=== PATIENT | female | born 1930 | race Caucasian/White ===

== ENCOUNTER 2019-07-21 13:56 | Inpatient (IN) | payer OTHER, BC ==
--- NOTE | 2019-07-21 15:04 | PDOC ---
Attending Attestation - Resident Resident Name: Pritesh Morleyelle - ED Attending Attestation I have performed the following: I have examined & evaluated the patient, The case was reviewed & discussed with the resident, I agree w/resident's findings & plan, Exceptions are as noted - HPI HPI: 07/21/19 15:57 88yo female with hx of afib on metoprolol and eliquis presents for eval of generalized weakness. Pt states she was on the toilet and was unable to get up off the toilet and get to her walker. Pt states she sat on the toilet for 4 hours before a neighbor came down and found her. Pt with bruising to posterior elbows b/l. Denies falls. Pt with bruising to buttock region- poss from sitting on the toilet. Pt denies f/c. Pt arrives in afib w rvr. Pt states she follows with Dr. Johanna roach but has not seen her in over 2 years. Pt denies n/v/d. C/o dysuria. Also c/o constipation. - Physicial Exam PE: 07/21/19 16:08 Gen: aaox3, pale, generally weak heart: +s1s2 irreg irreg lungs: coarse bs at the bases abd: soft, nt/nd +bs ext: ecchymosis to posterior elbows and buttock neuro: no focal findings, cn ii-xii grossly intact - Critical Care Time Total Critical Care Time: 35 Critical Care Statement: The care of this patient involved high complexity decision making to prevent further life threatening deterioration of the patient 's condition and/or to evaluate & treat vital organ system(s) failure or risk of failure. - Medical Decision Making 07/21/19 16:10 a/p: 88yo female with afib w rvr with generalized weakness and dysuria -unclear if she has fallen recently -will send labs, ua, ucx, blood cultures, tsh, rate control -will give lopressor iv -will discuss with cards -pt will need admission 07/21/19 16:10 HR 88 after lopressor case discussed with Dr. Herrera who is at the bedside 07/21/19 16:11 ua neg bnp 4000 07/21/19 16:47 trop neg 07/21/19 18:01 cxr clear other than cardiomegaly head ct neg abd - fecal impaction, will order enema 07/21/19 18:[address] Lindsey 07/21/19 18:34 resident discussed the case with Dr. Lindsey who accepts pt to service Heart Score/ECG Review - ECG Intrepretation Comment:: 07/21/19 16:11 afib at 109, nl axis, interventricular conduction delay, t wave inversions lateral leads, abnl ekg
[2019-07-21] MEDS ORDERED: METOPROLOL TARTRATE 5 MG/5 ML VIAL IVPUSH ONE (15:05)
--- NOTE | 2019-07-21 15:05 | PDOC ---
History of Present Illness - General Chief Complaint: Weakness Stated Complaint: Weakness Time Seen by Provider: 07/21/19 14:20 History Source: Patient, Friend - History of Present Illness Initial Comments: 07/21/19 15:07 88 yo F PMH of L Breast Ca, HTN, Afib ( on Eliquis) presents to the ED for weakness. Pt states she went to the bathroom this morning and was unable to get up from the toilet since her walker was too far away. Pt denies falling. Pt denies CP,headache, dizziness, n/v. pt states she has been constipated but did not want to take anything since she didnt want to worry about getting up to use the restroom. The pts neighbor was at bedside and stated that pt is acting unusual and unlike herself. pt also endorsed dysuria. denies fevers/chills. Past History - Past Medical History Allergies/Adverse Reactions: Allergies Allergy/AdvReac Type Severity Reaction Status Date / Time No Known Allergies Allergy Verified 07/21/19 14:31 Home Medications: Ambulatory Orders Apixaban [Eliquis] 2.5 mg PO BID 07/21/19 Diltiazem HCl [Diltiazem ER] 240 mg PO DAILY 07/21/19 Furosemide 40 mg PO DAILY 07/21/19 Metoprolol Succinate 25 mg PO DAILY 07/21/19 Pantoprazole Sodium 40 mg PO DAILY 07/21/19 Potassium Chloride 10 meq PO DAILY 07/21/19 Cancer: Yes (Left Breast) Cardiac Disorders: Yes (A-fib) COPD: No GI Disorders: Yes (GERD) HTN: Yes - Immunization History Immunization Up to Date: No - Psycho Social/Smoking Cessation Hx Smoking History: Never smoked Have you smoked in the past 12 months: No Information on smoking cessation initiated: No Hx Alcohol Use: No Drug/Substance Use Hx: No Review of Systems - Review of Systems Able to Perform ROS?: Yes Constitutional: Yes: Weakness. No: Chills, Fever HEENTM: No: Blurred Vision, Recent change in vision Respiratory: No: Shortness of Breath Cardiac (ROS): Yes: Irregular Heart Rate, Palpitations (pt states she thinks its anxiety ). No: Edema, Lightheadedness ABD/GI: Yes: Abdominal Distended, Constipated. No: Blood Streaked Bowels, Nausea, Vomiting, Tarry Stools : Yes: Dysuria, Urgency Neurological: Yes: Unsteady Gait. No: Headache Psychiatric: Yes: Anxiety *Physical Exam - Vital Signs Last Vital Signs Temp Pulse Resp BP Pulse Ox 97.8 F 123 H 18 138/68 99 07/21/19 14:24 07/21/19 14:24 07/21/19 14:24 07/21/19 14:24 07/21/19 14:24 - Physical Exam General Appearance: Yes: Appropriately Dressed. No: Apparent Distress HEENT: positive: EOMI, Normal Voice Neck: positive: Supple. negative: Decreased range of motion, Rigidity Respiratory/Chest: positive: Decreased Breath Sounds (at bases ), Crackles (R base ). negative: Respiratory Distress, Accessory Muscle Use Cardiovascular: positive: JVD, Tachycardia, Irregularly Irregular Gastrointestinal/Abdominal: positive: Normal Bowel Sounds, Soft, Distended ( midly distended ), Hepatomegaly. negative: Tender, Tenderness Rectal Exam: positive: other (much stool in vault, good sphincter tone, no external hemorrhoids visualized, no internal hemorrhoids felt, no active bleeding noted, no blood on tip of glove). negative: hemorrhoids Extremity: negative: Swelling Integumentary: positive: Erythema (buttox), Bruising (b/l elbows) Neurologic: positive: Alert, Confused, Disoriented (oriented to self ). negative: Facial Droop ED Treatment Course - LABORATORY CBC & Chemistry Diagram: 07/22/19 05:47 07/23/19 06:00 - RADIOLOGY Radiology Studies Ordered: Category Date Time Status CHEST X-RAY PORTABLE* [RAD] Stat Radiology 07/21/19 14:33 Ordered Medical Decision Making - Medical Decision Making 07/21/19 15:15 88 yo F presented to the ED with weakness and rapid Afib -r/o HF -Acute toxic metabolic encephalopathy -EKG-rapid Afib -CBC, CMP -cardiac profile, Mg, Phos, CXR -UA, UCx, BCx -CT head and Cspine- pt is altered and presents with multiple bruises -Abdomin XR- pt has large stool burden on rectal, mildly distended -TSH 07/21/19 15:19 07/21/19 18:06 -CT head: no acute intracranial pathology -Abdominal XR: -will order fleet enema 07/21/19 18:25 - elevated BNP -trop neg -CXR reviewed, awaiting final read -admit to tele Discharge - Discharge Information Problems reviewed: Yes Clinical Impression/Diagnosis: Atrial fibrillation Qualifiers: Atrial fibrillation type: unspecified Qualified Code(s): I48.91 - Unspecified atrial fibrillation - Admission Yes - Follow up/Referral - Patient Discharge Instructions - Post Discharge Activity
[2019-07-21] MEDS ORDERED: METOPROLOL TARTRATE 5 MG/5 ML VIAL ONE (15:45)
[2019-07-21 15:46] LABS: BASO % 0.2 % (0-2.0); EOS % 0.1 % (0-4.5); HEMOGLOBIN 13.4 GM/dL (10.7-15.3); LYMPH % 3.8 % (8-40); MCH 29.7 pg (25.7-33.7); MCHC 32.8 g/dl (32.0-36.0); MEAN CELL VOLUME 90.5 fl (80-96); MEAN PLT VOLUME 8.8 fl (7.5-11.1); MONO % 8.1 % (3.8-10.2); NEUT % 87.8 % (42.8-82.8); PLATELET COUNT 149 K/MM3 (134-434); RBC 4.53 M/mm3 (3.60-5.2); WHITE BLOOD COUNT 9.5 K/mm3 (4.0-10.0)
[2019-07-21 15:47] LABS: URINE APPEARANCE CLEAR; URINE BILIRUBIN NEGATIVE (NEGATIVE); URINE COLOR YELLOW; URINE GLUCOSE (UA) NEGATIVE (NEGATIVE); URINE KETONE NEGATIVE (NEGATIVE); URINE LEUK ESTERASE NEGATIVE (NEGATIVE); URINE NITRITE NEGATIVE (NEGATIVE); URINE PROTEIN NEGATIVE (NEGATIVE); URINE UROBILINOGEN 0.2 mg/dL (0.2-1.0)
[2019-07-21 15:54] LABS: N-TERMINAL BNP 4368.5 pg/ml (5-450)
[2019-07-21 15:56] LABS: INR 1.68 (0.83-1.09); PROTHROMBIN TIME (PATIENT) 19.9 SEC (9.7-13.0)
[2019-07-21 15:58] LABS: ACTIVATED PTT 32.4 SECONDS (25.2-36.5)
[2019-07-21 16:30] LABS: ALBUMIN 3.3 g/dl (3.4-5.0); ALK PHOS 66 U/L (45-117); ANION GAP 11 MMOL/L (8-16); BILIRUBIN,TOTAL 0.9 mg/dL (0.2-1); BLOOD UREA NITROGEN 17.9 mg/dL (7-18); CALCIUM 7.7 mg/dL (8.5-10.1); CHLORIDE 106 mmol/L (98-107); CO2 23 mmol/L (21-32); CREATININE 0.9 mg/dL (0.55-1.3); GLUCOSE,RANDOM 110 mg/dL (74-106); POTASSIUM 3.8 mmol/L (3.5-5.1); SGOT/AST 32 U/L (15-37); SGPT/ALT 22 U/L (13-61); SODIUM 140 mmol/L (136-145); TOT PROT 6.4 g/dl (6.4-8.2)
--- NOTE | 2019-07-21 16:38 | CON.CARD ---
Consult Consult Specialty:: Cardiology Referred by:: ER Reason for Consultation:: afib - History of Present Illness Chief Complaint: weakness History of Present Illness: 88F h/o L breast cancer, HTN, afib on eliquis p/w weakness. Went to the bathroom this morning, unable to get up from the toilet, walker was too far away. Her neighbor found her hours later and brought her to ER. No chest pain , palps, dizziness, dyspnea. Per patient's neighbor she is generally independent, cooks for herself and takes care of her home. Complains of abd pain, dysuria. Initially in ER she had afib with RVR. Sees Dr. Rivas at [facility] for cardio, PCP Dr. Severino. - Alcohol/Substance Use Hx Alcohol Use: No - Smoking History Smoking history: Never smoked Have you smoked in the past 12 months: No Home Medications - Allergies Allergies/Adverse Reactions: Allergies Allergy/AdvReac Type Severity Reaction Status Date / Time No Known Allergies Allergy Verified 07/21/19 14:31 - Home Medications Home Medications: Ambulatory Orders NK [No Known Home Medication] 06/18/16 Family Medical History Family History: Unremarkable Review of Systems - Review of Systems Constitutional: reports: Malaise Eyes: reports: No Symptoms HENT: reports: No Symptoms Neck: reports: No Symptoms Cardiovascular: reports: No Symptoms Respiratory: reports: No Symptoms Gastrointestinal: reports: No Symptoms Genitourinary: reports: No Symptoms Musculoskeletal: reports: No Symptoms Integumentary: reports: No Symptoms Neurological: reports: No Symptoms Endocrine: reports: No Symptoms Hematology/Lymphatic: reports: No Symptoms Psychiatric: reports: No Symptoms Vital Signs: Vital Signs Temperature 97.8 F 07/21/19 14:24 Pulse Rate 123 H 07/21/19 14:24 Respiratory Rate 18 07/21/19 14:24 Blood Pressure 123/61 07/21/19 15:57 O2 Sat by Pulse Oximetry (%) 99 07/21/19 14:24 Constitutional: Yes: No Distress, Calm Eyes: Yes: Conjunctiva Clear, EOM Intact HENT: Yes: Atraumatic, Normocephalic Neck: Yes: Supple, Trachea Midline Respiratory: Yes: Regular, CTA Bilaterally Gastrointestinal: Yes: Normal Bowel Sounds, Soft Cardiovascular: Yes: Tachycardia, Pulse Irregular PMI: Non-Displaced Murmur: Yes: Systolic Murmur, Grade 3 Extremities: No: Cold Edema: No Integumentary: No: Jaundice Neurological: Yes: Alert, Oriented Psychiatric: No: Agitated - Other Data Labs, Other Data: CBC, BMP 07/21/19 15:00 07/21/19 14:41 INR, PTT INR 1.68 (0.83-1.09) H 07/21/19 15:00 Troponin, BNP 07/21/19 14:41 Troponin I < 0.02 B-Natriuretic Peptide 4368.5 H Troponin, BNP 07/21/19 14:41 Troponin I < 0.02 B-Natriuretic Peptide 4368.5 H Assessment/Plan tele: afib rate 100s-110s Atrial fibrillation - cont eliquis - on metoprolol twice a day at home - not sure of dose, would confirm home meds - will start metoprolol succinate 25 mg BID here, uptitrate as tolerated - echo ordered - TSH wnl elevated BNP - per patient and neighbor no history of CHF - euvolemic on exam, however BNP elevated - on lasix at home - need to confirm dose, per patient's friend she has a history of edema which improved with lasix - echo pending as above HTN - has low BP here - hold home meds for now Weakness, dysuria, abd pain - workup per primary
[2019-07-21] MEDS: metoPROLOL SUCCINATE 25 MG TAB.SR.24H (FP) PO SCH (17:58)
[2019-07-21] MEDS ORDERED: SODIUM PHOSPHATE/NA BIPHOS 133 ML ENEMA PR ONE (18:01)
--- NOTE | 2019-07-21 18:55 | HP ---
Admitting History and Physical - Primary Care Physician PCP: Robert Lindsey - Admission Chief Complaint: Weakness History of Present Illness: Pt with known HTN, A fib (on AC) in her USOH, lives alone, using a walker for ambulation, couldn't get up of toilet for hours ( couldn't reach the walker) today until was found by her neighbour who brought her to ER. In ER it was noticed to by in A Fib with RVR, recieved IV Metoprolol with improvement in HR. History Source: Patient Limitations to Obtaining History: No Limitations - Past Medical History Cardiovascular: Yes: AFIB (on Eliquis), HTN Heme/Onc: Yes: Cancer (left breast) - Smoking History Smoking history: Never smoked Have you smoked in the past 12 months: No - Alcohol/Substance Use Hx Alcohol Use: No Home Medications - Allergies Allergies/Adverse Reactions: Allergies Allergy/AdvReac Type Severity Reaction Status Date / Time No Known Allergies Allergy Verified 07/21/19 14:31 - Home Medications Home Medications: Ambulatory Orders Apixaban [Eliquis] 2.5 mg PO BID 07/21/19 Diltiazem HCl [Diltiazem ER] 240 mg PO DAILY 07/21/19 Furosemide 40 mg PO DAILY 07/21/19 Metoprolol Succinate 25 mg PO DAILY 07/21/19 Pantoprazole Sodium 40 mg PO DAILY 07/21/19 Potassium Chloride 10 meq PO DAILY 07/21/19 Review of Systems - Review of Systems Constitutional: denies: Chills, Fever Eyes: reports: Double Vision. denies: Blurred Vision HENT: denies: Ear Discharge, Nasal Congestion, Throat Pain Neck: denies: Pain on Movement, Stiffness Cardiovascular: denies: Chest Pain, Edema Respiratory: denies: Cough, SOB Gastrointestinal: denies: Abdominal Pain, Nausea, Vomiting Genitourinary: denies: Burning, Frequency Musculoskeletal: denies: Back Pain, Joint Swelling Integumentary: denies: Bruising, Rash Neurological: denies: Change in LOC, Confusion, Numbness, Syncope Endocrine: denies: Excessive Sweating, Intolerance to Cold Hematology/Lymphatic: denies: Easily Bruised, Excessive Bleeding Psychiatric: denies: Anxiety, Depression Physical Examination Vital Signs: Vital Signs Temperature 97.8 F 07/21/19 14:24 Pulse Rate 99 H 07/21/19 17:57 Respiratory Rate 23 H 07/21/19 17:57 Blood Pressure 122/55 L 07/21/19 17:57 O2 Sat by Pulse Oximetry (%) 99 07/21/19 17:57 Constitutional: Yes: No Distress, Calm Eyes: Yes: Conjunctiva Clear, EOM Intact HENT: No: Epistaxis, Rhinnorhea Neck: Yes: Trachea Midline. No: Lymphadenopathy Cardiovascular: Yes: Pulse Irregular, S1, S2 Respiratory: Yes: Regular, CTA Bilaterally. No: Rales Gastrointestinal: Yes: Normal Bowel Sounds, Soft, Hepatomegaly. No: Splenomegaly, Tenderness ...Rectal Exam: Yes: Deferred Renal/: No: CVA Tenderness - Left, CVA Tenderness - Right Breast(s): Yes: Other (deferred) Musculoskeletal: No: Back Pain, Joint Swelling Extremities: No: Cool, Cyanosis Edema: No Integumentary: Yes: Bruising (large bruise of the left elbow) Neurological: Yes: Alert, Oriented, Other (motor and sensory examination is symmetric in UE/ LE/ face) Labs: CBC, BMP 07/21/19 15:00 07/21/19 14:41 Imaging - Results Chest X-ray: Report Reviewed X-ray: Report Reviewed Cat Scan: Report Reviewed Problem List - Problems (1) Atrial fibrillation with rapid ventricular response Code(s): I48.91 - UNSPECIFIED ATRIAL FIBRILLATION (2) Weakness Code(s): R53.1 - WEAKNESS (3) HTN (hypertension) Code(s): I10 - ESSENTIAL (PRIMARY) HYPERTENSION (4) Elevated brain natriuretic peptide (BNP) level Code(s): R79.89 - OTHER SPECIFIED ABNORMAL FINDINGS OF BLOOD CHEMISTRY Assessment/Plan Admit to Telemetry Cardio Consult Serial CE ECHO AM labs
[2019-07-22] MEDS: metoPROLOL SUCCINATE 25 MG TAB.SR.24H (FP) PO SCH ×3 (00:27→21:20)
[2019-07-22] MEDS: APIXABAN 2.5 MG TABLET PO SCH ×3 (00:27→21:20)
[2019-07-22 06:05] LABS: HEMATOCRIT 39.3 % (32.4-45.2); HEMOGLOBIN 13.3 GM/dL (10.7-15.3); MCH 30.4 pg (25.7-33.7); MCHC 33.9 g/dl (32.0-36.0); MEAN CELL VOLUME 89.7 fl (80-96); MEAN PLT VOLUME 8.3 fl (7.5-11.1); PLATELET COUNT 162 K/MM3 (134-434); RBC 4.38 M/mm3 (3.60-5.2); RDW 15.2 % (11.6-15.6); WHITE BLOOD COUNT 8.1 K/mm3 (4.0-10.0)
[2019-07-22 06:20] LABS: ALBUMIN 3.1 g/dl (3.4-5.0); BILIRUBIN,TOTAL 0.8 mg/dL (0.2-1); BLOOD UREA NITROGEN 19.3 mg/dL (7-18); CALCIUM 8.1 mg/dL (8.5-10.1); CREATININE 0.8 mg/dL (0.55-1.3); POTASSIUM 3.5 mmol/L (3.5-5.1)
--- NOTE | 2019-07-22 09:38 | CON.CARD ---
Consult Consult Specialty:: Cardiology Referred by:: Dr. Lindsey Reason for Consultation:: Atrial fibrillation - History of Present Illness Chief Complaint: Weakness History of Present Illness: 88F HTN/AF could not rise from the toilet due to weakness. No CP, SOB, Palps. Friend called EMS and brought to hospital. In ER, AF w/ mild RVR. Cardiac enzymes neg Seen and examined in Cardiology: denies CP. Denies SOB. Denies Palps. No focal neuro findings - History Source History Provided By: Patient, Medical Record - Past Medical History Cardio/Vascular: Yes: AFIB (on Eliquis), HTN Pulmonary: No: Asthma, Bronchitis, Cancer, COPD, O2 Dependent, Pneumonia, Previously Intubated, Pulmonary Embolus, Pulmonary Fibrosis, Sleep Apnea, Other Gastrointestinal: No: Ascites, Cancer, Constipation, Crohn's Disease, Diverticulitis, Diverticulosis, Esophageal Varices, Gastritis, GERD, GI Bleed, Hemorrhoids, Hiatal Hernia, Inflamatory Bowel Disease, Irritable Bowel Disease, Pancreatitis, Peptic Ulcer Disease, Ulcerative Colitis, Other Hepatobiliary: No: Cirrhosis, Cholelithiasis, Cholecystitis, Choledocholithiasis , Hepatitis A, Hepatitis B, Hepatitis C, Other Renal/: No: Renal Failure, Renal Inusuff, BPH, Cancer, Hematuria, Hemodialysis , Neurogenic Bladder, Renal Calculi, UTI, Other Reproductive: No: Ectopic , Endometriosis, Fibroids, PID, Polycystic Ovary Syndrome, Postmenopausal, Other Heme/Onc: No: Anemia, B12 Deficiency, Bleeding Disorder, Cancer, Current Chemotherapy, Current Radiation Therapy, Hemochromatosis, Hypercoaguable State, Myeloproliferative Synd, Sickle Cell Disease, Sickle Cell Trait, Thrombocytopenia, Other Infectious Disease: No: AIDS, C-Diff, Herpes Zoster, HIV, MRSA, STD's, Tuberculosis, VREF, Other Psych: No: Addictions, Anxiety, Bipolar, Depression, Panic, Psychosis, Schizophrenia, Other Musculoskeletal: No: Bursitis, Chronic low back pain, Hemiparesis, Hemiplegia, Osteoarthritis, Paraplegia, Other Rheumatology: No: Fibromyalgia, Gout, Lupus, Rheumatoid Arthritis, Sarcoidosis, Vasculitis, Other ENT: No: Allergic Rhinitis, Sinusitis, Other Endocrine: No: Island's Disease, [place]'s Disease, Diabetes Insipidus, Diabetes Mellitus, Hyperparathyroidism, Hyperthyroidism, Hypothyroidism, Osteopenia, SIADH, Other - Past Surgical History Past Surgical History: No: None, AAA Repair, AICD, Amputation, Appendectomy, Arthrosocopy, AV Fistula/Graft, Bariatric Surgery, Breast Biopsy, Bypass, CABG, Carotid Endarterectomy, Cataract Removal, Cholecystectomy, Colectomy, Colonoscopy, Colostomy, Craniotomy, , Cystectomy, Hernia Repair, Hysterectomy, Ileal Conduit, Ileosotomy, Joint Replacement, Kidney Transplant, Laminectomy, Liver Transplant, Mastectomy, Nephrectomy, Oopherectomy, Orchiectomy, Permanent Pacemaker, Prostatectomy, Splenectomy, Stent, Thoracotomy , TURP, Tonsillectomy, Tubal Ligation, Upper Endoscopy, Valve Replacement, Vasectomy, Vein Stripping/Ligation - Alcohol/Substance Use Hx Alcohol Use: No History of Substance Use: denies: None, Cocaine, Heroin, Marijuana, Prescription , Tranquilizers - Smoking History Smoking history: Never smoked Have you smoked in the past 12 months: No - Social History History of Recent Travel: No Home Medications - Allergies Allergies/Adverse Reactions: Allergies Allergy/AdvReac Type Severity Reaction Status Date / Time No Known Allergies Allergy Verified 07/21/19 14:31 - Home Medications Home Medications: Ambulatory Orders Apixaban [Eliquis] 2.5 mg PO BID 07/21/19 Diltiazem HCl [Diltiazem ER] 240 mg PO DAILY 07/21/19 Furosemide 40 mg PO DAILY 07/21/19 Metoprolol Succinate 25 mg PO DAILY 07/21/19 Pantoprazole Sodium 40 mg PO DAILY 07/21/19 Potassium Chloride 10 meq PO DAILY 07/21/19 Family Medical History Family History: Unremarkable (not pertinent to this presentation) Review of Systems Findings/Remarks: see HPI - Review of Systems Constitutional: reports: Weakness Eyes: denies: No Symptoms, Blind Spots, Blurred Vision, Double Vision, Eye Pain , Floaters, Photophobia, Recent Change in Vision, Other HENT: denies: No Symptoms, Difficult Swallowing, Ear Discharge, Ear Pain, Epistaxis, Gingival Bleeding, Hearing Loss, Mouth Swelling, Nasal Congestion, Ocular Prosthesis, Throat Pain, Toothache, Ringing in Ears, Other Neck: denies: No Symptoms, Decreased ROM, Lumps, Pain on Movement, Stiffness, Swollen Glands, Tenderness, Other Cardiovascular: denies: No Symptoms, Chest Pain, Edema, Palpitations, Shortness of Breath, Other Respiratory: denies: No Symptoms, Cough, Exercise Intolerance, Hemoptysis, Orthopnea, PND, Snoring, SOB, SOB on Exertion, Wheezing, Other Gastrointestinal: denies: No Symptoms, Abdominal Pain, Bloating, Constipation, Diarrhea, Dysphagia, Indigestion, Melena, Nausea, Rectal Bleeding, Vomiting, Vomiting Blood, Other Genitourinary: denies: No Symptoms, Burning, Discharge, Dysuria, Flank Pain, Frequency, Hematuria, Incontinence, Lesions, Menses, Pain, Testicular Mass, Testicular Pain, Testicular Swelling, Urgency, Vaginal Bleeding, Other Breasts: denies: No Symptoms Reported, See HPI, Breast Implants, Discharge from Nipple, Lumps, Pain, Skin Changes, Other Musculoskeletal: denies: No Symptoms, Back Pain, Crepitus, Decreased ROM, Extremity Pain, Joint Pain, Joint Swelling, Muscle Pain, Muscle Cramps, Muscle Weakness, Other Integumentary: denies: No Symptoms, Blister, Bruising, Change in Color, Eczema, Erythema, Incision, Lesions, Lump, Pallor, Pruritis, Rash, Wound, Other Neurological: denies: No Symptoms, Change in LOC, Change in Speech, Confusion, Dizziness, Headache, Incoordination, Numbness, Parasthesia, Pre-Existing Deficit , Seizure, Syncope, Tremors, Unsteady Gait, Weakness, Other Endocrine: denies: No Symptoms, Excessive Sweating, Flushing, Increased Hunger, Increased Thirst, Intolerance to Cold, Intolerance to Heat, Unexplained Weight Gain, Unexplained Weight Loss, Other Hematology/Lymphatic: denies: No Symptoms, Easily Bruised, Excessive Bleeding, Swollen Glands, Other Psychiatric: denies: No Symptoms, Altered Sleep Pattern, Anxiety, Depression, Hallucinations, Panic, Paranoia, Suicidal, Other - Risk Factors Known Risk Factors: Yes: Hypertension Vital Signs: Vital Signs Temperature 97.8 F 07/21/19 14:24 Pulse Rate 85 07/22/19 05:28 Respiratory Rate 23 H 07/22/19 05:28 Blood Pressure 118/64 07/22/19 05:28 O2 Sat by Pulse Oximetry (%) 96 07/22/19 05:28 Constitutional: Yes: No Distress, Calm Eyes: Yes: Conjunctiva Clear HENT: Yes: Atraumatic Respiratory: Yes: CTA Bilaterally Gastrointestinal: Yes: Soft (NT) Cardiovascular: Yes: Pulse Irregular Heart Sounds: Yes: S1, S2 Murmur: Yes: Systolic Murmur, Grade 2 (RSB c/w possible ) Edema: No Peripheral Pulses WNL: Yes Neurological: Yes: Alert, Oriented ...Motor Strength: WNL - Other Data Labs, Other Data: CBC, BMP 07/22/19 05:47 07/22/19 05:47 INR, PTT INR 1.68 (0.83-1.09) H 07/21/19 15:00 Troponin, BNP 07/21/19 07/22/19 14:41 05:00 Troponin I < 0.02 0.02 B-Natriuretic Peptide 4368.5 H Troponin, BNP 07/21/19 07/22/19 14:41 05:00 Troponin I < 0.02 0.02 B-Natriuretic Peptide 4368.5 H Microbiology 07/21/19 15:00 Urine - Urine Clean Catch Urine Culture - Final Normal Urogenital Vicki Laboratory Tests 07/21/19 07/22/19 07/22/19 14:41 05:00 05:47 WBC 8.1 Hgb 13.3 Plt Count 162 Sodium Potassium Creatinine Creatine Kinase 323 H 363 H Troponin I < 0.02 0.02 B-Natriuretic Peptide 4368.5 H 07/22/19 05:47 WBC Hgb Plt Count Sodium 142 Potassium 3.5 Creatinine 0.8 Creatine Kinase Troponin I B-Natriuretic Peptide AF 109bpm, IVCD, NSST changes Echo: Pending Imaging - Results X-ray: Image Reviewed Cat Scan: Report Reviewed EKG: Image Reviewed Assessment/Plan IMP: AF w/ RVR Murmur, r/o Generalized weakness- nonspecific Elevated BNP REC: 1. Tele 2. Echo to assess murmur, r/o 3. Cont Toprol and Eliquis adjusted for age, weight and renal fx 4. PO Lasix for now. Will follow Thank you.
--- NOTE | 2019-07-22 10:48 | ECHO ---
Name: JAZMIN GARCES Exam:Adult Echocardiogram Study Date: 07/22/2019 09:11 AM Age: 88 yrs Reason For Study: a fib Height: 58 in Weight: 86 lb BSA: 1.3 m2 MMode/2D Measurements & Calculations IVSd: 0.68 cm Ao root diam: 2.2 cm LVIDd: 4.4 cm LA dimension: 3.4 cm LVIDs: 3.1 cm LVPWd: 0.55 cm IVSs: 0.86 cm LVPWs: 0.82 cm EDV(Teich): 89.8 ml ESV(Teich): 37.1 ml LVOT diam: 2.0 cm Doppler Measurements & Calculations MV E max kishore: 95.8 cm/sec Ao V2 max: 206.7 cm/sec MV A max kishore: 28.6 cm/sec Ao max P.3 mmHg MV E/A: 3.3 Ao V2 mean: 137.1 cm/sec Ao mean P.3 mmHg Ao V2 VTI: 34.5 cm NAT(I,D): 1.8 cm2 AI P1/2t: 469.3 msec NAT(V,D): 2.0 cm2 AI max kishore: 364.0 cm/sec LV V1 max P.8 mmHg AI max P.2 mmHg LV V1 mean P.1 mmHg AI dec slope: 227.2 cm/sec2 LV V1 max: 130.5 cm/sec LV V1 mean: 78.7 cm/sec LV V1 VTI: 19.5 cm MR max kishore: 494.8 cm/sec SV(LVOT): 61.3 ml MR max P.0 mmHg TR max kishore: 249.3 cm/sec Med Peak E' Kishore: 3.5 cm/sec TR max P.9 mmHg Med E/e': 27.3 Lat Peak E' Kishore: 9.8 cm/sec Lat E/e': 9.8 Left Ventricle Left ventricular systolic function is normal. Ejection Fraction = 55-60%. Right Ventricle The right ventricle is normal in size and function. Atria The left atrium is severely dilated. The right atrium is borderline dilated. Mitral Valve Prolapse of the posterior mitral leaflet(s). The mitral regurgitant jet is eccentrically directed. At least moderate mitral regurgitation, the severity of which may be underestimated due to the eccentric natur e of the MR jet. Tricuspid Valve The tricuspid valve is normal in structure and function. There is moderate tricuspid regurgitation. R ight ventricular systolic pressure is elevated at 30-40mmHg. Aortic Valve Mild valvular aortic stenosis. Mild aortic regurgitation. Pulmonic Valve The pulmonic valve is not well seen, but is grossly normal. There is no pulmonic valvular stenosis. Great Vessels The aortic root is normal size. Pericardium/Pleura There is no pericardial effusion. Interpretation Summary Left ventricular systolic function is normal. Ejection Fraction = 55-60%. The right ventricle is normal in size and function. The left atrium is severely dilated. Prolapse of the posterior mitral leaflet(s). The mitral regurgitant jet is eccentrically directed. At least moderate mitral regurgitation, the severity of which may be underestimated due to the eccent claudine nature of the MR jet. There is moderate tricuspid regurgitation. Right ventricular systolic pressure is elevated at 30-40mmHg. Mild valvular aortic stenosis. Mild aortic regurgitation. There is no pericardial effusion. MD Panda *Jon 07/22/2019 10:48 AM
[2019-07-22] MEDS: PANTOPRAZOLE 40 MG TABLET (FP) PO SCH (11:06)
[2019-07-22] MEDS: POTASSIUM CHLORIDE TABS 10 MEQ TABLET.ER (FP) PO SCH (11:06)
[2019-07-22] MEDS: FUROSEMIDE 40 MG TABLET (FP) PO SCH (11:06)
--- NOTE | 2019-07-22 14:02 | EKG ---
Test Reason : Blood Pressure : / mmHG Vent. Rate : 109 BPM Atrial Rate : 093 BPM P-R Int : 000 ms QRS Dur : 126 ms QT Int : 374 ms P-R-T Axes : 000 019 187 degrees QTc Int : 503 ms ATRIAL FIBRILLATION WITH RAPID VENTRICULAR RESPONSE LEFT BUNDLE BRANCH BLOCK NONSPECIFIC T WAVE ABNORMALITY ABNORMAL ECG NO PREVIOUS ECGS AVAILABLE Confirmed by AGUSTIN CARDOZO MD ([id number]) on 07/22/2019 2:02:42 PM Referred By: Confirmed By:AGUSTIN CARDOZO MD
[2019-07-22] MEDS: ACETAMINOPHEN 325 MG TABLET (FP) PO PRN (18:10)
--- NOTE | 2019-07-22 19:32 | PN ---
Progress Note, Physician History of Present Illness: Pt w/o SOB, CP, palpitations, dizziness, abd pain. Pt w/o hip or leg pain - Current Medication List Current Medications: Active Medications Acetaminophen (Tylenol -) 650 mg PO Q6H PRN PRN Reason: PAIN 2-5 Last Admin: 07/22/19 18:10 Dose: 650 mg Apixaban (Eliquis -) 2.5 mg PO BID [facility] Last Admin: 07/22/19 11:06 Dose: 2.5 mg Furosemide (Lasix -) 40 mg PO DAILY [facility] Last Admin: 07/22/19 11:06 Dose: 40 mg Influenza Virus Vaccine Quadrival (Flulaval Quad [id number]) 60 mcg IM .ONCE ONE Stop: 07/23/19 10:01 Metoprolol Succinate (Toprol Xl -) 25 mg PO BID [facility] Last Admin: 07/22/19 11:06 Dose: 25 mg Metoprolol Tartrate (Lopressor Injection -) 5 mg IVPUSH Q4H PRN PRN Reason: TACHYCARDIA Pantoprazole Sodium (Protonix -) 40 mg PO DAILY [facility] Last Admin: 07/22/19 11:06 Dose: 40 mg Potassium Chloride (K-Dur -) 10 meq PO DAILY [facility] Last Admin: 07/22/19 11:06 Dose: 10 meq - Objective Vital Signs: Vital Signs Temperature 98 F 07/22/19 18:11 Pulse Rate 104 H 07/22/19 18:11 Respiratory Rate 20 07/22/19 18:11 Blood Pressure 120/65 07/22/19 18:11 O2 Sat by Pulse Oximetry (%) 95 07/22/19 18:22 Constitutional: Yes: No Distress, Calm Cardiovascular: Yes: Regular Rate and Rhythm, Murmur, S1, S2 Respiratory: Yes: Regular, CTA Bilaterally. No: Rales Gastrointestinal: Yes: Normal Bowel Sounds, Soft. No: Tenderness Edema: No Neurological: Yes: Alert, Oriented Labs: CBC, BMP 07/22/19 05:47 07/22/19 05:47 INR, PTT INR 1.68 (0.83-1.09) H 07/21/19 15:00 Problem List - Problems (1) Atrial fibrillation with rapid ventricular response Code(s): I48.91 - UNSPECIFIED ATRIAL FIBRILLATION (2) Weakness Code(s): R53.1 - WEAKNESS (3) HTN (hypertension) Code(s): I10 - ESSENTIAL (PRIMARY) HYPERTENSION (4) Elevated brain natriuretic peptide (BNP) level Code(s): R79.89 - OTHER SPECIFIED ABNORMAL FINDINGS OF BLOOD CHEMISTRY (5) Hypoalbuminemia Code(s): E88.09 - [facility] DISORDERS OF PLASMA-PROTEIN METABOLISM, NEC (6) Mitral regurgitation Assessment/Plan: moderate Code(s): I34.0 - NONRHEUMATIC MITRAL (VALVE) INSUFFICIENCY (7) Tricuspid regurgitation Assessment/Plan: moderate Code(s): I07.1 - RHEUMATIC TRICUSPID INSUFFICIENCY (8) Aortic regurgitation Assessment/Plan: mild Code(s): I35.1 - NONRHEUMATIC AORTIC (VALVE) INSUFFICIENCY (9) Aortic stenosis Assessment/Plan: mild Code(s): I35.0 - NONRHEUMATIC AORTIC (VALVE) STENOSIS Assessment/Plan Admitted to Telemetry Cardio Consult is appreciated Serial CE are negative ECHO c/w normal LVF, MR, MT, AR, AM labs
[2019-07-23] MEDS: METOPROLOL TARTRATE 5 MG/5 ML VIAL IVPUSH PRN (05:24)
[2019-07-23 07:55] LABS: BLOOD UREA NITROGEN 29.1 mg/dL (7-18); CALCIUM 8.9 mg/dL (8.5-10.1); CREATININE 0.8 mg/dL (0.55-1.3); POTASSIUM 3.3 mmol/L (3.5-5.1)
[2019-07-23] MEDS: APIXABAN 2.5 MG TABLET PO SCH ×2 (09:09→21:11)
[2019-07-23] MEDS: metoPROLOL SUCCINATE 25 MG TAB.SR.24H (FP) PO SCH ×2 (09:09→21:12)
[2019-07-23] MEDS: FUROSEMIDE 40 MG TABLET (FP) PO SCH (09:09)
[2019-07-23] MEDS: ACETAMINOPHEN 325 MG TABLET (FP) PO PRN ×3 (09:09→21:12)
[2019-07-23] MEDS: POTASSIUM CHLORIDE TABS 10 MEQ TABLET.ER (FP) PO SCH (09:09)
[2019-07-23] MEDS: PANTOPRAZOLE 40 MG TABLET (FP) PO SCH (09:09)
[2019-07-23] MEDS ORDERED: FLU VACCINE QUAD 60 MCG/0.5 ML (MDV 19-20) IM ONE (10:00)
--- NOTE | 2019-07-23 10:54 | PN ---
Progress Note (short form) - Note Progress Note: s: no cp sob palps dizzy Active Medications Generic Name Dose Route Start Last Admin Trade Name Freq PRN Reason Stop Dose Admin Acetaminophen 650 mg 07/22/19 17:52 07/23/19 09:09 Tylenol - PO 650 mg Q6H PRN Administration PAIN 2-5 Apixaban 2.5 mg 07/21/19 22:45 07/23/19 09:09 Eliquis - PO 2.5 mg BID [facility] Administration Furosemide 40 mg 07/22/19 10:00 07/23/19 09:09 Lasix - PO 40 mg DAILY [facility] Administration Metoprolol Succinate 25 mg 07/21/19 16:37 07/23/19 09:09 Toprol Xl - PO 25 mg BID [facility] Administration Metoprolol Tartrate 5 mg 07/21/19 16:38 07/23/19 05:24 Lopressor Injection - IVPUSH 5 mg Q4H PRN Administration TACHYCARDIA Pantoprazole Sodium 40 mg 07/22/19 10:00 07/23/19 09:09 Protonix - PO 40 mg DAILY [facility] Administration Potassium Chloride 10 meq 07/22/19 10:00 07/23/19 09:09 K-Dur - PO 10 meq DAILY [facility] Administration Vital Signs Period Temp Pulse Resp BP Sys/Sheldon Pulse Ox Last 24 Hr 97.4 F-98.0 F 94-134 17-20 109-135/61-85 93-95 Constitutional: Yes: No Distress, Calm Eyes: Yes: Conjunctiva Clear Respiratory: Yes: CTA Bilaterally Gastrointestinal: Yes: Soft (NT) Cardiovascular: Yes: Pulse Irregular Heart Sounds: Yes: S1, S2 Murmur: Yes: Systolic Murmur, Grade 2 (RSB c/w possible ) Edema: No Peripheral Pulses WNL: Yes Neurological: Yes: Alert, Oriented no jaundice diaphoresis CBC, BMP 07/22/19 05:47 07/23/19 06:00 tele: afib, rvr at times Imaging - Results X-ray: Image Reviewed Cat Scan: Report Reviewed EKG: Image Reviewed Assessment/Plan IMP: AF w/ RVR Murmur, r/o Generalized weakness- nonspecific Elevated BNP REC: 1. Still with rvr at times, will increase toprol. cont tele. 2. Echo here with nl ventricular fcn, no severe valve dz. 3. Cont Eliquis adjusted for age, weight and renal fx 4. PO Lasix for now.
--- NOTE | 2019-07-23 11:58 | PN ---
Progress Note, Physician Chief Complaint: in bed awake alert NAD no new c/o, very weak generally said she can't get OOB nonfocal; occasional OA DJD Pains back, legs on tylenol prn - Current Medication List Current Medications: Active Medications Acetaminophen (Tylenol -) 650 mg PO Q6H PRN PRN Reason: PAIN 2-5 Last Admin: 07/23/19 09:09 Dose: 650 mg Apixaban (Eliquis -) 2.5 mg PO BID [facility] Last Admin: 07/23/19 09:09 Dose: 2.5 mg Furosemide (Lasix -) 40 mg PO DAILY [facility] Last Admin: 07/23/19 09:09 Dose: 40 mg Metoprolol Succinate (Toprol Xl -) 50 mg PO BID [facility] Metoprolol Tartrate (Lopressor Injection -) 5 mg IVPUSH Q4H PRN PRN Reason: TACHYCARDIA Last Admin: 07/23/19 05:24 Dose: 5 mg Pantoprazole Sodium (Protonix -) 40 mg PO DAILY [facility] Last Admin: 07/23/19 09:09 Dose: 40 mg Potassium Chloride (K-Dur -) 10 meq PO DAILY [facility] Last Admin: 07/23/19 09:09 Dose: 10 meq - Objective Vital Signs: Vital Signs Temperature 97.7 F 07/23/19 09:00 Pulse Rate 94 H 07/23/19 09:00 Respiratory Rate 19 07/23/19 09:00 Blood Pressure 135/64 07/23/19 09:00 O2 Sat by Pulse Oximetry (%) 95 07/23/19 09:00 Constitutional: Yes: No Distress, Calm Eyes: Yes: Conjunctiva Clear HENT: Yes: Atraumatic Neck: Yes: Supple Cardiovascular: No: Regular Rate and Rhythm Respiratory: Yes: Diminished Gastrointestinal: Yes: Soft. No: Tenderness Genitourinary: No: Hematuria Musculoskeletal: Yes: Joint Stiffness (OA DJD legs). No: Joint Swelling Extremities: No: Calf Tenderness, Cold, Cool, Cyanosis, Deformity Edema: No Integumentary: No: Rash, Venous Stasis Changes Neurological: Yes: Alert ...Motor Strength: WNL Psychiatric: Yes: Alert. No: Agitated, Suicidal Ideation Labs: CBC, BMP 07/22/19 05:47 07/23/19 06:00 INR, PTT INR 1.68 (0.83-1.09) H 07/21/19 15:00 - ....Imaging Other: Report Reviewed Assessment/Plan 88 yo F PMH of L Breast Ca, HTN, Afib ( on Eliquis) admitted vis ED for weakness and confusion, unable to walk; lives alone CT and xrays and consults noted PT and CM eval will need SNF tachycardia, AFib: cardiology f/u tylenol prn OA DJD f/u labs and cultures r/o UTI falls decubs DVT aspiration pfx d/w pt and staff
[2019-07-23] MEDS ORDERED: PT OWN MED DRAWER 7, Y5N ONE (16:33)
[2019-07-24] MEDS: ACETAMINOPHEN 325 MG TABLET (FP) PO PRN ×3 (02:59→17:33)
--- NOTE | 2019-07-24 09:01 | PN ---
Progress Note, Physician Chief Complaint: anxious, c/o pain in her knees and hips especially R hipno fractures per Xrays will ask ortho input; increase pain meds tachycardic; no CP SOB - Current Medication List Current Medications: Active Medications Acetaminophen (Tylenol -) 650 mg PO Q6H PRN PRN Reason: PAIN 2-5 Last Admin: 07/24/19 02:59 Dose: 650 mg Apixaban (Eliquis -) 2.5 mg PO BID [facility] Last Admin: 07/23/19 21:11 Dose: 2.5 mg Furosemide (Lasix -) 40 mg PO DAILY [facility] Last Admin: 07/23/19 09:09 Dose: 40 mg Metoprolol Succinate (Toprol Xl -) 50 mg PO BID [facility] Last Admin: 07/23/19 21:12 Dose: 50 mg Metoprolol Tartrate (Lopressor Injection -) 5 mg IVPUSH Q4H PRN PRN Reason: TACHYCARDIA Last Admin: 07/23/19 05:24 Dose: 5 mg Pantoprazole Sodium (Protonix -) 40 mg PO DAILY [facility] Last Admin: 07/23/19 09:09 Dose: 40 mg Potassium Chloride (K-Dur -) 20 meq PO DAILY [facility] - Objective Vital Signs: Vital Signs Temperature 97.9 F 07/24/19 02:00 Pulse Rate 122 H 07/24/19 02:00 Respiratory Rate 19 07/24/19 02:00 Blood Pressure 135/57 L 07/24/19 02:00 O2 Sat by Pulse Oximetry (%) 95 07/23/19 21:00 Constitutional: Yes: Anxious Eyes: Yes: Conjunctiva Clear HENT: Yes: Atraumatic Neck: Yes: Supple Cardiovascular: No: Regular Rate and Rhythm Respiratory: Yes: Diminished Gastrointestinal: Yes: Soft. No: Tenderness Genitourinary: No: Hematuria Musculoskeletal: Yes: Joint Stiffness. No: Joint Swelling Extremities: No: Cold, Cool Edema: No Integumentary: No: Rash, Venous Stasis Changes Neurological: Yes: Alert ...Motor Strength: WNL Psychiatric: Yes: Alert. No: Agitated, Suicidal Ideation Labs: CBC, BMP 07/22/19 05:47 07/23/19 06:00 INR, PTT INR 1.68 (0.83-1.09) H 07/21/19 15:00 - ....Imaging Other: Report Reviewed Assessment/Plan 88 yo F PMH of L Breast Ca, HTN, Afib ( on Eliquis) admitted vis ED for weakness and confusion, unable to walk; lives alone CT and xrays and consults noted PT and CM eval will need SNF tachycardia, AFib: cardiology f/u; add cardizem CD 120 mg/d for tachycardia (pt was on it at home) tylenol prn OA DJD, percocet x1 ; ortho eval for hip pain f/u labs noted; cultures negative falls decubs DVT aspiration pfx d/w pt and staff
[2019-07-24] MEDS: METOPROLOL TARTRATE 5 MG/5 ML VIAL IVPUSH PRN (09:08)
[2019-07-24] MEDS: APIXABAN 2.5 MG TABLET PO SCH ×2 (09:38→21:28)
[2019-07-24] MEDS: LIDOCAINE 5% TOPICAL PATCH TP SCH (09:39)
[2019-07-24] MEDS: metoPROLOL SUCCINATE 25 MG TAB.SR.24H (FP) PO SCH ×2 (09:39→21:28)
[2019-07-24] MEDS: FUROSEMIDE 40 MG TABLET (FP) PO SCH (09:39)
[2019-07-24] MEDS: POTASSIUM CHLORIDE TABS 10 MEQ TABLET.ER (FP) PO SCH (09:39)
[2019-07-24] MEDS: PANTOPRAZOLE 40 MG TABLET (FP) PO SCH (09:39)
[2019-07-24] MEDS ORDERED: oxyCODONE HCL 5 MG TABLET PO ONE (09:45)
--- NOTE | 2019-07-24 10:31 | PN ---
Progress Note (short form) - Note Progress Note: s: no cp sob palps dizzy Current Medications Generic Name Dose Route Start Last Admin Trade Name Freq PRN Reason Stop Dose Admin Acetaminophen 650 mg 07/22/19 17:52 07/24/19 02:59 Tylenol - PO 650 mg Q6H PRN Administration PAIN 2-5 Apixaban 2.5 mg 07/21/19 22:45 07/24/19 09:38 Eliquis - PO 2.5 mg BID [facility] Administration Diltiazem HCl 120 mg 07/24/19 10:00 07/24/19 09:39 Cardizem Cd - PO 120 mg DAILY [facility] Administration Furosemide 40 mg 07/22/19 10:00 07/24/19 09:39 Lasix - PO 40 mg DAILY [facility] Administration Lidocaine 1 patch 07/24/19 10:00 07/24/19 09:39 Lidoderm Patch - TP 1 patch DAILY [facility] Administration Metoprolol Succinate 50 mg 07/23/19 10:55 07/24/19 09:39 Toprol Xl - PO 50 mg BID [facility] Administration Metoprolol Tartrate 5 mg 07/21/19 16:38 07/24/19 09:08 Lopressor Injection - IVPUSH 5 mg Q4H PRN Administration TACHYCARDIA Miscellaneous 1 each 07/24/19 22:00 Lidoderm Patch Removal [facility] DAILY@2200 [facility] Pantoprazole Sodium 40 mg 07/22/19 10:00 07/24/19 09:39 Protonix - PO 40 mg DAILY [facility] Administration Potassium Chloride 20 meq 07/24/19 08:59 07/24/19 09:39 K-Dur - PO 20 meq DAILY [facility] Administration Vital Signs Period Temp Pulse Resp BP Sys/Sheldon Pulse Ox Last 24 Hr 97.2 F-98.2 F 119-152 16-20 101-135/55-72 95 Constitutional: Yes: No Distress, Calm Eyes: Yes: Conjunctiva Clear Respiratory: Yes: CTA Bilaterally Gastrointestinal: Yes: Soft (NT) Cardiovascular: Yes: Pulse Irregular Heart Sounds: Yes: S1, S2 Murmur: Yes: Systolic Murmur, Grade 2 (RSB c/w possible ) Edema: No Peripheral Pulses WNL: Yes Neurological: Yes: Alert, Oriented no jaundice diaphoresis CBC, BMP 07/22/19 05:47 07/23/19 06:00 tele: afib, rvr at times Imaging - Results X-ray: Image Reviewed Cat Scan: Report Reviewed EKG: Image Reviewed Assessment/Plan IMP: AF w/ RVR Murmur, r/o Generalized weakness- nonspecific Elevated BNP REC: 1. Still with rvr at times, continue toprol, home dilt added as well. cont tele. pain control. 2. Echo here with nl ventricular fcn, no severe valve dz. 3. Cont Eliquis adjusted for age, weight and renal fx 4. CXR clear. PO Lasix for now.
[2019-07-24 10:38] LABS: BASO % 0.5 % (0-2.0); EOS % 0.6 % (0-4.5); HEMATOCRIT 42.8 % (32.4-45.2); HEMOGLOBIN 14.2 GM/dL (10.7-15.3); LYMPH % 11.4 % (8-40); MCH 29.9 pg (25.7-33.7); MCHC 33.1 g/dl (32.0-36.0); MEAN CELL VOLUME 90.3 fl (80-96); NEUT % 83.5 % (42.8-82.8); PLATELET COUNT 183 K/MM3 (134-434); RBC 4.73 M/mm3 (3.60-5.2); RDW 15.2 % (11.6-15.6); WHITE BLOOD COUNT 8.8 K/mm3 (4.0-10.0)
--- NOTE | 2019-07-24 10:51 | EKG ---
Test Reason : Blood Pressure : / mmHG Vent. Rate : 125 BPM Atrial Rate : 125 BPM P-R Int : 000 ms QRS Dur : 120 ms QT Int : 298 ms P-R-T Axes : 000 029 154 degrees QTc Int : 430 ms ATRIAL FIBRILLATION WITH RAPID VENTRICULAR RESPONSE LEFT VENTRICULAR HYPERTROPHY WITH QRS WIDENING ABNORMAL ECG WHEN COMPARED WITH ECG OF 21-JUL-2019 22:17, LEFT BUNDLE BRANCH BLOCK IS NO LONGER PRESENT Confirmed by JEFFERY ORTEGA, RACHANA ([id number]) on 07/24/2019 10:51:37 AM Referred By: Abad RUANO Confirmed By:RACHANA GIL MD
[2019-07-24 10:59] LABS: ALBUMIN 3.1 g/dl (3.4-5.0); BILIRUBIN,TOTAL 0.7 mg/dL (0.2-1); CALCIUM 8.9 mg/dL (8.5-10.1); CREATININE 1.2 mg/dL (0.55-1.3); POTASSIUM 3.3 mmol/L (3.5-5.1); TOT PROT 6.1 g/dl (6.4-8.2)
--- NOTE | 2019-07-24 17:52 | CON.ORTH ---
Consult Consult Specialty:: Orthopedics Reason for Consultation:: Right hip pain - History of Present Illness History of Present Illness: This is an 88 yo F with PMHx of HTN, Afib (on Eliquis) and breast cancer who was brought to the ED after being found on her toilet at home unable to stand up due to weakness. Patient states her walker was too far away and was unable to lift herself up for 4 hours. She is accompanied by her neighbors who are at bedside. She states she has had right hip pain for about 1-2 weeks which was made worse by the prolonged sitting on the toilet. She denies any recent falls or injuries to this hip. Notes her pain is only with position changes, has no pain while lying in bed. Denies any numbness, tingling to toes, radiating pain, previous injuries or surgeries to this hip. - History Source History Provided By: Patient Limitations to Obtaining History: No Limitations - Past Medical History Cardio/Vascular: Yes: AFIB (on Eliquis), HTN Pulmonary: No: Asthma, Bronchitis, Cancer, COPD, O2 Dependent, Pneumonia, Previously Intubated, Pulmonary Embolus, Pulmonary Fibrosis, Sleep Apnea, Other Gastrointestinal: No: Ascites, Cancer, Constipation, Crohn's Disease, Diverticulitis, Diverticulosis, Esophageal Varices, Gastritis, GERD, GI Bleed, Hemorrhoids, Hiatal Hernia, Inflamatory Bowel Disease, Irritable Bowel Disease, Pancreatitis, Peptic Ulcer Disease, Ulcerative Colitis, Other Hepatobiliary: No: Cirrhosis, Cholelithiasis, Cholecystitis, Choledocholithiasis , Hepatitis A, Hepatitis B, Hepatitis C, Other Renal/: No: Renal Failure, Renal Inusuff, BPH, Cancer, Hematuria, Hemodialysis , Neurogenic Bladder, Renal Calculi, UTI, Other ...: No Infectious Disease: No: AIDS, C-Diff, Herpes Zoster, HIV, MRSA, STD's, Tuberculosis, VREF, Other Psych: No: Addictions, Anxiety, Bipolar, Depression, Panic, Psychosis, Schizophrenia, Other Musculoskeletal: No: Bursitis, Chronic low back pain, Hemiparesis, Hemiplegia, Osteoarthritis, Paraplegia, Other Rheumatology: No: Fibromyalgia, Gout, Lupus, Rheumatoid Arthritis, Sarcoidosis, Vasculitis, Other ENT: No: Allergic Rhinitis, Sinusitis, Other Endocrine: No: Xavier's Disease, [place]'s Disease, Diabetes Insipidus, Diabetes Mellitus, Hyperparathyroidism, Hyperthyroidism, Hypothyroidism, Osteopenia, SIADH, Other - Past Surgical History Past Surgical History: No: None, AAA Repair, AICD, Amputation, Appendectomy, Arthrosocopy, AV Fistula/Graft, Bariatric Surgery, Breast Biopsy, Bypass, CABG, Carotid Endarterectomy, Cataract Removal, Cholecystectomy, Colectomy, Colonoscopy, Colostomy, Craniotomy, , Cystectomy, Hernia Repair, Hysterectomy, Ileal Conduit, Ileosotomy, Joint Replacement, Kidney Transplant, Laminectomy, Liver Transplant, Mastectomy, Nephrectomy, Oopherectomy, Orchiectomy, Permanent Pacemaker, Prostatectomy, Splenectomy, Stent, Thoracotomy , TURP, Tonsillectomy, Tubal Ligation, Upper Endoscopy, Valve Replacement, Vasectomy, Vein Stripping/Ligation - Alcohol/Substance Use Hx Alcohol Use: No History of Substance Use: denies: None, Cocaine, Heroin, Marijuana, Prescription , Tranquilizers - Smoking History Smoking history: Never smoked Have you smoked in the past 12 months: No - Social History History of Recent Travel: No Home Medications - Allergies Allergies/Adverse Reactions: Allergies Allergy/AdvReac Type Severity Reaction Status Date / Time No Known Allergies Allergy Verified 07/21/19 14:31 - Home Medications Home Medications: Ambulatory Orders Apixaban [Eliquis] 2.5 mg PO BID 07/21/19 Diltiazem HCl [Diltiazem ER] 240 mg PO DAILY 07/21/19 Furosemide 40 mg PO DAILY 07/21/19 Metoprolol Succinate 25 mg PO DAILY 07/21/19 Pantoprazole Sodium 40 mg PO DAILY 07/21/19 Potassium Chloride 10 meq PO DAILY 07/21/19 Review of Systems - Review of Systems Musculoskeletal: reports: Other (right hip pain) Physical Exam for Ortho Vital Signs: Vital Signs Temperature 97.9 F 07/24/19 17:32 Pulse Rate 103 H 07/24/19 17:32 Respiratory Rate 18 07/24/19 17:32 Blood Pressure 109/53 L 07/24/19 17:32 O2 Sat by Pulse Oximetry (%) 97 07/24/19 09:00 Labs: CBC, BMP 07/24/19 10:20 07/24/19 10:20 INR, PTT INR 1.68 (0.83-1.09) H 07/21/19 15:00 - Lower Extremity Hip: Yes: Right (No skin lesions, no swelling, full painless ROM, nontender to palpation throughout LE, calves soft and nontender, NVID) Imaging - Results X-ray: Image Reviewed (Right hip, femur and tib/fib imaging reviewed which shows mild to moderate degenerative changes. No evidence of acute pathology.) Problem List - Problems (1) Osteoarthritis of right hip Code(s): M16.11 - UNILATERAL PRIMARY OSTEOARTHRITIS, RIGHT HIP Assessment/Plan This is an 88 yo F with PMHx of HTN, Afib (on Eliquis) and breast cancer who was admitted for weakness, complaining of atraumatic right hip pain x 1-2 weeks. Patient lying comfortably in bed. Notes pain feels better after given NSAID. Had some pain with position changes. -PE shows full painless ROM, nontender throughout. -XR of right hip, femur and tib/fib show degenerative changes without evidence of acute pathology -Patient's symptoms are most consistent with DJD -F/u as outpatient
[2019-07-24] MEDS ORDERED: PT OWN MED DRAWER 7, Y5N ONE (19:29)
[2019-07-24] MEDS: LIDOCAINE PATCH REMOVAL MC SCH (21:28)
[2019-07-25] MEDS: ACETAMINOPHEN 325 MG TABLET (FP) PO PRN ×2 (08:41→21:52)
--- NOTE | 2019-07-25 09:13 | PN ---
Progress Note, Physician Chief Complaint: awake alert confused had some visual hallucinations earlier head CT Negative at admission, UCx negative - Current Medication List Current Medications: Active Medications Acetaminophen (Tylenol -) 650 mg PO Q6H PRN PRN Reason: PAIN 2-5 Last Admin: 07/25/19 08:41 Dose: 650 mg Apixaban (Eliquis -) 2.5 mg PO BID [facility] Last Admin: 07/24/19 21:28 Dose: 2.5 mg Diltiazem HCl (Cardizem Cd -) 120 mg PO DAILY [facility] Last Admin: 07/24/19 09:39 Dose: 120 mg Furosemide (Lasix -) 40 mg PO DAILY [facility] Last Admin: 07/24/19 09:39 Dose: 40 mg Sodium Chloride (Normal Saline -) 1,000 mls @ 50 mls/hr IV ASDIR [facility] Stop: 07/26/19 09:05 Lidocaine (Lidoderm Patch -) 1 patch TP DAILY [facility] Last Admin: 07/24/19 09:39 Dose: 1 patch Metoprolol Succinate (Toprol Xl -) 50 mg PO BID [facility] Last Admin: 07/24/19 21:28 Dose: 50 mg Metoprolol Tartrate (Lopressor Injection -) 5 mg IVPUSH Q4H PRN PRN Reason: TACHYCARDIA Last Admin: 07/24/19 09:08 Dose: 5 mg Miscellaneous (Lidoderm Patch Removal) 1 each [facility] DAILY@2200 [facility] Last Admin: 07/24/19 21:28 Dose: Not Given Pantoprazole Sodium (Protonix -) 40 mg PO DAILY [facility] Last Admin: 07/24/19 09:39 Dose: 40 mg Potassium Chloride (K-Dur -) 20 meq PO DAILY [facility] Last Admin: 07/24/19 09:39 Dose: 20 meq - Objective Vital Signs: Vital Signs Temperature 98.0 F 07/25/19 08:30 Pulse Rate 111 H 07/25/19 08:30 Respiratory Rate 18 07/25/19 08:30 Blood Pressure 113/76 07/25/19 08:30 O2 Sat by Pulse Oximetry (%) 94 L 07/24/19 21:00 Constitutional: Yes: No Distress Eyes: Yes: Conjunctiva Clear HENT: Yes: Atraumatic Neck: Yes: Supple Cardiovascular: No: Regular Rate and Rhythm Respiratory: Yes: Diminished Gastrointestinal: Yes: Soft. No: Tenderness Genitourinary: No: Hematuria Musculoskeletal: Yes: Joint Stiffness (legs). No: Joint Swelling Extremities: No: Cold, Cool, Cyanosis Edema: No Integumentary: No: Rash, Venous Stasis Changes Neurological: Yes: Alert. No: Oriented ...Motor Strength: WNL Psychiatric: Yes: Alert, Agitated (sometimes). No: Oriented Labs: CBC, BMP 07/24/19 10:20 07/24/19 10:20 INR, PTT INR 1.68 (0.83-1.09) H 07/21/19 15:00 - ....Imaging Other: Report Reviewed Assessment/Plan 88 yo F PMH of L Breast Ca, HTN, Afib ( on Eliquis) admitted vis ED for weakness and confusion, unable to walk; lives alone CT and xrays and consults noted PT and CM eval will need SNF tachycardia, AFib: cardiology f/u; added cardizem CD 120 mg/d for tachycardia ( pt was on it at home) tylenol prn OA DJD, percocet x1 ; ortho eval for hip pain neurology eval for confusion f/u labs noted; cultures negative falls decubs DVT aspiration pfx d/w pt and staff
[2019-07-25] MEDS ORDERED: SODIUM CHLORIDE 1,000 ML IV SCH (09:15)
--- NOTE | 2019-07-25 09:50 | PN ---
Progress Note, Physician History of Present Illness: denies sob, orthopnea (lying flat). denies cp, palpit, leg swelling - Current Medication List Current Medications: Active Medications Acetaminophen (Tylenol -) 650 mg PO Q6H PRN PRN Reason: PAIN 2-5 Last Admin: 07/25/19 08:41 Dose: 650 mg Apixaban (Eliquis -) 2.5 mg PO BID [facility] Last Admin: 07/24/19 21:28 Dose: 2.5 mg Diltiazem HCl (Cardizem Cd -) 120 mg PO DAILY [facility] Last Admin: 07/24/19 09:39 Dose: 120 mg Furosemide (Lasix -) 40 mg PO DAILY [facility] Last Admin: 07/24/19 09:39 Dose: 40 mg Sodium Chloride (Normal Saline -) 1,000 mls @ 50 mls/hr IV ASDIR [facility] Stop: 07/26/19 09:05 Lidocaine (Lidoderm Patch -) 1 patch TP DAILY [facility] Last Admin: 07/24/19 09:39 Dose: 1 patch Metoprolol Succinate (Toprol Xl -) 50 mg PO BID [facility] Last Admin: 07/24/19 21:28 Dose: 50 mg Metoprolol Tartrate (Lopressor Injection -) 5 mg IVPUSH Q4H PRN PRN Reason: TACHYCARDIA Last Admin: 07/24/19 09:08 Dose: 5 mg Miscellaneous (Lidoderm Patch Removal) 1 each MC DAILY@2200 [facility] Last Admin: 07/24/19 21:28 Dose: Not Given Pantoprazole Sodium (Protonix -) 40 mg PO DAILY [facility] Last Admin: 07/24/19 09:39 Dose: 40 mg Potassium Chloride (K-Dur -) 20 meq PO DAILY [facility] Last Admin: 07/24/19 09:39 Dose: 20 meq - Objective Vital Signs: Vital Signs Temperature 98.0 F 07/25/19 08:30 Pulse Rate 111 H 07/25/19 08:30 Respiratory Rate 18 07/25/19 08:30 Blood Pressure 113/76 07/25/19 08:30 O2 Sat by Pulse Oximetry (%) 94 L 07/24/19 21:00 Constitutional: Yes: Well Nourished, No Distress, Calm Cardiovascular: Yes: Pulse Irregular, Murmur (loud MR murmur apex), S1, S2. No : JVD, Gallop Respiratory: Yes: Regular, CTA Bilaterally. No: Accessory Muscle Use, Rales Extremities: No: Cold Edema: No Neurological: Yes: Alert. No: Seizure Psychiatric: No: Agitated Labs: CBC, BMP 07/24/19 10:20 07/24/19 10:20 INR, PTT INR 1.68 (0.83-1.09) H 07/21/19 15:00 Assessment/Plan Echo 08/02: nl LV/RV. severe LAE. 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 mod TR. RVSP 30-40. mild /AI. tele: AF 90s-120s (briefly 140s) IMP: AF w/ RVR MVP with eccentric MR, at least moderate Generalized weakness- nonspecific Elevated BNP--sec to MR/TR vs afib vs multifactorial REC: -HR not controlled. incr toprol to 75 bid. cont dilt 120 qd--consider increase to bid next. cont tele. -Cont Eliquis adjusted for age, weight and renal fx (2.5 bid dose) -CXR clear, appears euvolemic without respiratory sx's--cont PO Lasix 40 qd -outpt echo assessment of MR severity recommended, to rule out hemodynamically signif severe MR driving AFib/tachy (if she would be a candidate for sabine- clip....? baseline cognitive status)
[2019-07-25] MEDS: POTASSIUM CHLORIDE TABS 10 MEQ TABLET.ER (FP) PO SCH (10:10)
[2019-07-25] MEDS: APIXABAN 2.5 MG TABLET PO SCH ×2 (10:10→21:52)
[2019-07-25] MEDS: PANTOPRAZOLE 40 MG TABLET (FP) PO SCH (10:11)
[2019-07-25] MEDS: metoPROLOL SUCCINATE 25 MG TAB.SR.24H (FP) PO SCH ×2 (10:11→21:51)
[2019-07-25] MEDS: FUROSEMIDE 40 MG TABLET (FP) PO SCH (10:11)
[2019-07-25] MEDS: LIDOCAINE 5% TOPICAL PATCH TP SCH (10:12)
[2019-07-25 10:59] LABS: BASO % 0.6 % (0-2.0); EOS % 0.5 % (0-4.5); HEMATOCRIT 43.9 % (32.4-45.2); HEMOGLOBIN 14.3 GM/dL (10.7-15.3); MCH 29.8 pg (25.7-33.7); MCHC 32.5 g/dl (32.0-36.0); MEAN CELL VOLUME 91.7 fl (80-96); MEAN PLT VOLUME 9.3 fl (7.5-11.1); MONO % 6.5 % (3.8-10.2); NEUT % 82.4 % (42.8-82.8); PLATELET COUNT 230 K/MM3 (134-434); RBC 4.79 M/mm3 (3.60-5.2); RDW 15.6 % (11.6-15.6); WHITE BLOOD COUNT 9.2 K/mm3 (4.0-10.0)
[2019-07-25 11:23] LABS: BLOOD UREA NITROGEN 48.5 mg/dL (7-18); CALCIUM 9.2 mg/dL (8.5-10.1); CREATININE 1.1 mg/dL (0.55-1.3)
[2019-07-25] MEDS: LIDOCAINE PATCH REMOVAL MC SCH (22:00)
--- NOTE | 2019-07-26 06:23 | PN ---
Progress Note, Physician Chief Complaint: more calm but still confused; pain in hips knees back when moving, seen by ortho no fractures received some IVF for increased BUN/creat; lasix cut down neuro consult appreciated; - Current Medication List Current Medications: Active Medications Acetaminophen (Tylenol -) 650 mg PO Q6H PRN PRN Reason: PAIN 2-5 Last Admin: 07/25/19 21:52 Dose: 650 mg Apixaban (Eliquis -) 2.5 mg PO BID [facility] Last Admin: 07/25/19 21:52 Dose: 2.5 mg Diltiazem HCl (Cardizem Cd -) 120 mg PO DAILY [facility] Last Admin: 07/25/19 10:10 Dose: 120 mg Furosemide (Lasix -) 20 mg PO DAILY [facility] Sodium Chloride (Normal Saline -) 1,000 mls @ 50 mls/hr IV ASDIR [facility] Stop: 07/26/19 09:05 Last Admin: 07/25/19 10:21 Dose: 50 mls/hr Insulin Aspart (Novolog Vial) 0 units SQ ACHS [facility]; Protocol Lidocaine (Lidoderm Patch -) 1 patch TP DAILY [facility] Last Admin: 07/25/19 10:12 Dose: 1 patch Metoprolol Succinate (Toprol Xl -) 75 mg PO BID [facility] Last Admin: 07/25/19 21:51 Dose: 75 mg Metoprolol Tartrate (Lopressor Injection -) 5 mg IVPUSH Q4H PRN PRN Reason: TACHYCARDIA Last Admin: 07/24/19 09:08 Dose: 5 mg Miscellaneous (Lidoderm Patch Removal) 1 each [facility] DAILY@2200 [facility] Last Admin: 07/25/19 22:00 Dose: Not Given Pantoprazole Sodium (Protonix -) 40 mg PO DAILY [facility] Last Admin: 07/25/19 10:11 Dose: 40 mg Potassium Chloride (K-Dur -) 20 meq PO DAILY [facility] Last Admin: 07/25/19 10:10 Dose: 20 meq - Objective Vital Signs: Vital Signs Temperature 97.7 F 07/26/19 01:35 Pulse Rate 137 H 07/26/19 01:35 Respiratory Rate 16 07/26/19 01:35 Blood Pressure 134/61 07/26/19 01:35 O2 Sat by Pulse Oximetry (%) 97 07/25/19 21:00 Constitutional: Yes: Calm Eyes: Yes: Conjunctiva Clear HENT: Yes: Atraumatic Neck: Yes: Supple Cardiovascular: No: Regular Rate and Rhythm Respiratory: Yes: Diminished Gastrointestinal: Yes: Soft. No: Tenderness Genitourinary: No: Hematuria Musculoskeletal: No: Joint Swelling Extremities: No: Cold, Cool Edema: No Integumentary: Yes: Bruising (arms). No: Rash, Venous Stasis Changes Neurological: Yes: Alert ...Motor Strength: WNL Psychiatric: Yes: Alert. No: Oriented, Agitated, Suicidal Ideation Labs: CBC, BMP 07/25/19 10:30 07/25/19 10:30 INR, PTT INR 1.68 (0.83-1.09) H 07/21/19 15:00 - ....Imaging Other: Report Reviewed Assessment/Plan 88 yo F PMH of L Breast Ca, HTN, Afib ( on Eliquis) admitted vis ED for weakness and confusion, unable to walk; lives alone CT and xrays and consults noted PT and CM eval will need SNF tachycardia, AFib: cardiology f/u; added cardizem CD 120 mg/d for tachycardia prerenal azotemia: s/p IVF; decreased lasix dose; f/u labs; abNL tfts: prominent thyroid on exam: check neck CT r/o thryoid mass ortho f/u for hip pain neurology eval noted; brain MRI ordered miralax prn (no BM in few days per staff) f/u labs noted; cultures negative falls decubs DVT aspiration pfx d/w pt and staff also called pt's PCP & [facility] messages awaiting call back
[2019-07-26] MEDS: INSULIN SLIDING SCALE (NOVOLOG) 1 VIAL SQ SCH ×4 (06:47→22:25)
--- NOTE | 2019-07-26 09:06 | CONSULT ---
Consult - text type - Consultation Consultation Note: Neurology - Admission Chief Complaint: Weakness History of Present Illness: 88 year old female with HTN, A fib (on AC) in her USOH, lives alone, using a walker for ambulation, couldn't get up of toilet for hours ( couldn't reach the walker) on day of admission until was found by her neighbour who brought her to ER. In ER it was noticed to by in A Fib with RVR, recieved IV Metoprolol with improvement in HR. Cardiology has been following patient and monitoring cardiac status. I was consulted due to altered mental status and confusion. This morning, patient in bed but unaware of her environment and does remain confused. Noncontrast head CT was completed and without acute changes. We'll order MRI of the brain to further evaluate. Urinalysis was negative, remains afebrile and with normal white count. Unclear if patient confused secondary to unfamiliar environment and being in the hospital. - Past Medical History Cardiovascular: Yes: AFIB (on Eliquis), HTN Heme/Onc: Yes: Cancer (left breast) - Smoking History Smoking history: Never smoked Have you smoked in the past 12 months: No - Alcohol/Substance Use Hx Alcohol Use: No Home Medications - Allergies Allergies/Adverse Reactions: Allergies Allergy/AdvReac Type Severity Reaction Status Date / Time No Known Allergies Allergy Verified 07/21/19 14:31 - Home Medications Home Medications: Ambulatory Orders Apixaban [Eliquis] 2.5 mg PO BID 07/21/19 Diltiazem HCl [Diltiazem ER] 240 mg PO DAILY 07/21/19 Furosemide 40 mg PO DAILY 07/21/19 Metoprolol Succinate 25 mg PO DAILY 07/21/19 Pantoprazole Sodium 40 mg PO DAILY 07/21/19 Potassium Chloride 10 meq PO DAILY 07/21/19 Review of Systems - Review of Systems Constitutional: denies: Chills, Fever Eyes: reports: Double Vision. denies: Blurred Vision HENT: denies: Ear Discharge, Nasal Congestion, Throat Pain Neck: denies: Pain on Movement, Stiffness Cardiovascular: denies: Chest Pain, Edema Respiratory: denies: Cough, SOB Gastrointestinal: denies: Abdominal Pain, Nausea, Vomiting Genitourinary: denies: Burning, Frequency Musculoskeletal: denies: Back Pain, Joint Swelling Integumentary: denies: Bruising, Rash Neurological: denies: Change in LOC, Confusion, Numbness, Syncope Endocrine: denies: Excessive Sweating, Intolerance to Cold Hematology/Lymphatic: denies: Easily Bruised, Excessive Bleeding Psychiatric: denies: Anxiety, Depression Physical Examination Vital Signs: Vital Signs Period Temp Pulse Resp BP Sys/Sheldon Pulse Ox Last 24 Hr 97.1 F-98.0 F 124-139 16-18 106-155/46-83 97 Constitutional: Yes: No Distress, Calm Eyes: Yes: Conjunctiva Clear, EOM Intact HENT: No: Epistaxis, Rhinnorhea Neck: Yes: Trachea Midline. No: Lymphadenopathy Cardiovascular: Yes: Pulse Irregular, S1, S2 Respiratory: Yes: Regular, CTA Bilaterally. No: Rales Gastrointestinal: Yes: Normal Bowel Sounds, Soft, Hepatomegaly. No: Splenomegaly, Tenderness ...Rectal Exam: Yes: Deferred Renal/: No: CVA Tenderness - Left, CVA Tenderness - Right Breast(s): Yes: Other (deferred) Musculoskeletal: No: Back Pain, Joint Swelling Extremities: No: Cool, Cyanosis Edema: No Integumentary: Yes: Bruising (large bruise of the left elbow) Neurological: awake and alert but not oriented, moves extremities grossly, sensory intact, not following commands to confrontation testing CBCD WBC 9.2 K/mm3 (4.0-10.0) 07/25/19 10:30 RBC 4.79 M/mm3 (3.60-5.2) 07/25/19 10:30 Hgb 14.3 GM/dL (10.7-15.3) 07/25/19 10:30 Hct 43.9 % (32.4-45.2) 07/25/19 10:30 MCV 91.7 fl (80-96) 07/25/19 10:30 MCHC 32.5 g/dl (32.0-36.0) 07/25/19 10:30 RDW 15.6 % (11.6-15.6) 07/25/19 10:30 Plt Count 230 K/MM3 (134-434) D 07/25/19 10:30 MPV 9.3 fl (7.5-11.1) 07/25/19 10:30 CMP Sodium 141 mmol/L (136-145) 07/25/19 10:30 Potassium 4.0 mmol/L (3.5-5.1) 07/25/19 10:30 Chloride 108 mmol/L (98-107) H 07/25/19 10:30 Carbon Dioxide 24 mmol/L (21-32) 07/25/19 10:30 Anion Gap 10 MMOL/L (8-16) 07/25/19 10:30 BUN 48.5 mg/dL (7-18) H 07/25/19 10:30 Creatinine 1.1 mg/dL (0.55-1.3) 07/25/19 10:30 Random Glucose 216 mg/dL (74-106) H 07/25/19 10:30 Calcium 9.2 mg/dL (8.5-10.1) 07/25/19 10:30 Total Bilirubin 0.7 mg/dL (0.2-1) 07/24/19 10:20 AST 36 U/L (15-37) 07/24/19 10:20 ALT 34 U/L (13-61) 07/24/19 10:20 Alkaline Phosphatase 66 U/L (45-117) 07/24/19 10:20 Total Protein 6.1 g/dl (6.4-8.2) L 07/24/19 10:20 Albumin 3.1 g/dl (3.4-5.0) L 07/24/19 10:20 CARDIAC ENZYMES Creatine Kinase 196 U/L (26-192) H 07/24/19 09:15 Troponin I 0.02 ng/ml (0.00-0.05) 07/24/19 09:15 Plan: 88 year old female with HTN, A fib (on AC) in her USSC, lives alone, using a walker for ambulation, couldn't get up of toilet for hours ( couldn't reach the walker) on day of admission until was found by her neighbour who brought her to ER. In ER it was noticed to by in A Fib with RVR, recieved IV Metoprolol with improvement in HR. Cardiology has been following patient and monitoring cardiac status. I was consulted due to altered mental status and confusion. This morning, patient in bed but unaware of her environment and does remain confused. Noncontrast head CT was completed and without acute changes. We'll order MRI of the brain to further evaluate. Urinalysis was negative, remains afebrile and with normal white count this infectious etiology seems less likely. Unclear if patient confused secondary to unfamiliar environment and being in the hospital. Frequent reorientation recommended. Continue optimization of cardiac factors including atrial fibrillation. Maintain adequate hydration, monitor blood pressure, maintain normotensive range. Physical therapy as tolerated, fall precautions. Consider psych evaluation as well for medications that may help with patient's hallucinations.
[2019-07-26] MEDS: POTASSIUM CHLORIDE TABS 10 MEQ TABLET.ER (FP) PO SCH (09:22)
[2019-07-26] MEDS: PANTOPRAZOLE 40 MG TABLET (FP) PO SCH (09:23)
[2019-07-26] MEDS: LIDOCAINE 5% TOPICAL PATCH TP SCH (09:23)
[2019-07-26] MEDS: FUROSEMIDE 20 MG TABLET (FP) PO SCH (09:23)
[2019-07-26] MEDS: APIXABAN 2.5 MG TABLET PO SCH ×2 (09:23→22:18)
[2019-07-26] MEDS: metoPROLOL SUCCINATE 25 MG TAB.SR.24H (FP) PO SCH (09:23)
[2019-07-26] MEDS: POLYETHYLENE GLYCOL 3350 119 GM BTL PO SCH (10:10)
[2019-07-26] MEDS ORDERED: metoPROLOL SUCCINATE 25 MG TAB.SR.24H (FP) PO ONE (11:03)
--- NOTE | 2019-07-26 11:06 | PN ---
Progress Note (short form) - Note Progress Note: s: lethargic, not answering questions. appears comfortable. Current Medications Acetaminophen (Tylenol -) 650 mg PO Q6H PRN PRN Reason: PAIN 2-5 Last Admin: 07/25/19 21:52 Dose: 650 mg Apixaban (Eliquis -) 2.5 mg PO BID [facility] Last Admin: 07/26/19 09:23 Dose: 2.5 mg Diltiazem HCl (Cardizem Cd -) 120 mg PO DAILY [facility] Last Admin: 07/26/19 09:23 Dose: 120 mg Furosemide (Lasix -) 20 mg PO DAILY [facility] Last Admin: 07/26/19 09:23 Dose: 20 mg Sodium Chloride (Normal Saline -) 1,000 mls @ 42 mls/hr IV ASDIR [facility] Insulin Aspart (Novolog Vial Sliding Scale -) 1 vial SQ ACHS [facility]; Protocol Last Admin: 07/26/19 06:47 Dose: Not Given Lidocaine (Lidoderm Patch -) 1 patch TP DAILY [facility] Last Admin: 07/26/19 09:23 Dose: 1 patch Metoprolol Succinate (Toprol Xl -) 25 mg PO ONCE ONE Stop: 07/26/19 11:04 Metoprolol Succinate (Toprol Xl -) 100 mg PO BID [facility] Metoprolol Tartrate (Lopressor Injection -) 5 mg IVPUSH Q4H PRN PRN Reason: TACHYCARDIA Last Admin: 07/24/19 09:08 Dose: 5 mg Miscellaneous (Lidoderm Patch Removal) 1 each [facility] DAILY@2200 [facility] Last Admin: 07/25/19 22:00 Dose: Not Given Pantoprazole Sodium (Protonix -) 40 mg PO DAILY [facility] Last Admin: 07/26/19 09:23 Dose: 40 mg Polyethylene Glycol (Miralax (For Daily Use) -) 17 gm PO DAILY [facility] Potassium Chloride (K-Dur -) 20 meq PO DAILY [facility] Last Admin: 07/26/19 09:22 Dose: 20 meq Vital Signs Period Temp Pulse Resp BP Sys/Sheldon Pulse Ox Last 24 Hr 97.1 F-98.0 F 117-139 16-18 122-155/61-83 97 Constitutional: Yes: Well Nourished, No Distress, Calm Cardiovascular: Yes: Pulse Irregular, Murmur (loud MR murmur apex), S1, S2. No : JVD, Gallop Respiratory: Yes: Regular, CTA Bilaterally. No: Accessory Muscle Use, Rales Extremities: No: Cold Edema: No Neurological: Yes: Alert. No: Seizure Psychiatric: No: Agitated no jaundice, diaphoresis Assessment/Plan Echo 08/02: nl LV/RV. severe LAE. 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 mod TR. RVSP 30-40. mild /AI. 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 if continues to have high rates will inc cardizem as well -Cont Eliquis adjusted for age, weight and renal fx (2.5 bid dose) -CXR clear, appears euvolemic without respiratory sx's--cont PO Lasix 40 qd -outpt echo assessment of MR severity recommended, to rule out hemodynamically signif severe MR driving AFib/tachy (if she would be a candidate for sabine- clip....? baseline cognitive status)
[2019-07-26] MEDS: SODIUM CHLORIDE 1,000 ML IV SCH (11:23)
--- NOTE | 2019-07-26 11:23 | EKG ---
Test Reason : Blood Pressure : / mmHG Vent. Rate : 107 BPM Atrial Rate : 102 BPM P-R Int : 000 ms QRS Dur : 128 ms QT Int : 396 ms P-R-T Axes : 000 025 207 degrees QTc Int : 528 ms ATRIAL FIBRILLATION WITH RAPID VENTRICULAR RESPONSE LEFT BUNDLE BRANCH BLOCK ABNORMAL ECG WHEN COMPARED WITH ECG OF 21-JUL-2019 14:17, NO SIGNIFICANT CHANGE WAS FOUND Confirmed by MD Hema, Carlos ([id number]) on 07/26/2019 11:23:11 AM Referred By: Confirmed By:Carlos Garrido MD
[2019-07-26] MEDS: ACETAMINOPHEN 325 MG TABLET (FP) PO PRN ×2 (12:45→17:45)
[2019-07-26] MEDS: METOPROLOL TARTRATE 5 MG/5 ML VIAL IVPUSH PRN (12:59)
--- NOTE | 2019-07-26 18:04 | CON.PSY ---
Psychiatry Consult Chief Complaint: 88 Year old female with history of ? Dementia or acutye PMS seen for Psych eval for confusion and visual hallucinations. Patient was fouind wanderimng around, she lices by herself... Neuro consult acknowl;stephanie. Symptoms: reports: Memory Impairment, Hallucinations - Previous Psychiatric Treatment Outpatient: None Inpatient: 2 or more prior admissions - Previous Substance Abuse Treatment Outpatient: None Inpatient: None - Current Medications Current Medications: Active Medications Acetaminophen (Tylenol -) 650 mg PO Q6H PRN PRN Reason: PAIN 2-5 Last Admin: 07/26/19 17:45 Dose: 650 mg Apixaban (Eliquis -) 2.5 mg PO BID [facility] Last Admin: 07/26/19 09:23 Dose: 2.5 mg Diltiazem HCl (Cardizem Cd -) 120 mg PO DAILY [facility] Last Admin: 07/26/19 09:23 Dose: 120 mg Furosemide (Lasix -) 20 mg PO DAILY [facility] Last Admin: 07/26/19 09:23 Dose: 20 mg Sodium Chloride (Normal Saline -) 1,000 mls @ 42 mls/hr IV ASDIR [facility] Last Admin: 07/26/19 11:23 Dose: 42 mls/hr Insulin Aspart (Novolog Vial Sliding Scale -) 1 vial SQ ACHS [facility]; Protocol Last Admin: 07/26/19 17:54 Dose: Not Given Lidocaine (Lidoderm Patch -) 1 patch TP DAILY [facility] Last Admin: 07/26/19 09:23 Dose: 1 patch Metoprolol Succinate (Toprol Xl -) 100 mg PO BID [facility] Metoprolol Tartrate (Lopressor Injection -) 5 mg IVPUSH Q4H PRN PRN Reason: TACHYCARDIA Last Admin: 07/26/19 12:59 Dose: 5 mg Miscellaneous (Lidoderm Patch Removal) 1 each MC DAILY@2200 [facility] Last Admin: 07/25/19 22:00 Dose: Not Given Pantoprazole Sodium (Protonix -) 40 mg PO DAILY [facility] Last Admin: 07/26/19 09:23 Dose: 40 mg Polyethylene Glycol (Miralax (For Daily Use) -) 17 gm PO DAILY [facility] Potassium Chloride (K-Dur -) 20 meq PO DAILY [facility] Last Admin: 07/26/19 09:22 Dose: 20 meq - Allergies Allergies: Allergies Allergy/AdvReac Type Severity Reaction Status Date / Time No Known Allergies Allergy Verified 07/21/19 14:31 - Current Living Status Usual Living Arrangement: Alone - Current Mental Status Evaluation Appearance: Disheveled Attitude: Guarded - Affect Affect: Constrictive Appropriateness: Not Appropriate - Mood Mood: Euthymic - Speech/Language Expressive: Delayed - Psychomotor Activity Psychomotor Activity: Slowed - Thought Process Thought Process: Circumstantial - Thought Content Hallucinations: Present Type: Visual Delusions: Absent - Self Perception Self Perception: No Impairment - Cognition Attention: Diminished Memory, Short Term: 1/3 Memory, Remote with Promptin/3 - Concentration Serial Sevens Intact: No Simple Calculations Intact: No - Abstraction Proverb Interpretation: Impaired Judgement: Minimally Impaired - Insight Insight: Impaired - Impulse Control Impulse Control: Minimally Impaired - Suicidal Ideation Suicidal Ideation: No - Homicidal Ideation Homicidal Ideation: No Assessment/Plan 1) Zyprexa 2.5mg po hs for Hallucinations
[2019-07-26] MEDS: LIDOCAINE PATCH REMOVAL MC SCH (22:18)
[2019-07-26] MEDS: OLANZapine 2.5 MG TABLET PO SCH (22:18)
[2019-07-27] MEDS: INSULIN SLIDING SCALE (NOVOLOG) 1 VIAL SQ SCH ×3 (06:10→17:55)
[2019-07-27 07:33] LABS: BLOOD UREA NITROGEN 44.6 mg/dL (7-18); CALCIUM 9.2 mg/dL (8.5-10.1); CREATININE 0.9 mg/dL (0.55-1.3); POTASSIUM 4.1 mmol/L (3.5-5.1)
--- NOTE | 2019-07-27 08:34 | PN ---
Progress Note (short form) - Note Progress Note: Neurology - Admission Chief Complaint: Weakness History of Present Illness: 88 year old female with HTN, A fib (on AC) in her USOH, lives alone, using a walker for ambulation, couldn't get up of toilet for hours ( couldn't reach the walker) on day of admission until was found by her neighbour who brought her to ER. In ER it was noticed to by in A Fib with RVR, recieved IV Metoprolol with improvement in HR. Cardiology has been following patient and monitoring cardiac status. I was consulted due to altered mental status and confusion. This morning, patient in bed but unaware of her environment and does remain confused, not oriented. Noncontrast head CT was completed and without acute changes. Ordered MRI of the brain to further evaluate, awaiting completion. Urinalysis was negative, remains afebrile and with normal white count. Labs noted for hypernatremia this AM with sodium of 151. Active Medications Acetaminophen (Tylenol -) 650 mg PO Q6H PRN PRN Reason: PAIN 2-5 Last Admin: 07/26/19 17:45 Dose: 650 mg Apixaban (Eliquis -) 2.5 mg PO BID [facility] Last Admin: 07/26/19 22:18 Dose: 2.5 mg Diltiazem HCl (Cardizem Cd -) 120 mg PO DAILY [facility] Last Admin: 07/26/19 09:23 Dose: 120 mg Furosemide (Lasix -) 20 mg PO DAILY [facility] Last Admin: 07/26/19 09:23 Dose: 20 mg Sodium Chloride (Normal Saline -) 1,000 mls @ 42 mls/hr IV ASDIR [facility] Last Admin: 07/26/19 11:23 Dose: 42 mls/hr Insulin Aspart (Novolog Vial Sliding Scale -) 1 vial SQ ACHS [facility]; Protocol Last Admin: 07/27/19 06:10 Dose: Not Given Lidocaine (Lidoderm Patch -) 1 patch TP DAILY [facility] Last Admin: 07/26/19 09:23 Dose: 1 patch Metoprolol Succinate (Toprol Xl -) 100 mg PO BID [facility] Last Admin: 07/26/19 22:18 Dose: 100 mg Metoprolol Tartrate (Lopressor Injection -) 5 mg IVPUSH Q4H PRN PRN Reason: TACHYCARDIA Last Admin: 07/26/19 12:59 Dose: 5 mg Miscellaneous (Lidoderm Patch Removal) 1 each MC DAILY@2200 [facility] Last Admin: 07/26/19 22:18 Dose: Not Given Olanzapine (Zyprexa -) 2.5 mg PO HS [facility] Last Admin: 07/26/19 22:18 Dose: 2.5 mg Pantoprazole Sodium (Protonix -) 40 mg PO DAILY [facility] Last Admin: 07/26/19 09:23 Dose: 40 mg Polyethylene Glycol (Miralax (For Daily Use) -) 17 gm PO DAILY [facility] Last Admin: 07/26/19 10:10 Dose: Not Given Potassium Chloride (K-Dur -) 20 meq PO DAILY [facility] Last Admin: 07/26/19 09:22 Dose: 20 meq Physical Examination Vital Signs: Vital Signs Period Temp Pulse Resp BP Sys/Sheldon Pulse Ox Last 24 Hr 97.5 F-98.7 F 102-133 16-19 101-147/55-84 96-96 Constitutional: Yes: No Distress, Calm Eyes: Yes: Conjunctiva Clear, EOM Intact HENT: No: Epistaxis, Rhinnorhea Neck: Yes: Trachea Midline. No: Lymphadenopathy Cardiovascular: Yes: Pulse Irregular, S1, S2 Respiratory: Yes: Regular, CTA Bilaterally. No: Rales Gastrointestinal: Yes: Normal Bowel Sounds, Soft, Hepatomegaly. No: Splenomegaly, Tenderness ...Rectal Exam: Yes: Deferred Renal/: No: CVA Tenderness - Left, CVA Tenderness - Right Breast(s): Yes: Other (deferred) Musculoskeletal: No: Back Pain, Joint Swelling Extremities: No: Cool, Cyanosis Edema: No Integumentary: Yes: Bruising (large bruise of the left elbow) Neurological: awake and alert but not oriented, moves extremities grossly, sensory intact, not following commands to confrontation testing CBCD WBC 9.2 K/mm3 (4.0-10.0) 07/25/19 10:30 RBC 4.79 M/mm3 (3.60-5.2) 07/25/19 10:30 Hgb 14.3 GM/dL (10.7-15.3) 07/25/19 10:30 Hct 43.9 % (32.4-45.2) 07/25/19 10:30 MCV 91.7 fl (80-96) 07/25/19 10:30 MCHC 32.5 g/dl (32.0-36.0) 07/25/19 10:30 RDW 15.6 % (11.6-15.6) 07/25/19 10:30 Plt Count 230 K/MM3 (134-434) D 07/25/19 10:30 MPV 9.3 fl (7.5-11.1) 07/25/19 10:30 CMP Sodium 151 mmol/L (136-145) H 07/27/19 06:34 Potassium 4.1 mmol/L (3.5-5.1) 07/27/19 06:34 Chloride 120 mmol/L (98-107) H 07/27/19 06:34 Carbon Dioxide 25 mmol/L (21-32) 07/27/19 06:34 Anion Gap 6 MMOL/L (8-16) L 07/27/19 06:34 BUN 44.6 mg/dL (7-18) H 07/27/19 06:34 Creatinine 0.9 mg/dL (0.55-1.3) 07/27/19 06:34 Random Glucose 111 mg/dL (74-106) H 07/27/19 06:34 Calcium 9.2 mg/dL (8.5-10.1) 07/27/19 06:34 Total Bilirubin 0.7 mg/dL (0.2-1) 07/24/19 10:20 AST 36 U/L (15-37) 07/24/19 10:20 ALT 34 U/L (13-61) 07/24/19 10:20 Alkaline Phosphatase 66 U/L (45-117) 07/24/19 10:20 Total Protein 6.1 g/dl (6.4-8.2) L 07/24/19 10:20 Albumin 3.1 g/dl (3.4-5.0) L 07/24/19 10:20 CARDIAC ENZYMES Creatine Kinase 196 U/L (26-192) H 07/24/19 09:15 Troponin I 0.02 ng/ml (0.00-0.05) 07/24/19 09:15 Plan: 88 year old female with HTN, A fib (on AC) in her USOH, lives alone, using a walker for ambulation, couldn't get up of toilet for hours ( couldn't reach the walker) on day of admission until was found by her neighbour who brought her to ER. In ER it was noticed to by in A Fib with RVR, recieved IV Metoprolol with improvement in HR. Cardiology has been following patient and monitoring cardiac status. I was consulted due to altered mental status and confusion. This morning, patient in bed but unaware of her environment and does remain confusednot oriented. Noncontrast head CT was completed and without acute changes. Ordered MRI of the brain to further evaluate, awaiting completion. Urinalysis was negative, remains afebrile and with normal white count. Labs noted for hypernatremia this AM with sodium of 151. Unclear if this male to be contributing the patient's mental status. Continue optimization of cardiac factors including atrial fibrillation. Maintain adequate hydration, monitor blood pressure, maintain normotensive range. Physical therapy as tolerated, fall precautions. Consider psych evaluation as well for medications that may help with patient's hallucinations.
[2019-07-27] MEDS ORDERED: PT OWN MED DRAWER 7, Y5N ONE (09:08)
[2019-07-27] MEDS: ACETAMINOPHEN 325 MG TABLET (FP) PO PRN (09:11)
[2019-07-27] MEDS: PANTOPRAZOLE 40 MG TABLET (FP) PO SCH (09:13)
[2019-07-27] MEDS: POTASSIUM CHLORIDE TABS 10 MEQ TABLET.ER (FP) PO SCH (09:13)
[2019-07-27] MEDS: APIXABAN 2.5 MG TABLET PO SCH ×2 (09:14→23:05)
[2019-07-27] MEDS: FUROSEMIDE 20 MG TABLET (FP) PO SCH (09:14)
[2019-07-27] MEDS: LIDOCAINE 5% TOPICAL PATCH TP SCH (09:16)
[2019-07-27] MEDS: POLYETHYLENE GLYCOL 3350 119 GM BTL PO SCH (09:17)
[2019-07-27] MEDS: SODIUM CHLORIDE 1,000 ML IV SCH (09:30)
--- NOTE | 2019-07-27 09:32 | PN ---
Progress Note, Physician Chief Complaint: tachycardia and borderline low BP this am awake alert NAD occasional joints aches - Current Medication List Current Medications: Active Medications Acetaminophen (Tylenol -) 650 mg PO Q6H PRN PRN Reason: PAIN 2-5 Last Admin: 07/27/19 09:11 Dose: 650 mg Apixaban (Eliquis -) 2.5 mg PO BID [facility] Last Admin: 07/27/19 09:14 Dose: 2.5 mg Diltiazem HCl (Cardizem Cd -) 120 mg PO DAILY [facility] Last Admin: 07/27/19 09:13 Dose: 120 mg Sodium Chloride (1/2 Normal Saline) 1,000 mls @ 75 mls/hr IV ASDIR [facility] Insulin Aspart (Novolog Vial Sliding Scale -) 1 vial SQ ACHS [facility]; Protocol Last Admin: 07/27/19 06:10 Dose: Not Given Lidocaine (Lidoderm Patch -) 1 patch TP DAILY [facility] Last Admin: 07/27/19 09:16 Dose: 1 patch Metoprolol Succinate (Toprol Xl -) 100 mg PO BID [facility] Last Admin: 07/27/19 09:14 Dose: 100 mg Metoprolol Tartrate (Lopressor Injection -) 5 mg IVPUSH Q4H PRN PRN Reason: TACHYCARDIA Last Admin: 07/26/19 12:59 Dose: 5 mg Miscellaneous (Lidoderm Patch Removal) 1 each MC DAILY@2200 [facility] Last Admin: 07/26/19 22:18 Dose: Not Given Olanzapine (Zyprexa -) 2.5 mg PO HS [facility] Last Admin: 07/26/19 22:18 Dose: 2.5 mg Pantoprazole Sodium (Protonix -) 40 mg PO DAILY [facility] Last Admin: 07/27/19 09:13 Dose: 40 mg Polyethylene Glycol (Miralax (For Daily Use) -) 17 gm PO DAILY [facility] Last Admin: 07/27/19 09:17 Dose: Not Given Potassium Chloride (K-Dur -) 20 meq PO DAILY [facility] Last Admin: 07/27/19 09:13 Dose: 20 meq - Objective Vital Signs: Vital Signs Temperature 98.7 F 07/27/19 06:26 Pulse Rate 118 H 07/27/19 06:26 Respiratory Rate 18 07/27/19 06:26 Blood Pressure 147/76 07/27/19 06:26 O2 Sat by Pulse Oximetry (%) 96 07/26/19 21:00 Constitutional: Yes: No Distress, Calm Eyes: Yes: Conjunctiva Clear HENT: Yes: Atraumatic Neck: Yes: Supple Cardiovascular: Yes: Tachycardia. No: Regular Rate and Rhythm Respiratory: Yes: Diminished Genitourinary: No: Hematuria Musculoskeletal: No: Joint Stiffness, Joint Swelling Extremities: No: Cold, Cool, Cyanosis Edema: No Integumentary: No: Rash, Venous Stasis Changes Neurological: Yes: Alert ...Motor Strength: WNL Psychiatric: Yes: Alert. No: Agitated Labs: CBC, BMP 07/25/19 10:30 07/27/19 06:34 INR, PTT INR 1.68 (0.83-1.09) H 07/21/19 15:00 - ....Imaging Other: Report Reviewed Assessment/Plan 88 yo F PMH of L Breast Ca, HTN, Afib ( on Eliquis) admitted vis ED for weakness and confusion, unable to walk; lives alone CT and xrays and consults noted tachycardia, AFib: cardiology f/u; BBlocker and cardizem CD 120 mg/d for tachycardia but watch for low BP prerenal azotemia, hyperNa : s/p IVF; stop lasix; f/u labs; abNL tfts: prominent thyroid on exam: check neck CT r/o thryoid mass ortho f/u for hip pain neurology eval noted; brain MRI ordered miralax prn (no BM in few days per staff) f/u labs noted; cultures negative falls decubs DVT aspiration pfx d/w pt and staff d/w pt's HCP and POA
[2019-07-27] MEDS ORDERED: SODIUM CHLORIDE 0.45% 1,000 ML IV SCH (09:45)
--- NOTE | 2019-07-27 09:52 | CONSULT ---
Admitting History and Physical - Primary Care Physician PCP: Cass Lindsey S - Admission History of Present Illness: 88 year old female with PMH of HTN, A fib (on AC) resides alone, uses walker for ambulation, couldn't get up of toilet for hours, now with altered mental status and confusion. Per EMR-Patient's neighbor said she is generally independent, cooks for herself and takes care of her home. She was not acting like herself. AF, low BP. Noncontrast head CT (-) MRI of the brain Urinalysis (-) afebrile normal white count poor appetite Selected Entries 07/25/19 07/25/19 07/25/19 09:15 13:15 18:00 Breakfast 25% Lunch 0 Supper 0 Temperature 07/26/19 07/26/19 07/26/19 01:35 06:00 08:54 Breakfast Lunch Supper Temperature 97.7 F 98.0 F 97.7 F 07/26/19 07/26/19 07/26/19 11:02 14:16 18:00 Breakfast 25% Lunch 25% Supper Temperature 97.5 F L 97.6 F 07/26/19 07/26/19 07/27/19 22:13 22:25 02:00 Breakfast Lunch Supper 25% Temperature 97.9 F 98.0 F 07/27/19 06:26 Breakfast Lunch Supper Temperature 98.7 F History Source: Medical Record Limitations to Obtaining History: Clinical Condition - Past Medical History Cardiovascular: Yes: AFIB (on Eliquis), HTN Pulmonary: No: Asthma, Bronchitis, Cancer, COPD, O2 Dependent, Pneumonia, Previously Intubated, Pulmonary Embolus, Pulmonary Fibrosis, Sleep Apnea, Other Gastrointestinal: No: Ascites, Cancer, Constipation, Crohn's Disease, Diverticulitis, Diverticulosis, Esophageal Varices, Gastritis, GERD, GI Bleed, Hemorrhoids, Hiatal Hernia, Inflamatory Bowel Disease, Irritable Bowel Disease, Pancreatitis, Peptic Ulcer Disease, Ulcerative Colitis, Other Hepatobiliary: No: Cirrhosis, Cholelithiasis, Cholecystitis, Choledocholithiasis , Hepatitis A, Hepatitis B, Hepatitis C, Other Renal/: No: Renal Failure, Renal Inusuff, BPH, Cancer, Hematuria, Hemodialysis , Neurogenic Bladder, Renal Calculi, UTI, Other ...: No Heme/Onc: No: Anemia, B12 Deficiency, Bleeding Disorder, Cancer, Current Chemotherapy, Current Radiation Therapy, Hemochromatosis, Hypercoaguable State, Myeloproliferative Synd, Sickle Cell Disease, Sickle Cell Trait, Thrombocytopenia, Other Infectious Disease: No: AIDS, C-Diff, Herpes Zoster, HIV, MRSA, STD's, Tuberculosis, VREF, Other Psych: No: Addictions, Anxiety, Bipolar, Depression, Panic, Psychosis, Schizophrenia, Other Musculoskeletal: No: Bursitis, Chronic low back pain, Hemiparesis, Hemiplegia, Osteoarthritis, Paraplegia, Other Rheumatology: No: Fibromyalgia, Gout, Lupus, Rheumatoid Arthritis, Sarcoidosis, Vasculitis, Other ENT: No: Allergic Rhinitis, Sinusitis, Other Endocrine: No: Ritchie's Disease, Chichester's Disease, Diabetes Insipidus, Diabetes Mellitus, Hyperparathyroidism, Hyperthyroidism, Hypothyroidism, Osteopenia, SIADH, Other - Past Surgical History Past Surgical History: No: None, AAA Repair, AICD, Amputation, Appendectomy, Arthrosocopy, AV Fistula/Graft, Bariatric Surgery, Breast Biopsy, Bypass, CABG, Carotid Endarterectomy, Cataract Removal, Cholecystectomy, Colectomy, Colonoscopy, Colostomy, Craniotomy, , Cystectomy, Hernia Repair, Hysterectomy, Ileal Conduit, Ileosotomy, Joint Replacement, Kidney Transplant, Laminectomy, Liver Transplant, Mastectomy, Nephrectomy, Oopherectomy, Orchiectomy, Permanent Pacemaker, Prostatectomy, Splenectomy, Stent, Thoracotomy , TURP, Tonsillectomy, Tubal Ligation, Upper Endoscopy, Valve Replacement, Vasectomy, Vein Stripping/Ligation - Smoking History Smoking history: Never smoked Have you smoked in the past 12 months: No - Alcohol/Substance Use Hx Alcohol Use: No History of Substance Use: denies: None, Cocaine, Heroin, Marijuana, Prescription , Tranquilizers - Social History Usual Living Arrangement: Yes: Alone Occupation: "insurance" History of Recent Travel: No History - Admission Reason For Visit: RAPID AFIB - Diagnostics X-ray: Report Reviewed CT Scan: Report Reviewed MRI: Pending - General Mental Status: Awake and Alert, Able to Follow Commands, Confused Attention: Mild Impairment Ability to Follow Directions: Fair Head/Neck Control: Fair - Hearing Hearing: Functional Hearing: Normal Hearing Aide: No With Patient: No Speech Evaluation - Communication Primary Language: PUERTO R[place] Communication: Yes: Simple Responses Oral Expression Ability: Yes: Mild Impairment, Moderate Impairment - Speech Production Able to Make Needs Known: Yes: Mildly Impaired, Moderately Impaired Intelligibility: Yes: Mildly Impaired - Speech Characteristics Voice Loudness: Mildly Soft/Quiet Voice Pitch: Yes: Normal Voice Phonatory-based Quality: Yes: Normal Speech Clarity: < 75% Nasal Resonance: Normal Articulation: Yes: Precise (slightly imprecise- Mouth symmetric but very dry.) - Language/Auditory Comprehension Follows: Yes: 1 Stage Simple Commands Observation: Able to respond to yes/no queries: Yes, Yes/No Confusion: No, Comprehends Conversational Speech: Yes, Benefits from Slow Speech: Yes, Benefits from Repetiton: Yes, Benefits from Increased Volume of Speech: Yes - Language/Verbal Expression Aphasia: Yes: Anomia, Paraphrasic Errors, Neologisms Able to Respond to Simple Queries: Yes: Mildly Impaired, Moderately Impaired Able to Communicate Wants and Needs: Yes: Mildly Impaired, Moderately Impaired - Swallow Evaluation/Bedside Assessment Current Nutritional Intake: Thin Liquids, Other (chopped. Ensure.) Oral Secretions: Yes: Dryness Dentition: Yes: Adequate Facial Symmetry at Rest: Symmetrical Facial Symmetry on Retraction: Symmetrical Facial Movement: Controlled Against Resistance Opening: Normal Against Resistance Closing: Normal Pucker Lips: Normal Smile: Normal Lingual Movement: Normal, Symmetric Lingual Speed of Movement: Normal Lingual Movement Strgth Against Opposition: Normal Lingual Movement Characteristics: Normal Velopharyngeal Movement: Normal Laryngeal Elevation: WFL Laryngeal Movement: Able to Palpate, Labored,delay initiation (Self generates several swallows per tsp- stasis?) Rate of Intake: WFL Bolus Size: Small Labial Seal: WFL Chewing: WFL (able to chew mandarin orange well but with several swallows generated to clear. Stasis?) A-P Transit: WFL Pocketing: None Timing of Swallow: Delayed Coughing/Throat Clear: Yes (coughed with [employer] ANALYST today, after having puree followed by thin liquids) Change in Voice: No Recommendations - Speech Evaluation, Impression/Plan Impression: 88 yo with reported recent onset of altered behavior. w/u in progress. MRI pending. Pt confused, repeatedly saying "I need help", not oriented. Language errors, neologisms, paraphasic errors in propositional speech and confrontation naming task. Able to repeat. Follows simple commands, y /n accurate. Can engage pt and have a conversation, which improves with time. She worked in "[employer]" field, lived in "[facility]", "[facility]", now in "[place]". "Upstairs friend helped" her when she was on the toilet. Healed bruise noted on left side of forehead- fall? HI? Self generates several swallows per tsp -stasis?intermittent aspiration? Recommended Therapies: Voice - Disposition Discharge to: [facility], To be Determined - Dysphagia Impressions/Plan Swallowing Skills: Impaired Dysphagia Impressions: Mild Impairment, Moderate Impairment *Silent aspiration: cannot be R/O at bedside Dysphagia Treatment Plan: Small Bites, Chin Tuck/Down, Clear Pocket Food, Safe Rate, 1/2 tsp. at a time, Elevate HOB during feed, Other (give pt time top swallow several times to clear pharynx, alternate with sips of liquid) Recommendations: Modified Barium Swallow (r/o aspiration/stasis) - Recommendations Diet Consistency: Dysphagia Pureed Medication Administration: Crushed with applesauce Liquids: Thin Liquids Supplement: Ensure, Ensure Pudding
--- NOTE | 2019-07-27 10:42 | PN ---
Progress Note (short form) - Note Progress Note: s: no chest pain, palps, dizziness, dyspnea. knows she is in a hospital, doesn' t know which one Current Medications Acetaminophen (Tylenol -) 650 mg PO Q6H PRN PRN Reason: PAIN 2-5 Last Admin: 07/27/19 09:11 Dose: 650 mg Apixaban (Eliquis -) 2.5 mg PO BID [facility] Last Admin: 07/27/19 09:14 Dose: 2.5 mg Diltiazem HCl (Cardizem Cd -) 120 mg PO DAILY [facility] Last Admin: 07/27/19 09:13 Dose: 120 mg Sodium Chloride (1/2 Normal Saline) 1,000 mls @ 75 mls/hr IV ASDIR [facility] Last Admin: 07/27/19 10:19 Dose: 75 mls/hr Insulin Aspart (Novolog Vial Sliding Scale -) 1 vial SQ ACHS [facility]; Protocol Last Admin: 07/27/19 06:10 Dose: Not Given Lidocaine (Lidoderm Patch -) 1 patch TP DAILY [facility] Last Admin: 07/27/19 09:16 Dose: 1 patch Metoprolol Succinate (Toprol Xl -) 100 mg PO BID [facility] Last Admin: 07/27/19 09:14 Dose: 100 mg Metoprolol Tartrate (Lopressor Injection -) 5 mg IVPUSH Q4H PRN PRN Reason: TACHYCARDIA Last Admin: 07/26/19 12:59 Dose: 5 mg Miscellaneous (Lidoderm Patch Removal) 1 each MC DAILY@2200 [facility] Last Admin: 07/26/19 22:18 Dose: Not Given Olanzapine (Zyprexa -) 2.5 mg PO HS [facility] Last Admin: 07/26/19 22:18 Dose: 2.5 mg Pantoprazole Sodium (Protonix -) 40 mg PO DAILY [facility] Last Admin: 07/27/19 09:13 Dose: 40 mg Polyethylene Glycol (Miralax (For Daily Use) -) 17 gm PO DAILY [facility] Last Admin: 07/27/19 09:17 Dose: Not Given Potassium Chloride (K-Dur -) 20 meq PO DAILY [facility] Last Admin: 07/27/19 09:13 Dose: 20 meq Vital Signs Period Temp Pulse Resp BP Sys/Sheldon Pulse Ox Last 24 Hr 97.5 F-98.7 F 102-133 16-19 101-147/55-84 96 Constitutional: Yes: Well Nourished, No Distress, Calm Cardiovascular: Yes: Pulse Irregular, Murmur (loud MR murmur apex), S1, S2. No : JVD, Gallop Respiratory: Yes: Regular, CTA Bilaterally. No: Accessory Muscle Use, Rales Extremities: No: Cold Edema: No Neurological: Yes: Alert. No: Seizure Psychiatric: No: Agitated no jaundice, diaphoresis Assessment/Plan Echo 08/02: nl LV/RV. severe LAE. 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 mod TR. RVSP 30-40. mild /AI. 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 baseline cognitive status)
[2019-07-27] MEDS ORDERED: ACETAMINOPHEN 325 MG TABLET (FP) PO ONE (12:30)
[2019-07-27] MEDS ORDERED: oxyCODONE HCL 5 MG TABLET PO ONE (12:30)
[2019-07-27] MEDS ORDERED: SODIUM CHLORIDE 0.45% 250 ML IVPB ONE (12:45)
[2019-07-27 15:19] LABS: EPI CELLS 0.4 /HPF (0-5/HPF); HYALINE CASTS 1 /lpf (0-8); PH,URINE 5.5 (5.0-8.0); URINE APPEARANCE CLEAR; URINE BILIRUBIN NEGATIVE (NEGATIVE); URINE COLOR YELLOW; URINE GLUCOSE (UA) NEGATIVE (NEGATIVE); URINE KETONE NEGATIVE (NEGATIVE); URINE LEUK ESTERASE NEGATIVE (NEGATIVE); URINE NITRITE NEGATIVE (NEGATIVE); URINE PROTEIN 1+ (NEGATIVE); URINE RBC 2 /hpf (0-4); URINE WBC 0 /hpf (0-5)
--- NOTE | 2019-07-27 16:09 | CON.PULM ---
Consult Consult Specialty:: PULMONARY Referred by:: Dr Herrera Reason for Consultation:: ICU evaluation - History of Present Illness Chief Complaint: altered mental status History of Present Illness: 88yo female with h/o HTN, atrial fibrillation, independent in ADLs who was admitted after being found by her neighbor. Noted to be in rapid atrial fibrillation. Mental status has been altered since admission. CT head without changes, MRI brain pending. No obvious infectious causes. No fevers this admission. Noted to be hypernatremic to 151. Neurology consulted. - History Source History Provided By: Medical Record, Transfer Record Limitations to Obtaining History: Clinical Condition - Past Medical History Cardio/Vascular: Yes: AFIB (on Eliquis), HTN ...: No - Alcohol/Substance Use Hx Alcohol Use: No - Smoking History Smoking history: Never smoked Have you smoked in the past 12 months: No - Social History Usual Living Arrangement: Alone Occupation: "insurance" History of Recent Travel: No Home Medications - Allergies Allergies/Adverse Reactions: Allergies Allergy/AdvReac Type Severity Reaction Status Date / Time No Known Allergies Allergy Verified 07/21/19 14:31 - Home Medications Home Medications: Ambulatory Orders Apixaban [Eliquis] 2.5 mg PO BID 07/21/19 Diltiazem HCl [Diltiazem ER] 240 mg PO DAILY 07/21/19 Furosemide 40 mg PO DAILY 07/21/19 Metoprolol Succinate 25 mg PO DAILY 07/21/19 Pantoprazole Sodium 40 mg PO DAILY 07/21/19 Potassium Chloride 10 meq PO DAILY 07/21/19 Review of Systems Unable to obtain ROS, reason: pt unable to answer Physical Exam Vital Sings: Vital Signs Temperature 97.9 F 07/27/19 14:00 Pulse Rate 123 H 07/27/19 14:06 Respiratory Rate 20 07/27/19 14:06 Blood Pressure 123/46 L 07/27/19 14:06 O2 Sat by Pulse Oximetry (%) 95 07/27/19 11:00 Constitutional: Yes: Other (confused) Eyes: Yes: Conjunctiva Clear, EOM Intact HENT: Yes: Other (dry mucous membranes) Neck: Yes: Supple, Trachea Midline Cardiovascular: Yes: Regular Rate and Rhythm Respiratory: Yes: Diminished (decreased breath sounds at the bases) ...Clubbing: No Gastrointestinal: Yes: Normal Bowel Sounds, Soft. No: Tenderness Edema: No Neurological: Yes: Confusion Labs: CBC, BMP 07/25/19 10:30 07/27/19 06:34 Imaging - Results Chest X-ray: Report Reviewed, Image Reviewed (no infiltrates) Problem List - Problems (1) Altered mental status Code(s): R41.82 - ALTERED MENTAL STATUS, UNSPECIFIED Assessment/Plan Altered Mental Status Atrial Fibrillation Mitral Regurgitation HTN Hypernatremia - f/u MRI brain - neuro on board - free water replacement, correct electrolyte abnormalities - can check ammonia level although no obvious liver impairment - avoid overmedication - pt currently hemodynamically stable, no apparent distress, can continue work up on floor - please call back if any changes in clinical status Thank you for this consult Nile No MD
[2019-07-27] MEDS: METOPROLOL TARTRATE 5 MG/5 ML VIAL IVPUSH PRN (16:43)
--- NOTE | 2019-07-27 20:26 | RAPID ---
Physical Examination Vital Signs: Vital Signs Temperature 97.9 F 07/27/19 18:00 Pulse Rate 125 H 07/27/19 18:00 Respiratory Rate 17 07/27/19 18:00 Blood Pressure 133/50 L 07/27/19 18:00 O2 Sat by Pulse Oximetry (%) 95 07/27/19 11:00 Labs: CBC, BMP 07/25/19 10:30 07/27/19 06:34 Rapid Response - Rapid Response Assessment: A rapid response was called at 7:47pm for Ms. Desir because she was found do be lethargic, not arousable, with irregular shallow breathing. The rapid response team responded immediately. Prior to arrival of the rapid response team vitals were obtained (87/52, 123 AF, RR10) however they were unable to get pulse ox reading. The pts respirations became agonal with periods of apnea and a code 99 was called (see code sheet). On arrival of the rapid response team the pt was found to be lethargic in bed, she was opening her eyes and swatting away the non-rebreather mask with her hands but she was not responding verbally or following any commands. Her vitals were repeated and were 102/63, 128 AF, RR10, SPO2 100% on non-rebreather mask, 100.7F rectally. Per the nurse the pt was not at her baseline mental status and her respirations were observed to be shallow with periods of apnea. PCP was made aware of pt's current condition. Physical Exam: General: pt in bed, lethargic, opening eyes to name and attempting to pull off facemask however otherwise unresponsive to verbal questioning and not following commands. HEENT: PERRL bilaterally, dry mucous membranes Lungs: clear to auscultation bilaterally in all lung sood, poor respiratory effort with shallow rapid breaths followed by periods of apnea, no accessory muscle use, no crackles or wheezes. Heart: irregularly irregular rhythm, tachycardic, no murmur appreciated Abd: normal BS, pt not flinching or responding adversely to abdominal palpation Ext: no peripheral edema in the LE, extremly dry skin noted with poor skin turgor A+P Pt with known HTN, A fib (on AC) admitted for episode of A Fib with RVR after being found by a neighbor after she was unable to get up from the toilette. Rapid response/ code 99 called to evalutate pt for lethargy and agonal breathing with periods of apnea. Per nurse, pt also had a period of hypoxia earlier in the day where she de-saturated to the 80s however this was not documented. Unclear why pt is having episodes of apnea. Given pt's lethargy there is some concern for her ability to protect her airway. Although she is currently saturating well on the non-rebreather mask, we will transfer the pt to the ICU for closer monitoring. 1. Lethargy with apnea/ hypoxia, possibly 2/2 aspiration?- Pt currently on non- rebreather mask, saturating well - CBC - CMP - Lactic Acid - Troponin - CXR - ABG - EKG - Transfer to ICU
[2019-07-27 20:31] LABS: ARTERIAL BLOOD GAS BASE EXCESS -0.1 meq/l (-2-2); ARTERIAL BLOOD GAS PO2 144 mmHg (80-100); ARTERIAL BLOOD GAS pH 7.57 (7.35-7.45)
[2019-07-27 20:32] LABS: ALLENS TEST POSITIVE
[2019-07-27] MEDS ORDERED: MIDAZOLAM HCL 2 MG/2 ML SINGLE DOSE VIAL ONE (20:42)
--- NOTE | 2019-07-27 20:57 | PN ---
Progress Note (short form) - Note Progress Note: I was called by floor nurse during the day, pt had a lot of pain not better with tylenol and lidoderm, percocet 2.5 mg po x 1 ordered in am; also since noon pt had low BP and RAFib Na 151 I d/w cardio dr Herrera - kehinde stopped, pt received IVF; BP better, but no urine output; Jacques placed - large residual; by 4 pm she was doing better less pain, BP better and pt more comfortable; around 8pm pt became lethargic low BP again and again with RAFib; d/w nurse: rapid response called, pt placed on 100% NRB, became more awake and was not intubated but kept on 100% NRB and transferred to ICU; no advanced directives in chart; I called pt's POA and HCP and Ms Gilliam who said they do not have any signed DNR from pt but pt might have advanced directives DNR DNI with PCP dr Severino; I placed a call to dr Severino; I d.w them if she becomes unstable over night she will be resuscitated / intubated as needed and will f/u in am with Palliative care. Mr and Ms Gilliam agreed with the above plan. Per them pt has no other family or proxy.
--- NOTE | 2019-07-27 20:58 | PN ---
Progress Note (short form) - Note Progress Note: Anesthesia Digital Photographic Printer called to intubate pt with respiratory insufficiency DL x 1 with Mac 3 after 2mf iv midazolam DVC #& ETT [passed +ETCO2 +BS =BL Tube taped at 20cm at the lip Arash Esquivel MD
[2019-07-27] MEDS ORDERED: SODIUM CHLORIDE 500 ML IV STA (21:00)
[2019-07-27 21:59] LABS: BASO % 0.3 % (0-2.0); HEMATOCRIT 38.9 % (32.4-45.2); HEMOGLOBIN 12.4 GM/dL (10.7-15.3); LYMPH % 8.3 % (8-40); MCH 29.4 pg (25.7-33.7); MCHC 31.8 g/dl (32.0-36.0); MEAN CELL VOLUME 92.5 fl (80-96); MEAN PLT VOLUME 9.7 fl (7.5-11.1); MONO % 6.1 % (3.8-10.2); NEUT % 85.3 % (42.8-82.8); PLATELET COUNT 174 K/MM3 (134-434); RBC 4.21 M/mm3 (3.60-5.2); RDW 16.1 % (11.6-15.6); WHITE BLOOD COUNT 12.1 K/mm3 (4.0-10.0)
[2019-07-27] MEDS: DEXMEDETOMIDINE HCL 200 MCG in SODIUM CHLORIDE 48 ML IVPB SCH (22:00)
[2019-07-27 22:27] LABS: ALBUMIN 2.8 g/dl (3.4-5.0); BLOOD UREA NITROGEN 49.4 mg/dL (7-18); CALCIUM 8.6 mg/dL (8.5-10.1); POTASSIUM 4.5 mmol/L (3.5-5.1); TOT PROT 5.5 g/dl (6.4-8.2)
[2019-07-27] MEDS: OLANZapine 2.5 MG TABLET PO SCH (23:05)
[2019-07-27] MEDS: LIDOCAINE PATCH REMOVAL MC SCH (23:06)
[2019-07-27] MEDS ORDERED: DIGOXIN 0.5 MG/2 ML AMPUL IVPUSH ONE (23:10)
[2019-07-27] MEDS ORDERED: SODIUM CHLORIDE 0.45% 500 ML IV SCH (23:15)
[2019-07-27] MEDS ORDERED: DIGOXIN 0.5 MG/2 ML AMPUL ONE (23:21)
--- NOTE | 2019-07-27 23:21 | PN ---
Progress Note (short form) - Note Progress Note: Toya Desir is a 88yF w PMHx HTN, a fib on AC admitted for generalized weakness. Rapid response was called this evening for increasing lethargy and irregular shallow breathing necessitating transfer to ICU for close monitoring. She was subsequently intubated in the ICU for AMS not protecting airway and apneic breathing, sedated with precedex and versed - 21:15 Nimesh Gilliam power of ip attorney was contacted over phone, confirmed that pt is DNR (no chest compressions). Consents to pt being intubated on ventilator , central line/pressors if needed. - given digoxin, 0.5L NS for tachycardia and hypotension
[2019-07-27] MEDS ORDERED: MIDAZOLAM IN 0.9 % SOD.CHLORID 1 MG/1 ML PLAST..BAG ONE (23:50)
[2019-07-28] MEDS: MIDAZOLAM IN 0.9 % SOD.CHLORID 100 MG/100 ML PLAST..BAG IVPB SCH (00:13)
[2019-07-28] MEDS: INSULIN SLIDING SCALE (NOVOLOG) 1 VIAL SQ SCH ×5 (00:39→23:20)
[2019-07-28 00:42] LABS: ARTERIAL BLD GAS O2 SATURATION 98.4 % (95-98); ARTERIAL BLOOD GAS BASE EXCESS -2.4 meq/l (-2-2); ARTERIAL BLOOD GAS PCO2 32.9 mmHg (35-45); ARTERIAL BLOOD GAS pH 7.42 (7.35-7.45)
[2019-07-28 00:46] LABS: ARTERIAL BLOOD GAS PO2 138 mmHg (80-100)
[2019-07-28 00:47] LABS: ALLENS TEST POSITIVE
[2019-07-28 06:51] LABS: ARTERIAL BLD GAS O2 SATURATION 95.8 % (95-98); ARTERIAL BLOOD GAS BASE EXCESS -2.8 meq/l (-2-2); ARTERIAL BLOOD GAS PCO2 31.6 mmHg (35-45); ARTERIAL BLOOD GAS PO2 81.8 mmHg (80-100); ARTERIAL BLOOD GAS pH 7.42 (7.35-7.45)
[2019-07-28 06:59] LABS: ALLENS TEST POSITIVE
[2019-07-28 07:21] LABS: BASO % 0.3 % (0-2.0); EOS % 0.1 % (0-4.5); HEMATOCRIT 40.2 % (32.4-45.2); LYMPH % 13.3 % (8-40); MCH 30.1 pg (25.7-33.7); MCHC 32.3 g/dl (32.0-36.0); MEAN CELL VOLUME 93.4 fl (80-96); MEAN PLT VOLUME 10.3 fl (7.5-11.1); MONO % 6.9 % (3.8-10.2); NEUT % 79.4 % (42.8-82.8); PLATELET COUNT 144 K/MM3 (134-434); WHITE BLOOD COUNT 10.2 K/mm3 (4.0-10.0)
--- NOTE | 2019-07-28 07:24 | PN ---
Progress Note, Physician Chief Complaint: events noted pt in respiratory distress trasnferred to ICU and intubated; on vent; now opens eyes but sedated now VSS but had low grade fever; tachycardia borderline low BP earlier - Current Medication List Current Medications: Active Medications Acetaminophen (Tylenol -) 650 mg PO Q6H PRN PRN Reason: PAIN 2-5 Last Admin: 07/27/19 09:11 Dose: 650 mg Apixaban (Eliquis -) 2.5 mg PO BID [facility] Last Admin: 07/27/19 23:05 Dose: Not Given Diltiazem HCl (Cardizem Cd -) 120 mg PO BID [facility] Last Admin: 07/27/19 23:05 Dose: Not Given Dexmedetomidine HCl 200 mcg/ (Sodium Chloride) 50 mls @ 1.95 mls/hr IVPB TITR [facility] Last Infusion: 07/28/19 04:00 Dose: 0.3 mcg/kg/hr, 2.92 mls/hr Midazolam HCl (Midazolam 100mg/100ml-0.9%Nacl) 100 mg in 100 mls @ 1 mls/hr IVPB TITR [facility]; Protocol Last Titration: 07/28/19 04:05 Dose: 0 mg/hr, 0 mls/hr Dextrose/Sodium Chloride (D5-1/4ns -) 1,000 mls @ 75 mls/hr IV ASDIR EDILSON Insulin Aspart (Novolog Vial Sliding Scale -) 1 vial SQ ACHS [facility]; Protocol Last Admin: 07/28/19 00:39 Dose: Not Given Lidocaine (Lidoderm Patch -) 1 patch TP DAILY [facility] Last Admin: 07/27/19 09:16 Dose: 1 patch Metoprolol Succinate (Toprol Xl -) 100 mg PO BID [facility] Last Admin: 07/27/19 23:05 Dose: Not Given Metoprolol Tartrate (Lopressor Injection -) 5 mg IVPUSH Q4H PRN PRN Reason: TACHYCARDIA Last Admin: 07/27/19 16:43 Dose: 5 mg Miscellaneous (Lidoderm Patch Removal) 1 each MC DAILY@2200 [facility] Last Admin: 07/27/19 23:06 Dose: Not Given Olanzapine (Zyprexa -) 2.5 mg PO HS [facility] Last Admin: 07/27/19 23:05 Dose: Not Given Pantoprazole Sodium (Protonix -) 40 mg PO DAILY [facility] Last Admin: 07/27/19 09:13 Dose: 40 mg Polyethylene Glycol (Miralax (For Daily Use) -) 17 gm PO DAILY EDILSON Last Admin: 07/27/19 09:17 Dose: Not Given Potassium Chloride (K-Dur -) 20 meq PO DAILY EDILSON Last Admin: 07/27/19 09:13 Dose: 20 meq - Objective Vital Signs: Vital Signs Temperature 97.2 F L 07/28/19 02:00 Pulse Rate 86 07/28/19 04:00 Respiratory Rate 17 07/28/19 04:46 Blood Pressure 115/47 L 07/28/19 04:00 O2 Sat by Pulse Oximetry (%) 99 07/27/19 21:12 Constitutional: Yes: No Distress Eyes: Yes: Conjunctiva Clear HENT: Yes: Atraumatic Neck: Yes: Supple Cardiovascular: Yes: Regular Rate and Rhythm Respiratory: Yes: Diminished Gastrointestinal: Yes: Soft. No: Tenderness Genitourinary: No: Hematuria Musculoskeletal: No: Joint Stiffness, Joint Swelling Extremities: No: Cold, Cool, Cyanosis Edema: No Integumentary: No: Rash, Venous Stasis Changes Neurological: No: Alert ...Motor Strength: WNL (WD U/LE bilat.) Psychiatric: No: Alert, Agitated Labs: INR, PTT INR 1.68 (0.83-1.09) H 07/21/19 15:00 - ....Imaging Chest X-ray: Report Reviewed Other: Report Reviewed Assessment/Plan 88 yo F PMH of L Breast Ca, HTN, Afib ( on Eliquis) admitted vis ED for weakness and confusion, became hypotensive, hyperNA, IVF given, then in respiratory distress intubated; CXR no CHF; no legs edema; had low grade fever last night; in ICU on vent - pulm ICU f/u tachycardia, AFib: cardiology f/u; BBlocker and cardizem CD 120 mg/d for tachycardia but watch for low BP prerenal azotemia, hyperNa : s/p IVF; renbal eval; f/u labs; neurology eval noted; brain MRI and neck CT ordered but pt unstable now; will hold off ID eval r/o sepsis; f/u labs noted; cultures negative so far; decubs DVT aspiration pfx prognosis guarded; palliative care consult t time 35 min d.w staff will call HCP
[2019-07-28] MEDS ORDERED: DEXTROSE 5%-0.2% SALINE - 1,000 ML IV SCH (07:30)
--- NOTE | 2019-07-28 07:31 | PN ---
Physical Exam: SUBJECTIVE: Patient seen and examined by the bedside. Sedated, intubated, and unresponsive. OBJECTIVE: Vital Signs Period Temp Pulse Resp BP Sys/Sheldon Pulse Ox Last 24 Hr 97 F-100.7 F 85-147 10-36 84-133/43-94 95-100 GENERAL: Sedated and intubated, unresponsive HEAD: Normal with no signs of trauma. EYES: LUIS, unable to assess EOM LUNGS: Clear breath sounds B/L no wheezes, and no crackles. No accessory muscle use HEART: Irregular rate, 2/6 systolic murmur on RSB ABDOMEN: Soft, nontender, not distended, normoactive bowel sounds, no guarding, no rebound, no masses. No hepatomegaly or splenomegaly. EXTREMITIES: warm, well-perfused. No cyanosis. Cap refill <2 seconds. No peripheral edema. NEUROLOGICAL: Sedated. Laboratory Results - last 24 hr 07/27/19 07/27/19 07/27/19 06:34 11:13 14:35 WBC RBC Hgb Hct MCV MCH MCHC RDW Plt Count MPV Absolute Neuts (auto) Neutrophils % Lymphocytes % Monocytes % Eosinophils % Basophils % Nucleated RBC % Anticoagulation Therapy Puncture Site ABG pH ABG pCO2 at Pt Temp ABG pO2 at Pt Temp ABG HCO3 ABG O2 Sat (Measured) ABG O2 Content ABG Base Excess Fady Test O2 Delivery Device Oxygen Flow Rate Vent Mode Vent Rate Mechanical Rate PEEP Pressure Support Vent Sodium 151 H Potassium 4.1 Chloride 120 H Carbon Dioxide 25 Anion Gap 6 L BUN 44.6 H Creatinine 0.9 Est GFR (CKD-EPI)AfAm 66.16 Est GFR (CKD-EPI)NonAf 57.09 POC Glucometer 229 Random Glucose 111 H Lactic Acid Calcium 9.2 Total Bilirubin AST ALT Alkaline Phosphatase Ammonia Total Protein Albumin Urine Color Yellow Urine Appearance Clear Urine pH 5.5 D Ur Specific Dunlow 1.021 Urine Protein 1+ H Urine Glucose (UA) Negative Urine Ketones Negative Urine Blood Negative Urine Nitrite Negative Urine Bilirubin Negative Urine Urobilinogen 1.0 Ur Leukocyte Esterase Negative Urine WBC (Auto) 0 Urine RBC (Auto) 2 Urine Casts (Auto) 1 U Epithel Cells (Auto) 0.4 Urine Bacteria (Auto) 1.0 07/27/19 07/27/19 07/27/19 16:50 19:05 20:00 WBC RBC Hgb Hct MCV MCH MCHC RDW Plt Count MPV Absolute Neuts (auto) Neutrophils % Lymphocytes % Monocytes % Eosinophils % Basophils % Nucleated RBC % Anticoagulation Therapy Puncture Site ABG pH ABG pCO2 at Pt Temp ABG pO2 at Pt Temp ABG HCO3 ABG O2 Sat (Measured) ABG O2 Content ABG Base Excess Fady Test O2 Delivery Device Oxygen Flow Rate Vent Mode Vent Rate Mechanical Rate PEEP Pressure Support Vent Sodium Potassium Chloride Carbon Dioxide Anion Gap BUN Creatinine Est GFR (CKD-EPI)AfAm Est GFR (CKD-EPI)NonAf POC Glucometer 86 123 Random Glucose Lactic Acid Calcium Total Bilirubin AST ALT Alkaline Phosphatase Ammonia 41.80 H Total Protein Albumin Urine Color Urine Appearance Urine pH Ur Specific Dunlow Urine Protein Urine Glucose (UA) Urine Ketones Urine Blood Urine Nitrite Urine Bilirubin Urine Urobilinogen Ur Leukocyte Esterase Urine WBC (Auto) Urine RBC (Auto) Urine Casts (Auto) U Epithel Cells (Auto) Urine Bacteria (Auto) 07/27/19 07/27/19 07/27/19 20:20 21:30 21:30 WBC 12.1 H RBC 4.21 Hgb 12.4 Hct 38.9 MCV 92.5 MCH 29.4 MCHC 31.8 L RDW 16.1 H Plt Count 174 D MPV 9.7 Absolute Neuts (auto) 10.3 H Neutrophils % 85.3 H Lymphocytes % 8.3 Monocytes % 6.1 Eosinophils % 0.0 D Basophils % 0.3 Nucleated RBC % 1 H Anticoagulation Therapy No Result Required. Puncture Site Right radial ABG pH 7.57 H ABG pCO2 at Pt Temp 22.0 L ABG pO2 at Pt Temp 144 H ABG HCO3 20.2 L ABG O2 Sat (Measured) 99.0 H ABG O2 Content 17.5 ABG Base Excess -0.1 Fady Test Positive O2 Delivery Device No Result Required. Oxygen Flow Rate Nrm 100% Vent Mode No Result Required. Vent Rate No Result Required. Mechanical Rate No Result Required. PEEP Pressure Support Vent No Result Required. Sodium 158 H Potassium 4.5 Chloride 127 H Carbon Dioxide 22 Anion Gap 9 BUN 49.4 H Creatinine 1.0 Est GFR (CKD-EPI)AfAm 58.25 Est GFR (CKD-EPI)NonAf 50.26 POC Glucometer Random Glucose 129 H Lactic Acid Calcium 8.6 Total Bilirubin 1.0 AST 76 H ALT 63 H Alkaline Phosphatase 100 Ammonia Total Protein 5.5 L Albumin 2.8 L Urine Color Urine Appearance Urine pH Ur Specific Dun[place] Urine Protein Urine Glucose (UA) Urine Ketones Urine Blood Urine Nitrite Urine Bilirubin Urine Urobilinogen Ur Leukocyte Esterase Urine WBC (Auto) Urine RBC (Auto) Urine Casts (Auto) U Epithel Cells (Auto) Urine Bacteria (Auto) 07/27/19 07/28/19 07/28/19 21:30 00:25 00:34 WBC RBC Hgb Hct MCV MCH MCHC RDW Plt Count MPV Absolute Neuts (auto) Neutrophils % Lymphocytes % Monocytes % Eosinophils % Basophils % Nucleated RBC % Anticoagulation Therapy No Result Required. Puncture Site Right brachial ABG pH 7.42 ABG pCO2 at Pt Temp 32.9 L ABG pO2 at Pt Temp 138 H ABG HCO3 20.9 L ABG O2 Sat (Measured) 98.4 H ABG O2 Content No Result Required. ABG Base Excess -2.4 L Fady Test Positive O2 Delivery Device Vent Oxygen Flow Rate 50% Vent Mode No Result Required. Vent Rate 14 Mechanical Rate No Result Required. PEEP 5.0 Pressure Support Vent 400 Sodium Potassium Chloride Carbon Dioxide Anion Gap BUN Creatinine Est GFR (CKD-EPI)AfAm Est GFR (CKD-EPI)NonAf POC Glucometer 111 Random Glucose Lactic Acid 2.1 H Calcium Total Bilirubin AST ALT Alkaline Phosphatase Ammonia Total Protein Albumin Urine Color Urine Appearance Urine pH Ur Specific Dun[place] Urine Protein Urine Glucose (UA) Urine Ketones Urine Blood Urine Nitrite Urine Bilirubin Urine Urobilinogen Ur Leukocyte Esterase Urine WBC (Auto) Urine RBC (Auto) Urine Casts (Auto) U Epithel Cells (Auto) Urine Bacteria (Auto) 07/28/19 07/28/19 06:00 06:40 WBC RBC Hgb Hct MCV MCH MCHC RDW Plt Count MPV Absolute Neuts (auto) Neutrophils % Lymphocytes % Monocytes % Eosinophils % Basophils % Nucleated RBC % Anticoagulation Therapy No Result Required. Puncture Site Right radial ABG pH 7.42 ABG pCO2 at Pt Temp 31.6 L ABG pO2 at Pt Temp 81.8 ABG HCO3 20.3 L ABG O2 Sat (Measured) 95.8 ABG O2 Content 16.1 ABG Base Excess -2.8 L Fady Test Positive O2 Delivery Device Vent Oxygen Flow Rate 50% Vent Mode No Result Required. Vent Rate 14 Mechanical Rate No Result Required. PEEP 5.0 Pressure Support Vent 400 Sodium Potassium Chloride Carbon Dioxide Anion Gap BUN Creatinine Est GFR (CKD-EPI)AfAm Est GFR (CKD-EPI)NonAf POC Glucometer 76 Random Glucose Lactic Acid Calcium Total Bilirubin AST ALT Alkaline Phosphatase Ammonia Total Protein Albumin Urine Color Urine Appearance Urine pH Ur Specific Dun[place] Urine Protein Urine Glucose (UA) Urine Ketones Urine Blood Urine Nitrite Urine Bilirubin Urine Urobilinogen Ur Leukocyte Esterase Urine WBC (Auto) Urine RBC (Auto) Urine Casts (Auto) U Epithel Cells (Auto) Urine Bacteria (Auto) Active Medications Generic Name Dose Route Start Last Admin Trade Name Freq PRN Reason Stop Dose Admin Acetaminophen 650 mg 07/22/19 17:52 07/27/19 09:11 Tylenol - PO 650 mg Q6H PRN Administration PAIN 2-5 Apixaban 2.5 mg 07/21/19 22:45 07/27/19 23:05 Eliquis - PO Not Given BID EDILSON Diltiazem HCl 120 mg 07/27/19 22:00 07/27/19 23:05 Cardizem Cd - PO Not Given BID EDILSON Sodium Chloride 1,000 mls @ 75 mls/hr 07/27/19 09:45 07/27/19 10:19 1/2 Normal Saline IV 75 mls/hr ASDIR EDILSON Administration Dexmedetomidine HCl 200 mcg/ 50 mls @ 1.95 mls/hr 07/27/19 21:00 07/28/19 04: 00 Sodium Chloride IVPB 0.3 mcg/kg/hr TITR EDILSON 2.92 mls/hr Infusion 0.2 MCG/KG/HR Midazolam HCl 100 mg in 100 mls @ 1 mls/hr 07/27/19 23:45 07/28/19 04:05 Midazolam 100mg/100ml-0.9%Nacl IVPB 0 mg/hr TITR EDILSON 0 mls/hr Titration Protocol 1 MG/HR Insulin Aspart 1 vial 07/26/19 07:00 07/28/19 00:39 Novolog Vial Sliding Scale - SQ Not Given ACHS EDILSON Protocol Lidocaine 1 patch 07/24/19 10:00 07/27/19 09:16 Lidoderm Patch - TP 1 patch DAILY EDILSON Administration Metoprolol Succinate 100 mg 07/26/19 22:00 07/27/19 23:05 Toprol Xl - PO Not Given BID EDILSON Metoprolol Tartrate 5 mg 07/26/19 12:39 07/27/19 16:43 Lopressor Injection - IVPUSH 5 mg Q4H PRN Administration TACHYCARDIA Miscellaneous 1 each 07/24/19 22:00 07/27/19 23:06 Lidoderm Patch Removal MC Not Given DAILY@2200 EDILSON Olanzapine 2.5 mg 07/26/19 22:00 07/27/19 23:05 Zyprexa - PO Not Given HS EDILSON Pantoprazole Sodium 40 mg 07/22/19 10:00 07/27/19 09:13 Protonix - PO 40 mg DAILY EDILSON Administration Polyethylene Glycol 17 gm 07/26/19 10:00 07/27/19 09:17 Miralax (For Daily Use) - PO Not Given DAILY EDILSON Potassium Chloride 20 meq 07/24/19 08:59 07/27/19 09:13 K-Dur - PO 20 meq DAILY EDILSON Administration ASSESSMENT/PLAN: 88 YO F with PMH of HTN, A fib (on Eliquis 2.5mg BD), DM, and Breast CA. She presented to the ER on 07/21 after she was unable to get up of from her toilet for 4 hours and was found by her neighbor, who called EMS. She was found to have A Fib with RVR and was subsequently admitted . On 07/27 she was found to be lethargic, not arousable, with irregular shallow breathing. A rapid response was called, she was intubated, and was admitted to the ICU. 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, mod TR , RVSP 30-40, mild AR - EKG 07/24: Afib RVR, LVH with QRS widening, LBBB no longer present - Continue Eliquis 2.5mg BID for AC #Ortho - Rt hip atraumatic pain for 2 weeks, assessed by Ortho - XR of right hip, femur and tib/fib show degenerative changes without evidence of acute pathology - Consistent with DJD, F/U outpatient #Renal - BUN/Cr 45.0/0.9 - Will continue to monitor #ID - Urine, Blood cx, currently no growth #Endo - Novolog SS ACHS #GI - Miralax 17gm PO - Protonix 40mg IV #FEN - D5 + 0.45 N/S @100 - Continue home KCl 20mEQ PO #Code status - DNR as per power of tax associate attorney, flavia, although there is no written evidence. Will attempt to confirm. #Dispo - Monitor in ICU, will attempt to wean off sedation to assess mental status tomorrow Visit type - Emergency Visit Emergency Visit: No - New Patient This patient is new to me today: Yes Date on this admission: 07/29/19 - Critical Care Critical Care patient: Yes Total Critical Care Time (in minutes): 38 Critical Care Statement: The care of this patient involved high complexity decision making to prevent further life threatening deterioration of the patient 's condition and/or to evaluate & treat vital organ system(s) failure or risk of failure. ATTENDING PHYSICIAN STATEMENT I saw and evaluated the patient. I reviewed the resident's note and discussed the case with the resident. I agree with the resident's findings and plan as documented. SUBJECTIVE: OBJECTIVE: ASSESSMENT AND PLAN:
[2019-07-28 07:47] LABS: ALBUMIN 2.6 g/dl (3.4-5.0); BILIRUBIN,TOTAL 0.9 mg/dL (0.2-1); CREATININE 0.9 mg/dL (0.55-1.3); POTASSIUM 4.7 mmol/L (3.5-5.1); TOT PROT 5.4 g/dl (6.4-8.2)
[2019-07-28 07:48] LABS: MAGNESIUM 2.5 mg/dL (1.8-2.4); N-TERMINAL BNP 12138.4 pg/ml (5-450); PHOSPHOROUS 3.2 mg/dL (2.5-4.9)
[2019-07-28] MEDS ORDERED: DEXTROSE 5%-0.45% SALINE 1,000 ML IV SCH (08:15)
[2019-07-28] MEDS ORDERED: SODIUM CHLORIDE 0.45% 250 ML IV SCH (09:15)
--- NOTE | 2019-07-28 09:18 | PN ---
Progress Note (short form) - Note Progress Note: Neurology - Admission Chief Complaint: Weakness History of Present Illness: 88 year old female with HTN, A fib (on AC) in her USOH, lives alone, using a walker for ambulation, couldn't get up of toilet for hours ( couldn't reach the walker) on day of admission until was found by her neighbour who brought her to ER. In ER it was noticed to by in A Fib with RVR, recieved IV Metoprolol with improvement in HR. Cardiology has been following patient and monitoring cardiac status. I was consulted due to altered mental status and confusion. Urinalysis was negative, remains afebrile and with normal white count. Labs noted for hypernatremia with sodium of 151, improving. MRI brain previously ordered, not yet completed. Overnight, patient developed lethargy and transferred to ICU, required intubation and currently on mechanical ventilation. Discussed with ICU nurse at bedside and currently also on sedation but being weaned. We'll order noncontrast head CT to reevaluate for any structural abnormalities. Active Medications Acetaminophen (Tylenol -) 650 mg PO Q6H PRN PRN Reason: PAIN 2-5 Last Admin: 07/27/19 09:11 Dose: 650 mg Apixaban (Eliquis -) 2.5 mg PO BID [facility] Last Admin: 07/27/19 23:05 Dose: Not Given Diltiazem HCl (Cardizem Cd -) 120 mg PO BID [facility] Last Admin: 07/27/19 23:05 Dose: Not Given Dexmedetomidine HCl 200 mcg/ (Sodium Chloride) 50 mls @ 1.95 mls/hr IVPB TITR [facility] Last Infusion: 07/28/19 08:03 Dose: 0.3 mcg/kg/hr, 2.92 mls/hr Midazolam HCl (Midazolam 100mg/100ml-0.9%Nacl) 100 mg in 100 mls @ 1 mls/hr IVPB TITR [facility]; Protocol Last Titration: 07/28/19 08:56 Dose: 1 mg/hr, 1 mls/hr Dextrose/Sodium Chloride (D5-1/2ns -) 1,000 mls @ 42 mls/hr IV ASDIR [facility] Last Admin: 07/28/19 08:16 Dose: 42 mls/hr Sodium Chloride (1/2 Normal Saline) 250 mls @ 0 mls/hr IV ASDIR [facility] Insulin Aspart (Novolog Vial Sliding Scale -) 1 vial SQ ACHS [facility]; Protocol Last Admin: 07/28/19 08:02 Dose: Not Given Lidocaine (Lidoderm Patch -) 1 patch TP DAILY [facility] Last Admin: 07/27/19 09:16 Dose: 1 patch Metoprolol Succinate (Toprol Xl -) 100 mg PO BID [facility] Last Admin: 07/27/19 23:05 Dose: Not Given Metoprolol Tartrate (Lopressor Injection -) 5 mg IVPUSH Q4H PRN PRN Reason: TACHYCARDIA Last Admin: 07/27/19 16:43 Dose: 5 mg Miscellaneous (Lidoderm Patch Removal) 1 each MC DAILY@2200 [facility] Last Admin: 07/27/19 23:06 Dose: Not Given Olanzapine (Zyprexa -) 2.5 mg PO HS [facility] Last Admin: 07/27/19 23:05 Dose: Not Given Pantoprazole Sodium (Protonix -) 40 mg PO DAILY [facility] Last Admin: 07/27/19 09:13 Dose: 40 mg Polyethylene Glycol (Miralax (For Daily Use) -) 17 gm PO DAILY [facility] Last Admin: 07/27/19 09:17 Dose: Not Given Potassium Chloride (K-Dur -) 20 meq PO DAILY [facility] Last Admin: 07/27/19 09:13 Dose: 20 meq Physical Examination Vital Signs: Vital Signs Period Temp Pulse Resp BP Sys/Sheldon Pulse Ox Last 24 Hr 97 F-100.7 F 85-147 10-36 84-133/43-94 95-100 Constitutional: Yes: No Distress, Calm Eyes: Yes: Conjunctiva Clear, EOM Intact HENT: No: Epistaxis, Rhinnorhea Neck: Yes: Trachea Midline. No: Lymphadenopathy Cardiovascular: Yes: Pulse Irregular, S1, S2 Respiratory: Yes: Regular, CTA Bilaterally. No: Rales Gastrointestinal: Yes: Normal Bowel Sounds, Soft, Hepatomegaly. No: Splenomegaly, Tenderness ...Rectal Exam: Yes: Deferred Renal/: No: CVA Tenderness - Left, CVA Tenderness - Right Breast(s): Yes: Other (deferred) Musculoskeletal: No: Back Pain, Joint Swelling Extremities: No: Cool, Cyanosis Edema: No Integumentary: Yes: Bruising (large bruise of the left elbow) Neurological: awake and alert but not oriented, moves extremities grossly, sensory intact, not following commands to confrontation testing CBCD WBC 10.2 K/mm3 (4.0-10.0) H 07/28/19 06:30 RBC 4.30 M/mm3 (3.60-5.2) 07/28/19 06:30 Hgb 13.0 GM/dL (10.7-15.3) 07/28/19 06:30 Hct 40.2 % (32.4-45.2) 07/28/19 06:30 MCV 93.4 fl (80-96) 07/28/19 06:30 MCHC 32.3 g/dl (32.0-36.0) 07/28/19 06:30 RDW 16.0 % (11.6-15.6) H 07/28/19 06:30 Plt Count 144 K/MM3 (134-434) 07/28/19 06:30 MPV 10.3 fl (7.5-11.1) 07/28/19 06:30 CMP Sodium 149 mmol/L (136-145) H 07/28/19 06:30 Potassium 4.7 mmol/L (3.5-5.1) 07/28/19 06:30 Chloride 117 mmol/L (98-107) H 07/28/19 06:30 Carbon Dioxide 24 mmol/L (21-32) 07/28/19 06:30 Anion Gap 8 MMOL/L (8-16) 07/28/19 06:30 BUN 45.0 mg/dL (7-18) H 07/28/19 06:30 Creatinine 0.9 mg/dL (0.55-1.3) 07/28/19 06:30 Random Glucose 83 mg/dL (74-106) 07/28/19 06:30 Calcium 8.0 mg/dL (8.5-10.1) L 07/28/19 06:30 Total Bilirubin 0.9 mg/dL (0.2-1) 07/28/19 06:30 AST 62 U/L (15-37) H 07/28/19 06:30 ALT 59 U/L (13-61) 07/28/19 06:30 Alkaline Phosphatase 99 U/L (45-117) 07/28/19 06:30 Total Protein 5.4 g/dl (6.4-8.2) L 07/28/19 06:30 Albumin 2.6 g/dl (3.4-5.0) L 07/28/19 06:30 CARDIAC ENZYMES Creatine Kinase 127 U/L (26-192) 07/28/19 06:30 Troponin I < 0.02 ng/ml (0.00-0.05) 07/28/19 06:30 Plan: 88 year old female with HTN, A fib (on AC) in her USOH, lives alone, using a walker for ambulation, couldn't get up of toilet for hours ( couldn't reach the walker) on day of admission until was found by her neighbour who brought her to ER. In ER it was noticed to by in A Fib with RVR, recieved IV Metoprolol with improvement in HR. Cardiology has been following patient and monitoring cardiac status. I was consulted due to altered mental status and confusion. Urinalysis was negative, remains afebrile and with normal white count. Labs noted for hypernatremia with sodium of 151, improving. MRI brain previously ordered, not yet completed. Overnight, patient developed lethargy and transferred to ICU, required intubation and currently on mechanical ventilation. Discussed with ICU nurse at bedside and currently also on sedation but being weaned. We'll order noncontrast head CT to reevaluate for any structural abnormalities. Continue optimization of cardiac factors including atrial fibrillation. Maintain adequate hydration, monitor blood pressure, maintain normotensive range. Continue ICU care and management. Monitor Sodium, correct and optimize as best able. Extubation when able as per ICU. Nurse in the process of trying to wean sedation, will continue to monitor mental status closely. Critical care time 35 mins.
[2019-07-28 10:37] LABS: PLATELET ESTIMATE DECREASED
--- NOTE | 2019-07-28 11:33 | PN ---
Teaching Attending Note Name of Resident: Tay Hines ATTENDING PHYSICIAN STATEMENT I saw and evaluated the patient. I reviewed the resident's note and discussed the case with the resident. I agree with the resident's findings and plan as documented. SUBJECTIVE: Pt seen and examined in the ICU. Events overnight noted. Pt now intubated, sedated. CXR now showing RLL infiltrate. Febrile to 100.7, hypotensive overnight , responding to IVF boluses. OBJECTIVE: Vital Signs Period Temp Pulse Resp BP Sys/Sheldon Pulse Ox Last 24 Hr 97.2 F-100.7 F 85-147 10-36 84-133/43-94 98-100 Intake & Output 07/25/19 07/26/19 07/27/19 07/28/19 23:59 23:59 23:59 23:59 Intake Total 1040 1739 843 6316 Output Total 800 300 Balance 1040 1380 -130 1770 Weight 45.949 kg 46.13 kg Gen: intubated, sedated Heart: tachycardic, irregular Lung: decreased breath sounds at the bases Abd: soft, nontender Ext: no edema CBC, BMP 07/28/19 06:30 07/28/19 06:30 Active Medications Acetaminophen (Tylenol -) 650 mg PO Q6H PRN PRN Reason: PAIN 2-5 Last Admin: 07/27/19 09:11 Dose: 650 mg Apixaban (Eliquis -) 2.5 mg PO BID [facility] Last Admin: 07/27/19 23:05 Dose: Not Given Diltiazem HCl (Cardizem Cd -) 120 mg PO BID [facility] Last Admin: 07/27/19 23:05 Dose: Not Given Dexmedetomidine HCl 200 mcg/ (Sodium Chloride) 50 mls @ 1.95 mls/hr IVPB TITR [facility] Last Infusion: 07/28/19 08:03 Dose: 0.3 mcg/kg/hr, 2.92 mls/hr Midazolam HCl (Midazolam 100mg/100ml-0.9%Nacl) 100 mg in 100 mls @ 1 mls/hr IVPB TITR [facility]; Protocol Last Titration: 07/28/19 08:56 Dose: 1 mg/hr, 1 mls/hr Dextrose/Sodium Chloride (D5-1/2ns -) 1,000 mls @ 42 mls/hr IV ASDIR [facility] Last Admin: 07/28/19 08:16 Dose: 42 mls/hr Sodium Chloride (1/2 Normal Saline) 250 mls @ 0 mls/hr IV [facility] Last Admin: 07/28/19 09:15 Dose: 250 mls/hr Insulin Aspart (Novolog Vial Sliding Scale -) 1 vial SQ ACHS [facility]; Protocol Last Admin: 07/28/19 08:02 Dose: Not Given Lidocaine (Lidoderm Patch -) 1 patch TP DAILY [facility] Last Admin: 07/27/19 09:16 Dose: 1 patch Metoprolol Succinate (Toprol Xl -) 100 mg PO BID [facility] Last Admin: 07/27/19 23:05 Dose: Not Given Metoprolol Tartrate (Lopressor Injection -) 5 mg IVPUSH Q4H PRN PRN Reason: TACHYCARDIA Last Admin: 07/27/19 16:43 Dose: 5 mg Miscellaneous (Lidoderm Patch Removal) 1 each MC DAILY@2200 [facility] Last Admin: 07/27/19 23:06 Dose: Not Given Olanzapine (Zyprexa -) 2.5 mg PO HS [facility] Last Admin: 07/27/19 23:05 Dose: Not Given Pantoprazole Sodium (Protonix -) 40 mg PO DAILY [facility] Last Admin: 07/27/19 09:13 Dose: 40 mg Polyethylene Glycol (Miralax (For Daily Use) -) 17 gm PO DAILY [facility] Last Admin: 07/27/19 09:17 Dose: Not Given Potassium Chloride (K-Dur -) 20 meq PO DAILY [facility] Last Admin: 07/27/19 09:13 Dose: 20 meq ASSESSMENT AND PLAN: Acute Hypoxic Respiratory Failure Pneumonia Sepsis Lactic Acidosis Altered Mental Status Atrial Fibrillation Mitral Regurgitation HTN Hypernatremia - antibiotics to cover aspiration - f/u cultures, send sputum - IVF boluses - if remains hypotensive despite fluid resuscitation, place central line and start levophed - for repeat CT head - MRI brain when extubated - neuro on board - free water replacement, correct electrolyte abnormalities - minimize sedation to assess mental status - spontaneous breathing trials as tolerated when mental status improved - enteral feeds if unable to extubate - DVT/GI prophylaxis - continue ICU monitoring critical care time spent in reviewing chart, evaluating patient and formulating plan 35 min Problem List - Problems (1) Altered mental status Code(s): R41.82 - ALTERED MENTAL STATUS, UNSPECIFIED
[2019-07-28] MEDS: APIXABAN 2.5 MG TABLET PO SCH ×2 (11:43→23:43)
[2019-07-28] MEDS: PANTOPRAZOLE 40 MG TABLET (FP) PO SCH (11:45)
[2019-07-28] MEDS: POLYETHYLENE GLYCOL 3350 119 GM BTL PO SCH (11:45)
[2019-07-28] MEDS: POTASSIUM CHLORIDE TABS 10 MEQ TABLET.ER (FP) PO SCH (11:45)
[2019-07-28] MEDS: LIDOCAINE 5% TOPICAL PATCH TP SCH (12:04)
[2019-07-28] MEDS ORDERED: SODIUM CHLORIDE 1,000 ML IV STA (12:10)
--- NOTE | 2019-07-28 12:18 | PN ---
Progress Note (short form) - Note Progress Note: s: intubated, sedated, febrile overnight Current Medications Generic Name Dose Route Start Last Admin Trade Name Freq PRN Reason Stop Dose Admin Acetaminophen 650 mg 07/22/19 17:52 07/27/19 09:11 Tylenol - PO 650 mg Q6H PRN Administration PAIN 2-5 Apixaban 2.5 mg 07/21/19 22:45 07/28/19 11:43 Eliquis - PO Not Given BID [facility] Diltiazem HCl 120 mg 07/27/19 22:00 07/28/19 11:43 Cardizem Cd - PO Not Given BID [facility] Dexmedetomidine HCl 200 mcg/ 50 mls @ 1.95 mls/hr 07/27/19 21:00 07/28/19 08: 03 Sodium Chloride IVPB 0.3 mcg/kg/hr TITR [facility] 2.92 mls/hr Infusion 0.2 MCG/KG/HR Midazolam HCl 100 mg in 100 mls @ 1 mls/hr 07/27/19 23:45 07/28/19 08:56 Midazolam 100mg/100ml-0.9%Nacl IVPB 1 mg/hr TITR [facility] 1 mls/hr Titration Protocol 1 MG/HR Dextrose/Sodium Chloride 1,000 mls @ 42 mls/hr 07/28/19 08:15 07/28/19 08:16 D5-1/2ns - IV 42 mls/hr ASDIR [facility] Administration Sodium Chloride 250 mls @ 0 mls/hr 07/28/19 09:15 07/28/19 09:15 1/2 Normal Saline IV 250 mls/hr ASDIR [facility] Administration Wide Open Sodium Chloride 1,000 mls @ 1,000 mls/hr 07/28/19 12:10 Normal Saline - IV 07/28/19 13:09 ASDIR STA Insulin Aspart 1 vial 07/26/19 07:00 07/28/19 12:11 Novolog Vial Sliding Scale - SQ Not Given ACHS [facility] Protocol Lidocaine 1 patch 07/24/19 10:00 07/28/19 12:04 Lidoderm Patch - TP 1 patch DAILY [facility] Administration Metoprolol Succinate 100 mg 07/26/19 22:00 07/28/19 11:45 Toprol Xl - PO Not Given BID [facility] Metoprolol Tartrate 5 mg 07/26/19 12:39 07/27/19 16:43 Lopressor Injection - IVPUSH 5 mg Q4H PRN Administration TACHYCARDIA Miscellaneous 1 each 07/24/19 22:00 07/27/19 23:06 Lidoderm Patch Removal MC Not Given DAILY@2200 [facility] Olanzapine 2.5 mg 07/26/19 22:00 07/27/19 23:05 Zyprexa - PO Not Given HS [facility] Pantoprazole Sodium 40 mg 07/22/19 10:00 07/28/19 11:45 Protonix - PO Not Given DAILY [facility] Polyethylene Glycol 17 gm 07/26/19 10:00 07/28/19 11:45 Miralax (For Daily Use) - PO Not Given DAILY [facility] Potassium Chloride 20 meq 07/24/19 08:59 07/28/19 11:45 K-Dur - PO Not Given DAILY [facility] Vital Signs Temp 97.4 F L 07/28/19 10:00 Pulse 91 H 07/28/19 12:00 Resp 23 H 07/28/19 12:11 BP 98/51 L 07/28/19 12:00 Pulse Ox 100 07/28/19 09:00 Intake & Output 07/27/19 07/28/19 07/28/19 23:59 11:59 23:59 Intake Total 2069 Output Total 800 300 Balance -800 1770 Weight 101 lb 4.8 oz 101 lb 11.2 oz Intake: IV 2069 09/2 Normal Saline 1,000 1000 ml @ 75 mls/hr IV ASDIR [facility] Rx#:[id number] 1/2 Normal Saline 500 ml 500 @ 500 mls/hr IV ASDIR [facility] Rx#:[id number] MIDAZOLAM 100MG/100ML-0.9 30 %NACL 100 mg In 100 ml @ 1 MG/HR 1 mls/hr IVPB TITR [facility] Rx#:[id number] Normal Saline - 500 ml @ 500 500 mls/hr IV ASDIR [facility] Rx#:[id number] Precedex - 200 Mcg In 40 Normal Saline - 48 ml @ 0 .2 MCG/KG/HR 1.95 mls/hr IVPB TITR [facility] Rx#: [id number] Output: Urine 800 300 Jacques 800 300 Other: Voiding Method Indwelling Catheter Indwelling Catheter Bowel Movement Yes # Bowel Movements 1 Weight Measurement Method Built in [facility] intubated, sedated Respiratory: Yes: b/l rhonchi, vented Gastrointestinal: Yes: Soft, +bs Cardiovascular: Yes: Pulse Irregular Heart Sounds: Yes: S1, S2 Murmur: Yes: Systolic Murmur, Grade 2 (RSB c/w possible ) Edema: No Peripheral Pulses WNL: Yes Neurological: sedated no jaundice diaphoresis Laboratory Last Values WBC 10.2 K/mm3 (4.0-10.0) H 07/28/19 06:30 RBC 4.30 M/mm3 (3.60-5.2) 07/28/19 06:30 Hgb 13.0 GM/dL (10.7-15.3) 07/28/19 06:30 Hct 40.2 % (32.4-45.2) 07/28/19 06:30 MCV 93.4 fl (80-96) 07/28/19 06:30 MCH 30.1 pg (25.7-33.7) 07/28/19 06:30 MCHC 32.3 g/dl (32.0-36.0) 07/28/19 06:30 RDW 16.0 % (11.6-15.6) H 07/28/19 06:30 Plt Count 144 K/MM3 (134-434) 07/28/19 06:30 MPV 10.3 fl (7.5-11.1) 07/28/19 06:30 Absolute Neuts (auto) 8.1 K/mm3 (1.5-8.0) H 07/28/19 06:30 Neutrophils % 79.4 % (42.8-82.8) 07/28/19 06:30 Lymphocytes % 13.3 % (8-40) D 07/28/19 06:30 Monocytes % 6.9 % (3.8-10.2) 07/28/19 06:30 Eosinophils % 0.1 % (0-4.5) D 07/28/19 06:30 Basophils % 0.3 % (0-2.0) 07/28/19 06:30 Nucleated RBC % 0 % (0-0) 07/28/19 06:30 Platelet Estimate Decreased 07/28/19 06:30 PT with INR 19.90 SEC (9.7-13.0) H 07/21/19 15:00 INR 1.68 (0.83-1.09) H 07/21/19 15:00 PTT (Actin FS) 32.4 SECONDS (25.2-36.5) 07/21/19 15:00 Anticoagulation Therapy No Result Required. 07/28/19 06:00 Puncture Site Right radial 07/28/19 06:00 ABG pH 7.42 (7.35-7.45) 07/28/19 06:00 ABG pCO2 at Pt Temp 31.6 mmHg (35-45) L 07/28/19 06:00 ABG pO2 at Pt Temp 81.8 mmHg (80-100) 07/28/19 06:00 ABG HCO3 20.3 mmol/L (22-27) L 07/28/19 06:00 ABG O2 Sat (Measured) 95.8 % (95-98) 07/28/19 06:00 ABG O2 Content 16.1 % vol 07/28/19 06:00 ABG Base Excess -2.8 meq/l (-2-2) L 07/28/19 06:00 Fady Test Positive 07/28/19 06:00 O2 Delivery Device Vent 07/28/19 06:00 Oxygen Flow Rate 50% 07/28/19 06:00 Vent Mode No Result Required. 07/28/19 06:00 Vent Rate 14 07/28/19 06:00 Mechanical Rate No Result Required. 07/28/19 06:00 PEEP 5.0 cmH2O 07/28/19 06:00 Pressure Support Vent 400 07/28/19 06:00 Sodium 149 mmol/L (136-145) H 07/28/19 06:30 Potassium 4.7 mmol/L (3.5-5.1) 07/28/19 06:30 Chloride 117 mmol/L (98-107) H 07/28/19 06:30 Carbon Dioxide 24 mmol/L (21-32) 07/28/19 06:30 Anion Gap 8 MMOL/L (8-16) 07/28/19 06:30 BUN 45.0 mg/dL (7-18) H 07/28/19 06:30 Creatinine 0.9 mg/dL (0.55-1.3) 07/28/19 06:30 Est GFR (CKD-EPI)AfAm 66.16 07/28/19 06:30 Est GFR (CKD-EPI)NonAf 57.09 07/28/19 06:30 POC Glucometer 83 UNITS (80-120) 07/28/19 11:47 Random Glucose 83 mg/dL (74-106) 07/28/19 06:30 Lactic Acid 2.9 mmol/L (0.4-2.0) H* 07/28/19 06:30 Calcium 8.0 mg/dL (8.5-10.1) L 07/28/19 06:30 Phosphorus 3.2 mg/dL (2.5-4.9) 07/28/19 06:30 Magnesium 2.5 mg/dL (1.8-2.4) H 07/28/19 06:30 Total Bilirubin 0.9 mg/dL (0.2-1) 07/28/19 06:30 AST 62 U/L (15-37) H 07/28/19 06:30 ALT 59 U/L (13-61) 07/28/19 06:30 Alkaline Phosphatase 99 U/L (45-117) 07/28/19 06:30 Ammonia 41.80 umol/L (11-32) H 07/27/19 19:05 Creatine Kinase 127 U/L (26-192) 07/28/19 06:30 Creatine Kinase Index 1.4 % (0.0-5.0) 07/24/19 09:15 CK-MB (CK-2) 2.8 ng/mL (0.5-3.6) 07/24/19 09:15 Troponin I < 0.02 ng/ml (0.00-0.05) 07/28/19 06:30 B-Natriuretic Peptide 03621.4 pg/ml (5-450) H 07/28/19 06:30 Total Protein 5.4 g/dl (6.4-8.2) L 07/28/19 06:30 Albumin 2.6 g/dl (3.4-5.0) L 07/28/19 06:30 TSH 4.75 uIU/ml (0.358-3.74) H 07/24/19 10:20 Free T4 1.54 ng/dl (0.76-1.46) H 07/24/19 10:20 Free T3 1.8 pg/ml (2.0-4.4) L 07/24/19 09:15 Urine Color Yellow 07/27/19 14:35 Urine Appearance Clear 07/27/19 14:35 Urine pH 5.5 (5.0-8.0) D 07/27/19 14:35 Ur Specific Pickrell 1.021 (1.010-1.035) 07/27/19 14:35 Urine Protein 1+ (NEGATIVE) H 07/27/19 14:35 Urine Glucose (UA) Negative (NEGATIVE) 07/27/19 14:35 Urine Ketones Negative (NEGATIVE) 07/27/19 14:35 Urine Blood Negative (NEGATIVE) 07/27/19 14:35 Urine Nitrite Negative (NEGATIVE) 07/27/19 14:35 Urine Bilirubin Negative (NEGATIVE) 07/27/19 14:35 Urine Urobilinogen 1.0 mg/dL (0.2-1.0) 07/27/19 14:35 Ur Leukocyte Esterase Negative (NEGATIVE) 07/27/19 14:35 Urine WBC (Auto) 0 /hpf (0-5) 07/27/19 14:35 Urine RBC (Auto) 2 /hpf (0-4) 07/27/19 14:35 Urine Casts (Auto) 1 /lpf (0-8) 07/27/19 14:35 U Epithel Cells (Auto) 0.4 /HPF (0-5/HPF) 07/27/19 14:35 Urine Bacteria (Auto) 1.0 /hpf (NEGATIVE) 07/27/19 14:35 Stool Occult Blood Negative (NEGATIVE) 07/21/19 15:00 Echo 08/02: nl LV/RV. severe LAE. 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 mod TR. RVSP 30-40. mild /AI. 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 baseline cognitive status)
[2019-07-28] MEDS ORDERED: SODIUM CHLORIDE 0.45% 500 ML IV SCH (13:15)
--- NOTE | 2019-07-28 13:31 | PN ---
Progress Note (short form) - Note Progress Note: ID CONSULT DICTATED S/P RAPID RESPONSE/ RESP FAILURE R/O ASPIRATION PNEUMONIA/ SEPSIS LEUKOCYTOSIS LACTIC ACIDOSIS AWAIT C/S EMPIRIC ZOSYN + STAT DOSE VANCOMYCIN critical care time 35min
[2019-07-28] MEDS ORDERED: VANCOMYCIN 1,000 MG in DEXTROSE 5%-WATER - 250 ML IVPB ONE (13:45)
[2019-07-28] MEDS ORDERED: VANCOMYCIN 1 GRAM (PRE-DOCKED) 1,000 MG/250 ML BAG IVPB SCH (13:45)
--- NOTE | 2019-07-28 13:54 | CONSULT ---
Consult - text type - Consultation Consultation Note: Renal consult for hypernatremia This is a 88 year old woman with history of atrial fibrillation and hypertension who presented with rapid atrial fibrillation with pneumonia and hypernatremia. Seen and examined in the ICU. On the vent via ET tube, FiO2 is 40 %. Sedated on versed. BP is marginal. s/p [employer] for respiratory distress that resulted in her intubation. Was noted to have urinary retention and leslie inserted with intial 200cc output. Pt requiring IVF bolous for hypotension. Pt not able to provide history. PMHx: as above Allergies: NKDA Family Hx: unknown Social Hx: unknown ROS: unable to obtain due to clinical status Home Medications Medication Instructions Recorded Apixaban [Eliquis] 2.5 mg PO BID 07/21/19 Diltiazem HCl [Diltiazem ER] 240 mg PO DAILY 07/21/19 Furosemide 40 mg PO DAILY 07/21/19 Metoprolol Succinate 25 mg PO DAILY 07/21/19 Pantoprazole Sodium 40 mg PO DAILY 07/21/19 Potassium Chloride 10 meq PO DAILY 07/21/19 Vital Signs Temperature 97.4 F L 07/28/19 10:00 Pulse Rate 91 H 07/28/19 12:00 Respiratory Rate 23 H 07/28/19 12:11 Blood Pressure 98/51 L 07/28/19 12:00 O2 Sat by Pulse Oximetry (%) 100 07/28/19 09:00 intubated and sedated ET Tube in place neck supple, no JVD irregular, no M/R Dec BS, no rales soft NT/ND no LE edema, clubbing or cyanosis CBC, BMP 07/28/19 06:30 07/28/19 06:30 Laboratory Tests 07/27/19 07/27/19 07/28/19 06:34 21:30 06:30 Sodium 151 H 158 H 149 H Laboratory Tests 07/27/19 07/28/19 21:30 06:30 Lactic Acid 2.1 H 2.9 H* Laboratory Tests 07/27/19 14:35 Urine Protein 1+ H Urine Blood Negative Current Medications Acetaminophen (Tylenol -) 650 mg PO Q6H PRN PRN Reason: PAIN 2-5 Last Admin: 07/27/19 09:11 Dose: 650 mg Apixaban (Eliquis -) 2.5 mg PO BID [facility] Last Admin: 07/28/19 11:43 Dose: Not Given Diltiazem HCl (Cardizem Cd -) 120 mg PO BID [facility] Last Admin: 07/28/19 11:43 Dose: Not Given Dexmedetomidine HCl 200 mcg/ (Sodium Chloride) 50 mls @ 1.95 mls/hr IVPB TITR [facility] Last Infusion: 07/28/19 08:03 Dose: 0.3 mcg/kg/hr, 2.92 mls/hr Midazolam HCl (Midazolam 100mg/100ml-0.9%Nacl) 100 mg in 100 mls @ 1 mls/hr IVPB TITR [facility]; Protocol Last Titration: 07/28/19 08:56 Dose: 1 mg/hr, 1 mls/hr Dextrose/Sodium Chloride (D5-1/2ns -) 1,000 mls @ 42 mls/hr IV ASDIR [facility] Last Admin: 07/28/19 08:16 Dose: 42 mls/hr Sodium Chloride (1/2 Normal Saline) 250 mls @ 0 mls/hr IV ASDIR [facility] Last Admin: 07/28/19 09:15 Dose: 250 mls/hr Sodium Chloride (1/2 Normal Saline) 500 mls @ 0 mls/hr IV ASDIR [facility] Piperacillin Sod/Tazobactam (Sod 3.375 gm/ Dextrose) 50 mls @ 100 mls/hr IVPB Q8H-IV [facility]; Protocol Vancomycin HCl (Vancomycin (Pre-Docked)) 1,000 mg in 250 mls @ 166.667 mls/hr IVPB ONCE [facility]; Protocol Stop: 07/29/19 13:44 Insulin Aspart (Novolog Vial Sliding Scale -) 1 vial SQ ACHS [facility]; Protocol Last Admin: 07/28/19 12:11 Dose: Not Given Lidocaine (Lidoderm Patch -) 1 patch TP DAILY [facility] Last Admin: 07/28/19 12:04 Dose: 1 patch Metoprolol Succinate (Toprol Xl -) 100 mg PO BID [facility] Last Admin: 07/28/19 11:45 Dose: Not Given Metoprolol Tartrate (Lopressor Injection -) 5 mg IVPUSH Q4H PRN PRN Reason: TACHYCARDIA Last Admin: 07/27/19 16:43 Dose: 5 mg Miscellaneous (Lidoderm Patch Removal) 1 each MC DAILY@2200 [facility] Last Admin: 07/27/19 23:06 Dose: Not Given Olanzapine (Zyprexa -) 2.5 mg PO HS [facility] Last Admin: 07/27/19 23:05 Dose: Not Given Pantoprazole Sodium (Protonix -) 40 mg PO DAILY [facility] Last Admin: 07/28/19 11:45 Dose: Not Given Polyethylene Glycol (Miralax (For Daily Use) -) 17 gm PO DAILY [facility] Last Admin: 07/28/19 11:45 Dose: Not Given Potassium Chloride (K-Dur -) 20 meq PO DAILY [facility] Last Admin: 07/28/19 11:45 Dose: Not Given 88 year old woman with history of atrial fibrillation and hypertension who presented with rapid atrial fibrillation with pneumonia and hypernatremia. 1. Hypernatreima (water deficit is 1.3L) 2. Azotemia 3. Pneumonia 4. Rapid Atrial fibrillation 5. Lactic acidosis 6. Leukocytosis Water deficit is 1.3L + with ongoing fluid losses (intubation, sepsis) Increase D5 1/2 NS at 100cc per hour if MAP is below 65 would bolous with normal saline or LR goal MAP > 65, CVP goal 10-12 continue vent support continue empiric antibiotics per primary team HR control with BB Trend lactic acid levels to resolution Trend electrolytes Q12h Thank you Tolu Akers DO
[2019-07-28] MEDS ORDERED: PIPERACILLIN/TAZOBACTAM 3.375 GM VIAL IVPB ONE ×2 (14:06→18:22)
[2019-07-28] MEDS ORDERED: DEXTROSE 5%-WATER - 50 ML IVPB ONE ×2 (14:07→18:23)
[2019-07-28] MEDS ORDERED: SODIUM CHLORIDE 500 ML IV STA (14:11)
[2019-07-28] MEDS: PIPERACILLIN/TAZOB 3.375 GM 3.375 GM in DEXTROSE 5%-WATER - 50 ML IVPB SCH ×2 (14:27→23:06)
[2019-07-28] MEDS: DEXTROSE 5%-0.45% SALINE 1,000 ML IV SCH (14:27)
--- NOTE | 2019-07-28 15:16 | CONS ---
INFECTIOUS DISEASE CONSULTATION DATE OF CONSULTATION: DATE OF DICTATION: 07/28/2019 HISTORY: The patient is an 88-year-old female who is evaluated for sepsis. History is obtained from the chart as she cannot give a history secondary to her current condition. The patient was admitted to the hospital on July 21, 2019, after worsening generalized weakness and confusion. At home she was unable to get off the toilet and ambulate. She was brought to the hospital where she was noted to be in atrial fibrillation with a rapid ventricular response. Her hospital course was complicated by episode of agonal breathing. A rapid response was called. She required intubation and transfer to the intensive care unit. Her course is further complicated by hypoxemia. She was treated for possible aspiration. At the present time, she is intubated in the intensive care unit, sedated on a ventilator. Chest x-ray shows a right lower lobe infiltrate. PAST MEDICAL HISTORY: Positive for atrial fibrillation, hypertension. ALLERGIES: No known allergies. MEDICATIONS: Include Tylenol, Eliquis, digoxin, Cardizem, metoprolol, oxycodone. SOCIAL HISTORY: She resides in the community. She is a nonsmoker, nondrinker. No recent hospitalizations at [facility]. SYSTEMS REVIEW: Neurologic: No loss of consciousness, seizure activity, focal weakness. Cardiac: Negative chest pain or palpitations. Respiratory: As per HPI. Gastrointestinal: Negative vomiting or diarrhea. Genitourinary: Negative for urinary tract infection. LABORATORY DATA: White count on admission 12.1, presently 10.2, hematocrit 40.2, platelets 144, creatinine 0.9, lactic acid 2.9. Urinalysis negative. Chest x-ray shows increased markings at the right base. PHYSICAL EXAMINATION: General: She is an elderly female supine in bed. Vital Signs: Temperature 97.4, maximum temperature 100.7, blood pressure 98/51, pulse 91 regular, respirations 22 per minute. HEENT: Sclerae anicteric. Heart: Sounds S1, S2. Lungs: Air entry bilaterally. Abdomen: Soft, nontender. Extremities: Negative for edema. IMPRESSION: 1. Status post rapid response, respiratory failure. 2. Rule out aspiration pneumonia. 3. Possible sepsis secondary to aspiration. 4. Leukocytosis. 5. Lactic acidosis. PLAN: Await sepsis workup. Empiric antibiotic coverage with Zosyn plus STAT dose vancomycin. Ventilatory support. Prognosis is guarded. Critical care time spent 35 minutes. Thank you for the kind referral. AGUSTIN GRACE M.D. [id number]
[2019-07-28] MEDS ORDERED: SODIUM CHLORIDE 0.9% 1000 ML INFUS.BAG IV ONE (17:05)
--- NOTE | 2019-07-28 21:32 | PROC ---
Procedure Note Procedure: TLC placed in L IJ in sterile fashion using ultrasound guidance. Pending CXR to confirm placement. Line placed emergently without consent obtained from healthcare proxy as pt became acutely hypotensive. Central Line Insertion Indication: CVP Monitoring, Poor Venous Access, Vasopressor Risks and Benefits Explained: No (Emergent/intubated) Consent on Chart: No (Emergent) Central Line: Triple Lumen Catheter Anesthesia: 1% Lidocaine Sterile Technique: Yes Ultrasound Guided Assistance: Yes Position: Left Internal Jugular Post Insertion: Yes: Bilateral Breath Sounds, Chest X-Ray Ordered Sterile Dressing Applied: Yes
[2019-07-28] MEDS ORDERED: NOREPINEPHRINE BITARTRATE 4 MG/4 ML ML IV ONE (21:47)
[2019-07-28] MEDS: NOREPINEPHRINE BITARTRATE 8,000 MCG in DEXTROSE 5%-WATER - 492 ML IV SCH (23:07)
[2019-07-28] MEDS: DEXMEDETOMIDINE HCL 200 MCG in SODIUM CHLORIDE 48 ML IVPB SCH (23:07)
[2019-07-28] MEDS: dilTIAZem HCL 60 MG TABLET (FP) NGT SCH (23:08)
[2019-07-28] MEDS: LIDOCAINE PATCH REMOVAL MC SCH (23:08)
[2019-07-28] MEDS: OLANZapine 2.5 MG TABLET PO SCH (23:40)
[2019-07-29 00:18] LABS: CALCIUM 7.2 mg/dL (8.5-10.1); CREATININE 0.7 mg/dL (0.55-1.3); POTASSIUM 4.1 mmol/L (3.5-5.1)
[2019-07-29] MEDS ORDERED: DEXTROSE 5%-WATER - 50 ML IVPB ONE ×3 (03:18→17:53)
[2019-07-29] MEDS ORDERED: PIPERACILLIN/TAZOBACTAM 3.375 GM VIAL IVPB ONE ×3 (03:18→17:52)
[2019-07-29] MEDS: PIPERACILLIN/TAZOB 3.375 GM 3.375 GM in DEXTROSE 5%-WATER - 50 ML IVPB SCH ×3 (04:07→18:28)
[2019-07-29 06:31] LABS: BASO % 0.1 % (0-2.0); EOS % 0.9 % (0-4.5); HEMATOCRIT 36.2 % (32.4-45.2); HEMOGLOBIN 11.9 GM/dL (10.7-15.3); LYMPH % 8.1 % (8-40); MCH 29.9 pg (25.7-33.7); MCHC 32.8 g/dl (32.0-36.0); MEAN CELL VOLUME 91.3 fl (80-96); MEAN PLT VOLUME 10.2 fl (7.5-11.1); MONO % 6.8 % (3.8-10.2); NEUT % 84.1 % (42.8-82.8); PLATELET COUNT 203 K/MM3 (134-434); RBC 3.97 M/mm3 (3.60-5.2); RDW 15.5 % (11.6-15.6); WHITE BLOOD COUNT 10.9 K/mm3 (4.0-10.0)
[2019-07-29 06:49] LABS: BILIRUBIN,TOTAL 0.8 mg/dL (0.2-1); BLOOD UREA NITROGEN 26.7 mg/dL (7-18); CALCIUM 7.3 mg/dL (8.5-10.1); CREATININE 0.8 mg/dL (0.55-1.3); POTASSIUM 3.7 mmol/L (3.5-5.1); TOT PROT 4.7 g/dl (6.4-8.2)
--- NOTE | 2019-07-29 07:00 | PN ---
Progress Note, Physician Chief Complaint: intubated, in ICU; was hypoTA Over night and had TLC by ICU team and started on pressors off sedation, does not open eyes; - Current Medication List Current Medications: Active Medications Acetaminophen (Tylenol -) 650 mg PO Q6H PRN PRN Reason: PAIN 2-5 Last Admin: 07/27/19 09:11 Dose: 650 mg Apixaban (Eliquis -) 2.5 mg PO BID [facility] Last Admin: 07/28/19 23:43 Dose: 2.5 mg Diltiazem HCl (Cardizem -) 60 mg NGT QID [facility] Last Admin: 07/28/19 23:08 Dose: Not Given Dexmedetomidine HCl 200 mcg/ (Sodium Chloride) 50 mls @ 1.95 mls/hr IVPB TITR [facility] Last Admin: 07/28/19 23:07 Dose: 0.3 mcg/kg/hr, 2.92 mls/hr Midazolam HCl (Midazolam 100mg/100ml-0.9%Nacl) 100 mg in 100 mls @ 1 mls/hr IVPB TITR [facility]; Protocol Last Titration: 07/28/19 08:56 Dose: 1 mg/hr, 1 mls/hr Piperacillin Sod/Tazobactam (Sod 3.375 gm/ Dextrose) 50 mls @ 100 mls/hr IVPB Q8H-IV [facility]; Protocol Last Admin: 07/29/19 04:07 Dose: 100 mls/hr Vancomycin HCl (Vancomycin (Pre-Docked)) 1,000 mg in 250 mls @ 166.667 mls/hr IVPB ONCE [facility]; Protocol Stop: 07/29/19 13:44 Last Admin: 07/28/19 15:47 Dose: 166.667 mls/hr Dextrose/Sodium Chloride (D5-1/2ns -) 1,000 mls @ 100 mls/hr IV ASDIR [facility] Last Admin: 07/28/19 14:27 Dose: 100 mls/hr Norepinephrine Bitartrate 8, (000 mcg/ Dextrose) 500 mls @ 18.75 mls/hr IV TITR [facility]; Protocol Last Admin: 07/28/19 23:07 Dose: 5 mcg/min, 18.75 mls/hr Insulin Aspart (Novolog Vial Sliding Scale -) 1 vial SQ ACHS [facility]; Protocol Last Admin: 07/28/19 23:20 Dose: Not Given Lidocaine (Lidoderm Patch -) 1 patch TP DAILY [facility] Last Admin: 07/28/19 12:04 Dose: 1 patch Metoprolol Succinate (Toprol Xl -) 100 mg PO BID [facility] Last Admin: 07/28/19 22:05 Dose: Not Given Metoprolol Tartrate (Lopressor Injection -) 5 mg IVPUSH Q4H PRN PRN Reason: TACHYCARDIA Last Admin: 07/27/19 16:43 Dose: 5 mg Miscellaneous (Lidoderm Patch Removal) 1 each MC DAILY@2200 [facility] Last Admin: 07/28/19 23:08 Dose: 1 each Olanzapine (Zyprexa -) 2.5 mg PO HS [facility] Last Admin: 07/28/19 23:40 Dose: Not Given Pantoprazole Sodium (Protonix -) 40 mg PO DAILY [facility] Last Admin: 07/28/19 11:45 Dose: Not Given Polyethylene Glycol (Miralax (For Daily Use) -) 17 gm PO DAILY [facility] Last Admin: 07/28/19 11:45 Dose: Not Given Potassium Chloride (K-Dur -) 20 meq PO DAILY [facility] Last Admin: 07/28/19 11:45 Dose: Not Given - Objective Vital Signs: Vital Signs Temperature 98.5 F 07/29/19 06:00 Pulse Rate 75 07/29/19 06:00 Respiratory Rate 20 07/29/19 06:00 Blood Pressure 142/52 L 07/29/19 06:00 O2 Sat by Pulse Oximetry (%) 100 07/28/19 22:00 Constitutional: Yes: No Distress Eyes: Yes: Conjunctiva Clear HENT: Yes: Atraumatic Neck: Yes: Supple Cardiovascular: No: Regular Rate and Rhythm Respiratory: Yes: Diminished Gastrointestinal: Yes: Soft. No: Tenderness Genitourinary: No: Hematuria Musculoskeletal: No: Joint Stiffness, Joint Swelling Extremities: No: Cold, Cool, Cyanosis Edema: No Integumentary: No: Rash, Venous Stasis Changes Neurological: No: Alert Psychiatric: No: Alert, Agitated Labs: CBC, BMP 07/29/19 05:25 07/29/19 06:00 INR, PTT INR 1.68 (0.83-1.09) H 07/21/19 15:00 - ....Imaging Other: Report Reviewed Assessment/Plan 88 yo F PMH of L Breast Ca, HTN, Afib ( on Eliquis) admitted vis ED for weakness and confusion, became hypotensive, hyperNA, IVF given, then in respiratory distress intubated; CXR no CHF; no legs edema; had low grade fever last night; in ICU on vent - pulm ICU f/u tachycardia, AFib: cardiology f/u; BBlocker and cardizem CD 120 mg/d for tachycardia but watch for low BP prerenal azotemia, hyperNa : s/p IVF; renal eval; f/u labs; neurology eval noted; brain MRI and neck CT ordered but pt unstable now; will hold off metabolic encephalopathy and severe protein malnutrition ID eval r/o sepsis; f/u labs noted; cultures negative so far; decubs DVT aspiration pfx prognosis guarded; palliative care consult t time 35 min d.w staff will call HCP
[2019-07-29 07:15] LABS: INR 1.61 (0.83-1.09); PROTHROMBIN TIME (PATIENT) 19.1 SEC (9.7-13.0)
[2019-07-29 07:17] LABS: ACTIVATED PTT 31.2 SECONDS (25.2-36.5)
[2019-07-29] MEDS: INSULIN SLIDING SCALE (NOVOLOG) 1 VIAL SQ SCH ×4 (07:51→21:40)
[2019-07-29] MEDS ORDERED: PT OWN MED DRAWER 7, Y5N ONE (08:57)
--- NOTE | 2019-07-29 08:59 | PN ---
Progress Note, Physician Chief Complaint: intubated On pressors TELE: AF, rate controlled, self limited NSVT History of Present Illness: Has OGT - Current Medication List Current Medications: Active Medications Acetaminophen (Tylenol -) 650 mg PO Q6H PRN PRN Reason: PAIN 2-5 Last Admin: 07/27/19 09:11 Dose: 650 mg Apixaban (Eliquis -) 2.5 mg PO BID [facility] Last Admin: 07/28/19 23:43 Dose: 2.5 mg Diltiazem HCl (Cardizem -) 60 mg NGT QID [facility] Last Admin: 07/28/19 23:08 Dose: Not Given Dexmedetomidine HCl 200 mcg/ (Sodium Chloride) 50 mls @ 1.95 mls/hr IVPB TITR [facility] Last Admin: 07/28/19 23:07 Dose: 0.3 mcg/kg/hr, 2.92 mls/hr Midazolam HCl (Midazolam 100mg/100ml-0.9%Nacl) 100 mg in 100 mls @ 1 mls/hr IVPB TITR [facility]; Protocol Last Titration: 07/28/19 08:56 Dose: 1 mg/hr, 1 mls/hr Piperacillin Sod/Tazobactam (Sod 3.375 gm/ Dextrose) 50 mls @ 100 mls/hr IVPB Q8H-IV [facility]; Protocol Last Admin: 07/29/19 04:07 Dose: 100 mls/hr Vancomycin HCl (Vancomycin (Pre-Docked)) 1,000 mg in 250 mls @ 166.667 mls/hr IVPB ONCE [facility]; Protocol Stop: 07/29/19 13:44 Last Admin: 07/28/19 15:47 Dose: 166.667 mls/hr Dextrose/Sodium Chloride (D5-1/2ns -) 1,000 mls @ 100 mls/hr IV ASDIR [facility] Last Admin: 07/28/19 14:27 Dose: 100 mls/hr Norepinephrine Bitartrate 8, (000 mcg/ Dextrose) 500 mls @ 18.75 mls/hr IV TITR [facility]; Protocol Last Admin: 07/28/19 23:07 Dose: 5 mcg/min, 18.75 mls/hr Insulin Aspart (Novolog Vial Sliding Scale -) 1 vial SQ ACHS [facility]; Protocol Last Admin: 07/29/19 07:51 Dose: 2 units Lidocaine (Lidoderm Patch -) 1 patch TP DAILY [facility] Last Admin: 07/28/19 12:04 Dose: 1 patch Metoprolol Tartrate (Lopressor Injection -) 5 mg IVPUSH Q4H PRN PRN Reason: TACHYCARDIA Last Admin: 07/27/19 16:43 Dose: 5 mg Miscellaneous (Lidoderm Patch Removal) 1 each MC DAILY@2200 [facility] Last Admin: 07/28/19 23:08 Dose: 1 each Olanzapine (Zyprexa -) 2.5 mg PO HS [facility] Last Admin: 07/28/19 23:40 Dose: Not Given Pantoprazole Sodium (Protonix -) 40 mg PO DAILY [facility] Last Admin: 07/28/19 11:45 Dose: Not Given Polyethylene Glycol (Miralax (For Daily Use) -) 17 gm PO DAILY [facility] Last Admin: 07/28/19 11:45 Dose: Not Given Potassium Chloride (K-Dur -) 20 meq PO DAILY [facility] Last Admin: 07/28/19 11:45 Dose: Not Given - Objective Vital Signs: Vital Signs Temperature 98.5 F 07/29/19 06:00 Pulse Rate 75 07/29/19 06:00 Respiratory Rate 20 07/29/19 06:00 Blood Pressure 142/52 L 07/29/19 06:00 O2 Sat by Pulse Oximetry (%) 100 07/28/19 22:00 HENT: Yes: Other (+ ETT) Cardiovascular: Yes: Pulse Irregular Respiratory: Yes: Other (= breath sounds b/l) Gastrointestinal: Yes: Soft Edema: No Neurological: Yes: Other (sedated on vent) Labs: CBC, BMP 07/29/19 05:25 07/29/19 06:00 INR, PTT INR 1.61 (0.83-1.09) H 07/29/19 06:15 Microbiology 07/27/19 21:45 Blood - Peripheral Venous Blood Culture - Preliminary NO GROWTH OBTAINED AFTER 24 HOURS, INCUBATION TO CONTINUE FOR 4 DAYS. 07/27/19 21:30 Blood - Peripheral Venous Blood Culture - Preliminary NO GROWTH OBTAINED AFTER 24 HOURS, INCUBATION TO CONTINUE FOR 4 DAYS. - ....Imaging EKG: Image Reviewed Assessment/Plan IMP: AF w/ RVR MVP with eccentric MR, at least moderate Generalized weakness- nonspecific Elevated BNP--sec to MR/TR vs afib vs multifactorial PNA, sepsis REC: 1. Vent support as per Critical Care 2. Abx as per Critical Care 3. Now has OG tube- cont Eliquis, Cardizem. Rates adequately controlled. 4. Wean pressors as tolerated 5. Advanced directives noted.
--- NOTE | 2019-07-29 09:13 | PN ---
Progress Note (short form) - Note Progress Note: Neurology - Admission Chief Complaint: Weakness History of Present Illness: 88 year old female with HTN, A fib (on AC) in her USOH, lives alone, using a walker for ambulation, couldn't get up of toilet for hours ( couldn't reach the walker) on day of admission until was found by her neighbour who brought her to ER. In ER it was noticed to by in A Fib with RVR, recieved IV Metoprolol with improvement in HR. Cardiology has been following patient and monitoring cardiac status. I was consulted due to altered mental status and confusion. Urinalysis was negative, remains afebrile and with normal white count. Labs noted for hypernatremia with sodium of 151, improving. MRI brain previously ordered, not yet completed. Overnight 07/27, patient developed lethargy and transferred to ICU, required intubation and currently on mechanical ventilation. Head ct ordered in interim to reevaluate for any structural abnormalities, not yet completed. Patient without significant improvement overnight and remains under critical care monitoring. Of note, found to have infiltrates on x-ray indicating possible source for her altered mental status and possible underlying pneumonia, is on antibiotics including vancomycin and Zosyn.. Active Medications Acetaminophen (Tylenol -) 650 mg PO Q6H PRN PRN Reason: PAIN 2-5 Last Admin: 07/27/19 09:11 Dose: 650 mg Apixaban (Eliquis -) 2.5 mg PO BID [facility] Last Admin: 07/28/19 23:43 Dose: 2.5 mg Diltiazem HCl (Cardizem -) 60 mg NGT QID [facility] Last Admin: 07/28/19 23:08 Dose: Not Given Dexmedetomidine HCl 200 mcg/ (Sodium Chloride) 50 mls @ 1.95 mls/hr IVPB TITR [facility] Last Admin: 07/28/19 23:07 Dose: 0.3 mcg/kg/hr, 2.92 mls/hr Midazolam HCl (Midazolam 100mg/100ml-0.9%Nacl) 100 mg in 100 mls @ 1 mls/hr IVPB TITR [facility]; Protocol Last Titration: 07/28/19 08:56 Dose: 1 mg/hr, 1 mls/hr Piperacillin Sod/Tazobactam (Sod 3.375 gm/ Dextrose) 50 mls @ 100 mls/hr IVPB Q8H-IV [facility]; Protocol Last Admin: 07/29/19 04:07 Dose: 100 mls/hr Vancomycin HCl (Vancomycin (Pre-Docked)) 1,000 mg in 250 mls @ 166.667 mls/hr IVPB ONCE [facility]; Protocol Stop: 07/29/19 13:44 Last Admin: 07/28/19 15:47 Dose: 166.667 mls/hr Dextrose/Sodium Chloride (D5-1/2ns -) 1,000 mls @ 100 mls/hr IV ASDIR [facility] Last Admin: 07/28/19 14:27 Dose: 100 mls/hr Norepinephrine Bitartrate 8, (000 mcg/ Dextrose) 500 mls @ 18.75 mls/hr IV TITR [facility]; Protocol Last Admin: 07/28/19 23:07 Dose: 5 mcg/min, 18.75 mls/hr Insulin Aspart (Novolog Vial Sliding Scale -) 1 vial SQ ACHS [facility]; Protocol Last Admin: 07/29/19 07:51 Dose: 2 units Lidocaine (Lidoderm Patch -) 1 patch TP DAILY [facility] Last Admin: 07/28/19 12:04 Dose: 1 patch Metoprolol Tartrate (Lopressor Injection -) 5 mg IVPUSH Q4H PRN PRN Reason: TACHYCARDIA Last Admin: 07/27/19 16:43 Dose: 5 mg Miscellaneous (Lidoderm Patch Removal) 1 each MC DAILY@2200 [facility] Last Admin: 07/28/19 23:08 Dose: 1 each Olanzapine (Zyprexa -) 2.5 mg PO HS [facility] Last Admin: 07/28/19 23:40 Dose: Not Given Pantoprazole Sodium (Protonix -) 40 mg PO DAILY [facility] Last Admin: 07/28/19 11:45 Dose: Not Given Polyethylene Glycol (Miralax (For Daily Use) -) 17 gm PO DAILY [facility] Last Admin: 07/28/19 11:45 Dose: Not Given Potassium Chloride (K-Dur -) 20 meq PO DAILY [facility] Last Admin: 07/28/19 11:45 Dose: Not Given Physical Examination Vital Signs: Vital Signs Period Temp Pulse Resp BP Sys/Sheldon Pulse Ox Last 24 Hr 97.4 F-98.5 F 75-100 16-24 88-142/41-56 100-100 Constitutional: Yes: No Distress, Calm Eyes: Yes: Conjunctiva Clear, EOM Intact HENT: No: Epistaxis, Rhinnorhea Neck: Yes: Trachea Midline. No: Lymphadenopathy Cardiovascular: Yes: Pulse Irregular, S1, S2 Respiratory: Yes: Regular, CTA Bilaterally. No: Rales Gastrointestinal: Yes: Normal Bowel Sounds, Soft, Hepatomegaly. No: Splenomegaly, Tenderness ...Rectal Exam: Yes: Deferred Renal/: No: CVA Tenderness - Left, CVA Tenderness - Right Breast(s): Yes: Other (deferred) Musculoskeletal: No: Back Pain, Joint Swelling Extremities: No: Cool, Cyanosis Edema: No Integumentary: Yes: Bruising (large bruise of the left elbow) Neurological: awake and alert but not oriented, moves extremities grossly, sensory intact, not following commands to confrontation testing CBCD WBC 10.9 K/mm3 (4.0-10.0) H 07/29/19 05:25 RBC 3.97 M/mm3 (3.60-5.2) 07/29/19 05:25 Hgb 11.9 GM/dL (10.7-15.3) 07/29/19 05:25 Hct 36.2 % (32.4-45.2) 07/29/19 05:25 MCV 91.3 fl (80-96) 07/29/19 05:25 MCHC 32.8 g/dl (32.0-36.0) 07/29/19 05:25 RDW 15.5 % (11.6-15.6) 07/29/19 05:25 Plt Count 203 K/MM3 (134-434) D 07/29/19 05:25 MPV 10.2 fl (7.5-11.1) 07/29/19 05:25 CMP Sodium 145 mmol/L (136-145) 07/29/19 06:00 Potassium 3.7 mmol/L (3.5-5.1) 07/29/19 06:00 Chloride 114 mmol/L (98-107) H 07/29/19 06:00 Carbon Dioxide 23 mmol/L (21-32) 07/29/19 06:00 Anion Gap 8 MMOL/L (8-16) 07/29/19 06:00 BUN 26.7 mg/dL (7-18) H 07/29/19 06:00 Creatinine 0.8 mg/dL (0.55-1.3) 07/29/19 06:00 Random Glucose 176 mg/dL (74-106) H 07/29/19 06:00 Calcium 7.3 mg/dL (8.5-10.1) L 07/29/19 06:00 Total Bilirubin 0.8 mg/dL (0.2-1) 07/29/19 06:00 AST 24 U/L (15-37) 07/29/19 06:00 ALT 38 U/L (13-61) 07/29/19 06:00 Alkaline Phosphatase 95 U/L (45-117) 07/29/19 06:00 Total Protein 4.7 g/dl (6.4-8.2) L 07/29/19 06:00 Albumin 2.0 g/dl (3.4-5.0) L 07/29/19 06:00 CARDIAC ENZYMES Creatine Kinase 127 U/L (26-192) 07/28/19 06:30 Troponin I < 0.02 ng/ml (0.00-0.05) 07/28/19 06:30 Plan: 88 year old female with HTN, A fib (on AC) in her USOH, lives alone, using a walker for ambulation, couldn't get up of toilet for hours ( couldn't reach the walker) on day of admission until was found by her neighbour who brought her to ER. In ER it was noticed to by in A Fib with RVR, recieved IV Metoprolol with improvement in HR. Cardiology has been following patient and monitoring cardiac status. I was consulted due to altered mental status and confusion. Urinalysis was negative, remains afebrile and with normal white count. Labs noted for hypernatremia with sodium of 151, improving. MRI brain previously ordered, not yet completed. Overnight 07/27, patient developed lethargy and transferred to ICU, required intubation and currently on mechanical ventilation. Head ct ordered in interim to reevaluate for any structural abnormalities, not yet completed. Patient without significant improvement overnight and remains under critical care monitoring. Of note, found to have infiltrates on x-ray indicating possible source for her altered mental status and possible underlying pneumonia, is on antibiotics including vancomycin and Zosyn. Continue optimization of cardiac factors including atrial fibrillation. Maintain adequate hydration, monitor blood pressure, maintain normotensive range. Will continue to monitor mental status closely. Optimization of possible underlying pneumonia recommended, may have been etiology to her reduced mental status. IV antibiotics as per primary, ICU. Critical care time 35 mins.
[2019-07-29] MEDS: PANTOPRAZOLE 40 MG TABLET (FP) PO SCH (10:18)
[2019-07-29] MEDS: POTASSIUM CHLORIDE TABS 10 MEQ TABLET.ER (FP) PO SCH (10:19)
[2019-07-29] MEDS: APIXABAN 2.5 MG TABLET PO SCH ×2 (10:19→21:19)
[2019-07-29] MEDS: LIDOCAINE 5% TOPICAL PATCH TP SCH (10:19)
[2019-07-29] MEDS: dilTIAZem HCL 60 MG TABLET (FP) NGT SCH ×4 (10:20→21:19)
[2019-07-29] MEDS: POLYETHYLENE GLYCOL 3350 119 GM BTL PO SCH (10:20)
--- NOTE | 2019-07-29 10:29 | PN ---
Teaching Attending Note Name of Resident: Jaguar Marc ATTENDING PHYSICIAN STATEMENT I saw and evaluated the patient. I reviewed the resident's note and discussed the case with the resident. I agree with the resident's findings and plan as documented. SUBJECTIVE: Patient seen and examined in the ICU. Intubated and poorly responsive ( sedation was just discontinued). NE @ 5 mcq for hemodynamic support. Intake & Output 07/26/19 07/27/19 07/28/19 07/29/19 23:59 23:59 23:59 23:59 Intake Total 8868 387 7017 2302 Output Total 800 500 Balance 1380 -130 3762 2302 Weight 101 lb 4.8 oz 101 lb 11.2 oz Last Vital Signs Temp Pulse Resp BP Pulse Ox 98.5 F 75 20 142/52 L 100 07/29/19 06:00 07/29/19 06:00 07/29/19 06:00 07/29/19 06:00 07/28/19 22:00 Active Medications Acetaminophen (Tylenol -) 650 mg PO Q6H PRN PRN Reason: PAIN 2-5 Last Admin: 07/27/19 09:11 Dose: 650 mg Apixaban (Eliquis -) 2.5 mg PO BID [facility] Last Admin: 07/29/19 10:19 Dose: 2.5 mg Diltiazem HCl (Cardizem -) 60 mg NGT QID [facility] Last Admin: 07/29/19 10:20 Dose: Not Given Piperacillin Sod/Tazobactam (Sod 3.375 gm/ Dextrose) 50 mls @ 100 mls/hr IVPB Q8H-IV [facility]; Protocol Last Admin: 07/29/19 10:18 Dose: 100 mls/hr Vancomycin HCl (Vancomycin (Pre-Docked)) 1,000 mg in 250 mls @ 166.667 mls/hr IVPB ONCE [facility]; Protocol Stop: 07/29/19 13:44 Last Admin: 07/28/19 15:47 Dose: 166.667 mls/hr Dextrose/Sodium Chloride (D5-1/2ns -) 1,000 mls @ 100 mls/hr IV ASDIR [facility] Last Admin: 07/28/19 14:27 Dose: 100 mls/hr Norepinephrine Bitartrate 8, (000 mcg/ Dextrose) 500 mls @ 18.75 mls/hr IV TITR [facility]; Protocol Last Admin: 07/28/19 23:07 Dose: 5 mcg/min, 18.75 mls/hr Insulin Aspart (Novolog Vial Sliding Scale -) 1 vial SQ ACHS [facility]; Protocol Last Admin: 07/29/19 07:51 Dose: 2 units Lidocaine (Lidoderm Patch -) 1 patch TP DAILY [facility] Last Admin: 07/29/19 10:19 Dose: 1 patch Metoprolol Tartrate (Lopressor Injection -) 5 mg IVPUSH Q4H PRN PRN Reason: TACHYCARDIA Last Admin: 07/27/19 16:43 Dose: 5 mg Miscellaneous (Lidoderm Patch Removal) 1 each MC DAILY@2200 [facility] Last Admin: 07/28/19 23:08 Dose: 1 each Olanzapine (Zyprexa -) 2.5 mg PO HS [facility] Last Admin: 07/28/19 23:40 Dose: Not Given Pantoprazole Sodium (Protonix -) 40 mg PO DAILY [facility] Last Admin: 07/29/19 10:18 Dose: Not Given Polyethylene Glycol (Miralax (For Daily Use) -) 17 gm PO DAILY [facility] Last Admin: 07/29/19 10:20 Dose: 17 gm Potassium Chloride (K-Dur -) 20 meq PO DAILY [facility] Last Admin: 07/29/19 10:19 Dose: Not Given Gen: intubated, poorly responsive Heart: tachycardic, irregular Lung: decreased breath sounds at the bases Abd: soft, nontender Ext: no edema Laboratory Results - last 24 hr 07/28/19 07/28/19 07/28/19 06:30 11:47 17:14 WBC RBC Hgb Hct MCV MCH MCHC RDW Plt Count MPV Absolute Neuts (auto) Neutrophils % Lymphocytes % Monocytes % Eosinophils % Basophils % Nucleated RBC % Platelet Estimate Decreased PT with INR INR PTT (Actin FS) Sodium Potassium Chloride Carbon Dioxide Anion Gap BUN Creatinine Est GFR (CKD-EPI)AfAm Est GFR (CKD-EPI)NonAf POC Glucometer 83 121 Random Glucose Lactic Acid Calcium Total Bilirubin AST ALT Alkaline Phosphatase Total Protein Albumin 07/28/19 07/28/19 07/28/19 23:15 23:15 23:19 WBC RBC Hgb Hct MCV MCH MCHC RDW Plt Count MPV Absolute Neuts (auto) Neutrophils % Lymphocytes % Monocytes % Eosinophils % Basophils % Nucleated RBC % Platelet Estimate PT with INR INR PTT (Actin FS) Sodium 146 H Potassium 4.1 Chloride 116 H Carbon Dioxide 23 Anion Gap 7 L BUN 31.0 H Creatinine 0.7 Est GFR (CKD-EPI)AfAm 89.66 Est GFR (CKD-EPI)NonAf 77.36 POC Glucometer 113 Random Glucose 124 H Lactic Acid 1.5 Calcium 7.2 L Total Bilirubin AST ALT Alkaline Phosphatase Total Protein Albumin 07/29/19 07/29/19 07/29/19 05:25 05:37 06:00 WBC 10.9 H RBC 3.97 Hgb 11.9 Hct 36.2 MCV 91.3 MCH 29.9 MCHC 32.8 RDW 15.5 Plt Count 203 D MPV 10.2 Absolute Neuts (auto) 9.2 H Neutrophils % 84.1 H Lymphocytes % 8.1 D Monocytes % 6.8 Eosinophils % 0.9 D Basophils % 0.1 Nucleated RBC % 1 H Platelet Estimate PT with INR INR PTT (Actin FS) Sodium 145 Potassium 3.7 Chloride 114 H Carbon Dioxide 23 Anion Gap 8 BUN 26.7 H Creatinine 0.8 Est GFR (CKD-EPI)AfAm 76.29 Est GFR (CKD-EPI)NonAf 65.82 POC Glucometer 168 Random Glucose 176 H Lactic Acid Calcium 7.3 L Total Bilirubin 0.8 AST 24 ALT 38 Alkaline Phosphatase 95 Total Protein 4.7 L Albumin 2.0 L 07/29/19 06:15 WBC RBC Hgb Hct MCV MCH MCHC RDW Plt Count MPV Absolute Neuts (auto) Neutrophils % Lymphocytes % Monocytes % Eosinophils % Basophils % Nucleated RBC % Platelet Estimate PT with INR 19.10 H INR 1.61 H PTT (Actin FS) 31.2 Sodium Potassium Chloride Carbon Dioxide Anion Gap BUN Creatinine Est GFR (CKD-EPI)AfAm Est GFR (CKD-EPI)NonAf POC Glucometer Random Glucose Lactic Acid Calcium Total Bilirubin AST ALT Alkaline Phosphatase Total Protein Albumin ASSESSMENT AND PLAN: Acute Hypoxic Respiratory Failure Pneumonia Sepsis Lactic Acidosis Altered Mental Status Atrial Fibrillation Mitral Regurgitation HTN Hypernatremia - ABX per ID - f/u final cultures - IVF boluses - Pressors to maintain MAP > 65 - For repeat CT head - MRI brain when extubated - Neuro following - DC sedation to assess mental status - Spontaneous breathing trials as tolerated when mental status improved - DVT/GI prophylaxis - Requires continued ICU monitoring Dr Drummond Critical care time spent in reviewing chart, evaluating patient and formulating plan 35 min
[2019-07-29] MEDS: MIDAZOLAM IN 0.9 % SOD.CHLORID 100 MG/100 ML PLAST..BAG IVPB SCH ×2 (10:37→16:00)
--- NOTE | 2019-07-29 12:12 | PN ---
Physical Exam: SUBJECTIVE: Patient seen and examined. No acute events overnight. Still sedated. No gross bleeding noted OBJECTIVE: Vital Signs Period Temp Pulse Resp BP Sys/Sheldon Pulse Ox Last 24 Hr 96.8 F-98.5 F 67-100 16-24 88-150/41-58 100-100 GENERAL: The patient is sedated, in no acute distress. LUNGS: Breath sounds equal, clear to auscultation bilaterally, no wheezes, no crackles, no accessory muscle use. Intubated on vent HEART: Regular rate, irregular rhythm, S1, S2 without murmur, rub or gallop. ABDOMEN: Soft, nontender, nondistended, normoactive bowel sounds, no guarding, no rebound, no hepatosplenomegaly, no masses. EXTREMITIES: warm, +1 edema hands, no edema BLE. Ecchymosis R hand NEUROLOGICAL: Sedated. Laboratory Results - last 24 hr 07/28/19 07/28/19 07/28/19 17:14 23:15 23:15 WBC RBC Hgb Hct MCV MCH MCHC RDW Plt Count MPV Absolute Neuts (auto) Neutrophils % Lymphocytes % Monocytes % Eosinophils % Basophils % Nucleated RBC % PT with INR INR PTT (Actin FS) Sodium 146 H Potassium 4.1 Chloride 116 H Carbon Dioxide 23 Anion Gap 7 L BUN 31.0 H Creatinine 0.7 Est GFR (CKD-EPI)AfAm 89.66 Est GFR (CKD-EPI)NonAf 77.36 POC Glucometer 121 Random Glucose 124 H Lactic Acid 1.5 Calcium 7.2 L Total Bilirubin AST ALT Alkaline Phosphatase Total Protein Albumin 07/28/19 07/29/19 07/29/19 23:19 05:25 05:37 WBC 10.9 H RBC 3.97 Hgb 11.9 Hct 36.2 MCV 91.3 MCH 29.9 MCHC 32.8 RDW 15.5 Plt Count 203 D MPV 10.2 Absolute Neuts (auto) 9.2 H Neutrophils % 84.1 H Lymphocytes % 8.1 D Monocytes % 6.8 Eosinophils % 0.9 D Basophils % 0.1 Nucleated RBC % 1 H PT with INR INR PTT (Actin FS) Sodium Potassium Chloride Carbon Dioxide Anion Gap BUN Creatinine Est GFR (CKD-EPI)AfAm Est GFR (CKD-EPI)NonAf POC Glucometer 113 168 Random Glucose Lactic Acid Calcium Total Bilirubin AST ALT Alkaline Phosphatase Total Protein Albumin 07/29/19 07/29/19 07/29/19 06:00 06:15 11:44 WBC RBC Hgb Hct MCV MCH MCHC RDW Plt Count MPV Absolute Neuts (auto) Neutrophils % Lymphocytes % Monocytes % Eosinophils % Basophils % Nucleated RBC % PT with INR 19.10 H INR 1.61 H PTT (Actin FS) 31.2 Sodium 145 Potassium 3.7 Chloride 114 H Carbon Dioxide 23 Anion Gap 8 BUN 26.7 H Creatinine 0.8 Est GFR (CKD-EPI)AfAm 76.29 Est GFR (CKD-EPI)NonAf 65.82 POC Glucometer 144 Random Glucose 176 H Lactic Acid Calcium 7.3 L Total Bilirubin 0.8 AST 24 ALT 38 Alkaline Phosphatase 95 Total Protein 4.7 L Albumin 2.0 L Active Medications Generic Name Dose Route Start Last Admin Trade Name Freq PRN Reason Stop Dose Admin Acetaminophen 650 mg 07/22/19 17:52 07/27/19 09:11 Tylenol - PO 650 mg Q6H PRN Administration PAIN 2-5 Apixaban 2.5 mg 07/21/19 22:45 07/29/19 10:19 Eliquis - PO 2.5 mg BID EDILSON Administration Diltiazem HCl 60 mg 07/28/19 22:00 07/29/19 10:20 Cardizem - NGT Not Given QID EDILSON Piperacillin Sod/Tazobactam 50 mls @ 100 mls/hr 07/28/19 13:45 07/29/19 10:18 Sod 3.375 gm/ Dextrose IVPB 100 mls/hr Q8H-IV EDILSON Administration Protocol Vancomycin HCl 1,000 mg in 250 mls @ 166.667 mls/hr 07/28/19 13:45 07/28/19 15:47 Vancomycin (Pre-Docked) IVPB 07/29/19 13:44 166.667 mls/hr ONCE EDILSON Administration Protocol Dextrose/Sodium Chloride 1,000 mls @ 100 mls/hr 07/28/19 14:04 07/28/19 14:27 D5-1/2ns - IV 100 mls/hr ASDIR EDILSON Administration Norepinephrine Bitartrate 8, 500 mls @ 18.75 mls/hr 07/28/19 21:45 07/28/19 23:07 000 mcg/ Dextrose IV 5 mcg/min TITR EDILSON 18.75 mls/hr Administration Protocol 5 MCG/MIN Insulin Aspart 1 vial 07/26/19 07:00 07/29/19 11:46 Novolog Vial Sliding Scale - SQ Not Given ACHS EDILSON Protocol Lidocaine 1 patch 07/24/19 10:00 07/29/19 10:19 Lidoderm Patch - TP 1 patch DAILY EDILSON Administration Metoprolol Tartrate 5 mg 07/26/19 12:39 07/27/19 16:43 Lopressor Injection - IVPUSH 5 mg Q4H PRN Administration TACHYCARDIA Miscellaneous 1 each 07/24/19 22:00 07/28/19 23:08 Lidoderm Patch Removal MC 1 each DAILY@2200 EDILSON Administration Olanzapine 2.5 mg 07/26/19 22:00 07/28/19 23:40 Zyprexa - PO Not Given HS EDILSON Pantoprazole Sodium 40 mg 07/22/19 10:00 07/29/19 10:18 Protonix - PO Not Given DAILY EDILSON Polyethylene Glycol 17 gm 07/26/19 10:00 07/29/19 10:20 Miralax (For Daily Use) - PO 17 gm DAILY EDILSON Administration Potassium Chloride 20 meq 07/24/19 08:59 07/29/19 10:19 K-Dur - PO Not Given DAILY EDILSON ASSESSMENT/PLAN: 88 YO F with PMH of HTN, A fib (on Eliquis 2.5mg BD), DM, and Breast CA. She presented to the ER on 07/21 after she was unable to get up of from her toilet for 4 hours and was found by her neighbor, who called EMS. She was found to have A Fib with RVR and was subsequently admitted . On 07/27 she was found to be lethargic, not arousable, with irregular shallow breathing. A rapid response was called, she was intubated, and was admitted to the ICU. #Neuro - Stop sedation Precedex, Midazolam for extubation - pending CT head, soft tissue neck, MRI brain - CT Head (07/21): No acute pathology - continue olanzapine - appreciate neuro recs #Cardio - L IJ CVC placed 07/29 for hypotension requiring pressors - continue levophed, wean as tolerated - keep MAP > 65 - Continue Cardizem, lopressor PRN for rate control - Holding home metoprolol d/t hypotension - Echo 07/22 showed EF 55-60, LA sev dilation, MR with prolapse of post mitral leaflet, mod TR, RVSP 30-40, mild AR - outpatient echo f/u - EKG 07/24: Afib RVR, LVH with QRS widening, LBBB no longer present - DVT ppx - appreciate cards recs #Pulm - CXR 07/29 showed atelectasis, reduced infiltrate/effusion R lung base - intubated on ventilator, plan to extubate after SBT #Ortho - Rt hip atraumatic pain for 2 weeks - XR of right hip, femur and tib/fib show degenerative changes without evidence of acute pathology, consistent with DJD, F/U outpatient - appreciate ortho recs #Renal - BUN/Cr wnl - IV fluids - leslie - I/O #ID - leukocytosis - WBC 10.2 to 10.9 - continue vanc, zosyn for aspiration PNA concern - Urine, Blood cx no growth #Endo - hx DM - ISS #GI - continue Miralax - NG tube in place - NPO - GI ppx #FEN - D5 + 0.45 N/S @100mL/hr + KCL - hyperCl - NPO PPX - eliquis - protonix #Dispo - ICU - DNR as per power of upfitter, flavia, although there is no written evidence. Will attempt to confirm. Visit type - Emergency Visit Emergency Visit: Yes ED Registration Date: 07/21/19 Care time: The patient presented to the Emergency Department on the above date and was hospitalized for further evaluation of their emergent condition. - New Patient This patient is new to me today: Yes Date on this admission: 07/29/19 - Critical Care Critical Care patient: Yes Total Critical Care Time (in minutes): 40 Critical Care Statement: The care of this patient involved high complexity decision making to prevent further life threatening deterioration of the patient 's condition and/or to evaluate & treat vital organ system(s) failure or risk of failure. ATTENDING PHYSICIAN STATEMENT I saw and evaluated the patient. I reviewed the resident's note and discussed the case with the resident. I agree with the resident's findings and plan as documented. SUBJECTIVE: OBJECTIVE: ASSESSMENT AND PLAN:
[2019-07-29] MEDS: METOPROLOL TARTRATE 5 MG/5 ML VIAL IVPUSH PRN (13:08)
[2019-07-29] MEDS ORDERED: METOPROLOL TARTRATE 5 MG/5 ML VIAL IVPUSH ONE ×2 (14:18→15:30)
[2019-07-29] MEDS: DEXTROSE 5%-0.45% SALINE 1,000 ML IV SCH (14:59)
[2019-07-29] MEDS: DEXMEDETOMIDINE HCL 200 MCG in SODIUM CHLORIDE 48 ML IVPB SCH (15:15)
[2019-07-29] MEDS: PANTOPRAZOLE SODIUM 40 MG VIAL IVPUSH SCH (15:53)
--- NOTE | 2019-07-29 15:59 | PN ---
Progress Note (short form) - Note Progress Note: Renal follow up electrolyte imbalance Seen and examined in the ICU intubated and sedated FiO is 40% making urine via leslie Vital Signs Temperature 97.1 F L 07/29/19 14:00 Pulse Rate 135 H 07/29/19 15:53 Respiratory Rate 22 H 07/29/19 14:00 Blood Pressure 127/70 07/29/19 15:53 O2 Sat by Pulse Oximetry (%) 97 07/29/19 11:20 Intake & Output 07/26/19 07/27/19 07/28/19 07/29/19 23:59 23:59 23:59 23:59 Intake Total 2047 360 8992 2302 Output Total 800 500 200 Balance 1380 -130 3762 2102 Weight 45.949 kg 46.13 kg intubated and sedated ET Tube in place neck supple, no JVD irregular, no M/R Dec BS, no rales soft NT/ND no LE edema, clubbing or cyanosis CBC, BMP 07/29/19 05:25 07/29/19 06:00 Current Medications Acetaminophen (Tylenol -) 650 mg PO Q6H PRN PRN Reason: PAIN 2-5 Last Admin: 07/27/19 09:11 Dose: 650 mg Apixaban (Eliquis -) 2.5 mg PO BID EDILSON Last Admin: 07/29/19 10:19 Dose: 2.5 mg Diltiazem HCl (Cardizem -) 60 mg NGT QID EDILSON Last Admin: 07/29/19 15:31 Dose: 60 mg Piperacillin Sod/Tazobactam (Sod 3.375 gm/ Dextrose) 50 mls @ 100 mls/hr IVPB Q8H-IV EDILSON; Protocol Last Admin: 07/29/19 10:18 Dose: 100 mls/hr Dextrose/Sodium Chloride (D5-1/2ns -) 1,000 mls @ 100 mls/hr IV ASDIR EDILSON Last Admin: 07/29/19 14:59 Dose: 100 mls/hr Norepinephrine Bitartrate 8, (000 mcg/ Dextrose) 500 mls @ 18.75 mls/hr IV TITR EDILSON; Protocol Last Admin: 07/28/19 23:07 Dose: 5 mcg/min, 18.75 mls/hr Dexmedetomidine HCl 200 mcg/ (Sodium Chloride) 50 mls @ 2.3 mls/hr IVPB TITR EDILSON Midazolam HCl (Midazolam 100mg/100ml-0.9%Nacl) 100 mg in 100 mls @ 1 mls/hr IVPB TITR EDILSON; Protocol Insulin Aspart (Novolog Vial Sliding Scale -) 1 vial SQ ACHS EDILSON; Protocol Last Admin: 07/29/19 11:46 Dose: Not Given Lidocaine (Lidoderm Patch -) 1 patch TP DAILY EDILSON Last Admin: 07/29/19 10:19 Dose: 1 patch Metoprolol Tartrate (Lopressor Injection -) 5 mg IVPUSH Q4H PRN PRN Reason: TACHYCARDIA Last Admin: 07/29/19 13:08 Dose: 5 mg Miscellaneous (Lidoderm Patch Removal) 1 each MC DAILY@2200 EDILSON Last Admin: 07/28/19 23:08 Dose: 1 each Olanzapine (Zyprexa -) 2.5 mg PO HS EDILSON Last Admin: 07/28/19 23:40 Dose: Not Given Pantoprazole Sodium (Protonix Iv) 40 mg IVPUSH DAILY EDILSON Last Admin: 07/29/19 15:53 Dose: 40 mg Polyethylene Glycol (Miralax (For Daily Use) -) 17 gm PO DAILY EDILSON Last Admin: 07/29/19 10:20 Dose: 17 gm 88 year old woman with history of atrial fibrillation and hypertension who presented with rapid atrial fibrillation with pneumonia and hypernatremia. 1. Hypernatreima (water deficit is 1.3L) 2. Azotemia 3. Pneumonia 4. Rapid Atrial fibrillation 5. Lactic acidosis 6. Leukocytosis Serum Na is improved, Lactic acid improved on D5 1/2 NS continue vaospressers for BP support goal MAP > 65, CVP goal 10-12 continue vent support continue empiric antibiotics per primary team HR control with BB Trend electrolytes including Phos and Mg daily Will follow up as needed Thank you Tolu Akers DO
[2019-07-29 16:56] LABS: BLOOD UREA NITROGEN 22.3 mg/dL (7-18); CALCIUM 7.5 mg/dL (8.5-10.1); CREATININE 0.7 mg/dL (0.55-1.3); POTASSIUM 3.5 mmol/L (3.5-5.1)
[2019-07-29] MEDS ORDERED: NOREPINEPHRINE BITARTRATE 4 MG/4 ML ML IV ONE (19:40)
[2019-07-29] MEDS: NOREPINEPHRINE BITARTRATE 8,000 MCG in DEXTROSE 5%-WATER - 492 ML IV SCH (21:16)
[2019-07-29] MEDS: LIDOCAINE PATCH REMOVAL MC SCH (21:17)
[2019-07-29] MEDS: OLANZapine 2.5 MG TABLET PO SCH (21:20)
--- NOTE | 2019-07-29 21:34 | PN ---
Progress Note, Physician Chief Complaint: INTUBATED POORLY RESPONSIVE ON VENTILATOR HYPOTENSIVE ON PRESSORS - Current Medication List Current Medications: Active Medications Acetaminophen (Tylenol -) 650 mg PO Q6H PRN PRN Reason: PAIN 2-5 Last Admin: 07/27/19 09:11 Dose: 650 mg Apixaban (Eliquis -) 2.5 mg PO BID EDILSON Last Admin: 07/29/19 21:19 Dose: 2.5 mg Diltiazem HCl (Cardizem -) 60 mg NGT QID EDILSON Last Admin: 07/29/19 21:19 Dose: 60 mg Piperacillin Sod/Tazobactam (Sod 3.375 gm/ Dextrose) 50 mls @ 100 mls/hr IVPB Q8H-IV EDILSON; Protocol Last Admin: 07/29/19 18:28 Dose: 100 mls/hr Dextrose/Sodium Chloride (D5-1/2ns -) 1,000 mls @ 100 mls/hr IV ASDIR EDILSON Last Admin: 07/29/19 14:59 Dose: 100 mls/hr Norepinephrine Bitartrate 8, (000 mcg/ Dextrose) 500 mls @ 18.75 mls/hr IV TITR EDILSON; Protocol Last Admin: 07/29/19 21:16 Dose: 6 mcg/min, 22.5 mls/hr Dexmedetomidine HCl 200 mcg/ (Sodium Chloride) 50 mls @ 2.3 mls/hr IVPB TITR EDILSON Last Admin: 07/29/19 15:15 Dose: 0.3 mcg/kg/hr, 3.45 mls/hr Midazolam HCl (Midazolam 100mg/100ml-0.9%Nacl) 100 mg in 100 mls @ 1 mls/hr IVPB TITR EDILSON; Protocol Last Admin: 07/29/19 16:00 Dose: 1 mg/hr, 1 mls/hr Insulin Aspart (Novolog Vial Sliding Scale -) 1 vial SQ ACHS EDILSON; Protocol Last Admin: 07/29/19 17:48 Dose: Not Given Lidocaine (Lidoderm Patch -) 1 patch TP DAILY EDILSON Last Admin: 07/29/19 10:19 Dose: 1 patch Metoprolol Tartrate (Lopressor Injection -) 5 mg IVPUSH Q4H PRN PRN Reason: TACHYCARDIA Last Admin: 07/29/19 13:08 Dose: 5 mg Miscellaneous (Lidoderm Patch Removal) 1 each MC DAILY@2200 [facility] Last Admin: 07/29/19 21:17 Dose: 1 each Olanzapine (Zyprexa -) 2.5 mg PO HS [facility] Last Admin: 07/29/19 21:20 Dose: 2.5 mg Pantoprazole Sodium (Protonix Iv) 40 mg IVPUSH DAILY [facility] Last Admin: 07/29/19 15:53 Dose: 40 mg Polyethylene Glycol (Miralax (For Daily Use) -) 17 gm PO DAILY [facility] Last Admin: 07/29/19 10:20 Dose: 17 gm - Objective Vital Signs: Vital Signs Temperature 98.6 F 07/29/19 18:00 Pulse Rate 69 07/29/19 21:16 Respiratory Rate 31 H 07/29/19 18:00 Blood Pressure 137/57 L 07/29/19 21:16 O2 Sat by Pulse Oximetry (%) 97 07/29/19 11:20 Constitutional: Yes: No Distress Cardiovascular: Yes: Regular Rate and Rhythm, S1, S2 Respiratory: Yes: Mechanically Ventilated Gastrointestinal: Yes: Normal Bowel Sounds, Soft Labs: CBC, BMP 07/29/19 05:25 07/29/19 16:08 INR, PTT INR 1.61 (0.83-1.09) H 07/29/19 06:15 Assessment/Plan RESPIRATORY FAILURE PROBABLE ASPIRATION RLL PNEUMONIA R/O SEPTIC SHOCK CONTINUE ZOSYN HEMODYNAMIC/ VENTILATORY SUPPORT
[2019-07-30] MEDS ORDERED: PIPERACILLIN/TAZOBACTAM 3.375 GM VIAL IVPB ONE ×3 (01:26→17:06)
[2019-07-30] MEDS ORDERED: DEXTROSE 5%-WATER - 50 ML IVPB ONE ×3 (01:26→17:06)
[2019-07-30] MEDS: PIPERACILLIN/TAZOB 3.375 GM 3.375 GM in DEXTROSE 5%-WATER - 50 ML IVPB SCH ×3 (01:27→17:12)
[2019-07-30 06:09] LABS: ARTERIAL BLD GAS O2 SATURATION 99.4 % (95-98); ARTERIAL BLOOD GAS BASE EXCESS -3.1 meq/l (-2-2); ARTERIAL BLOOD GAS PCO2 28.9 mmHg (35-45); ARTERIAL BLOOD GAS PO2 175 mmHg (80-100); ARTERIAL BLOOD GAS pH 7.44 (7.35-7.45)
[2019-07-30 06:10] LABS: ALLENS TEST POSITIVE
[2019-07-30] MEDS: INSULIN SLIDING SCALE (NOVOLOG) 1 VIAL SQ SCH ×4 (06:37→21:49)
[2019-07-30 06:51] LABS: BASO % 0.1 % (0-2.0); EOS % 0.5 % (0-4.5); HEMOGLOBIN 11.3 GM/dL (10.7-15.3); LYMPH % 8.2 % (8-40); MCHC 33.1 g/dl (32.0-36.0); MEAN CELL VOLUME 90.5 fl (80-96); MEAN PLT VOLUME 9.5 fl (7.5-11.1); MONO % 8.9 % (3.8-10.2); NEUT % 82.3 % (42.8-82.8); PLATELET COUNT 175 K/MM3 (134-434); RBC 3.76 M/mm3 (3.60-5.2); RDW 15.1 % (11.6-15.6); WHITE BLOOD COUNT 9.9 K/mm3 (4.0-10.0)
[2019-07-30 07:15] LABS: ALBUMIN 1.9 g/dl (3.4-5.0); BILIRUBIN,TOTAL 0.7 mg/dL (0.2-1); BLOOD UREA NITROGEN 14.8 mg/dL (7-18); CALCIUM 7.4 mg/dL (8.5-10.1); CREATININE 0.7 mg/dL (0.55-1.3); MAGNESIUM 2.2 mg/dL (1.8-2.4); PHOSPHOROUS 1.8 mg/dL (2.5-4.9); POTASSIUM 3.1 mmol/L (3.5-5.1); TOT PROT 4.7 g/dl (6.4-8.2)
[2019-07-30] MEDS: DEXTROSE 5%-0.45% SALINE 1,000 ML IV SCH ×3 (09:13→19:28)
[2019-07-30] MEDS: MIDAZOLAM IN 0.9 % SOD.CHLORID 100 MG/100 ML PLAST..BAG IVPB SCH ×2 (09:20→19:29)
--- NOTE | 2019-07-30 09:27 | PN ---
Progress Note, Physician Chief Complaint: No CV events overnight Remains on Levophed and holding Cardizem in this setting Tele with AFib in 70s - Current Medication List Current Medications: Active Medications Acetaminophen (Tylenol -) 650 mg PO Q6H PRN PRN Reason: PAIN 2-5 Last Admin: 07/27/19 09:11 Dose: 650 mg Apixaban (Eliquis -) 2.5 mg PO BID EDILSON Last Admin: 07/29/19 21:19 Dose: 2.5 mg Diltiazem HCl (Cardizem -) 60 mg NGT QID EDILSON Last Admin: 07/29/19 21:19 Dose: 60 mg Piperacillin Sod/Tazobactam (Sod 3.375 gm/ Dextrose) 50 mls @ 100 mls/hr IVPB Q8H-IV EDILSON; Protocol Last Admin: 07/30/19 01:27 Dose: 100 mls/hr Dextrose/Sodium Chloride (D5-1/2ns -) 1,000 mls @ 100 mls/hr IV ASDIR EDILSON Last Admin: 07/30/19 09:13 Dose: 100 mls/hr Norepinephrine Bitartrate 8, (000 mcg/ Dextrose) 500 mls @ 18.75 mls/hr IV TITR EDILSON; Protocol Last Titration: 07/30/19 06:38 Dose: 6 mcg/min, 22.5 mls/hr Dexmedetomidine HCl 200 mcg/ (Sodium Chloride) 50 mls @ 2.3 mls/hr IVPB TITR EDILSON Last Infusion: 07/30/19 06:38 Dose: 0.5 mcg/kg/hr, 5.76 mls/hr Midazolam HCl (Midazolam 100mg/100ml-0.9%Nacl) 100 mg in 100 mls @ 1 mls/hr IVPB TITR EDILSON; Protocol Last Admin: 07/30/19 09:20 Dose: 5 mg/hr, 5 mls/hr Insulin Aspart (Novolog Vial Sliding Scale -) 1 vial SQ ACHS EDILSON; Protocol Last Admin: 07/30/19 06:37 Dose: 2 units Lidocaine (Lidoderm Patch -) 1 patch TP DAILY EDILSON Last Admin: 07/29/19 10:19 Dose: 1 patch Metoprolol Tartrate (Lopressor Injection -) 5 mg IVPUSH Q4H PRN PRN Reason: TACHYCARDIA Last Admin: 11/15/19 13:08 Dose: 5 mg Miscellaneous (Lidoderm Patch Removal) 1 each MC DAILY@2200 [facility] Last Admin: 07/29/19 21:17 Dose: 1 each Olanzapine (Zyprexa -) 2.5 mg PO HS [facility] Last Admin: 07/29/19 21:20 Dose: 2.5 mg Pantoprazole Sodium (Protonix Iv) 40 mg IVPUSH DAILY [facility] Last Admin: 07/29/19 15:53 Dose: 40 mg Polyethylene Glycol (Miralax (For Daily Use) -) 17 gm PO DAILY [facility] Last Admin: 07/29/19 10:20 Dose: 17 gm - Objective Vital Signs: Vital Signs Temperature 99.8 F H 07/30/19 06:43 Pulse Rate 71 07/30/19 08:00 Respiratory Rate 20 07/30/19 08:00 Blood Pressure 140/40 L 07/30/19 08:00 O2 Sat by Pulse Oximetry (%) 100 07/30/19 08:00 Constitutional: Yes: Other (Intubated) Neck: Yes: WNL Cardiovascular: Yes: Murmur Respiratory: Yes: CTA Bilaterally Edema: No Labs: CBC, BMP 07/30/19 06:00 07/30/19 06:00 INR, PTT INR 1.61 (0.83-1.09) H 07/29/19 06:15 Assessment/Plan IMP: AF w/ RVR MVP with eccentric MR, at least moderate Elevated BNP--sec to MR/TR vs afib vs multifactorial PNA, sepsis with ongoing supportive care REC: 1. Vent support as per Critical Care 2. Abx as per Critical Care 3. Now has OG tube- cont Eliquis, Cardizem as needed. Rates adequately controlled. 4. Continue to wean pressors as tolerated 5. Advanced directives noted.
[2019-07-30] MEDS: dilTIAZem HCL 60 MG TABLET (FP) NGT SCH ×2 (09:55→15:49)
[2019-07-30] MEDS: APIXABAN 2.5 MG TABLET PO SCH ×2 (09:55→21:49)
[2019-07-30] MEDS: PANTOPRAZOLE SODIUM 40 MG VIAL IVPUSH SCH (09:55)
[2019-07-30] MEDS: POLYETHYLENE GLYCOL 3350 119 GM BTL PO SCH (09:56)
[2019-07-30] MEDS: LIDOCAINE 5% TOPICAL PATCH TP SCH (09:56)
--- NOTE | 2019-07-30 10:10 | PN ---
Progress Note (short form) - Note Progress Note: remains intubated and sedated episode of afib with RVR yesterday Vital Signs Period Temp Pulse Resp BP Sys/Sheldon Pulse Ox Last 24 Hr 97.1 F-99.9 F 68-135 19-31 83-160/38-76 97-100 cor-rrr lungs decreased bs at bases abd soft,nt ext no edema CBC, BMP 07/30/19 06:00 07/30/19 06:00 Microbiology 07/27/19 21:45 Blood - Peripheral Venous Blood Culture - Preliminary NO GROWTH OBTAINED AFTER 48 HOURS, INCUBATION TO CONTINUE FOR 3 DAYS. 07/27/19 21:30 Blood - Peripheral Venous Blood Culture - Preliminary NO GROWTH OBTAINED AFTER 48 HOURS, INCUBATION TO CONTINUE FOR 3 DAYS. 07/27/19 14:35 Urine - Urine Jacques Urine Culture - Final NO GROWTH OBTAINED 07/21/19 15:00 Blood - Peripheral Venous Blood Culture - Final NO GROWTH AFTER 5 DAYS INCUBATION 07/21/19 15:10 Blood - Peripheral Venous Blood Culture - Final NO GROWTH AFTER 5 DAYS INCUBATION 07/21/19 15:00 Urine - Urine Clean Catch Urine Culture - Final Normal Urogenital Vicki Active Medications Acetaminophen (Tylenol -) 650 mg PO Q6H PRN PRN Reason: PAIN 2-5 Last Admin: 07/27/19 09:11 Dose: 650 mg Apixaban (Eliquis -) 2.5 mg PO BID EDILSON Last Admin: 07/30/19 09:55 Dose: 2.5 mg Diltiazem HCl (Cardizem -) 60 mg NGT QID EDILSON Last Admin: 07/30/19 09:55 Dose: Not Given Piperacillin Sod/Tazobactam (Sod 3.375 gm/ Dextrose) 50 mls @ 100 mls/hr IVPB Q8H-IV EDILSON; Protocol Last Admin: 07/30/19 01:27 Dose: 100 mls/hr Dextrose/Sodium Chloride (D5-1/2ns -) 1,000 mls @ 100 mls/hr IV ASDIR EDILSON Last Admin: 07/30/19 09:13 Dose: 100 mls/hr Norepinephrine Bitartrate 8, (000 mcg/ Dextrose) 500 mls @ 18.75 mls/hr IV TITR EDILSON; Protocol Last Titration: 07/30/19 06:38 Dose: 6 mcg/min, 22.5 mls/hr Dexmedetomidine HCl 200 mcg/ (Sodium Chloride) 50 mls @ 2.3 mls/hr IVPB TITR EDILSON Last Infusion: 07/30/19 06:38 Dose: 0.5 mcg/kg/hr, 5.76 mls/hr Midazolam HCl (Midazolam 100mg/100ml-0.9%Nacl) 100 mg in 100 mls @ 1 mls/hr IVPB TITR EDILSON; Protocol Last Admin: 07/30/19 09:20 Dose: 5 mg/hr, 5 mls/hr Insulin Aspart (Novolog Vial Sliding Scale -) 1 vial SQ ACHS EDILSON; Protocol Last Admin: 07/30/19 06:37 Dose: 2 units Lidocaine (Lidoderm Patch -) 1 patch TP DAILY [facility] Last Admin: 07/30/19 09:56 Dose: 1 patch Metoprolol Tartrate (Lopressor Injection -) 5 mg IVPUSH Q4H PRN PRN Reason: TACHYCARDIA Last Admin: 07/29/19 13:08 Dose: 5 mg Miscellaneous (Lidoderm Patch Removal) 1 each MC DAILY@2200 [facility] Last Admin: 07/29/19 21:17 Dose: 1 each Olanzapine (Zyprexa -) 2.5 mg PO HS [facility] Last Admin: 07/29/19 21:20 Dose: 2.5 mg Pantoprazole Sodium (Protonix Iv) 40 mg IVPUSH DAILY [facility] Last Admin: 07/30/19 09:55 Dose: 40 mg Polyethylene Glycol (Miralax (For Daily Use) -) 17 gm PO DAILY [facility] Last Admin: 07/30/19 09:56 Dose: 17 gm a/p respiratory failure with hypotension pneumonia- ?aspiration afib with RVR continue zosyn f/u cultures
--- NOTE | 2019-07-30 10:38 | PN ---
Progress Note (short form) - Note Progress Note: Patient seen and examined in the ICU Remains intubated, failed SBT toiday: RR 40's, Tv 200's Remains on NE drip 6mcg/min low grade fever (99.9) Current Medications Acetaminophen (Tylenol -) 650 mg PO Q6H PRN PRN Reason: PAIN 2-5 Last Admin: 07/27/19 09:11 Dose: 650 mg Apixaban (Eliquis -) 2.5 mg PO BID EDILSON Last Admin: 07/30/19 09:55 Dose: 2.5 mg Diltiazem HCl (Cardizem -) 60 mg NGT QID EDILSON Last Admin: 07/30/19 09:55 Dose: Not Given Piperacillin Sod/Tazobactam (Sod 3.375 gm/ Dextrose) 50 mls @ 100 mls/hr IVPB Q8H-IV EDILSON; Protocol Last Admin: 07/30/19 10:26 Dose: 100 mls/hr Dextrose/Sodium Chloride (D5-1/2ns -) 1,000 mls @ 100 mls/hr IV ASDIR EDILSON Last Admin: 07/30/19 09:13 Dose: 100 mls/hr Norepinephrine Bitartrate 8, (000 mcg/ Dextrose) 500 mls @ 18.75 mls/hr IV TITR EDILSON; Protocol Last Titration: 07/30/19 06:38 Dose: 6 mcg/min, 22.5 mls/hr Dexmedetomidine HCl 200 mcg/ (Sodium Chloride) 50 mls @ 2.3 mls/hr IVPB TITR EDILSON Last Infusion: 07/30/19 06:38 Dose: 0.5 mcg/kg/hr, 5.76 mls/hr Midazolam HCl (Midazolam 100mg/100ml-0.9%Nacl) 100 mg in 100 mls @ 1 mls/hr IVPB TITR EIDLSON; Protocol Last Infusion: 07/30/19 10:28 Dose: 0 mg/hr, 0 mls/hr Insulin Aspart (Novolog Vial Sliding Scale -) 1 vial SQ ACHS EDILSON; Protocol Last Admin: 07/30/19 06:37 Dose: 2 units Lidocaine (Lidoderm Patch -) 1 patch TP DAILY [facility] Last Admin: 07/30/19 09:56 Dose: 1 patch Metoprolol Tartrate (Lopressor Injection -) 5 mg IVPUSH Q4H PRN PRN Reason: TACHYCARDIA Last Admin: 07/29/19 13:08 Dose: 5 mg Miscellaneous (Lidoderm Patch Removal) 1 each MC DAILY@2200 [facility] Last Admin: 07/29/19 21:17 Dose: 1 each Olanzapine (Zyprexa -) 2.5 mg PO HS [facility] Last Admin: 07/29/19 21:20 Dose: 2.5 mg Pantoprazole Sodium (Protonix Iv) 40 mg IVPUSH DAILY [facility] Last Admin: 07/30/19 09:55 Dose: 40 mg Polyethylene Glycol (Miralax (For Daily Use) -) 17 gm PO DAILY [facility] Last Admin: 07/30/19 09:56 Dose: 17 gm Vital Signs Period Temp Pulse Resp BP Sys/Sheldon Pulse Ox Last 24 Hr 97.1 F- 68-135 19-31 83-160/38-76 97-100 Intake & Output 07/27/19 07/28/19 07/29/19 07/30/19 23:59 23:59 23:59 23:59 Intake Total 670 4262 2302 2140 Output Total 800 507 406 1402 Balance -130 3762 1902 940 Weight 45.949 kg 46.13 kg 48.761 kg EXAM: general: intubated and sedatred w/o distress HEENT: PERRL, no JVD, TLC /d/i Pulm: diminished RLL, coarse LLL ABD: SNTND. BS + Ext: WWP, trace edema Neuro: RASS -3/4 ABG Results ABG pH 7.44 (7.35-7.45) 07/30/19 05:50 ABG pCO2 at Pt Temp 28.9 mmHg (35-45) L 07/30/19 05:50 ABG pO2 at Pt Temp 175 mmHg (80-100) H 07/30/19 05:50 ABG HCO3 19.5 mmol/L (22-27) L 07/30/19 05:50 ABG O2 Sat (Measured) 99.4 % (95-98) H 07/30/19 05:50 ABG O2 Content 16.5 % vol 07/30/19 05:50 ABG Base Excess -3.1 meq/l (-2-2) L 07/30/19 05:50 CBC, BMP 07/30/19 06:00 07/30/19 06:00 Microbiology 07/27/19 21:45 Blood - Peripheral Venous Blood Culture - Preliminary NO GROWTH OBTAINED AFTER 48 HOURS, INCUBATION TO CONTINUE FOR 3 DAYS. 07/27/19 21:30 Blood - Peripheral Venous Blood Culture - Preliminary NO GROWTH OBTAINED AFTER 48 HOURS, INCUBATION TO CONTINUE FOR 3 DAYS. 07/27/19 14:35 Urine - Urine Jacques Urine Culture - Final NO GROWTH OBTAINED 07/21/19 15:00 Blood - Peripheral Venous Blood Culture - Final NO GROWTH AFTER 5 DAYS INCUBATION 07/21/19 15:10 Blood - Peripheral Venous Blood Culture - Final NO GROWTH AFTER 5 DAYS INCUBATION 07/21/19 15:00 Urine - Urine Clean Catch Urine Culture - Final Normal Urogenital Vicki No CXR this AM ASSESSMENT AND PLAN: Acute Hypoxic Respiratory Failure Pneumonia Sepsis Lactic Acidosis Altered Mental Status Atrial Fibrillation Mitral Regurgitation HTN Hypernatremia - ABX per ID: phyllis - cont IVF fluids - Pressors to maintain MAP > 65 (currently NE 6mcg) - MRI brain when extubated - Neuro following - Daily interruption of sedation, will hold versed and cont precedex for agitation - Spontaneous breathing trials daily: PSV 15 will decrease once - Wean Fio2 for sat >90 (will decresaed 50->40% today) - DVT/GI prophylaxis - Cont continued ICU monitoring Boerem ACNP Pulm/CCM CCT: 35m
[2019-07-30] MEDS ORDERED: POTASSIUM CHLORIDE ORAL LIQUID 20 MEQ/15 ML PO ONE (10:41)
[2019-07-30] MEDS: POTASSIUM CHLORIDE 20 MEQ PREMIX IVPB 100 ML IVPB SCH ×2 (11:46→13:01)
--- NOTE | 2019-07-30 11:59 | PN ---
Progress Note (short form) - Note Progress Note: Neurology - Admission Chief Complaint: Weakness History of Present Illness: 88 year old female with HTN, A fib (on AC) in her USOH, lives alone, using a walker for ambulation, couldn't get up of toilet for hours ( couldn't reach the walker) on day of admission until was found by her neighbour who brought her to ER. In ER it was noticed to by in A Fib with RVR, recieved IV Metoprolol with improvement in HR. Cardiology has been following patient and monitoring cardiac status. I was consulted due to altered mental status and confusion. Urinalysis was negative, remains afebrile and with normal white count. Labs noted for hypernatremia with sodium of 151, improving. MRI brain previously ordered, not yet completed. Overnight 07/27, patient developed lethargy and transferred to ICU, required intubation and currently on mechanical ventilation. Head ct ordered in interim to reevaluate for any structural abnormalities, not yet completed. Patient without significant improvement overnight and remains under critical care monitoring. Of note, found to have infiltrates on x-ray indicating possible source for her altered mental status and possible underlying pneumonia, is on antibiotics including vancomycin and Zosyn. Discussed with ICU nurse this AM and attempted sedation vacation not tolerated, patient became further hypotensive and was unarousable. Is on pressors for blood pressure support. Active Medications Acetaminophen (Tylenol -) 650 mg PO Q6H PRN PRN Reason: PAIN 2-5 Last Admin: 07/27/19 09:11 Dose: 650 mg Apixaban (Eliquis -) 2.5 mg PO BID [facility] Last Admin: 07/30/19 09:55 Dose: 2.5 mg Diltiazem HCl (Cardizem -) 60 mg NGT QID [facility] Last Admin: 07/30/19 09:55 Dose: Not Given Piperacillin Sod/Tazobactam (Sod 3.375 gm/ Dextrose) 50 mls @ 100 mls/hr IVPB Q8H-IV [facility]; Protocol Last Admin: 07/30/19 10:26 Dose: 100 mls/hr Dextrose/Sodium Chloride (D5-1/2ns -) 1,000 mls @ 100 mls/hr IV ASDIR [facility] Last Admin: 07/30/19 09:13 Dose: 100 mls/hr Norepinephrine Bitartrate 8, (000 mcg/ Dextrose) 500 mls @ 18.75 mls/hr IV TITR [facility]; Protocol Last Titration: 07/30/19 11:46 Dose: 10 mcg/min, 37.5 mls/hr Dexmedetomidine HCl 200 mcg/ (Sodium Chloride) 50 mls @ 2.3 mls/hr IVPB TITR [facility] Last Infusion: 07/30/19 06:38 Dose: 0.5 mcg/kg/hr, 5.76 mls/hr Midazolam HCl (Midazolam 100mg/100ml-0.9%Nacl) 100 mg in 100 mls @ 1 mls/hr IVPB TITR [facility]; Protocol Last Infusion: 07/30/19 11:20 Dose: 5 mg/hr, 5 mls/hr Insulin Aspart (Novolog Vial Sliding Scale -) 1 vial SQ ACHS [facility]; Protocol Last Admin: 07/30/19 11:10 Dose: 4 units Lidocaine (Lidoderm Patch -) 1 patch TP DAILY [facility] Last Admin: 07/30/19 09:56 Dose: 1 patch Metoprolol Tartrate (Lopressor Injection -) 5 mg IVPUSH Q4H PRN PRN Reason: TACHYCARDIA Last Admin: 07/29/19 13:08 Dose: 5 mg Miscellaneous (Lidoderm Patch Removal) 1 each MC DAILY@2200 [facility] Last Admin: 07/29/19 21:17 Dose: 1 each Olanzapine (Zyprexa -) 2.5 mg PO HS [facility] Last Admin: 07/29/19 21:20 Dose: 2.5 mg Pantoprazole Sodium (Protonix Iv) 40 mg IVPUSH DAILY [facility] Last Admin: 07/30/19 09:55 Dose: 40 mg Polyethylene Glycol (Miralax (For Daily Use) -) 17 gm PO DAILY [facility] Last Admin: 07/30/19 09:56 Dose: 17 gm Physical Examination Vital Signs: Vital Signs Period Temp Pulse Resp BP Sys/Sheldon Pulse Ox Last 24 Hr 97.1 F-99.9 F 68-135 19-31 81-160/34-76 100-100 Eyes: Yes: Conjunctiva Clear, EOM Intact HENT: No: Epistaxis, Rhinnorhea Neck: Yes: Trachea Midline. No: Lymphadenopathy Cardiovascular: Yes: Pulse Irregular, S1, S2 Respiratory: Yes: Regular, CTA Bilaterally. No: Rales Gastrointestinal: Yes: Normal Bowel Sounds, Soft, Hepatomegaly. No: Splenomegaly, Tenderness ...Rectal Exam: Yes: Deferred Renal/: No: CVA Tenderness - Left, CVA Tenderness - Right Breast(s): Yes: Other (deferred) Musculoskeletal: No: Back Pain, Joint Swelling Extremities: No: Cool, Cyanosis Edema: No Integumentary: Yes: Bruising (large bruise of the left elbow) Neurological: Sedated, not following commands, pupils reponsive to light, moves to painful stim, no abnormal movements CBCD WBC 9.9 K/mm3 (4.0-10.0) 07/30/19 06:00 RBC 3.76 M/mm3 (3.60-5.2) 07/30/19 06:00 Hgb 11.3 GM/dL (10.7-15.3) 07/30/19 06:00 Hct 34.0 % (32.4-45.2) 07/30/19 06:00 MCV 90.5 fl (80-96) 07/30/19 06:00 MCHC 33.1 g/dl (32.0-36.0) 07/30/19 06:00 RDW 15.1 % (11.6-15.6) 07/30/19 06:00 Plt Count 175 K/MM3 (134-434) 07/30/19 06:00 MPV 9.5 fl (7.5-11.1) 07/30/19 06:00 CMP Sodium 143 mmol/L (136-145) 07/30/19 06:00 Potassium 3.1 mmol/L (3.5-5.1) L 07/30/19 06:00 Chloride 114 mmol/L (98-107) H 07/30/19 06:00 Carbon Dioxide 25 mmol/L (21-32) 07/30/19 06:00 Anion Gap 4 MMOL/L (8-16) L 07/30/19 06:00 BUN 14.8 mg/dL (7-18) 07/30/19 06:00 Creatinine 0.7 mg/dL (0.55-1.3) 07/30/19 06:00 Random Glucose 192 mg/dL (74-106) H 07/30/19 06:00 Calcium 7.4 mg/dL (8.5-10.1) L 07/30/19 06:00 Total Bilirubin 0.7 mg/dL (0.2-1) 07/30/19 06:00 AST 43 U/L (15-37) H 07/30/19 06:00 ALT 61 U/L (13-61) 07/30/19 06:00 Alkaline Phosphatase 190 U/L (45-117) H 07/30/19 06:00 Total Protein 4.7 g/dl (6.4-8.2) L 07/30/19 06:00 Albumin 1.9 g/dl (3.4-5.0) L 07/30/19 06:00 CARDIAC ENZYMES Creatine Kinase 127 U/L (26-192) 07/28/19 06:30 Troponin I < 0.02 ng/ml (0.00-0.05) 07/28/19 06:30 Plan: 88 year old female with HTN, A fib (on AC) in her USOH, lives alone, using a walker for ambulation, couldn't get up of toilet for hours ( couldn't reach the walker) on day of admission until was found by her neighbour who brought her to ER. In ER it was noticed to by in A Fib with RVR, recieved IV Metoprolol with improvement in HR. Cardiology has been following patient and monitoring cardiac status. I was consulted due to altered mental status and confusion. Urinalysis was negative, remains afebrile and with normal white count. Labs noted for hypernatremia with sodium of 151, improving. MRI brain previously ordered, not yet completed. Overnight 07/27, patient developed lethargy and transferred to ICU, required intubation and currently on mechanical ventilation. Head ct ordered in interim to reevaluate for any structural abnormalities, not yet completed. Patient without significant improvement overnight and remains under critical care monitoring. Of note, found to have infiltrates on x-ray indicating possible source for her altered mental status and possible underlying pneumonia, is on antibiotics including vancomycin and Zosyn. Discussed with ICU nurse this AM and attempted sedation vacation not tolerated, patient became further hypotensive and was unarousable. Is on pressors for blood pressure support. Continue optimization of cardiac factors including atrial fibrillation, hypotension. Maintain adequate hydration, monitor blood pressure, wean pressors as best able. Optimization of possible underlying pneumonia recommended, may have been etiology to her reduced mental status. IV antibiotics as per primary, ICU. Will continue to monitor mental status closely. Sedation reduction as best able. Critical care time 35 mins.
--- NOTE | 2019-07-30 13:52 | PN ---
Progress Note, Physician History of Present Illness: Pt is in ICU, intubated, sedated, on pressor - Current Medication List Current Medications: Active Medications Acetaminophen (Tylenol -) 650 mg PO Q6H PRN PRN Reason: PAIN 2-5 Last Admin: 07/27/19 09:11 Dose: 650 mg Apixaban (Eliquis -) 2.5 mg PO BID [facility] Last Admin: 07/30/19 09:55 Dose: 2.5 mg Diltiazem HCl (Cardizem -) 60 mg NGT QID [facility] Last Admin: 07/30/19 09:55 Dose: Not Given Piperacillin Sod/Tazobactam (Sod 3.375 gm/ Dextrose) 50 mls @ 100 mls/hr IVPB Q8H-IV [facility]; Protocol Last Admin: 07/30/19 10:26 Dose: 100 mls/hr Dextrose/Sodium Chloride (D5-1/2ns -) 1,000 mls @ 100 mls/hr IV ASDIR [facility] Last Admin: 07/30/19 09:13 Dose: 100 mls/hr Norepinephrine Bitartrate 8, (000 mcg/ Dextrose) 500 mls @ 18.75 mls/hr IV TITR [facility]; Protocol Last Titration: 07/30/19 13:03 Dose: 6 mcg/min, 22.5 mls/hr Dexmedetomidine HCl 200 mcg/ (Sodium Chloride) 50 mls @ 2.3 mls/hr IVPB TITR [facility] Last Infusion: 07/30/19 06:38 Dose: 0.5 mcg/kg/hr, 5.76 mls/hr Midazolam HCl (Midazolam 100mg/100ml-0.9%Nacl) 100 mg in 100 mls @ 1 mls/hr IVPB TITR [facility]; Protocol Last Infusion: 07/30/19 11:20 Dose: 5 mg/hr, 5 mls/hr Insulin Aspart (Novolog Vial Sliding Scale -) 1 vial SQ ACHS [facility]; Protocol Last Admin: 07/30/19 11:10 Dose: 4 units Lidocaine (Lidoderm Patch -) 1 patch TP DAILY [facility] Last Admin: 07/30/19 09:56 Dose: 1 patch Metoprolol Tartrate (Lopressor Injection -) 5 mg IVPUSH Q4H PRN PRN Reason: TACHYCARDIA Last Admin: 07/29/19 13:08 Dose: 5 mg Miscellaneous (Lidoderm Patch Removal) 1 each MC DAILY@2200 [facility] Last Admin: 07/29/19 21:17 Dose: 1 each Olanzapine (Zyprexa -) 2.5 mg PO HS [facility] Last Admin: 07/29/19 21:20 Dose: 2.5 mg Pantoprazole Sodium (Protonix Iv) 40 mg IVPUSH DAILY [facility] Last Admin: 07/30/19 09:55 Dose: 40 mg Polyethylene Glycol (Miralax (For Daily Use) -) 17 gm PO DAILY [facility] Last Admin: 07/30/19 09:56 Dose: 17 gm - Objective Vital Signs: Vital Signs Temperature 97.5 F L 07/30/19 10:00 Pulse Rate 74 07/30/19 13:03 Respiratory Rate 27 H 07/30/19 12:25 Blood Pressure 128/44 L 07/30/19 13:03 O2 Sat by Pulse Oximetry (%) 100 07/30/19 08:00 Constitutional: Yes: No Distress, Calm (sedated) Eyes: Yes: Conjunctiva Clear Cardiovascular: Yes: Pulse Irregular, Murmur, S1, S2 Respiratory: Yes: Regular, Rhonchi Gastrointestinal: Yes: Normal Bowel Sounds, Soft. No: Hepatomegaly, Palpable Mass Extremities: No: Cold, Cool, Cyanosis Edema: No Labs: CBC, BMP 07/30/19 06:00 07/30/19 06:00 INR, PTT INR 1.61 (0.83-1.09) H 07/29/19 06:15 Problem List - Problems (1) Atrial fibrillation with rapid ventricular response Code(s): I48.91 - UNSPECIFIED ATRIAL FIBRILLATION (2) Weakness Code(s): R53.1 - WEAKNESS (3) HTN (hypertension) Code(s): I10 - ESSENTIAL (PRIMARY) HYPERTENSION (4) Elevated brain natriuretic peptide (BNP) level Code(s): R79.89 - OTHER SPECIFIED ABNORMAL FINDINGS OF BLOOD CHEMISTRY (5) Hypoalbuminemia Code(s): E88.09 - OTH DISORDERS OF PLASMA-PROTEIN METABOLISM, NEC (6) Mitral regurgitation Code(s): I34.0 - NONRHEUMATIC MITRAL (VALVE) INSUFFICIENCY (7) Tricuspid regurgitation Code(s): I07.1 - RHEUMATIC TRICUSPID INSUFFICIENCY (8) Aortic regurgitation Code(s): I35.1 - NONRHEUMATIC AORTIC (VALVE) INSUFFICIENCY (9) Aortic stenosis Code(s): I35.0 - NONRHEUMATIC AORTIC (VALVE) STENOSIS (10) Septic shock Code(s): A41.9 - SEPSIS, UNSPECIFIED ORGANISM; R65.21 - SEVERE SEPSIS WITH SEPTIC SHOCK (11) Pneumonia Code(s): J18.9 - PNEUMONIA, UNSPECIFIED ORGANISM (12) Hypokalemia Code(s): E87.6 - HYPOKALEMIA (13) Hypophosphatemia Code(s): E83.39 - OTHER DISORDERS OF PHOSPHORUS METABOLISM (14) Acute hypoxemic respiratory failure Code(s): J96.01 - ACUTE RESPIRATORY FAILURE WITH HYPOXIA Assessment/Plan Pt in ICU, intubated, sedated , on IVF, IV sedation, IV abtx (Vanco, Zosyn) Replete K, Ph Cardizem to be changed to PRN, per Cardio. Abtx per ID Pending Head CT scan (d/w pt's nurses). To divya pressor as tolerated Cardio, CCM, ID, Neurology consults are appreciated Pt came to with ER for weakness found to be in A FIb with RVR, originally admitted to Telemetry, serial CE are negative, ECHO c/w normal LVF, MR, MT, AR, ; pt was noticed to have AMS, hypernatremia; she developed acute respiratory failure on 09/26/2018 and was transferred to ICU. Pt's condition was reviewed with her nurse. AM labs Time spent for managing pt's care: over 40 minutes.
[2019-07-30] MEDS ORDERED: dilTIAZem HCL 30 MG TABLET (FP) NR PRN (14:14)
[2019-07-30] MEDS ORDERED: PT OWN MED DRAWER 7, Y5N ONE ×2 (15:36→21:45)
[2019-07-30] MEDS: DEXMEDETOMIDINE HCL 200 MCG in SODIUM CHLORIDE 48 ML IVPB SCH (15:44)
[2019-07-30] MEDS: NOREPINEPHRINE BITARTRATE 8,000 MCG in DEXTROSE 5%-WATER - 492 ML IV SCH ×2 (16:10→21:49)
--- NOTE | 2019-07-30 18:24 | PN ---
Progress Note, Physician History of Present Illness: Pt seen and examined at bedside. Sh remains in the ICU. Pt is intubated. - Current Medication List Current Medications: Active Medications Acetaminophen (Tylenol -) 650 mg PO Q6H PRN PRN Reason: PAIN 2-5 Last Admin: 07/27/19 09:11 Dose: 650 mg Apixaban (Eliquis -) 2.5 mg PO BID [facility] Last Admin: 07/30/19 09:55 Dose: 2.5 mg Diltiazem HCl (Cardizem -) 30 mg NR QID PRN PRN Reason: TACHYCARDIA Piperacillin Sod/Tazobactam (Sod 3.375 gm/ Dextrose) 50 mls @ 100 mls/hr IVPB Q8H-IV [facility]; Protocol Last Admin: 07/30/19 17:12 Dose: 100 mls/hr Dextrose/Sodium Chloride (D5-1/2ns -) 1,000 mls @ 100 mls/hr IV ASDIR [facility] Last Admin: 07/30/19 09:13 Dose: 100 mls/hr Norepinephrine Bitartrate 8, (000 mcg/ Dextrose) 500 mls @ 18.75 mls/hr IV TITR [facility]; Protocol Last Titration: 07/30/19 18:01 Dose: 6 mcg/min, 22.5 mls/hr Dexmedetomidine HCl 200 mcg/ (Sodium Chloride) 50 mls @ 2.3 mls/hr IVPB TITR [facility] Last Admin: 07/30/19 15:44 Dose: 0.5 mcg/kg/hr, 5.76 mls/hr Midazolam HCl (Midazolam 100mg/100ml-0.9%Nacl) 100 mg in 100 mls @ 1 mls/hr IVPB TITR [facility]; Protocol Last Infusion: 07/30/19 11:20 Dose: 5 mg/hr, 5 mls/hr Insulin Aspart (Novolog Vial Sliding Scale -) 1 vial SQ ACHS [facility]; Protocol Last Admin: 07/30/19 17:09 Dose: 2 units Lidocaine (Lidoderm Patch -) 1 patch TP DAILY [facility] Last Admin: 07/30/19 09:56 Dose: 1 patch Metoprolol Tartrate (Lopressor Injection -) 5 mg IVPUSH Q4H PRN PRN Reason: TACHYCARDIA Last Admin: 07/29/19 13:08 Dose: 5 mg Miscellaneous (Lidoderm Patch Removal) 1 each MC DAILY@2200 [facility] Last Admin: 07/29/19 21:17 Dose: 1 each Olanzapine (Zyprexa -) 2.5 mg PO HS [facility] Last Admin: 07/29/19 21:20 Dose: 2.5 mg Pantoprazole Sodium (Protonix Iv) 40 mg IVPUSH DAILY [facility] Last Admin: 07/30/19 09:55 Dose: 40 mg Polyethylene Glycol (Miralax (For Daily Use) -) 17 gm PO DAILY [facility] Last Admin: 07/30/19 09:56 Dose: 17 gm - Objective Vital Signs: Vital Signs Temperature 97.8 F 07/30/19 18:00 Pulse Rate 74 07/30/19 18:01 Respiratory Rate 20 07/30/19 18:00 Blood Pressure 124/42 L 07/30/19 18:01 O2 Sat by Pulse Oximetry (%) 100 07/30/19 12:00 Constitutional: Yes: Calm Cardiovascular: Yes: S1, S2 Respiratory: Yes: Mechanically Ventilated Gastrointestinal: Yes: Soft Genitourinary: Yes: Jacques Present Musculoskeletal: Yes: Muscle Weakness Edema: No Neurological: Yes: Lethargy Labs: CBC, BMP 07/30/19 06:00 07/30/19 06:00 INR, PTT INR 1.61 (0.83-1.09) H 07/29/19 06:15 Assessment/Plan Current Medications Generic Name Dose Route Start Last Admin Trade Name Freq PRN Reason Stop Dose Admin Acetaminophen 650 mg 07/22/19 17:52 07/27/19 09:11 Tylenol - PO 650 mg Q6H PRN Administration PAIN 2-5 Apixaban 2.5 mg 07/21/19 22:45 07/30/19 09:55 Eliquis - PO 2.5 mg BID [facility] Administration Diltiazem HCl 30 mg 07/30/19 14:14 Cardizem - NR QID PRN TACHYCARDIA Piperacillin Sod/Tazobactam 50 mls @ 100 mls/hr 07/28/19 13:45 07/30/19 17:12 Sod 3.375 gm/ Dextrose IVPB 100 mls/hr Q8H-IV [facility] Administration Protocol Dextrose/Sodium Chloride 1,000 mls @ 100 mls/hr 07/28/19 14:04 07/30/19 09:13 D5-1/2ns - IV 100 mls/hr ASDIR [facility] Administration Norepinephrine Bitartrate 8, 500 mls @ 18.75 mls/hr 07/28/19 21:45 07/30/19 18:01 000 mcg/ Dextrose IV 6 mcg/min TITR [facility] 22.5 mls/hr Titration Protocol 5 MCG/MIN Dexmedetomidine HCl 200 mcg/ 50 mls @ 2.3 mls/hr 07/29/19 15:15 07/30/19 15: 44 Sodium Chloride IVPB 0.5 mcg/kg/hr TITR [facility] 5.76 mls/hr Administration 0.2 MCG/KG/HR Midazolam HCl 100 mg in 100 mls @ 1 mls/hr 07/29/19 16:00 07/30/19 11:20 Midazolam 100mg/100ml-0.9%Nacl IVPB 5 mg/hr TITR [facility] 5 mls/hr Infusion Protocol 1 MG/HR Insulin Aspart 1 vial 07/26/19 07:00 07/30/19 17:09 Novolog Vial Sliding Scale - SQ 2 units ACHS [facility] Administration Protocol Lidocaine 1 patch 07/24/19 10:00 07/30/19 09:56 Lidoderm Patch - TP 1 patch DAILY [facility] Administration Metoprolol Tartrate 5 mg 07/26/19 12:39 07/29/19 13:08 Lopressor Injection - IVPUSH 5 mg Q4H PRN Administration TACHYCARDIA Miscellaneous 1 each 07/24/19 22:00 07/29/19 21:17 Lidoderm Patch Removal MC 1 each DAILY@2200 [facility] Administration Olanzapine 2.5 mg 07/26/19 22:00 07/29/19 21:20 Zyprexa - PO 2.5 mg HS [facility] Administration Pantoprazole Sodium 40 mg 07/29/19 14:45 07/30/19 09:55 Protonix Iv IVPUSH 40 mg DAILY [facility] Administration Polyethylene Glycol 17 gm 07/26/19 10:00 07/30/19 09:56 Miralax (For Daily Use) - PO 17 gm DAILY [facility] Administration 1. Hypernatreima 2. Azotemia 3. Pneumonia 4. Rapid Atrial fibrillation 5. Lactic acidosis 6. Leukocytosis 7. hypokalemia Plan - replace potassium - replace phos - sodium is stable - vent support - cont feeds
[2019-07-30] MEDS: LIDOCAINE PATCH REMOVAL MC SCH (21:49)
[2019-07-30] MEDS: OLANZapine 2.5 MG TABLET PO SCH (21:51)
[2019-07-31] MEDS: PIPERACILLIN/TAZOB 3.375 GM 3.375 GM in DEXTROSE 5%-WATER - 50 ML IVPB SCH ×3 (01:42→17:05)
[2019-07-31 06:33] LABS: ARTERIAL BLD GAS O2 SATURATION 98.1 % (95-98); ARTERIAL BLOOD GAS PCO2 31.6 mmHg (35-45); ARTERIAL BLOOD GAS PO2 109 mmHg (80-100); ARTERIAL BLOOD GAS pH 7.42 (7.35-7.45)
[2019-07-31 06:41] LABS: HEMATOCRIT 34.5 % (32.4-45.2); HEMOGLOBIN 11.3 GM/dL (10.7-15.3); MCH 29.9 pg (25.7-33.7); MCHC 32.9 g/dl (32.0-36.0); MEAN CELL VOLUME 90.9 fl (80-96); PLATELET COUNT 182 K/MM3 (134-434); RDW 15.7 % (11.6-15.6); WHITE BLOOD COUNT 9.3 K/mm3 (4.0-10.0)
[2019-07-31 06:57] LABS: BLOOD UREA NITROGEN 9.5 mg/dL (7-18); CALCIUM 7.5 mg/dL (8.5-10.1); CREATININE 0.6 mg/dL (0.55-1.3); MAGNESIUM 2.1 mg/dL (1.8-2.4); PHOSPHOROUS 1.5 mg/dL (2.5-4.9); POTASSIUM 3.8 mmol/L (3.5-5.1)
[2019-07-31] MEDS: MIDAZOLAM IN 0.9 % SOD.CHLORID 100 MG/100 ML PLAST..BAG IVPB SCH ×2 (07:16→19:16)
[2019-07-31] MEDS: INSULIN SLIDING SCALE (NOVOLOG) 1 VIAL SQ SCH ×5 (07:18→22:26)
[2019-07-31] MEDS ORDERED: DEXTROSE 5%-WATER - 50 ML IVPB ONE ×2 (08:55→17:04)
[2019-07-31] MEDS ORDERED: PIPERACILLIN/TAZOBACTAM 3.375 GM VIAL IVPB ONE ×2 (08:55→17:03)
[2019-07-31] MEDS: DEXTROSE 5%-0.45% SALINE 1,000 ML IV SCH ×3 (08:59→22:27)
[2019-07-31] MEDS: PANTOPRAZOLE SODIUM 40 MG VIAL IVPUSH SCH (09:05)
[2019-07-31] MEDS: LIDOCAINE 5% TOPICAL PATCH TP SCH (09:06)
[2019-07-31] MEDS: APIXABAN 2.5 MG TABLET PO SCH ×2 (09:46→22:25)
--- NOTE | 2019-07-31 09:51 | PN ---
Progress Note, Physician History of Present Illness: No CV events overnight Weaning levophed TEle AFib 70s - Current Medication List Current Medications: Active Medications Acetaminophen (Tylenol -) 650 mg PO Q6H PRN PRN Reason: PAIN 2-5 Last Admin: 07/27/19 09:11 Dose: 650 mg Apixaban (Eliquis -) 2.5 mg PO BID [facility] Last Admin: 07/31/19 09:46 Dose: 2.5 mg Diltiazem HCl (Cardizem -) 30 mg NR QID PRN PRN Reason: TACHYCARDIA Piperacillin Sod/Tazobactam (Sod 3.375 gm/ Dextrose) 50 mls @ 100 mls/hr IVPB Q8H-IV [facility]; Protocol Last Admin: 07/31/19 09:01 Dose: 100 mls/hr Dextrose/Sodium Chloride (D5-1/2ns -) 1,000 mls @ 100 mls/hr IV ASDIR [facility] Last Admin: 07/31/19 08:59 Dose: 100 mls/hr Norepinephrine Bitartrate 8, (000 mcg/ Dextrose) 500 mls @ 18.75 mls/hr IV TITR [facility]; Protocol Last Titration: 07/31/19 07:00 Dose: 8 mcg/min, 30 mls/hr Dexmedetomidine HCl 200 mcg/ (Sodium Chloride) 50 mls @ 2.3 mls/hr IVPB TITR [facility] Last Admin: 07/30/19 15:44 Dose: 0.5 mcg/kg/hr, 5.76 mls/hr Midazolam HCl (Midazolam 100mg/100ml-0.9%Nacl) 100 mg in 100 mls @ 1 mls/hr IVPB TITR [facility]; Protocol Last Admin: 07/31/19 07:16 Dose: 3 mg/hr, 3 mls/hr Insulin Aspart (Novolog Vial Sliding Scale -) 1 vial SQ ACHS [facility]; Protocol Last Admin: 07/31/19 07:19 Dose: 2 units Lidocaine (Lidoderm Patch -) 1 patch TP DAILY [facility] Last Admin: 07/31/19 09:06 Dose: 1 patch Metoprolol Tartrate (Lopressor Injection -) 5 mg IVPUSH Q4H PRN PRN Reason: TACHYCARDIA Last Admin: 07/29/19 13:08 Dose: 5 mg Miscellaneous (Lidoderm Patch Removal) 1 each MC DAILY@2200 [facility] Last Admin: 07/30/19 21:49 Dose: 1 each Olanzapine (Zyprexa -) 2.5 mg PO HS [facility] Last Admin: 07/30/19 21:51 Dose: 2.5 mg Pantoprazole Sodium (Protonix Iv) 40 mg IVPUSH DAILY [facility] Last Admin: 07/31/19 09:05 Dose: 40 mg Polyethylene Glycol (Miralax (For Daily Use) -) 17 gm PO DAILY [facility] Last Admin: 07/30/19 09:56 Dose: 17 gm - Objective Vital Signs: Vital Signs Temperature 98 F 07/31/19 06:00 Pulse Rate 79 07/31/19 07:00 Respiratory Rate 22 H 07/31/19 09:00 Blood Pressure 153/69 07/31/19 07:00 O2 Sat by Pulse Oximetry (%) 100 07/31/19 09:00 Constitutional: Yes: Other (Intubated/sedated) Cardiovascular: Yes: Pulse Irregular Respiratory: Yes: CTA Bilaterally Edema: No Labs: CBC, BMP 07/31/19 06:00 07/31/19 06:00 INR, PTT INR 1.61 (0.83-1.09) H 07/29/19 06:15 Assessment/Plan IMP: AF w/ RVR MVP with eccentric MR, at least moderate Elevated BNP--sec to MR/TR vs afib vs multifactorial PNA, sepsis with ongoing supportive care REC: 1. Vent support as per Critical Care 2. Abx as per Critical Care 3. Now has OG tube- cont Eliquis, Cardizem as needed. Rates adequately controlled. 4. Continue to wean pressors as tolerated 5. Advanced directives noted.
--- NOTE | 2019-07-31 12:06 | PN ---
Progress Note (short form) - Note Progress Note: Neurology - Admission Chief Complaint: Weakness History of Present Illness: 88 year old female with HTN, A fib (on AC) in her USOH, lives alone, using a walker for ambulation, couldn't get up of toilet for hours ( couldn't reach the walker) on day of admission until was found by her neighbour who brought her to ER. In ER it was noticed to by in A Fib with RVR, recieved IV Metoprolol with improvement in HR. Cardiology has been following patient and monitoring cardiac status. I was consulted due to altered mental status and confusion. Urinalysis was negative, remains afebrile and with normal white count. Labs noted for hypernatremia with sodium of 151, improving. MRI brain previously ordered, not yet completed. Overnight 07/27, patient developed lethargy and transferred to ICU, required intubation and currently on mechanical ventilation. Head ct ordered in interim to reevaluate for any structural abnormalities, not yet completed. Patient without significant improvement overnight and remains under critical care monitoring. Repeat Chest xray reviewed and with infiltrate vs atelechtasis. Possible source for her altered mental status and possible underlying pneumonia, is on antibiotics, Zosyn. Discussed with ICU nurse this AM remains on pressors, not able to tolerated reduced sedation. Neurologically without improvement and remains on vent and intubated. Active Medications Acetaminophen (Tylenol -) 650 mg PO Q6H PRN PRN Reason: PAIN 2-5 Last Admin: 07/27/19 09:11 Dose: 650 mg Apixaban (Eliquis -) 2.5 mg PO BID [facility] Last Admin: 07/31/19 09:46 Dose: 2.5 mg Diltiazem HCl (Cardizem -) 30 mg NR QID PRN PRN Reason: TACHYCARDIA Piperacillin Sod/Tazobactam (Sod 3.375 gm/ Dextrose) 50 mls @ 100 mls/hr IVPB Q8H-IV [facility]; Protocol Last Admin: 07/31/19 09:01 Dose: 100 mls/hr Dextrose/Sodium Chloride (D5-1/2ns -) 1,000 mls @ 100 mls/hr IV ASDIR [facility] Last Admin: 07/31/19 08:59 Dose: 100 mls/hr Norepinephrine Bitartrate 8, (000 mcg/ Dextrose) 500 mls @ 18.75 mls/hr IV TITR [facility]; Protocol Last Titration: 07/31/19 12:04 Dose: 8 mcg/min, 30 mls/hr Dexmedetomidine HCl 200 mcg/ (Sodium Chloride) 50 mls @ 2.3 mls/hr IVPB TITR [facility] Last Admin: 07/30/19 15:44 Dose: 0.5 mcg/kg/hr, 5.76 mls/hr Midazolam HCl (Midazolam 100mg/100ml-0.9%Nacl) 100 mg in 100 mls @ 1 mls/hr IVPB TITR [facility]; Protocol Last Infusion: 07/31/19 12:04 Dose: 2 mg/hr, 2 mls/hr Insulin Aspart (Novolog Vial Sliding Scale -) 1 vial SQ ACHS [facility]; Protocol Last Admin: 07/31/19 11:06 Dose: Not Given Lidocaine (Lidoderm Patch -) 1 patch TP DAILY [facility] Last Admin: 07/31/19 09:06 Dose: 1 patch Metoprolol Tartrate (Lopressor Injection -) 5 mg IVPUSH Q4H PRN PRN Reason: TACHYCARDIA Last Admin: 07/29/19 13:08 Dose: 5 mg Miscellaneous (Lidoderm Patch Removal) 1 each MC DAILY@2200 [facility] Last Admin: 07/30/19 21:49 Dose: 1 each Olanzapine (Zyprexa -) 2.5 mg PO HS [facility] Last Admin: 07/30/19 21:51 Dose: 2.5 mg Pantoprazole Sodium (Protonix Iv) 40 mg IVPUSH DAILY [facility] Last Admin: 07/31/19 09:05 Dose: 40 mg Polyethylene Glycol (Miralax (For Daily Use) -) 17 gm PO DAILY [facility] Last Admin: 07/30/19 09:56 Dose: 17 gm Potassium Phos/Sodium Phos (Phos-Nak Packet -) 1 packet NGT TID [facility] Stop: 08/01/19 14:01 Physical Examination Vital Signs: Vital Signs Period Temp Pulse Resp BP Sys/Sheldon Pulse Ox Last 24 Hr 97.8 F-99.5 F 71-88 12-27 64-166/23-69 98-100 Eyes: Yes: Conjunctiva Clear, EOM Intact HENT: No: Epistaxis, Rhinnorhea Neck: Yes: Trachea Midline. No: Lymphadenopathy Cardiovascular: Yes: Pulse Irregular, S1, S2 Respiratory: Yes: Regular, CTA Bilaterally. No: Rales Gastrointestinal: Yes: Normal Bowel Sounds, Soft, Hepatomegaly. No: Splenomegaly, Tenderness ...Rectal Exam: Yes: Deferred Renal/: No: CVA Tenderness - Left, CVA Tenderness - Right Breast(s): Yes: Other (deferred) Musculoskeletal: No: Back Pain, Joint Swelling Extremities: No: Cool, Cyanosis Edema: No Integumentary: Yes: Bruising (large bruise of the left elbow) Neurological: Sedated, not following commands, pupils reponsive to light, moves to painful stim, no abnormal movements CBCD WBC 9.3 K/mm3 (4.0-10.0) 07/31/19 06:00 RBC 3.80 M/mm3 (3.60-5.2) 07/31/19 06:00 Hgb 11.3 GM/dL (10.7-15.3) 07/31/19 06:00 Hct 34.5 % (32.4-45.2) 07/31/19 06:00 MCV 90.9 fl (80-96) 07/31/19 06:00 MCHC 32.9 g/dl (32.0-36.0) 07/31/19 06:00 RDW 15.7 % (11.6-15.6) H 07/31/19 06:00 Plt Count 182 K/MM3 (134-434) 07/31/19 06:00 MPV 10.0 fl (7.5-11.1) 07/31/19 06:00 CMP Sodium 142 mmol/L (136-145) 07/31/19 06:00 Potassium 3.8 mmol/L (3.5-5.1) 07/31/19 06:00 Chloride 117 mmol/L (98-107) H 07/31/19 06:00 Carbon Dioxide 23 mmol/L (21-32) 07/31/19 06:00 Anion Gap 2 MMOL/L (8-16) L 07/31/19 06:00 BUN 9.5 mg/dL (7-18) 07/31/19 06:00 Creatinine 0.6 mg/dL (0.55-1.3) 07/31/19 06:00 Random Glucose 179 mg/dL (74-106) H 07/31/19 06:00 Calcium 7.5 mg/dL (8.5-10.1) L 07/31/19 06:00 Total Bilirubin 0.7 mg/dL (0.2-1) 07/30/19 06:00 AST 43 U/L (15-37) H 07/30/19 06:00 ALT 61 U/L (13-61) 07/30/19 06:00 Alkaline Phosphatase 190 U/L (45-117) H 07/30/19 06:00 Total Protein 4.7 g/dl (6.4-8.2) L 07/30/19 06:00 Albumin 1.9 g/dl (3.4-5.0) L 07/30/19 06:00 CARDIAC ENZYMES Creatine Kinase 127 U/L (26-192) 07/28/19 06:30 Troponin I < 0.02 ng/ml (0.00-0.05) 07/28/19 06:30 Plan: 88 year old female with HTN, A fib (on AC) in her USOH, lives alone, using a walker for ambulation, couldn't get up of toilet for hours ( couldn't reach the walker) on day of admission until was found by her neighbour who brought her to ER. In ER it was noticed to by in A Fib with RVR, recieved IV Metoprolol with improvement in HR. Cardiology has been following patient and monitoring cardiac status. I was consulted due to altered mental status and confusion. Urinalysis was negative, remains afebrile and with normal white count. Labs noted for hypernatremia with sodium of 151, improving. MRI brain previously ordered, not yet completed. Overnight 07/27, patient developed lethargy and transferred to ICU, required intubation and currently on mechanical ventilation. Head ct ordered in interim to reevaluate for any structural abnormalities, not yet completed. Patient without significant improvement overnight and remains under critical care monitoring. Of note, found to have infiltrates on x-ray indicating possible source for her altered mental status and possible underlying pneumonia, is on antibiotics including Zosyn. Discussed with ICU nurse this AM remains on pressors, not able to tolerated reduced sedation. Neurologically without improvement and remains on vent and intubated. Continue optimization of cardiac factors including atrial fibrillation, hypotension. Maintain adequate hydration, monitor blood pressure, wean pressors as best able. Optimization of possible underlying pneumonia recommended, may have been etiology to her reduced mental status. IV antibiotics as per primary, ICU. Will continue to monitor mental status closely. Sedation reduction as best able. Critical care time 35 mins.
--- NOTE | 2019-07-31 12:06 | PN ---
Progress Note (short form) - Note Progress Note: Progress Note Pulm/CCM I have seen and examined pt in the ICU. Remains intubated and sedated. Remains on Norepi @8mcg/min. RASS -4 on Versed and Precedex drips. Feeds held for large NGT residual. Current Medications Acetaminophen (Tylenol -) 650 mg PO Q6H PRN PRN Reason: PAIN 2-5 Last Admin: 07/27/19 09:11 Dose: 650 mg Apixaban (Eliquis -) 2.5 mg PO BID [facility] Last Admin: 07/31/19 09:46 Dose: 2.5 mg Diltiazem HCl (Cardizem -) 30 mg NR QID PRN PRN Reason: TACHYCARDIA Piperacillin Sod/Tazobactam (Sod 3.375 gm/ Dextrose) 50 mls @ 100 mls/hr IVPB Q8H-IV [facility]; Protocol Last Admin: 07/31/19 09:01 Dose: 100 mls/hr Dextrose/Sodium Chloride (D5-1/2ns -) 1,000 mls @ 100 mls/hr IV ASDIR [facility] Last Admin: 07/31/19 08:59 Dose: 100 mls/hr Norepinephrine Bitartrate 8, (000 mcg/ Dextrose) 500 mls @ 18.75 mls/hr IV TITR [facility]; Protocol Last Titration: 07/31/19 12:04 Dose: 8 mcg/min, 30 mls/hr Dexmedetomidine HCl 200 mcg/ (Sodium Chloride) 50 mls @ 2.3 mls/hr IVPB TITR [facility] Last Admin: 07/30/19 15:44 Dose: 0.5 mcg/kg/hr, 5.76 mls/hr Midazolam HCl (Midazolam 100mg/100ml-0.9%Nacl) 100 mg in 100 mls @ 1 mls/hr IVPB TITR [facility]; Protocol Last Infusion: 07/31/19 12:04 Dose: 2 mg/hr, 2 mls/hr Insulin Aspart (Novolog Vial Sliding Scale -) 1 vial SQ ACHS [facility]; Protocol Last Admin: 07/31/19 11:06 Dose: Not Given Lidocaine (Lidoderm Patch -) 1 patch TP DAILY [facility] Last Admin: 07/31/19 09:06 Dose: 1 patch Metoprolol Tartrate (Lopressor Injection -) 5 mg IVPUSH Q4H PRN PRN Reason: TACHYCARDIA Last Admin: 07/29/19 13:08 Dose: 5 mg Miscellaneous (Lidoderm Patch Removal) 1 each MC DAILY@2200 [facility] Last Admin: 07/30/19 21:49 Dose: 1 each Olanzapine (Zyprexa -) 2.5 mg PO HS [facility] Last Admin: 07/30/19 21:51 Dose: 2.5 mg Pantoprazole Sodium (Protonix Iv) 40 mg IVPUSH DAILY [facility] Last Admin: 07/31/19 09:05 Dose: 40 mg Polyethylene Glycol (Miralax (For Daily Use) -) 17 gm PO DAILY [facility] Last Admin: 07/30/19 09:56 Dose: 17 gm Potassium Phos/Sodium Phos (Phos-Nak Packet -) 1 packet NGT TID [facility] Stop: 08/01/19 14:01 Vital Signs Period Temp Pulse Resp BP Sys/Sheldon Pulse Ox Last 24 Hr 97.8 F-99.5 F 71-88 12-27 64-166/23-69 98-100 Intake & Output 07/28/19 07/29/19 07/30/19 07/31/19 23:59 23:59 23:59 23:59 Intake Total 4262 2302 5712 1376.5 Output Total 133 139 9455 800 Balance 3762 1902 3612 576.5 Weight 46.13 kg 48.761 kg 52.787 kg EXAM: general: intubated and sedated w/o distress, RASS -4 HEENT: PERRL, no JVD, TLC /d/i Pulm: diminished RLL, coarse LLL ABD: SNTND. BS + Ext: WWP, trace edema Neuro: RASS -3/4 ABG Results ABG pH 7.42 (7.35-7.45) 07/31/19 05:55 ABG pCO2 at Pt Temp 31.6 mmHg (35-45) L 07/31/19 05:55 ABG pO2 at Pt Temp 109 mmHg (80-100) H 07/31/19 05:55 ABG HCO3 20.2 mmol/L (22-27) L 07/31/19 05:55 ABG O2 Sat (Measured) 98.1 % (95-98) H 07/31/19 05:55 ABG O2 Content 14.8 % vol 07/31/19 05:55 ABG Base Excess -3.0 meq/l (-2-2) L 07/31/19 05:55 CBC, BMP 07/31/19 06:00 07/31/19 06:00 Microbiology 07/30/19 03:50 Sputum - Endotrachea Suction/Ventilator Gram Stain - Final 07/30/19 03:50 Sputum - Endotrachea Suction/Ventilator Sputum Culture - Preliminary Presumptive Mssa (Pbp2a Neg) 07/27/19 21:45 Blood - Peripheral Venous Blood Culture - Preliminary NO GROWTH OBTAINED AFTER 72 HOURS, INCUBATION TO CONTINUE FOR 2 DAYS. 07/27/19 21:30 Blood - Peripheral Venous Blood Culture - Preliminary NO GROWTH OBTAINED AFTER 72 HOURS, INCUBATION TO CONTINUE FOR 2 DAYS. 07/27/19 14:35 Urine - Urine Jacques Urine Culture - Final NO GROWTH OBTAINED 07/21/19 15:00 Blood - Peripheral Venous Blood Culture - Final NO GROWTH AFTER 5 DAYS INCUBATION 07/21/19 15:10 Blood - Peripheral Venous Blood Culture - Final NO GROWTH AFTER 5 DAYS INCUBATION 07/21/19 15:00 Urine - Urine Clean Catch Urine Culture - Final Normal Urogenital Vicki No CXR this AM ASSESSMENT AND PLAN: Acute Hypoxic Respiratory Failure Pneumonia Sepsis Lactic Acidosis Altered Mental Status Atrial Fibrillation Mitral Regurgitation HTN Hypernatremia - ABX per ID: [email or web address] - cont IVF fluids - Pressors to maintain MAP > 65 (currently NE 6mcg) - MRI brain when extubated - Neuro following - Daily interruption of sedation, will hold versed and cont precedex for agitation - Spontaneous breathing trials daily: PSV 15 will decrease once - Wean Fio2 for sat >90 (will decresaed 50->40% today) - Hold tube feeds for high residual - Consider reglan - DVT/GI prophylaxis - Cont continued ICU monitoring Liset Mcneil, JANETP Pulm/CCM CCT: 35m
[2019-07-31] MEDS: NOREPINEPHRINE BITARTRATE 8,000 MCG in DEXTROSE 5%-WATER - 492 ML IV SCH ×2 (13:21→22:49)
[2019-07-31] MEDS: NAPH,MB-DB/K PH,MBDB POWDER PACKET NGT SCH ×3 (13:32→22:26)
[2019-07-31] MEDS: POLYETHYLENE GLYCOL 3350 119 GM BTL PO SCH (13:33)
[2019-07-31] MEDS: DEXMEDETOMIDINE HCL 200 MCG in SODIUM CHLORIDE 48 ML IVPB SCH ×2 (15:32→23:00)
--- NOTE | 2019-07-31 15:51 | PN ---
Progress Note, Physician History of Present Illness: Pt seen and examined. She remains in the ICU. Her pressor requirements have improved. She is tolerating tube feeds. - Current Medication List Current Medications: Active Medications Acetaminophen (Tylenol -) 650 mg PO Q6H PRN PRN Reason: PAIN 2-5 Last Admin: 07/27/19 09:11 Dose: 650 mg Apixaban (Eliquis -) 2.5 mg PO BID [facility] Last Admin: 07/31/19 09:46 Dose: 2.5 mg Diltiazem HCl (Cardizem -) 30 mg NR QID PRN PRN Reason: TACHYCARDIA Piperacillin Sod/Tazobactam (Sod 3.375 gm/ Dextrose) 50 mls @ 100 mls/hr IVPB Q8H-IV [facility]; Protocol Last Admin: 07/31/19 09:01 Dose: 100 mls/hr Dextrose/Sodium Chloride (D5-1/2ns -) 1,000 mls @ 100 mls/hr IV ASDIR [facility] Last Admin: 07/31/19 08:59 Dose: 100 mls/hr Norepinephrine Bitartrate 8, (000 mcg/ Dextrose) 500 mls @ 18.75 mls/hr IV TITR [facility]; Protocol Last Admin: 07/31/19 13:21 Dose: 8 mcg/min, 30 mls/hr Dexmedetomidine HCl 200 mcg/ (Sodium Chloride) 50 mls @ 2.3 mls/hr IVPB TITR [facility] Last Admin: 07/31/19 15:32 Dose: 0.5 mcg/kg/hr, 5.76 mls/hr Midazolam HCl (Midazolam 100mg/100ml-0.9%Nacl) 100 mg in 100 mls @ 1 mls/hr IVPB TITR [facility]; Protocol Last Infusion: 07/31/19 12:17 Dose: 0 mg/hr, 0 mls/hr Insulin Aspart (Novolog Vial Sliding Scale -) 1 vial SQ ACHS [facility]; Protocol Last Admin: 07/31/19 11:06 Dose: Not Given Lidocaine (Lidoderm Patch -) 1 patch TP DAILY [facility] Last Admin: 07/31/19 09:06 Dose: 1 patch Metoprolol Tartrate (Lopressor Injection -) 5 mg IVPUSH Q4H PRN PRN Reason: TACHYCARDIA Last Admin: 07/29/19 13:08 Dose: 5 mg Miscellaneous (Lidoderm Patch Removal) 1 each MC DAILY@2200 [facility] Last Admin: 07/30/19 21:49 Dose: 1 each Olanzapine (Zyprexa -) 2.5 mg PO HS [facility] Last Admin: 07/30/19 21:51 Dose: 2.5 mg Pantoprazole Sodium (Protonix Iv) 40 mg IVPUSH DAILY [facility] Last Admin: 07/31/19 09:05 Dose: 40 mg Polyethylene Glycol (Miralax (For Daily Use) -) 17 gm PO DAILY [facility] Last Admin: 07/31/19 13:33 Dose: 17 gm Potassium Phos/Sodium Phos (Phos-Nak Packet -) 1 packet NGT TID [facility] Stop: 08/01/19 14:01 Last Admin: 07/31/19 13:32 Dose: 1 packet - Objective Vital Signs: Vital Signs Temperature 98 F 07/31/19 10:00 Pulse Rate 88 07/31/19 13:21 Respiratory Rate 21 H 07/31/19 13:02 Blood Pressure 145/49 L 07/31/19 13:21 O2 Sat by Pulse Oximetry (%) 100 07/31/19 13:02 Constitutional: Yes: Calm Eyes: Yes: Conjunctiva Clear HENT: Yes: Atraumatic Neck: Yes: Supple Cardiovascular: Yes: S1, S2 Respiratory: Yes: Mechanically Ventilated Gastrointestinal: Yes: Soft Genitourinary: Yes: Jacques Present Musculoskeletal: Yes: Muscle Weakness Edema: No Neurological: Yes: Lethargy Labs: CBC, BMP 07/31/19 06:00 07/31/19 06:00 INR, PTT INR 1.61 (0.83-1.09) H 07/29/19 06:15 - ....Imaging Chest X-ray: Report Reviewed Assessment/Plan Current Medications Generic Name Dose Route Start Last Admin Trade Name Freq PRN Reason Stop Dose Admin Acetaminophen 650 mg 07/22/19 17:52 07/27/19 09:11 Tylenol - PO 650 mg Q6H PRN Administration PAIN 2-5 Apixaban 2.5 mg 07/21/19 22:45 07/31/19 09:46 Eliquis - PO 2.5 mg BID [facility] Administration Diltiazem HCl 30 mg 07/30/19 14:14 Cardizem - NR QID PRN TACHYCARDIA Piperacillin Sod/Tazobactam 50 mls @ 100 mls/hr 07/28/19 13:45 07/31/19 09:01 Sod 3.375 gm/ Dextrose IVPB 100 mls/hr Q8H-IV [facility] Administration Protocol Dextrose/Sodium Chloride 1,000 mls @ 100 mls/hr 07/28/19 14:04 07/31/19 08:59 D5-1/2ns - IV 100 mls/hr ASDIR [facility] Administration Norepinephrine Bitartrate 8, 500 mls @ 18.75 mls/hr 07/28/19 21:45 07/31/19 13:21 000 mcg/ Dextrose IV 8 mcg/min TITR [facility] 30 mls/hr Administration Protocol 5 MCG/MIN Dexmedetomidine HCl 200 mcg/ 50 mls @ 2.3 mls/hr 07/29/19 15:15 07/31/19 15: 32 Sodium Chloride IVPB 0.5 mcg/kg/hr TITR [facility] 5.76 mls/hr Administration 0.2 MCG/KG/HR Midazolam HCl 100 mg in 100 mls @ 1 mls/hr 07/29/19 16:00 07/31/19 12:17 Midazolam 100mg/100ml-0.9%Nacl IVPB 0 mg/hr TITR [facility] 0 mls/hr Infusion Protocol 1 MG/HR Insulin Aspart 1 vial 07/26/19 07:00 07/31/19 11:06 Novolog Vial Sliding Scale - SQ Not Given ACHS [facility] Protocol Lidocaine 1 patch 07/24/19 10:00 07/31/19 09:06 Lidoderm Patch - TP 1 patch DAILY [facility] Administration Metoprolol Tartrate 5 mg 07/26/19 12:39 07/29/19 13:08 Lopressor Injection - IVPUSH 5 mg Q4H PRN Administration TACHYCARDIA Miscellaneous 1 each 07/24/19 22:00 07/30/19 21:49 Lidoderm Patch Removal MC 1 each DAILY@2200 [facility] Administration Olanzapine 2.5 mg 07/26/19 22:00 07/30/19 21:51 Zyprexa - PO 2.5 mg HS [facility] Administration Pantoprazole Sodium 40 mg 07/29/19 14:45 07/31/19 09:05 Protonix Iv IVPUSH 40 mg DAILY [facility] Administration Polyethylene Glycol 17 gm 07/26/19 10:00 07/31/19 13:33 Miralax (For Daily Use) - PO 17 gm DAILY [facility] Administration Potassium Phos/Sodium Phos 1 packet 07/31/19 10:18 07/31/19 13:32 Phos-Nak Packet - NGT 08/01/19 14:01 1 packet TID [facility] Administration 1. Hypernatreima 2. Azotemia 3. Pneumonia 4. Rapid Atrial fibrillation 5. Lactic acidosis 6. Leukocytosis 7. hypokalemia Plan - replace phos - can decrease rate of fluids - pt tolerating feeds - bp is improving - vent support
--- NOTE | 2019-07-31 15:53 | PN ---
Progress Note, Physician History of Present Illness: Pt is in ICU, intubated, sedated, on pressor Per pt's nurse no BM for 4-5 days; pt on Miralax for 2 days.. Large gastric residual today ( over 800 cc) in AM - Current Medication List Current Medications: Active Medications Acetaminophen (Tylenol -) 650 mg PO Q6H PRN PRN Reason: PAIN 2-5 Last Admin: 07/27/19 09:11 Dose: 650 mg Apixaban (Eliquis -) 2.5 mg PO BID [facility] Last Admin: 07/31/19 09:46 Dose: 2.5 mg Diltiazem HCl (Cardizem -) 30 mg NR QID PRN PRN Reason: TACHYCARDIA Piperacillin Sod/Tazobactam (Sod 3.375 gm/ Dextrose) 50 mls @ 100 mls/hr IVPB Q8H-IV [facility]; Protocol Last Admin: 07/31/19 09:01 Dose: 100 mls/hr Dextrose/Sodium Chloride (D5-1/2ns -) 1,000 mls @ 100 mls/hr IV ASDIR [facility] Last Admin: 07/31/19 08:59 Dose: 100 mls/hr Norepinephrine Bitartrate 8, (000 mcg/ Dextrose) 500 mls @ 18.75 mls/hr IV TITR [facility]; Protocol Last Admin: 07/31/19 13:21 Dose: 8 mcg/min, 30 mls/hr Dexmedetomidine HCl 200 mcg/ (Sodium Chloride) 50 mls @ 2.3 mls/hr IVPB TITR [facility] Last Admin: 07/31/19 15:32 Dose: 0.5 mcg/kg/hr, 5.76 mls/hr Midazolam HCl (Midazolam 100mg/100ml-0.9%Nacl) 100 mg in 100 mls @ 1 mls/hr IVPB TITR [facility]; Protocol Last Infusion: 07/31/19 12:17 Dose: 0 mg/hr, 0 mls/hr Insulin Aspart (Novolog Vial Sliding Scale -) 1 vial SQ ACHS [facility]; Protocol Last Admin: 07/31/19 11:06 Dose: Not Given Lidocaine (Lidoderm Patch -) 1 patch TP DAILY [facility] Last Admin: 07/31/19 09:06 Dose: 1 patch Metoprolol Tartrate (Lopressor Injection -) 5 mg IVPUSH Q4H PRN PRN Reason: TACHYCARDIA Last Admin: 07/29/19 13:08 Dose: 5 mg Miscellaneous (Lidoderm Patch Removal) 1 each MC DAILY@2200 [facility] Last Admin: 07/30/19 21:49 Dose: 1 each Olanzapine (Zyprexa -) 2.5 mg PO HS [facility] Last Admin: 07/30/19 21:51 Dose: 2.5 mg Pantoprazole Sodium (Protonix Iv) 40 mg IVPUSH DAILY [facility] Last Admin: 07/31/19 09:05 Dose: 40 mg Polyethylene Glycol (Miralax (For Daily Use) -) 17 gm PO DAILY [facility] Last Admin: 07/31/19 13:33 Dose: 17 gm Potassium Phos/Sodium Phos (Phos-Nak Packet -) 1 packet NGT TID [facility] Stop: 08/01/19 14:01 Last Admin: 07/31/19 13:32 Dose: 1 packet - Objective Vital Signs: Vital Signs Temperature 98 F 07/31/19 10:00 Pulse Rate 88 07/31/19 13:21 Respiratory Rate 21 H 07/31/19 13:02 Blood Pressure 145/49 L 07/31/19 13:21 O2 Sat by Pulse Oximetry (%) 100 07/31/19 13:02 Constitutional: Yes: No Distress, Calm Cardiovascular: Yes: Regular Rate and Rhythm, S1, S2 Respiratory: Yes: Regular, Rhonchi (scattered , minimal), Other (coarse BS bilat ,) Gastrointestinal: Yes: Normal Bowel Sounds, Soft. No: Palpable Mass, Tenderness Edema: No Neurological: Yes: Other (sedated) Labs: CBC, BMP 07/31/19 06:00 07/31/19 06:00 INR, PTT INR 1.61 (0.83-1.09) H 07/29/19 06:15 Problem List - Problems (1) Atrial fibrillation with rapid ventricular response Code(s): I48.91 - UNSPECIFIED ATRIAL FIBRILLATION (2) Weakness Code(s): R53.1 - WEAKNESS (3) HTN (hypertension) Code(s): I10 - ESSENTIAL (PRIMARY) HYPERTENSION (4) Elevated brain natriuretic peptide (BNP) level Code(s): R79.89 - OTHER SPECIFIED ABNORMAL FINDINGS OF BLOOD CHEMISTRY (5) Hypoalbuminemia Code(s): E88.09 - OTH DISORDERS OF PLASMA-PROTEIN METABOLISM, NEC (6) Mitral regurgitation Code(s): I34.0 - NONRHEUMATIC MITRAL (VALVE) INSUFFICIENCY (7) Tricuspid regurgitation Code(s): I07.1 - RHEUMATIC TRICUSPID INSUFFICIENCY (8) Aortic regurgitation Code(s): I35.1 - NONRHEUMATIC AORTIC (VALVE) INSUFFICIENCY (9) Aortic stenosis Code(s): I35.0 - NONRHEUMATIC AORTIC (VALVE) STENOSIS (10) Septic shock Code(s): A41.9 - SEPSIS, UNSPECIFIED ORGANISM; R65.21 - SEVERE SEPSIS WITH SEPTIC SHOCK (11) Pneumonia Code(s): J18.9 - PNEUMONIA, UNSPECIFIED ORGANISM (12) Hypokalemia Code(s): E87.6 - HYPOKALEMIA (13) Hypophosphatemia Code(s): E83.39 - OTHER DISORDERS OF PHOSPHORUS METABOLISM (14) Acute hypoxemic respiratory failure Code(s): J96.01 - ACUTE RESPIRATORY FAILURE WITH HYPOXIA Assessment/Plan Pt in ICU, intubated, sedated , on IVF, IV sedation, IV abtx (Vanco, Zosyn). Constipation; to order abd XR, to R/O fecal retention Replete Ph; K is w/i NL today Cardizem was changed to PRN Abtx per ID Pending Head CT scan (d/w pt's nurses). To divya pressor as tolerated To monitor gastric residual volume later; rate might need to be decreased if still high. Cardio, CCM, ID, Neurology consults are appreciated Pt came to with ER for weakness found to be in A FIb with RVR, originally admitted to Telemetry, serial CE are negative, ECHO c/w normal LVF, MR, MT, AR, ; pt was noticed to have AMS, hypernatremia; she developed acute respiratory failure on 09/26/2018 and was transferred to ICU. Pt's condition was reviewed with her nurse. AM labs Time spent for managing pt's care: over 40 minutes.
[2019-07-31] MEDS ORDERED: GLYCERIN 1 RECTAL SUPPOSITORY, ADULT RC ONE (21:29)
[2019-07-31] MEDS ORDERED: MINERAL OIL ENEMA 133 ML ENEMA PR ONE (21:30)
[2019-07-31] MEDS ORDERED: PT OWN MED DRAWER 7, Y5N ONE (22:17)
[2019-07-31] MEDS ORDERED: SODIUM PHOSPHATE/NA BIPHOS 133 ML ENEMA PR ONE (22:24)
[2019-07-31] MEDS: OLANZapine 2.5 MG TABLET PO SCH (22:25)
[2019-07-31] MEDS: LIDOCAINE PATCH REMOVAL MC SCH (22:26)
[2019-08-01] MEDS ORDERED: PIPERACILLIN/TAZOBACTAM 3.375 GM VIAL IVPB ONE ×4 (01:39→22:04)
[2019-08-01] MEDS ORDERED: DEXTROSE 5%-WATER - 50 ML IVPB ONE ×4 (01:39→22:04)
[2019-08-01] MEDS: PIPERACILLIN/TAZOB 3.375 GM 3.375 GM in DEXTROSE 5%-WATER - 50 ML IVPB SCH ×3 (01:40→17:23)
[2019-08-01] MEDS: INSULIN SLIDING SCALE (NOVOLOG) 1 VIAL SQ SCH ×4 (06:24→22:00)
[2019-08-01] MEDS: NAPH,MB-DB/K PH,MBDB POWDER PACKET NGT SCH ×2 (06:26→14:08)
[2019-08-01 06:43] LABS: ARTERIAL BLD GAS O2 SATURATION 98.4 % (95-98); ARTERIAL BLOOD GAS BASE EXCESS -0.9 meq/l (-2-2); ARTERIAL BLOOD GAS PO2 111 mmHg (80-100); ARTERIAL BLOOD GAS pH 7.45 (7.35-7.45)
[2019-08-01 06:55] LABS: ALLENS TEST POSITIVE
[2019-08-01 07:00] LABS: HEMATOCRIT 34.4 % (32.4-45.2); HEMOGLOBIN 11.4 GM/dL (10.7-15.3); MCH 29.9 pg (25.7-33.7); MCHC 33.2 g/dl (32.0-36.0); MEAN CELL VOLUME 89.9 fl (80-96); MEAN PLT VOLUME 9.6 fl (7.5-11.1); PLATELET COUNT 195 K/MM3 (134-434); RBC 3.83 M/mm3 (3.60-5.2); RDW 15.3 % (11.6-15.6)
[2019-08-01] MEDS: MIDAZOLAM IN 0.9 % SOD.CHLORID 100 MG/100 ML PLAST..BAG IVPB SCH (07:00)
[2019-08-01 07:30] LABS: ALBUMIN 1.5 g/dl (3.4-5.0); BILIRUBIN,TOTAL 0.6 mg/dL (0.2-1); BLOOD UREA NITROGEN 8.8 mg/dL (7-18); CALCIUM 7.7 mg/dL (8.5-10.1); CREATININE 0.6 mg/dL (0.55-1.3); MAGNESIUM 2.2 mg/dL (1.8-2.4); PHOSPHOROUS 2.6 mg/dL (2.5-4.9); POTASSIUM 3.8 mmol/L (3.5-5.1); TOT PROT 4.3 g/dl (6.4-8.2)
--- NOTE | 2019-08-01 07:31 | PN ---
Physical Exam: SUBJECTIVE: Patient seen and examined by the bedside, sedated and intubated, not responsive. OBJECTIVE: Vital Signs Period Temp Pulse Resp BP Sys/Sheldon Pulse Ox Last 24 Hr 97.8 F-99.6 F 71-125 19-30 89-170/40-69 98-100 GENERAL: The patient is sedated, in no acute distress. LUNGS: Breath sounds equal, clear to auscultation bilaterally, no wheezes, no crackles, no accessory muscle use. Intubated on vent HEART: Regular rate, irregular rhythm, S1, S2 without murmur, rub or gallop. ABDOMEN: Soft, nontender, nondistended EXTREMITIES: warm, +1 edema hands, no edema BLE. Ecchymosis R hand NEUROLOGICAL: Sedated CBC, BMP 08/01/19 06:00 08/01/19 06:00 Current Medications Acetaminophen (Tylenol -) 650 mg PO Q6H PRN PRN Reason: PAIN 2-5 Last Admin: 07/27/19 09:11 Dose: 650 mg Apixaban (Eliquis -) 2.5 mg PO BID [facility] Last Admin: 08/01/19 09:40 Dose: 2.5 mg Diltiazem HCl (Cardizem -) 30 mg NR QID PRN PRN Reason: TACHYCARDIA Piperacillin Sod/Tazobactam (Sod 3.375 gm/ Dextrose) 50 mls @ 100 mls/hr IVPB Q8H-IV [facility]; Protocol Last Admin: 08/01/19 09:39 Dose: 100 mls/hr Norepinephrine Bitartrate 8, (000 mcg/ Dextrose) 500 mls @ 18.75 mls/hr IV TITR [facility]; Protocol Last Titration: 08/01/19 11:50 Dose: 6 mcg/min, 22.5 mls/hr Dexmedetomidine HCl 200 mcg/ (Sodium Chloride) 50 mls @ 2.3 mls/hr IVPB TITR [facility] Last Infusion: 08/01/19 09:42 Dose: 0.6 mcg/kg/hr, 6.91 mls/hr Midazolam HCl (Midazolam 100mg/100ml-0.9%Nacl) 100 mg in 100 mls @ 1 mls/hr IVPB TITR [facility]; Protocol Last Admin: 07/31/19 19:16 Dose: Not Given Sodium Chloride (Normal Saline -) 1,000 mls @ 83 mls/hr IV ASDIR [facility] Last Admin: 08/01/19 12:58 Dose: 83 mls/hr Insulin Aspart (Novolog Vial Sliding Scale -) 1 vial SQ ACHS [facility]; Protocol Last Admin: 08/01/19 11:50 Dose: Not Given Lidocaine (Lidoderm Patch -) 1 patch TP DAILY [facility] Last Admin: 08/01/19 11:00 Dose: 1 patch Metoprolol Tartrate (Lopressor Injection -) 5 mg IVPUSH Q4H PRN PRN Reason: TACHYCARDIA Last Admin: 07/29/19 13:08 Dose: 5 mg Miscellaneous (Lidoderm Patch Removal) 1 each MC DAILY@2200 [facility] Last Admin: 07/31/19 22:26 Dose: 1 each Olanzapine (Zyprexa -) 2.5 mg PO HS [facility] Last Admin: 07/31/19 22:25 Dose: 2.5 mg Pantoprazole Sodium (Protonix Iv) 40 mg IVPUSH DAILY [facility] Last Admin: 08/01/19 09:39 Dose: 40 mg Polyethylene Glycol (Miralax (For Daily Use) -) 17 gm PO DAILY [facility] Last Admin: 08/01/19 11:00 Dose: 17 gm ASSESSMENT/PLAN: 88 YO F with PMH of HTN, A fib (on Eliquis 2.5mg BD), DM, and Breast CA. She presented to the ER on 07/21 after she was unable to get up of from her toilet for 4 hours and was found by her neighbor, who called EMS. She was found to have A Fib with RVR and was subsequently admitted . On 07/27 she was found to be lethargic, not arousable, with irregular shallow breathing. A rapid response was called, she was intubated, and was admitted to the ICU. #Neuro - Off sedation - CT Head (07/21): No acute pathology - Continue olanzapine #Cardio - Norepi @ 5mcg/min , L IJ placed 07/29 - Monitor CVP, maintain 8-12. Given 250cc N/S bolus in AM, administer another 250cc N/S bolus if CVP falls below 8 - Cardizem changed to PRN NR QID, Lopressor 5mg IV PRN for rate control, holding home metoprolol - Echo (07/22): EF 55-60, LA sev dilation, MR with prolapse of post mitral leaflet, mod TR, RVSP 30-40, mild AR #Pulm - CXR 07/31: showed atelectasis, infiltrate at R lung base with prominent markings in L base #Ortho - Rt hip atraumatic pain for 2 weeks - XR of right hip, femur and tib/fib show degenerative changes without evidence of acute pathology, consistent with DJD, F/U outpatient #Renal - BUN/Cr 8.8/0.6 - Jacques placed #ID - WBC: 10.0 - Zosyn day 5 - Sputum cx presumptive MSSA, Urine, Blood cx no growth #Endo - hx DM, on Novolog SS ACHS #GI - AXR ordered to r/o fecal retention in setting of constipation: Retained stool , no impaction or gross constipation - continue Miralax - NG tube in place - Protonix 40mg IV #FEN - N/S @ 83/hr - Tube feed changed to Vital 1.2 as per Oceanology Teacher PPX - Eliquis 2.5mg BID #Dispo - Palliative consult placed - Monitor in ICU Visit type - Emergency Visit Emergency Visit: Yes ED Registration Date: 07/21/19 Care time: The patient presented to the Emergency Department on the above date and was hospitalized for further evaluation of their emergent condition. - New Patient This patient is new to me today: No - Critical Care Critical Care patient: Yes Total Critical Care Time (in minutes): 38 Critical Care Statement: The care of this patient involved high complexity decision making to prevent further life threatening deterioration of the patient 's condition and/or to evaluate & treat vital organ system(s) failure or risk of failure. ATTENDING PHYSICIAN STATEMENT I saw and evaluated the patient. I reviewed the resident's note and discussed the case with the resident. I agree with the resident's findings and plan as documented. SUBJECTIVE: OBJECTIVE: ASSESSMENT AND PLAN:
--- NOTE | 2019-08-01 09:04 | PN ---
Progress Note (short form) - Note Progress Note: Neurology - Admission Chief Complaint: Weakness History of Present Illness: 88 year old female with HTN, A fib (on AC) in her USOH, lives alone, using a walker for ambulation, couldn't get up of toilet for hours ( couldn't reach the walker) on day of admission until was found by her neighbour who brought her to ER. In ER it was noticed to by in A Fib with RVR, recieved IV Metoprolol with improvement in HR. Cardiology has been following patient and monitoring cardiac status. I was consulted due to altered mental status and confusion. Urinalysis was negative, remains afebrile and with normal white count. Labs noted for hypernatremia with sodium of 151, improving. MRI brain previously ordered, not yet completed. Overnight 07/27, patient developed lethargy and transferred to ICU, required intubation and currently on mechanical ventilation. Head ct ordered in interim to reevaluate for any structural abnormalities, not yet completed. Patient without significant improvement overnight and remains under critical care monitoring. Repeat Chest xray reviewed and with infiltrate vs atelechtasis. Possible source for her altered mental status and possible underlying pneumonia, is on antibiotics, Zosyn. Remains on pressors, attempted to wean are being continued. Neurologically without improvement and remains on vent and intubated. Slight arousable to voice but otherwise mostly somnolent. Active Medications Acetaminophen (Tylenol -) 650 mg PO Q6H PRN PRN Reason: PAIN 2-5 Last Admin: 07/27/19 09:11 Dose: 650 mg Apixaban (Eliquis -) 2.5 mg PO BID [facility] Last Admin: 07/31/19 22:25 Dose: 2.5 mg Diltiazem HCl (Cardizem -) 30 mg NR QID PRN PRN Reason: TACHYCARDIA Piperacillin Sod/Tazobactam (Sod 3.375 gm/ Dextrose) 50 mls @ 100 mls/hr IVPB Q8H-IV [facility]; Protocol Last Admin: 08/01/19 01:40 Dose: 100 mls/hr Norepinephrine Bitartrate 8, (000 mcg/ Dextrose) 500 mls @ 18.75 mls/hr IV TITR [facility]; Protocol Last Admin: 07/31/19 22:49 Dose: Not Given Dexmedetomidine HCl 200 mcg/ (Sodium Chloride) 50 mls @ 2.3 mls/hr IVPB TITR [facility] Last Admin: 07/31/19 23:00 Dose: 0.7 mcg/kg/hr, 8.07 mls/hr Midazolam HCl (Midazolam 100mg/100ml-0.9%Nacl) 100 mg in 100 mls @ 1 mls/hr IVPB TITR [facility]; Protocol Last Admin: 07/31/19 19:16 Dose: Not Given Dextrose/Sodium Chloride (D5-1/2ns -) 1,000 mls @ 50 mls/hr IV ASDIR [facility] Last Admin: 07/31/19 22:27 Dose: 50 mls/hr Insulin Aspart (Novolog Vial Sliding Scale -) 1 vial SQ ACHS [facility]; Protocol Last Admin: 08/01/19 06:24 Dose: Not Given Lidocaine (Lidoderm Patch -) 1 patch TP DAILY [facility] Last Admin: 07/31/19 09:06 Dose: 1 patch Metoprolol Tartrate (Lopressor Injection -) 5 mg IVPUSH Q4H PRN PRN Reason: TACHYCARDIA Last Admin: 07/29/19 13:08 Dose: 5 mg Miscellaneous (Lidoderm Patch Removal) 1 each MC DAILY@2200 [facility] Last Admin: 07/31/19 22:26 Dose: 1 each Olanzapine (Zyprexa -) 2.5 mg PO HS [facility] Last Admin: 07/31/19 22:25 Dose: 2.5 mg Pantoprazole Sodium (Protonix Iv) 40 mg IVPUSH DAILY [facility] Last Admin: 07/31/19 09:05 Dose: 40 mg Polyethylene Glycol (Miralax (For Daily Use) -) 17 gm PO DAILY [facility] Last Admin: 07/31/19 13:33 Dose: 17 gm Potassium Phos/Sodium Phos (Phos-Nak Packet -) 1 packet NGT TID [facility] Stop: 08/01/19 14:01 Last Admin: 08/01/19 06:26 Dose: 1 packet Physical Examination Vital Signs: Vital Signs Period Temp Pulse Resp BP Sys/Sheldon Pulse Ox Last 24 Hr 97.8 F-99.6 F 71-125 18-30 89-170/40-69 99-100 Eyes: Yes: Conjunctiva Clear, EOM Intact HENT: No: Epistaxis, Rhinnorhea Neck: Yes: Trachea Midline. No: Lymphadenopathy Cardiovascular: Yes: Pulse Irregular, S1, S2 Respiratory: Yes: Regular, CTA Bilaterally. No: Rales Gastrointestinal: Yes: Normal Bowel Sounds, Soft, Hepatomegaly. No: Splenomegaly, Tenderness ...Rectal Exam: Yes: Deferred Renal/: No: CVA Tenderness - Left, CVA Tenderness - Right Breast(s): Yes: Other (deferred) Musculoskeletal: No: Back Pain, Joint Swelling Extremities: No: Cool, Cyanosis Edema: No Integumentary: Yes: Bruising (large bruise of the left elbow) Neurological: Sedated, not following commands, pupils reponsive to light, moves to painful stim, no abnormal movements CBCD WBC 10.0 K/mm3 (4.0-10.0) 08/01/19 06:00 RBC 3.83 M/mm3 (3.60-5.2) 08/01/19 06:00 Hgb 11.4 GM/dL (10.7-15.3) 08/01/19 06:00 Hct 34.4 % (32.4-45.2) 08/01/19 06:00 MCV 89.9 fl (80-96) 08/01/19 06:00 MCHC 33.2 g/dl (32.0-36.0) 08/01/19 06:00 RDW 15.3 % (11.6-15.6) 08/01/19 06:00 Plt Count 195 K/MM3 (134-434) 08/01/19 06:00 MPV 9.6 fl (7.5-11.1) 08/01/19 06:00 CMP Sodium 142 mmol/L (136-145) 08/01/19 06:00 Potassium 3.8 mmol/L (3.5-5.1) 08/01/19 06:00 Chloride 111 mmol/L (98-107) H 08/01/19 06:00 Carbon Dioxide 27 mmol/L (21-32) 08/01/19 06:00 Anion Gap 4 MMOL/L (8-16) L 08/01/19 06:00 BUN 8.8 mg/dL (7-18) 08/01/19 06:00 Creatinine 0.6 mg/dL (0.55-1.3) 08/01/19 06:00 Random Glucose 95 mg/dL (74-106) 08/01/19 06:00 Calcium 7.7 mg/dL (8.5-10.1) L 08/01/19 06:00 Total Bilirubin 0.6 mg/dL (0.2-1) 08/01/19 06:00 AST 40 U/L (15-37) H 08/01/19 06:00 ALT 68 U/L (13-61) H 08/01/19 06:00 Alkaline Phosphatase 193 U/L (45-117) H 08/01/19 06:00 Total Protein 4.3 g/dl (6.4-8.2) L 08/01/19 06:00 Albumin 1.5 g/dl (3.4-5.0) L 08/01/19 06:00 CARDIAC ENZYMES Creatine Kinase 127 U/L (26-192) 07/28/19 06:30 Troponin I < 0.02 ng/ml (0.00-0.05) 07/28/19 06:30 Plan: 88 year old female with HTN, A fib (on AC) in her USOH, lives alone, using a walker for ambulation, couldn't get up of toilet for hours ( couldn't reach the walker) on day of admission until was found by her neighbour who brought her to ER. In ER it was noticed to by in A Fib with RVR, recieved IV Metoprolol with improvement in HR. Cardiology has been following patient and monitoring cardiac status. I was consulted due to altered mental status and confusion. Urinalysis was negative, remains afebrile and with normal white count. Labs noted for hypernatremia with sodium of 151, improving. MRI brain previously ordered, not yet completed. Overnight 07/27, patient developed lethargy and transferred to ICU, required intubation and currently on mechanical ventilation. Head ct ordered in interim to reevaluate for any structural abnormalities, not yet completed. Patient without significant improvement overnight and remains under critical care monitoring. Of note, found to have infiltrates on x-ray indicating possible source for her altered mental status and possible underlying pneumonia, is on antibiotics including Zosyn. Remains on pressors, attempted to wean are being continued. Neurologically without improvement and remains on vent and intubated. Slight arousable to voice but otherwise mostly somnolent. Neurologically without improvement and remains on vent and intubated. Continue optimization of cardiac factors including atrial fibrillation, hypotension. Maintain adequate hydration, monitor blood pressure, wean pressors as best able. Optimization of possible underlying pneumonia recommended, may have been etiology to her reduced mental status. IV antibiotics as per primary, ICU. Will continue to monitor mental status closely. Sedation reduction as best able. Critical care time 35 mins.
[2019-08-01] MEDS ORDERED: PT OWN MED DRAWER 7, Y5N ONE ×2 (09:34→22:05)
[2019-08-01] MEDS: PANTOPRAZOLE SODIUM 40 MG VIAL IVPUSH SCH (09:39)
[2019-08-01] MEDS: APIXABAN 2.5 MG TABLET PO SCH ×2 (09:40→22:10)
--- NOTE | 2019-08-01 10:22 | PN ---
Progress Note, Physician Chief Complaint: resp failure, altered MS History of Present Illness: intubated, not communicative - Current Medication List Current Medications: Active Medications Acetaminophen (Tylenol -) 650 mg PO Q6H PRN PRN Reason: PAIN 2-5 Last Admin: 07/27/19 09:11 Dose: 650 mg Apixaban (Eliquis -) 2.5 mg PO BID [facility] Last Admin: 08/01/19 09:40 Dose: 2.5 mg Diltiazem HCl (Cardizem -) 30 mg NR QID PRN PRN Reason: TACHYCARDIA Piperacillin Sod/Tazobactam (Sod 3.375 gm/ Dextrose) 50 mls @ 100 mls/hr IVPB Q8H-IV [facility]; Protocol Last Admin: 08/01/19 09:39 Dose: 100 mls/hr Norepinephrine Bitartrate 8, (000 mcg/ Dextrose) 500 mls @ 18.75 mls/hr IV TITR [facility]; Protocol Last Titration: 08/01/19 10:00 Dose: 7 mcg/min, 26.25 mls/hr Dexmedetomidine HCl 200 mcg/ (Sodium Chloride) 50 mls @ 2.3 mls/hr IVPB TITR [facility] Last Infusion: 08/01/19 09:42 Dose: 0.6 mcg/kg/hr, 6.91 mls/hr Midazolam HCl (Midazolam 100mg/100ml-0.9%Nacl) 100 mg in 100 mls @ 1 mls/hr IVPB TITR [facility]; Protocol Last Admin: 07/31/19 19:16 Dose: Not Given Dextrose/Sodium Chloride (D5-1/2ns -) 1,000 mls @ 50 mls/hr IV ASDIR [facility] Last Admin: 07/31/19 22:27 Dose: 50 mls/hr Insulin Aspart (Novolog Vial Sliding Scale -) 1 vial SQ ACHS [facility]; Protocol Last Admin: 08/01/19 06:24 Dose: Not Given Lidocaine (Lidoderm Patch -) 1 patch TP DAILY [facility] Last Admin: 07/31/19 09:06 Dose: 1 patch Metoprolol Tartrate (Lopressor Injection -) 5 mg IVPUSH Q4H PRN PRN Reason: TACHYCARDIA Last Admin: 07/29/19 13:08 Dose: 5 mg Miscellaneous (Lidoderm Patch Removal) 1 each MC DAILY@2200 [facility] Last Admin: 07/31/19 22:26 Dose: 1 each Olanzapine (Zyprexa -) 2.5 mg PO HS [facility] Last Admin: 07/31/19 22:25 Dose: 2.5 mg Pantoprazole Sodium (Protonix Iv) 40 mg IVPUSH DAILY [facility] Last Admin: 08/01/19 09:39 Dose: 40 mg Polyethylene Glycol (Miralax (For Daily Use) -) 17 gm PO DAILY [facility] Last Admin: 07/31/19 13:33 Dose: 17 gm Potassium Phos/Sodium Phos (Phos-Nak Packet -) 1 packet NGT TID [facility] Stop: 08/01/19 14:01 Last Admin: 08/01/19 06:26 Dose: 1 packet - Objective Vital Signs: Vital Signs Temperature 99.6 F 08/01/19 06:00 Pulse Rate 85 08/01/19 10:00 Respiratory Rate 16 08/01/19 10:00 Blood Pressure 84/38 L 08/01/19 10:00 O2 Sat by Pulse Oximetry (%) 99 08/01/19 09:00 Constitutional: Yes: Well Nourished, No Distress, Calm Cardiovascular: Yes: Regular Rate and Rhythm, Murmur (3/6 early MELISSA rusb/lusb), S1, S2. No: JVD (tds exam), Gallop Respiratory: Yes: Regular, CTA Bilaterally (anteirorly). No: Accessory Muscle Use, Wheezes Extremities: No: Cold Edema: No Neurological: No: Alert, Oriented, Seizure Psychiatric: No: Agitated Labs: CBC, BMP 08/01/19 06:00 08/01/19 06:00 INR, PTT INR 1.61 (0.83-1.09) H 07/29/19 06:15 Assessment/Plan Echo 08/02: nl LV/RV. severe LAE. 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 mod TR. RVSP 30-40. mild /AI. 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 Vent support as per Critical Care 2. Abx as per Critical Care 3. Now has OG tube- cont Eliquis (2.5 mg for age/wt), Cardizem as needed. Rates adequately controlled. 4. Continue to wean pressors as tolerated 5. Advanced directives noted. 6. no overt volume excess on exam--would dose lasix prn cxr findings or edema
--- NOTE | 2019-08-01 10:30 | PN ---
Progress Note, Physician Chief Complaint: ICU; intubated; on pressors, poorly responsive consults, tests, meds noted - Current Medication List Current Medications: Active Medications Acetaminophen (Tylenol -) 650 mg PO Q6H PRN PRN Reason: PAIN 2-5 Last Admin: 07/27/19 09:11 Dose: 650 mg Apixaban (Eliquis -) 2.5 mg PO BID [facility] Last Admin: 08/01/19 09:40 Dose: 2.5 mg Diltiazem HCl (Cardizem -) 30 mg NR QID PRN PRN Reason: TACHYCARDIA Piperacillin Sod/Tazobactam (Sod 3.375 gm/ Dextrose) 50 mls @ 100 mls/hr IVPB Q8H-IV [facility]; Protocol Last Admin: 08/01/19 09:39 Dose: 100 mls/hr Norepinephrine Bitartrate 8, (000 mcg/ Dextrose) 500 mls @ 18.75 mls/hr IV TITR [facility]; Protocol Last Titration: 08/01/19 10:00 Dose: 7 mcg/min, 26.25 mls/hr Dexmedetomidine HCl 200 mcg/ (Sodium Chloride) 50 mls @ 2.3 mls/hr IVPB TITR [facility] Last Infusion: 08/01/19 09:42 Dose: 0.6 mcg/kg/hr, 6.91 mls/hr Midazolam HCl (Midazolam 100mg/100ml-0.9%Nacl) 100 mg in 100 mls @ 1 mls/hr IVPB TITR [facility]; Protocol Last Admin: 07/31/19 19:16 Dose: Not Given Dextrose/Sodium Chloride (D5-1/2ns -) 1,000 mls @ 50 mls/hr IV ASDIR [facility] Last Admin: 07/31/19 22:27 Dose: 50 mls/hr Insulin Aspart (Novolog Vial Sliding Scale -) 1 vial SQ ACHS [facility]; Protocol Last Admin: 08/01/19 06:24 Dose: Not Given Lidocaine (Lidoderm Patch -) 1 patch TP DAILY [facility] Last Admin: 07/31/19 09:06 Dose: 1 patch Metoprolol Tartrate (Lopressor Injection -) 5 mg IVPUSH Q4H PRN PRN Reason: TACHYCARDIA Last Admin: 07/29/19 13:08 Dose: 5 mg Miscellaneous (Lidoderm Patch Removal) 1 each MC DAILY@2200 [facility] Last Admin: 07/31/19 22:26 Dose: 1 each Olanzapine (Zyprexa -) 2.5 mg PO HS [facility] Last Admin: 07/31/19 22:25 Dose: 2.5 mg Pantoprazole Sodium (Protonix Iv) 40 mg IVPUSH DAILY [facility] Last Admin: 08/01/19 09:39 Dose: 40 mg Polyethylene Glycol (Miralax (For Daily Use) -) 17 gm PO DAILY [facility] Last Admin: 07/31/19 13:33 Dose: 17 gm Potassium Phos/Sodium Phos (Phos-Nak Packet -) 1 packet NGT TID [facility] Stop: 08/01/19 14:01 Last Admin: 08/01/19 06:26 Dose: 1 packet - Objective Vital Signs: Vital Signs Temperature 99.6 F 08/01/19 06:00 Pulse Rate 85 08/01/19 10:00 Respiratory Rate 16 08/01/19 10:00 Blood Pressure 84/38 L 08/01/19 10:00 O2 Sat by Pulse Oximetry (%) 99 08/01/19 09:00 Constitutional: Yes: No Distress Eyes: Yes: Conjunctiva Clear HENT: No: Epistaxis Cardiovascular: Yes: Regular Rate and Rhythm Respiratory: Yes: Diminished Gastrointestinal: Yes: Soft. No: Tenderness Genitourinary: No: Hematuria Musculoskeletal: No: Joint Stiffness, Joint Swelling Extremities: No: Cold, Cool Edema: No Integumentary: No: Rash, Venous Stasis Changes Neurological: No: Alert Psychiatric: No: Alert, Agitated Labs: CBC, BMP 08/01/19 06:00 08/01/19 06:00 INR, PTT INR 1.61 (0.83-1.09) H 07/29/19 06:15 - ....Imaging Chest X-ray: Report Reviewed Other: Report Reviewed Assessment/Plan 88 yo F PMH of L Breast Ca, HTN, Afib ( on Eliquis) admitted with weakness and confusion, became hypotensive, respiratory distress intubated; s/p low grade fever; RLL PNA; in ICU on vent pulm ICU f/u, IV ATB per ID; f/u cultures; tachycardia, AFib: cardiology f/u; prerenal azotemia, hyperNa : s/p IVF; renal f/u; f/u labs; metabolic encephalopathy and severe protein malnutrition; neurology and dietitian f/u; decubs DVT aspiration pfx prognosis guarded; palliative care noted; to d/w pt's HCP further management; t time 35 min d.w staff - will call HCP
[2019-08-01] MEDS: POLYETHYLENE GLYCOL 3350 119 GM BTL PO SCH (11:00)
[2019-08-01] MEDS: LIDOCAINE 5% TOPICAL PATCH TP SCH (11:00)
--- NOTE | 2019-08-01 11:36 | PN ---
Teaching Attending Note Name of Resident: Tay Hines ATTENDING PHYSICIAN STATEMENT I saw and evaluated the patient. I reviewed the resident's note and discussed the case with the resident. I agree with the resident's findings and plan as documented. SUBJECTIVE: Patient seen and examined in the ICU. Remains intubated and sedated on Versed and Precedex. AC Mode of vent. NE @ 5 mcq for hemodynamic support. Intake & Output 07/29/19 07/30/19 07/31/19 08/01/19 23:59 23:59 23:59 23:59 Intake Total 2302 5712 3011.5 1303 Output Total 400 2100 1900 950 Balance 1902 3612 1111.5 353 Weight 107 lb 8 oz 116 lb 6 oz 118 lb 7 oz Last Vital Signs Temp Pulse Resp BP Pulse Ox 99.6 F 83 16 133/53 L 99 08/01/19 06:00 08/01/19 10:44 08/01/19 10:44 08/01/19 10:44 08/01/19 10:00 Active Medications Acetaminophen (Tylenol -) 650 mg PO Q6H PRN PRN Reason: PAIN 2-5 Last Admin: 07/27/19 09:11 Dose: 650 mg Apixaban (Eliquis -) 2.5 mg PO BID [facility] Last Admin: 08/01/19 09:40 Dose: 2.5 mg Diltiazem HCl (Cardizem -) 30 mg NR QID PRN PRN Reason: TACHYCARDIA Piperacillin Sod/Tazobactam (Sod 3.375 gm/ Dextrose) 50 mls @ 100 mls/hr IVPB Q8H-IV [facility]; Protocol Last Admin: 08/01/19 09:39 Dose: 100 mls/hr Norepinephrine Bitartrate 8, (000 mcg/ Dextrose) 500 mls @ 18.75 mls/hr IV TITR [facility]; Protocol Last Titration: 08/01/19 10:00 Dose: 7 mcg/min, 26.25 mls/hr Dexmedetomidine HCl 200 mcg/ (Sodium Chloride) 50 mls @ 2.3 mls/hr IVPB TITR [facility] Last Infusion: 08/01/19 09:42 Dose: 0.6 mcg/kg/hr, 6.91 mls/hr Midazolam HCl (Midazolam 100mg/100ml-0.9%Nacl) 100 mg in 100 mls @ 1 mls/hr IVPB TITR [facility]; Protocol Last Admin: 07/31/19 19:16 Dose: Not Given Dextrose/Sodium Chloride (D5-1/2ns -) 1,000 mls @ 50 mls/hr IV ASDIR [facility] Last Admin: 07/31/19 22:27 Dose: 50 mls/hr Insulin Aspart (Novolog Vial Sliding Scale -) 1 vial SQ ACHS [facility]; Protocol Last Admin: 08/01/19 06:24 Dose: Not Given Lidocaine (Lidoderm Patch -) 1 patch TP DAILY [facility] Last Admin: 07/31/19 09:06 Dose: 1 patch Metoprolol Tartrate (Lopressor Injection -) 5 mg IVPUSH Q4H PRN PRN Reason: TACHYCARDIA Last Admin: 07/29/19 13:08 Dose: 5 mg Miscellaneous (Lidoderm Patch Removal) 1 each MC DAILY@2200 [facility] Last Admin: 07/31/19 22:26 Dose: 1 each Olanzapine (Zyprexa -) 2.5 mg PO HS [facility] Last Admin: 07/31/19 22:25 Dose: 2.5 mg Pantoprazole Sodium (Protonix Iv) 40 mg IVPUSH DAILY [facility] Last Admin: 08/01/19 09:39 Dose: 40 mg Polyethylene Glycol (Miralax (For Daily Use) -) 17 gm PO DAILY [facility] Last Admin: 07/31/19 13:33 Dose: 17 gm Potassium Phos/Sodium Phos (Phos-Nak Packet -) 1 packet NGT TID [facility] Stop: 08/01/19 14:01 Last Admin: 08/01/19 06:26 Dose: 1 packet EXAM: general: intubated and sedated w/o distress, RASS -4 HEENT: PERRL, no JVD Pulm: Vented, coarse breath sounds bilaterally ABD: Soft, NT, ND, (+) BS Ext: WWP, trace edema Neuro: Sedated Laboratory Results - last 24 hr 07/31/19 07/31/19 08/01/19 16:38 21:34 06:00 WBC RBC Hgb Hct MCV MCH MCHC RDW Plt Count MPV Anticoagulation Therapy No Result Required. Puncture Site Right radial ABG pH 7.45 ABG pCO2 at Pt Temp 32.0 L ABG pO2 at Pt Temp 111 H ABG HCO3 22.0 ABG O2 Sat (Measured) 98.4 H ABG O2 Content 15.6 ABG Base Excess -0.9 Fady Test Positive O2 Delivery Device Vent Oxygen Flow Rate 30% Vent Mode A/c Vent Rate 14 Mechanical Rate No Result Required. PEEP 5.0 Pressure Support Vent 400 Sodium Potassium Chloride Carbon Dioxide Anion Gap BUN Creatinine Est GFR (CKD-EPI)AfAm Est GFR (CKD-EPI)NonAf POC Glucometer 117 156 Random Glucose Calcium Phosphorus Magnesium Total Bilirubin AST ALT Alkaline Phosphatase Total Protein Albumin 08/01/19 08/01/19 08/01/19 06:00 06:00 06:19 WBC 10.0 RBC 3.83 Hgb 11.4 Hct 34.4 MCV 89.9 MCH 29.9 MCHC 33.2 RDW 15.3 Plt Count 195 MPV 9.6 Anticoagulation Therapy Puncture Site ABG pH ABG pCO2 at Pt Temp ABG pO2 at Pt Temp ABG HCO3 ABG O2 Sat (Measured) ABG O2 Content ABG Base Excess Fady Test O2 Delivery Device Oxygen Flow Rate Vent Mode Vent Rate Mechanical Rate PEEP Pressure Support Vent Sodium 142 Potassium 3.8 Chloride 111 H Carbon Dioxide 27 Anion Gap 4 L BUN 8.8 Creatinine 0.6 Est GFR (CKD-EPI)AfAm 94.32 Est GFR (CKD-EPI)NonAf 81.38 POC Glucometer 79 Random Glucose 95 Calcium 7.7 L Phosphorus 2.6 Magnesium 2.2 Total Bilirubin 0.6 AST 40 H ALT 68 H Alkaline Phosphatase 193 H Total Protein 4.3 L Albumin 1.5 L ASSESSMENT AND PLAN: Acute Hypoxic Respiratory Failure Pneumonia Sepsis Lactic Acidosis Altered Mental Status Atrial Fibrillation Mitral Regurgitation HTN Hypernatremia - ABX per ID: [email or web address] - Check CVP - Pressors to maintain MAP > 65 - MRI brain when extubated - Daily interruption of sedation, will hold versed and cont precedex for agitation - Spontaneous breathing trials daily - Wean Fio2 for sat >90 (will decresaed 50->40% today) - Continue tube feeds - DVT/GI prophylaxis - Requires continued ICU monitoring Dr Drummond Critical care time spent in reviewing chart, evaluating patient and formulating plan - 36 minutes.
[2019-08-01] MEDS ORDERED: SODIUM CHLORIDE 250 ML IV STA (11:48)
--- NOTE | 2019-08-01 12:00 | PN ---
Progress Note (short form) - Note Progress Note: Renal follow up electrolyte imbalance Seen and examined in the ICU intubated and sedated FiO is 40% making urine via leslie remains on pressers Vital Signs Temperature 99.6 F 08/01/19 06:00 Pulse Rate 87 08/01/19 11:50 Respiratory Rate 16 08/01/19 10:44 Blood Pressure 107/44 L 08/01/19 11:50 O2 Sat by Pulse Oximetry (%) 99 08/01/19 10:00 Intake & Output 07/29/19 07/30/19 07/31/19 08/01/19 23:59 23:59 23:59 23:59 Intake Total 2302 5712 3011.5 1303 Output Total 400 2100 1900 950 Balance 1902 3612 1111.5 353 Weight 48.761 kg 52.787 kg 53.722 kg intubated and sedated ET Tube in place neck supple, no JVD irregular, no M/R Dec BS, no rales soft NT/ND no LE edema, clubbing or cyanosis CBC, BMP 08/01/19 06:00 08/01/19 06:00 Current Medications Acetaminophen (Tylenol -) 650 mg PO Q6H PRN PRN Reason: PAIN 2-5 Last Admin: 07/27/19 09:11 Dose: 650 mg Apixaban (Eliquis -) 2.5 mg PO BID [facility] Last Admin: 08/01/19 09:40 Dose: 2.5 mg Diltiazem HCl (Cardizem -) 30 mg NR QID PRN PRN Reason: TACHYCARDIA Piperacillin Sod/Tazobactam (Sod 3.375 gm/ Dextrose) 50 mls @ 100 mls/hr IVPB Q8H-IV [facility]; Protocol Last Admin: 08/01/19 09:39 Dose: 100 mls/hr Norepinephrine Bitartrate 8, (000 mcg/ Dextrose) 500 mls @ 18.75 mls/hr IV TITR [facility]; Protocol Last Titration: 08/01/19 11:50 Dose: 6 mcg/min, 22.5 mls/hr Dexmedetomidine HCl 200 mcg/ (Sodium Chloride) 50 mls @ 2.3 mls/hr IVPB TITR [facility] Last Infusion: 08/01/19 09:42 Dose: 0.6 mcg/kg/hr, 6.91 mls/hr Midazolam HCl (Midazolam 100mg/100ml-0.9%Nacl) 100 mg in 100 mls @ 1 mls/hr IVPB TITR [facility]; Protocol Last Admin: 07/31/19 19:16 Dose: Not Given Dextrose/Sodium Chloride (D5-1/2ns -) 1,000 mls @ 50 mls/hr IV ASDIR [facility] Last Admin: 07/31/19 22:27 Dose: 50 mls/hr Sodium Chloride (Normal Saline -) 250 mls @ 250 mls/hr IV ASDIR [facility] Stop: 08/01/19 12:47 Insulin Aspart (Novolog Vial Sliding Scale -) 1 vial SQ ACHS [facility]; Protocol Last Admin: 08/01/19 11:50 Dose: Not Given Lidocaine (Lidoderm Patch -) 1 patch TP DAILY [facility] Last Admin: 08/01/19 11:00 Dose: 1 patch Metoprolol Tartrate (Lopressor Injection -) 5 mg IVPUSH Q4H PRN PRN Reason: TACHYCARDIA Last Admin: 07/29/19 13:08 Dose: 5 mg Miscellaneous (Lidoderm Patch Removal) 1 each MC DAILY@2200 [facility] Last Admin: 07/31/19 22:26 Dose: 1 each Olanzapine (Zyprexa -) 2.5 mg PO HS [facility] Last Admin: 07/31/19 22:25 Dose: 2.5 mg Pantoprazole Sodium (Protonix Iv) 40 mg IVPUSH DAILY [facility] Last Admin: 08/01/19 09:39 Dose: 40 mg Polyethylene Glycol (Miralax (For Daily Use) -) 17 gm PO DAILY [facility] Last Admin: 08/01/19 11:00 Dose: 17 gm Potassium Phos/Sodium Phos (Phos-Nak Packet -) 1 packet NGT TID [facility] Stop: 08/01/19 14:01 Last Admin: 08/01/19 06:26 Dose: 1 packet 88 year old woman with history of atrial fibrillation and hypertension who presented with rapid atrial fibrillation with pneumonia and hypernatremia. 1. Hypernatreima (water deficit is 1.3L) 2. Azotemia 3. Pneumonia 4. Rapid Atrial fibrillation 5. Lactic acidosis 6. Leukocytosis 7. Hypokalemia 8. Hypophosphtaemia Serum Na is improved, Lactic acid improved on D5 1/2 NS, can change to NS if CVP is low continue vaospressers for BP support goal MAP > 65, CVP goal 10-12 K and phos are within normal limits today Trend electrolytes daily Thank you Tolu Akers DO
[2019-08-01] MEDS: SODIUM CHLORIDE 1,000 ML IV SCH (12:58)
[2019-08-01 13:29] VITALS: BMI 24.6
--- NOTE | 2019-08-01 15:19 | PN ---
Progress Note, Physician Chief Complaint: INTUBATED POORLY RESPONSIVE ON VENTILATOR HYPOTENSIVE ON PRESSORS - Current Medication List Current Medications: Active Medications Acetaminophen (Tylenol -) 650 mg PO Q6H PRN PRN Reason: PAIN 2-5 Last Admin: 07/27/19 09:11 Dose: 650 mg Apixaban (Eliquis -) 2.5 mg PO BID [facility] Last Admin: 08/01/19 09:40 Dose: 2.5 mg Diltiazem HCl (Cardizem -) 30 mg NR QID PRN PRN Reason: TACHYCARDIA Piperacillin Sod/Tazobactam (Sod 3.375 gm/ Dextrose) 50 mls @ 100 mls/hr IVPB Q8H-IV [facility]; Protocol Last Admin: 08/01/19 09:39 Dose: 100 mls/hr Norepinephrine Bitartrate 8, (000 mcg/ Dextrose) 500 mls @ 18.75 mls/hr IV TITR [facility]; Protocol Last Titration: 08/01/19 11:50 Dose: 6 mcg/min, 22.5 mls/hr Dexmedetomidine HCl 200 mcg/ (Sodium Chloride) 50 mls @ 2.3 mls/hr IVPB TITR [facility] Last Infusion: 08/01/19 09:42 Dose: 0.6 mcg/kg/hr, 6.91 mls/hr Midazolam HCl (Midazolam 100mg/100ml-0.9%Nacl) 100 mg in 100 mls @ 1 mls/hr IVPB TITR [facility]; Protocol Last Admin: 07/31/19 19:16 Dose: Not Given Sodium Chloride (Normal Saline -) 1,000 mls @ 83 mls/hr IV ASDIR [facility] Last Admin: 08/01/19 12:58 Dose: 83 mls/hr Insulin Aspart (Novolog Vial Sliding Scale -) 1 vial SQ ACHS [facility]; Protocol Last Admin: 08/01/19 11:50 Dose: Not Given Lidocaine (Lidoderm Patch -) 1 patch TP DAILY [facility] Last Admin: 08/01/19 11:00 Dose: 1 patch Metoprolol Tartrate (Lopressor Injection -) 5 mg IVPUSH Q4H PRN PRN Reason: TACHYCARDIA Last Admin: 07/29/19 13:08 Dose: 5 mg Miscellaneous (Lidoderm Patch Removal) 1 each MC DAILY@2200 [facility] Last Admin: 07/31/19 22:26 Dose: 1 each Olanzapine (Zyprexa -) 2.5 mg PO HS [facility] Last Admin: 07/31/19 22:25 Dose: 2.5 mg Pantoprazole Sodium (Protonix Iv) 40 mg IVPUSH DAILY [facility] Last Admin: 08/01/19 09:39 Dose: 40 mg Polyethylene Glycol (Miralax (For Daily Use) -) 17 gm PO DAILY [facility] Last Admin: 08/01/19 11:00 Dose: 17 gm - Objective Vital Signs: Vital Signs Temperature 97.9 F 08/01/19 14:00 Pulse Rate 85 08/01/19 14:00 Respiratory Rate 16 08/01/19 14:00 Blood Pressure 137/47 L 08/01/19 14:00 O2 Sat by Pulse Oximetry (%) 99 08/01/19 10:00 Constitutional: Yes: No Distress Eyes: Yes: Conjunctiva Clear Cardiovascular: Yes: Regular Rate and Rhythm, S1, S2 Respiratory: Yes: Mechanically Ventilated Gastrointestinal: Yes: Normal Bowel Sounds, Soft. No: Tenderness Labs: CBC, BMP 08/01/19 06:00 08/01/19 06:00 INR, PTT INR 1.61 (0.83-1.09) H 07/29/19 06:15 Assessment/Plan RESPIRATORY FAILURE PROBABLE ASPIRATION RLL PNEUMONIA R/O SEPTIC SHOCK CONTINUE ZOSYN HEMODYNAMIC/ VENTILATORY SUPPORT
[2019-08-01] MEDS: DEXMEDETOMIDINE HCL 200 MCG in SODIUM CHLORIDE 48 ML IVPB SCH (17:23)
[2019-08-01] MEDS: OLANZapine 2.5 MG TABLET PO SCH (22:11)
[2019-08-01] MEDS: LIDOCAINE PATCH REMOVAL MC SCH (22:11)
[2019-08-01] MEDS: NOREPINEPHRINE BITARTRATE 8,000 MCG in DEXTROSE 5%-WATER - 492 ML IV SCH (22:14)
[2019-08-01] MEDS: DEXMEDETOMIDINE HCL 400 MCG in SODIUM CHLORIDE 96 ML IVPB SCH (23:00)
[2019-08-02] MEDS: PIPERACILLIN/TAZOB 3.375 GM 3.375 GM in DEXTROSE 5%-WATER - 50 ML IVPB SCH ×3 (01:46→18:12)
[2019-08-02] MEDS: CHLORHEXIDINE GLUCONATE 0.12% 15ML CUP MM SCH ×3 (01:58→21:29)
[2019-08-02] MEDS: INSULIN SLIDING SCALE (NOVOLOG) 1 VIAL SQ SCH ×4 (06:14→23:54)
[2019-08-02] MEDS: SODIUM CHLORIDE 1,000 ML IV SCH ×2 (06:14→18:30)
--- NOTE | 2019-08-02 06:57 | PN ---
Progress Note, Physician Chief Complaint: intubated on pressors BP better trying to open eyes when stimulated consults appreciated - Current Medication List Current Medications: Active Medications Acetaminophen (Tylenol -) 650 mg PO Q6H PRN PRN Reason: PAIN 2-5 Last Admin: 07/27/19 09:11 Dose: 650 mg Apixaban (Eliquis -) 2.5 mg PO BID [facility] Last Admin: 08/01/19 22:10 Dose: 2.5 mg Chlorhexidine Gluconate (Peridex -) 15 ml MM BID [facility] Last Admin: 08/02/19 01:58 Dose: 15 ml Diltiazem HCl (Cardizem -) 30 mg NR QID PRN PRN Reason: TACHYCARDIA Piperacillin Sod/Tazobactam (Sod 3.375 gm/ Dextrose) 50 mls @ 100 mls/hr IVPB Q8H-IV [facility]; Protocol Last Admin: 08/02/19 01:46 Dose: 100 mls/hr Norepinephrine Bitartrate 8, (000 mcg/ Dextrose) 500 mls @ 18.75 mls/hr IV TITR [facility]; Protocol Last Admin: 08/01/19 22:14 Dose: Not Given Midazolam HCl (Midazolam 100mg/100ml-0.9%Nacl) 100 mg in 100 mls @ 1 mls/hr IVPB TITR [facility]; Protocol Last Admin: 08/01/19 07:00 Dose: Not Given Sodium Chloride (Normal Saline -) 1,000 mls @ 83 mls/hr IV ASDIR [facility] Last Admin: 08/02/19 06:14 Dose: 83 mls/hr Dexmedetomidine HCl 400 mcg/ (Sodium Chloride) 100 mls @ 2.3 mls/hr IVPB TITR [facility] Last Admin: 08/01/19 23:00 Dose: 0.6 mcg/kg/hr, 6.91 mls/hr Insulin Aspart (Novolog Vial Sliding Scale -) 1 vial SQ ACHS [facility]; Protocol Last Admin: 08/02/19 06:14 Dose: Not Given Lidocaine (Lidoderm Patch -) 1 patch TP DAILY [facility] Last Admin: 08/01/19 11:00 Dose: 1 patch Metoprolol Tartrate (Lopressor Injection -) 5 mg IVPUSH Q4H PRN PRN Reason: TACHYCARDIA Last Admin: 07/29/19 13:08 Dose: 5 mg Miscellaneous (Lidoderm Patch Removal) 1 each MC DAILY@2200 [facility] Last Admin: 08/01/19 22:11 Dose: 1 each Olanzapine (Zyprexa -) 2.5 mg PO HS [facility] Last Admin: 08/01/19 22:11 Dose: 2.5 mg Pantoprazole Sodium (Protonix Iv) 40 mg IVPUSH DAILY [facility] Last Admin: 08/01/19 09:39 Dose: 40 mg Polyethylene Glycol (Miralax (For Daily Use) -) 17 gm PO DAILY [facility] Last Admin: 08/01/19 11:00 Dose: 17 gm - Objective Vital Signs: Vital Signs Temperature 97.6 F 08/02/19 06:00 Pulse Rate 82 08/02/19 06:00 Respiratory Rate 18 08/02/19 06:00 Blood Pressure 121/59 L 08/02/19 06:00 O2 Sat by Pulse Oximetry (%) 99 08/01/19 22:00 Constitutional: Yes: Calm Eyes: Yes: Conjunctiva Clear HENT: Yes: Atraumatic Neck: Yes: Supple Cardiovascular: Yes: Regular Rate and Rhythm Respiratory: Yes: Diminished Gastrointestinal: Yes: Soft. No: Tenderness Genitourinary: No: Hematuria Musculoskeletal: No: Joint Stiffness, Joint Swelling Extremities: No: Cold, Cool, Cyanosis Edema: No (no legs edema, yes hands ) Integumentary: No: Pressure Ulcer, Rash, Venous Stasis Changes Neurological: No: Alert Psychiatric: No: Alert, Agitated Labs: CBC, BMP 08/01/19 06:00 08/01/19 06:00 INR, PTT INR 1.61 (0.83-1.09) H 07/29/19 06:15 - ....Imaging Other: Report Reviewed Assessment/Plan 88 yo F PMH of L Breast Ca, HTN, Afib ( on Eliquis) admitted with weakness and confusion, became hypotensive, respiratory distress intubated; s/p low grade fever; RLL PNA; in ICU on vent - spontaneous breathing trials pulm ICU f/u taper pressors as tolerated PNA: IV ATB per ID; f/u cultures; CXR tachycardia, AFib: cardiology f/u; prerenal azotemia, s/p IVF; renal f/u; f/u labs; metabolic encephalopathy and severe protein malnutrition; neurology and dietitian f/u; decubs DVT aspiration pfx prognosis guarded; palliative care noted; will d/w pt's HCP t time 35 min d.w staff
--- NOTE | 2019-08-02 07:24 | PN ---
Physical Exam: SUBJECTIVE: Patient seen and examined by the bedside, intubated and sedated. Overnight she was found to be retaining urine, bladder scan showed 950cc and she was straight cathed 2x. OBJECTIVE: Vital Signs Period Temp Pulse Resp BP Sys/Sheldon Pulse Ox Last 24 Hr 97.6 F-98.5 F 80-100 14-23 84-139/34-74 99-100 GENERAL: The patient is sedated, in no acute distress. LUNGS: Breath sounds equal, clear to auscultation bilaterally, no wheezes, no crackles, no accessory muscle use. Intubated on vent HEART: Regular rate, irregular rhythm, S1, S2 without murmur, rub or gallop. ABDOMEN: Soft, nontender, nondistended EXTREMITIES: warm, +1 edema hands, no edema BLE. Ecchymosis R hand NEUROLOGICAL: Sedated Laboratory Results - last 24 hr 08/01/19 08/01/19 08/01/19 06:00 06:00 11:42 WBC 10.0 RBC 3.83 Hgb 11.4 Hct 34.4 MCV 89.9 MCH 29.9 MCHC 33.2 RDW 15.3 Plt Count 195 MPV 9.6 Sodium 142 Potassium 3.8 Chloride 111 H Carbon Dioxide 27 Anion Gap 4 L BUN 8.8 Creatinine 0.6 Est GFR (CKD-EPI)AfAm 94.32 Est GFR (CKD-EPI)NonAf 81.38 POC Glucometer 115 Random Glucose 95 Calcium 7.7 L Phosphorus 2.6 Magnesium 2.2 Total Bilirubin 0.6 AST 40 H ALT 68 H Alkaline Phosphatase 193 H Total Protein 4.3 L Albumin 1.5 L 08/01/19 08/01/19 08/02/19 16:17 23:23 05:42 WBC RBC Hgb Hct MCV MCH MCHC RDW Plt Count MPV Sodium Potassium Chloride Carbon Dioxide Anion Gap BUN Creatinine Est GFR (CKD-EPI)AfAm Est GFR (CKD-EPI)NonAf POC Glucometer 94 101 143 Random Glucose Calcium Phosphorus Magnesium Total Bilirubin AST ALT Alkaline Phosphatase Total Protein Albumin Active Medications Generic Name Dose Route Start Last Admin Trade Name Freq PRN Reason Stop Dose Admin Acetaminophen 650 mg 07/22/19 17:52 07/27/19 09:11 Tylenol - PO 650 mg Q6H PRN Administration PAIN 2-5 Apixaban 2.5 mg 07/21/19 22:45 08/01/19 22:10 Eliquis - PO 2.5 mg BID [facility] Administration Chlorhexidine Gluconate 15 ml 08/01/19 23:45 08/02/19 01:58 Peridex - MM 15 ml BID [facility] Administration Diltiazem HCl 30 mg 07/30/19 14:14 Cardizem - NR QID PRN TACHYCARDIA Piperacillin Sod/Tazobactam 50 mls @ 100 mls/hr 07/28/19 13:45 08/02/19 01:46 Sod 3.375 gm/ Dextrose IVPB 100 mls/hr Q8H-IV [facility] Administration Protocol Norepinephrine Bitartrate 8, 500 mls @ 18.75 mls/hr 07/28/19 21:45 08/02/19 06:00 000 mcg/ Dextrose IV 10 mcg/min TITR [facility] 37.5 mls/hr Titration Protocol 5 MCG/MIN Midazolam HCl 100 mg in 100 mls @ 1 mls/hr 07/29/19 16:00 08/01/19 07:00 Midazolam 100mg/100ml-0.9%Nacl IVPB Not Given TITR [facility] Protocol 1 MG/HR Sodium Chloride 1,000 mls @ 83 mls/hr 08/01/19 12:15 08/02/19 06:14 Normal Saline - IV 83 mls/hr ASDIR [facility] Administration Dexmedetomidine HCl 400 mcg/ 100 mls @ 2.3 mls/hr 08/01/19 22:16 08/01/19 23: 00 Sodium Chloride IVPB 0.6 mcg/kg/hr TITR [facility] 6.91 mls/hr Administration 0.2 MCG/KG/HR Insulin Aspart 1 vial 07/26/19 07:00 08/02/19 06:14 Novolog Vial Sliding Scale - SQ Not Given ACHS [facility] Protocol Lidocaine 1 patch 07/24/19 10:00 08/01/19 11:00 Lidoderm Patch - TP 1 patch DAILY [facility] Administration Metoprolol Tartrate 5 mg 07/26/19 12:39 07/29/19 13:08 Lopressor Injection - IVPUSH 5 mg Q4H PRN Administration TACHYCARDIA Miscellaneous 1 each 07/24/19 22:00 08/01/19 22:11 Lidoderm Patch Removal MC 1 each DAILY@2200 [facility] Administration Olanzapine 2.5 mg 07/26/19 22:00 08/01/19 22:11 Zyprexa - PO 2.5 mg HS [facility] Administration Pantoprazole Sodium 40 mg 07/29/19 14:45 08/01/19 09:39 Protonix Iv IVPUSH 40 mg DAILY [facility] Administration Polyethylene Glycol 17 gm 07/26/19 10:00 08/01/19 11:00 Miralax (For Daily Use) - PO 17 gm DAILY [facility] Administration ASSESSMENT/PLAN: 88 YO F with PMH of HTN, A fib (on Eliquis 2.5mg BD), DM, and Breast CA. She presented to the ER on 07/21 after she was unable to get up of from her toilet for 4 hours and was found by her neighbor, who called EMS. She was found to have A Fib with RVR and was subsequently admitted . On 07/27 she was found to be lethargic, not arousable, with irregular shallow breathing. A rapid response was called, she was intubated, and was admitted to the ICU. #Neuro - Off sedation to assess mental status - CT Head (07/21): No acute pathology - Continue olanzapine #Cardio - Norepi @ 5mcg/min , L IJ placed 07/29 - Monitor CVP, maintain 8-12. 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 #ID - WBC: 10.0 -> 8.7 - Zosyn day 6 - Sputum cx presumptive Staph Aureus, Urine, Blood cx no growth #Endo - hx DM, on Novolog SS ACHS #GI - AXR ordered to r/o fecal retention in setting of constipation: Retained stool , no impaction or gross constipation - continue Miralax - NG tube in place - Protonix 40mg IV #FEN - N/S @ 83 - Tube feed Vital 1.2 as per [employer]ing [employer] P[employer] Supervisor PPX - Eliquis 2.5mg BID #Dispo - Palliative consult placed - Will discuss goals of care with PAUL Smith (neighbor's ) - Monitor in ICU Visit type - Emergency Visit Emergency Visit: Yes ED Registration Date: 07/21/19 Care time: The patient presented to the Emergency Department on the above date and was hospitalized for further evaluation of their emergent condition. - New Patient This patient is new to me today: Yes Date on this admission: 08/24/19 - Critical Care Critical Care patient: Yes Total Critical Care Time (in minutes): 38 Critical Care Statement: The care of this patient involved high complexity decision making to prevent further life threatening deterioration of the patient 's condition and/or to evaluate & treat vital organ system(s) failure or risk of failure. ATTENDING PHYSICIAN STATEMENT I saw and evaluated the patient. I reviewed the resident's note and discussed the case with the resident. I agree with the resident's findings and plan as documented. SUBJECTIVE: OBJECTIVE: ASSESSMENT AND PLAN:
[2019-08-02 07:51] LABS: BASO % 0.5 % (0-2.0); EOS % 1.4 % (0-4.5); HEMATOCRIT 35.9 % (32.4-45.2); HEMOGLOBIN 11.9 GM/dL (10.7-15.3); LYMPH % 10.9 % (8-40); MCH 29.9 pg (25.7-33.7); MEAN CELL VOLUME 90.6 fl (80-96); MEAN PLT VOLUME 10.1 fl (7.5-11.1); MONO % 8.9 % (3.8-10.2); NEUT % 78.3 % (42.8-82.8); PLATELET COUNT 226 K/MM3 (134-434); RBC 3.96 M/mm3 (3.60-5.2); RDW 16.1 % (11.6-15.6); WHITE BLOOD COUNT 8.7 K/mm3 (4.0-10.0)
[2019-08-02 08:25] LABS: ALBUMIN 1.6 g/dl (3.4-5.0); BILIRUBIN,TOTAL 0.6 mg/dL (0.2-1); CREATININE 0.6 mg/dL (0.55-1.3); POTASSIUM 3.9 mmol/L (3.5-5.1); TOT PROT 4.5 g/dl (6.4-8.2)
--- NOTE | 2019-08-02 09:09 | PN ---
Progress Note (short form) - Note Progress Note: Neurology - Admission Chief Complaint: Weakness History of Present Illness: 88 year old female with HTN, A fib (on AC) in her USOH, lives alone, using a walker for ambulation, couldn't get up of toilet for hours ( couldn't reach the walker) on day of admission until was found by her neighbour who brought her to ER. In ER it was noticed to by in A Fib with RVR, recieved IV Metoprolol with improvement in HR. Cardiology has been following patient and monitoring cardiac status. I was consulted due to altered mental status and confusion. Urinalysis was negative, remains afebrile and with normal white count. Labs noted for hypernatremia with sodium of 151, improving. MRI brain previously ordered, not yet completed. Overnight 07/27, patient developed lethargy and transferred to ICU, required intubation and currently on mechanical ventilation. Head ct ordered in interim to reevaluate for any structural abnormalities, not yet completed. Patient without significant improvement overnight and remains under critical care monitoring. Repeat Chest xray reviewed and with infiltrate vs atelechtasis. Possible source for her altered mental status and possible underlying pneumonia, is on antibiotics, Zosyn. Remains on pressors, attempted to wean are being continued. Neurologically without improvement and remains on vent and intubated. On sedation and without improvement, discussed with nurse as well as ICU resident, may require further reevaluation of goals of care. Active Medications Acetaminophen (Tylenol -) 650 mg PO Q6H PRN PRN Reason: PAIN 2-5 Last Admin: 07/27/19 09:11 Dose: 650 mg Apixaban (Eliquis -) 2.5 mg PO BID [facility] Last Admin: 08/01/19 22:10 Dose: 2.5 mg Chlorhexidine Gluconate (Peridex -) 15 ml MM BID [facility] Last Admin: 08/02/19 01:58 Dose: 15 ml Diltiazem HCl (Cardizem -) 30 mg NR QID PRN PRN Reason: TACHYCARDIA Piperacillin Sod/Tazobactam (Sod 3.375 gm/ Dextrose) 50 mls @ 100 mls/hr IVPB Q8H-IV [facility]; Protocol Last Admin: 08/02/19 01:46 Dose: 100 mls/hr Norepinephrine Bitartrate 8, (000 mcg/ Dextrose) 500 mls @ 18.75 mls/hr IV TITR [facility]; Protocol Last Titration: 08/02/19 06:00 Dose: 10 mcg/min, 37.5 mls/hr Midazolam HCl (Midazolam 100mg/100ml-0.9%Nacl) 100 mg in 100 mls @ 1 mls/hr IVPB TITR [facility]; Protocol Last Admin: 08/01/19 07:00 Dose: Not Given Sodium Chloride (Normal Saline -) 1,000 mls @ 83 mls/hr IV ASDIR [facility] Last Admin: 08/02/19 06:14 Dose: 83 mls/hr Dexmedetomidine HCl 400 mcg/ (Sodium Chloride) 100 mls @ 2.3 mls/hr IVPB TITR [facility] Last Admin: 08/01/19 23:00 Dose: 0.6 mcg/kg/hr, 6.91 mls/hr Insulin Aspart (Novolog Vial Sliding Scale -) 1 vial SQ ACHS [facility]; Protocol Last Admin: 08/02/19 06:14 Dose: Not Given Lidocaine (Lidoderm Patch -) 1 patch TP DAILY [facility] Last Admin: 08/01/19 11:00 Dose: 1 patch Metoprolol Tartrate (Lopressor Injection -) 5 mg IVPUSH Q4H PRN PRN Reason: TACHYCARDIA Last Admin: 07/29/19 13:08 Dose: 5 mg Miscellaneous (Lidoderm Patch Removal) 1 each MC DAILY@2200 [facility] Last Admin: 08/01/19 22:11 Dose: 1 each Olanzapine (Zyprexa -) 2.5 mg PO HS [facility] Last Admin: 08/01/19 22:11 Dose: 2.5 mg Pantoprazole Sodium (Protonix Iv) 40 mg IVPUSH DAILY [facility] Last Admin: 08/01/19 09:39 Dose: 40 mg Polyethylene Glycol (Miralax (For Daily Use) -) 17 gm PO DAILY [facility] Last Admin: 08/01/19 11:00 Dose: 17 gm Physical Examination Vital Signs: Vital Signs Period Temp Pulse Resp BP Sys/Sheldon Pulse Ox Last 24 Hr 97.6 F-98.5 F 82-100 14-23 84-139/34-74 99-99 Eyes: Yes: Conjunctiva Clear, EOM Intact HENT: No: Epistaxis, Rhinnorhea Neck: Yes: Trachea Midline. No: Lymphadenopathy Cardiovascular: Yes: Pulse Irregular, S1, S2 Respiratory: Yes: Regular, CTA Bilaterally. No: Rales Gastrointestinal: Yes: Normal Bowel Sounds, Soft, Hepatomegaly. No: Splenomegaly, Tenderness ...Rectal Exam: Yes: Deferred Renal/: No: CVA Tenderness - Left, CVA Tenderness - Right Breast(s): Yes: Other (deferred) Musculoskeletal: No: Back Pain, Joint Swelling Extremities: No: Cool, Cyanosis Edema: No Integumentary: Yes: Bruising (large bruise of the left elbow) Neurological: Sedated, not following commands, pupils reponsive to light, moves to painful stim, no abnormal movements CBCD WBC 8.7 K/mm3 (4.0-10.0) 08/02/19 06:00 RBC 3.96 M/mm3 (3.60-5.2) 08/02/19 06:00 Hgb 11.9 GM/dL (10.7-15.3) 08/02/19 06:00 Hct 35.9 % (32.4-45.2) 08/02/19 06:00 MCV 90.6 fl (80-96) 08/02/19 06:00 MCHC 33.0 g/dl (32.0-36.0) 08/02/19 06:00 RDW 16.1 % (11.6-15.6) H 08/02/19 06:00 Plt Count 226 K/MM3 (134-434) 08/02/19 06:00 MPV 10.1 fl (7.5-11.1) 08/02/19 06:00 CMP Sodium 141 mmol/L (136-145) 08/02/19 06:00 Potassium 3.9 mmol/L (3.5-5.1) 08/02/19 06:00 Chloride 110 mmol/L (98-107) H 08/02/19 06:00 Carbon Dioxide 24 mmol/L (21-32) 08/02/19 06:00 Anion Gap 7 MMOL/L (8-16) L 08/02/19 06:00 BUN 11.0 mg/dL (7-18) 08/02/19 06:00 Creatinine 0.6 mg/dL (0.55-1.3) 08/02/19 06:00 Random Glucose 146 mg/dL (74-106) H 08/02/19 06:00 Calcium 8.0 mg/dL (8.5-10.1) L 08/02/19 06:00 Total Bilirubin 0.6 mg/dL (0.2-1) 08/02/19 06:00 AST 35 U/L (15-37) 08/02/19 06:00 ALT 55 U/L (13-61) 08/02/19 06:00 Alkaline Phosphatase 192 U/L (45-117) H 08/02/19 06:00 Total Protein 4.5 g/dl (6.4-8.2) L 08/02/19 06:00 Albumin 1.6 g/dl (3.4-5.0) L 08/02/19 06:00 CARDIAC ENZYMES Creatine Kinase 127 U/L (26-192) 07/28/19 06:30 Troponin I < 0.02 ng/ml (0.00-0.05) 07/28/19 06:30 Plan: 88 year old female with HTN, A fib (on AC) in her USOH, lives alone, using a walker for ambulation, couldn't get up of toilet for hours ( couldn't reach the walker) on day of admission until was found by her neighbour who brought her to ER. In ER it was noticed to by in A Fib with RVR, recieved IV Metoprolol with improvement in HR. Cardiology has been following patient and monitoring cardiac status. I was consulted due to altered mental status and confusion. Urinalysis was negative, remains afebrile and with normal white count. Labs noted for hypernatremia with sodium of 151, improving. MRI brain previously ordered, not yet completed. Overnight 07/27, patient developed lethargy and transferred to ICU, required intubation and currently on mechanical ventilation. Head ct ordered in interim to reevaluate for any structural abnormalities, not yet completed. Patient without significant improvement overnight and remains under critical care monitoring. Of note, found to have infiltrates on x-ray indicating possible source for her altered mental status and possible underlying pneumonia, is on antibiotics including Zosyn. Remains on pressors, attempted to wean are being continued. Neurologically without improvement and remains on vent and intubated. Continue optimization of cardiac factors including atrial fibrillation. Maintain adequate hydration, monitor blood pressure, wean pressors as best able. Optimization of possible underlying pneumonia recommended, may have been etiology to her reduced mental status. Neurologically without improvement and remains on vent and intubated. On sedation and without improvement, discussed with nurse as well as ICU resident, may require further reevaluation of goals of care. IV antibiotics as per primary, ICU. Will continue to monitor mental status closely. Sedation reduction as best able. Critical care time 35 mins.
[2019-08-02] MEDS ORDERED: DEXTROSE 5%-WATER - 50 ML IVPB ONE ×2 (10:36→17:58)
[2019-08-02] MEDS ORDERED: PIPERACILLIN/TAZOBACTAM 3.375 GM VIAL IVPB ONE ×2 (10:36→17:58)
[2019-08-02] MEDS: POLYETHYLENE GLYCOL 3350 119 GM BTL PO SCH (10:46)
[2019-08-02] MEDS: APIXABAN 2.5 MG TABLET PO SCH ×2 (10:46→21:29)
[2019-08-02] MEDS: PANTOPRAZOLE SODIUM 40 MG VIAL IVPUSH SCH (10:47)
[2019-08-02] MEDS: LIDOCAINE 5% TOPICAL PATCH TP SCH (11:00)
--- NOTE | 2019-08-02 11:13 | PN ---
Teaching Attending Note Name of Resident: Tay Hines ATTENDING PHYSICIAN STATEMENT I saw and evaluated the patient. I reviewed the resident's note and discussed the case with the resident. I agree with the resident's findings and plan as documented. SUBJECTIVE: Patient seen and examined in the ICU. Remains intubated and sedated on Precedex. AC Mode of vent, 30% FiO2. NE @ 10 mcq for hemodynamic support. Intake & Output 07/30/19 07/31/19 08/01/19 08/02/19 23:59 23:59 23:59 23:59 Intake Total 5712 3011.5 3975 2092 Output Total 2100 1900 3720 1050 Balance 3612 1111.5 255 1042 Weight 107 lb 8 oz 116 lb 6 oz 118 lb 7 oz 110 lb 1 oz Last Vital Signs Temp Pulse Resp BP Pulse Ox 98.0 F 97 H 22 H 91/39 L 99 08/02/19 10:00 08/02/19 10:00 08/02/19 10:00 08/02/19 10:00 08/01/19 22:00 Active Medications Acetaminophen (Tylenol -) 650 mg PO Q6H PRN PRN Reason: PAIN 2-5 Last Admin: 07/27/19 09:11 Dose: 650 mg Apixaban (Eliquis -) 2.5 mg PO BID [facility] Last Admin: 08/02/19 10:46 Dose: 2.5 mg Chlorhexidine Gluconate (Peridex -) 15 ml MM BID [facility] Last Admin: 08/02/19 10:46 Dose: 15 ml Diltiazem HCl (Cardizem -) 30 mg NR QID PRN PRN Reason: TACHYCARDIA Piperacillin Sod/Tazobactam (Sod 3.375 gm/ Dextrose) 50 mls @ 100 mls/hr IVPB Q8H-IV [facility]; Protocol Last Admin: 08/02/19 10:47 Dose: 100 mls/hr Norepinephrine Bitartrate 8, (000 mcg/ Dextrose) 500 mls @ 18.75 mls/hr IV TITR [facility]; Protocol Last Titration: 08/02/19 06:00 Dose: 10 mcg/min, 37.5 mls/hr Midazolam HCl (Midazolam 100mg/100ml-0.9%Nacl) 100 mg in 100 mls @ 1 mls/hr IVPB TITR [facility]; Protocol Last Admin: 08/01/19 07:00 Dose: Not Given Sodium Chloride (Normal Saline -) 1,000 mls @ 83 mls/hr IV ASDIR [facility] Last Admin: 08/02/19 06:14 Dose: 83 mls/hr Dexmedetomidine HCl 400 mcg/ (Sodium Chloride) 100 mls @ 2.3 mls/hr IVPB TITR [facility] Last Admin: 08/01/19 23:00 Dose: 0.6 mcg/kg/hr, 6.91 mls/hr Insulin Aspart (Novolog Vial Sliding Scale -) 1 vial SQ ACHS [facility]; Protocol Last Admin: 08/02/19 06:14 Dose: Not Given Lidocaine (Lidoderm Patch -) 1 patch TP DAILY [facility] Last Admin: 08/01/19 11:00 Dose: 1 patch Metoprolol Tartrate (Lopressor Injection -) 5 mg IVPUSH Q4H PRN PRN Reason: TACHYCARDIA Last Admin: 07/29/19 13:08 Dose: 5 mg Miscellaneous (Lidoderm Patch Removal) 1 each MC DAILY@2200 [facility] Last Admin: 08/01/19 22:11 Dose: 1 each Olanzapine (Zyprexa -) 2.5 mg PO HS [facility] Last Admin: 08/01/19 22:11 Dose: 2.5 mg Pantoprazole Sodium (Protonix Iv) 40 mg IVPUSH DAILY [facility] Last Admin: 08/02/19 10:47 Dose: 40 mg Polyethylene Glycol (Miralax (For Daily Use) -) 17 gm PO DAILY [facility] Last Admin: 08/02/19 10:46 Dose: 17 gm EXAM: general: intubated and sedated w/o distress, RASS -4 HEENT: PERRL, no JVD Pulm: Vented, coarse breath sounds bilaterally ABD: Soft, NT, ND, (+) BS Ext: WWP, trace edema Neuro: Sedated Laboratory Results - last 24 hr 08/01/19 08/01/19 08/01/19 11:42 16:17 23:23 WBC RBC Hgb Hct MCV MCH MCHC RDW Plt Count MPV Absolute Neuts (auto) Neutrophils % Lymphocytes % Monocytes % Eosinophils % Basophils % Nucleated RBC % Sodium Potassium Chloride Carbon Dioxide Anion Gap BUN Creatinine Est GFR (CKD-EPI)AfAm Est GFR (CKD-EPI)NonAf POC Glucometer 115 94 101 Random Glucose Calcium Total Bilirubin AST ALT Alkaline Phosphatase Total Protein Albumin 08/02/19 08/02/19 08/02/19 05:42 06:00 06:00 WBC 8.7 RBC 3.96 Hgb 11.9 Hct 35.9 MCV 90.6 MCH 29.9 MCHC 33.0 RDW 16.1 H Plt Count 226 MPV 10.1 Absolute Neuts (auto) 6.8 Neutrophils % 78.3 Lymphocytes % 10.9 D Monocytes % 8.9 Eosinophils % 1.4 D Basophils % 0.5 D Nucleated RBC % 0 Sodium 141 Potassium 3.9 Chloride 110 H Carbon Dioxide 24 Anion Gap 7 L BUN 11.0 Creatinine 0.6 Est GFR (CKD-EPI)AfAm 94.32 Est GFR (CKD-EPI)NonAf 81.38 POC Glucometer 143 Random Glucose 146 H Calcium 8.0 L Total Bilirubin 0.6 AST 35 ALT 55 Alkaline Phosphatase 192 H Total Protein 4.5 L Albumin 1.6 L ASSESSMENT AND PLAN: Acute Hypoxic Respiratory Failure Pneumonia Sepsis Lactic Acidosis Altered Mental Status Atrial Fibrillation Mitral Regurgitation HTN Hypernatremia - ABX per ID: [email or web address] - Follow CVP - Pressors to maintain MAP > 65 - MRI brain when extubated - Daily interruption of sedation to assess - Spontaneous breathing trials daily - Continue tube feeds - DVT/GI prophylaxis - Requires continued ICU monitoring Dr Drummond Critical care time spent in reviewing chart, evaluating patient and formulating plan - 36 minutes.
--- NOTE | 2019-08-02 11:42 | PN ---
Progress Note (short form) - Note Progress Note: s: intubated, not responsive Current Medications Acetaminophen (Tylenol -) 650 mg PO Q6H PRN PRN Reason: PAIN 2-5 Last Admin: 07/27/19 09:11 Dose: 650 mg Apixaban (Eliquis -) 2.5 mg PO BID [facility] Last Admin: 08/02/19 10:46 Dose: 2.5 mg Chlorhexidine Gluconate (Peridex -) 15 ml MM BID [facility] Last Admin: 08/02/19 10:46 Dose: 15 ml Diltiazem HCl (Cardizem -) 30 mg NR QID PRN PRN Reason: TACHYCARDIA Piperacillin Sod/Tazobactam (Sod 3.375 gm/ Dextrose) 50 mls @ 100 mls/hr IVPB Q8H-IV [facility]; Protocol Last Admin: 08/02/19 10:47 Dose: 100 mls/hr Norepinephrine Bitartrate 8, (000 mcg/ Dextrose) 500 mls @ 18.75 mls/hr IV TITR [facility]; Protocol Last Titration: 08/02/19 06:00 Dose: 10 mcg/min, 37.5 mls/hr Midazolam HCl (Midazolam 100mg/100ml-0.9%Nacl) 100 mg in 100 mls @ 1 mls/hr IVPB TITR [facility]; Protocol Last Admin: 08/01/19 07:00 Dose: Not Given Sodium Chloride (Normal Saline -) 1,000 mls @ 83 mls/hr IV ASDIR [facility] Last Admin: 08/02/19 06:14 Dose: 83 mls/hr Dexmedetomidine HCl 400 mcg/ (Sodium Chloride) 100 mls @ 2.3 mls/hr IVPB TITR [facility] Last Admin: 08/01/19 23:00 Dose: 0.6 mcg/kg/hr, 6.91 mls/hr Insulin Aspart (Novolog Vial Sliding Scale -) 1 vial SQ ACHS [facility]; Protocol Last Admin: 08/02/19 06:14 Dose: Not Given Lidocaine (Lidoderm Patch -) 1 patch TP DAILY [facility] Last Admin: 08/01/19 11:00 Dose: 1 patch Metoprolol Tartrate (Lopressor Injection -) 5 mg IVPUSH Q4H PRN PRN Reason: TACHYCARDIA Last Admin: 07/29/19 13:08 Dose: 5 mg Miscellaneous (Lidoderm Patch Removal) 1 each MC DAILY@2200 [facility] Last Admin: 08/01/19 22:11 Dose: 1 each Olanzapine (Zyprexa -) 2.5 mg PO HS [facility] Last Admin: 08/01/19 22:11 Dose: 2.5 mg Pantoprazole Sodium (Protonix Iv) 40 mg IVPUSH DAILY [facility] Last Admin: 08/02/19 10:47 Dose: 40 mg Polyethylene Glycol (Miralax (For Daily Use) -) 17 gm PO DAILY [facility] Last Admin: 08/02/19 10:46 Dose: 17 gm Vital Signs Period Temp Pulse Resp BP Sys/Sheldon Pulse Ox Last 24 Hr 97.6 F-98.5 F 82-100 14-23 84-157/34-74 99-99 Constitutional: Yes: Well Nourished, No Distress, Calm Cardiovascular: Yes: Regular Rate and Rhythm, Murmur (3/6 early MELISSA rusb/lusb), S1, S2. No: JVD (tds exam), Gallop Respiratory: Yes: Regular, CTA Bilaterally (anteirorly). No: Accessory Muscle Use, Wheezes Extremities: No: Cold Edema: No Neurological: No: Alert, Oriented, Seizure Psychiatric: No: Agitated Labs: CBC, BMP 08/01/19 06:00 08/01/19 06:00 INR, PTT INR 1.61 (0.83-1.09) H 07/29/19 06:15 Assessment/Plan Echo 08/02: nl LV/RV. severe LAE. 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 mod TR. RVSP 30-40. mild /AI. 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 Vent support as per Critical Care 2. Abx as per Critical Care 3. Now has OG tube- cont Eliquis (2.5 mg for age/wt), Cardizem as needed. Rates adequately controlled. 4. Continue to wean pressors as tolerated 5. Advanced directives noted, palliative care consulted. ongoing goals of care discussions with HCP 6. no overt volume excess on exam--would dose lasix prn cxr findings or edema
--- NOTE | 2019-08-02 12:34 | PN ---
Progress Note (short form) - Note Progress Note: Renal follow up electrolyte imbalance Seen and examined in the ICU intubated and sedated remains on vasopressers making urine via leslie CVP is 7-9 Vital Signs Temperature 98.0 F 08/02/19 10:00 Pulse Rate 106 H 08/02/19 12:00 Respiratory Rate 21 H 08/02/19 12:24 Blood Pressure 118/48 L 08/02/19 12:00 O2 Sat by Pulse Oximetry (%) 99 08/01/19 22:00 Intake & Output 07/30/19 07/31/19 08/01/19 08/02/19 23:59 23:59 23:59 23:59 Intake Total 5712 3011.5 3975 2092 Output Total 2100 1900 3720 1050 Balance 3612 1111.5 255 1042 Weight 48.761 kg 52.787 kg 53.722 kg 49.924 kg intubated and sedated ET Tube in place neck supple, no JVD irregular, no M/R Dec BS, no rales soft NT/ND upper extremity edema CBC, BMP 08/02/19 06:00 08/02/19 06:00 Current Medications Acetaminophen (Tylenol -) 650 mg PO Q6H PRN PRN Reason: PAIN 2-5 Last Admin: 07/27/19 09:11 Dose: 650 mg Apixaban (Eliquis -) 2.5 mg PO BID [facility] Last Admin: 08/02/19 10:46 Dose: 2.5 mg Chlorhexidine Gluconate (Peridex -) 15 ml MM BID [facility] Last Admin: 08/02/19 10:46 Dose: 15 ml Diltiazem HCl (Cardizem -) 30 mg NR QID PRN PRN Reason: TACHYCARDIA Piperacillin Sod/Tazobactam (Sod 3.375 gm/ Dextrose) 50 mls @ 100 mls/hr IVPB Q8H-IV [facility]; Protocol Last Admin: 08/02/19 10:47 Dose: 100 mls/hr Norepinephrine Bitartrate 8, (000 mcg/ Dextrose) 500 mls @ 18.75 mls/hr IV TITR [facility]; Protocol Last Titration: 08/02/19 06:00 Dose: 10 mcg/min, 37.5 mls/hr Midazolam HCl (Midazolam 100mg/100ml-0.9%Nacl) 100 mg in 100 mls @ 1 mls/hr IVPB TITR [facility]; Protocol Last Admin: 08/01/19 07:00 Dose: Not Given Sodium Chloride (Normal Saline -) 1,000 mls @ 83 mls/hr IV ASDIR [facility] Last Admin: 08/02/19 06:14 Dose: 83 mls/hr Dexmedetomidine HCl 400 mcg/ (Sodium Chloride) 100 mls @ 2.3 mls/hr IVPB TITR [facility] Last Admin: 08/01/19 23:00 Dose: 0.6 mcg/kg/hr, 6.91 mls/hr Insulin Aspart (Novolog Vial Sliding Scale -) 1 vial SQ ACHS [facility]; Protocol Last Admin: 08/02/19 12:08 Dose: Not Given Lidocaine (Lidoderm Patch -) 1 patch TP DAILY [facility] Last Admin: 08/01/19 11:00 Dose: 1 patch Metoprolol Tartrate (Lopressor Injection -) 5 mg IVPUSH Q4H PRN PRN Reason: TACHYCARDIA Last Admin: 07/29/19 13:08 Dose: 5 mg Miscellaneous (Lidoderm Patch Removal) 1 each MC DAILY@2200 [facility] Last Admin: 08/01/19 22:11 Dose: 1 each Olanzapine (Zyprexa -) 2.5 mg PO HS [facility] Last Admin: 08/01/19 22:11 Dose: 2.5 mg Pantoprazole Sodium (Protonix Iv) 40 mg IVPUSH DAILY [facility] Last Admin: 08/02/19 10:47 Dose: 40 mg Polyethylene Glycol (Miralax (For Daily Use) -) 17 gm PO DAILY [facility] Last Admin: 08/02/19 10:46 Dose: 17 gm 88 year old woman with history of atrial fibrillation and hypertension who presented with rapid atrial fibrillation with pneumonia and hypernatremia. 1. Hypernatreima (water deficit is 1.3L) 2. Azotemia 3. Pneumonia 4. Rapid Atrial fibrillation 5. Lactic acidosis 6. Leukocytosis 7. Hypokalemia 8. Hypophosphtaemia Serum Na is improved Continue isotonic saline to maintain CVP with goal 10-12 continue vaospressers for BP support goal MAP > 65, CVP goal 10-12 K and phos results not recorded, will add to am labs Trend electrolytes daily Thank you Tolu Akers DO
[2019-08-02] MEDS: METOPROLOL TARTRATE 5 MG/5 ML VIAL IVPUSH PRN (13:28)
[2019-08-02 15:37] LABS: MAGNESIUM 2.2 mg/dL (1.8-2.4)
[2019-08-02] MEDS ORDERED: PT OWN MED DRAWER 7, Y5N ONE ×2 (17:59→21:19)
--- NOTE | 2019-08-02 18:26 | PN ---
Progress Note, Physician Chief Complaint: SEDATED ON VENTILATOR HYPOTENSIVE ON PRESSORS - Current Medication List Current Medications: Active Medications Acetaminophen (Tylenol -) 650 mg PO Q6H PRN PRN Reason: PAIN 2-5 Last Admin: 07/27/19 09:11 Dose: 650 mg Apixaban (Eliquis -) 2.5 mg PO BID [facility] Last Admin: 08/02/19 10:46 Dose: 2.5 mg Chlorhexidine Gluconate (Peridex -) 15 ml MM BID [facility] Last Admin: 08/02/19 10:46 Dose: 15 ml Diltiazem HCl (Cardizem -) 30 mg NR QID PRN PRN Reason: TACHYCARDIA Last Admin: 08/02/19 13:27 Dose: 30 mg Piperacillin Sod/Tazobactam (Sod 3.375 gm/ Dextrose) 50 mls @ 100 mls/hr IVPB Q8H-IV [facility]; Protocol Last Admin: 08/02/19 18:12 Dose: 100 mls/hr Norepinephrine Bitartrate 8, (000 mcg/ Dextrose) 500 mls @ 18.75 mls/hr IV TITR [facility]; Protocol Last Titration: 08/02/19 06:00 Dose: 10 mcg/min, 37.5 mls/hr Midazolam HCl (Midazolam 100mg/100ml-0.9%Nacl) 100 mg in 100 mls @ 1 mls/hr IVPB TITR [facility]; Protocol Last Admin: 08/01/19 07:00 Dose: Not Given Sodium Chloride (Normal Saline -) 1,000 mls @ 83 mls/hr IV ASDIR [facility] Last Admin: 08/02/19 06:14 Dose: 83 mls/hr Dexmedetomidine HCl 400 mcg/ (Sodium Chloride) 100 mls @ 2.3 mls/hr IVPB TITR [facility] Last Admin: 08/01/19 23:00 Dose: 0.6 mcg/kg/hr, 6.91 mls/hr Insulin Aspart (Novolog Vial Sliding Scale -) 1 vial SQ ACHS [facility]; Protocol Last Admin: 08/02/19 18:12 Dose: Not Given Lidocaine (Lidoderm Patch -) 1 patch TP DAILY [facility] Last Admin: 08/02/19 11:00 Dose: 1 patch Metoprolol Tartrate (Lopressor Injection -) 5 mg IVPUSH Q4H PRN PRN Reason: TACHYCARDIA Last Admin: 08/02/19 13:28 Dose: 5 mg Miscellaneous (Lidoderm Patch Removal) 1 each MC DAILY@2200 [facility] Last Admin: 08/01/19 22:11 Dose: 1 each Olanzapine (Zyprexa -) 2.5 mg PO HS [facility] Last Admin: 08/01/19 22:11 Dose: 2.5 mg Pantoprazole Sodium (Protonix Iv) 40 mg IVPUSH DAILY [facility] Last Admin: 08/02/19 10:47 Dose: 40 mg Polyethylene Glycol (Miralax (For Daily Use) -) 17 gm PO DAILY [facility] Last Admin: 08/02/19 10:46 Dose: 17 gm - Objective Vital Signs: Vital Signs Temperature 98.6 F 08/02/19 16:00 Pulse Rate 100 H 08/02/19 16:00 Respiratory Rate 28 H 08/02/19 16:01 Blood Pressure 108/59 L 08/02/19 16:00 O2 Sat by Pulse Oximetry (%) 99 08/01/19 22:00 Constitutional: Yes: No Distress Eyes: Yes: Conjunctiva Clear Cardiovascular: Yes: Regular Rate and Rhythm, S1, S2 Respiratory: Yes: CTA Bilaterally Gastrointestinal: Yes: Normal Bowel Sounds, Soft. No: Tenderness Edema: Yes Labs: CBC, BMP 08/02/19 06:00 08/02/19 06:00 INR, PTT INR 1.61 (0.83-1.09) H 07/29/19 06:15 Assessment/Plan RESPIRATORY FAILURE PROBABLE ASPIRATION RLL PNEUMONIA R/O SEPTIC SHOCK CONTINUE ZOSYN HEMODYNAMIC/ VENTILATORY SUPPORT
[2019-08-02] MEDS: MIDAZOLAM IN 0.9 % SOD.CHLORID 100 MG/100 ML PLAST..BAG IVPB SCH (18:30)
[2019-08-02] MEDS ORDERED: SODIUM CHLORIDE 1,000 ML IV SCH (18:36)
[2019-08-02] MEDS: NOREPINEPHRINE BITARTRATE 8,000 MCG in DEXTROSE 5%-WATER - 492 ML IV SCH ×2 (19:00→23:53)
[2019-08-02] MEDS: OLANZapine 2.5 MG TABLET PO SCH (21:28)
[2019-08-02] MEDS: LIDOCAINE PATCH REMOVAL MC SCH (23:54)
[2019-08-02] MEDS: DEXMEDETOMIDINE HCL 400 MCG in SODIUM CHLORIDE 96 ML IVPB SCH (23:54)
[2019-08-03] MEDS ORDERED: PIPERACILLIN/TAZOBACTAM 3.375 GM VIAL IVPB ONE ×2 (02:28→10:57)
[2019-08-03] MEDS ORDERED: DEXTROSE 5%-WATER - 50 ML IVPB ONE ×2 (02:28→10:57)
[2019-08-03] MEDS: PIPERACILLIN/TAZOB 3.375 GM 3.375 GM in DEXTROSE 5%-WATER - 50 ML IVPB SCH ×2 (02:30→11:11)
[2019-08-03] MEDS: NOREPINEPHRINE BITARTRATE 8,000 MCG in DEXTROSE 5%-WATER - 492 ML IV SCH (05:47)
[2019-08-03] MEDS: DEXMEDETOMIDINE HCL 400 MCG in SODIUM CHLORIDE 96 ML IVPB SCH (05:49)
--- NOTE | 2019-08-03 07:21 | PN ---
Physical Exam: SUBJECTIVE: Patient seen and examined by the bedside, intubated and sedated. OBJECTIVE: Vital Signs Period Temp Pulse Resp BP Sys/Sheldon Pulse Ox Last 24 Hr 97.4 F-98.6 F 82-145 18-31 91-157/39-81 99-100 GENERAL: The patient is intubated and sedated, minimally responsive, in no acute distress. LUNGS: Breath sounds diminished, clear to auscultation bilaterally, no wheezes, no crackles, no accessory muscle use. Intubated on vent HEART: Regular rate, irregular rhythm, S1, S2 without murmur, rub or gallop. ABDOMEN: Soft, nontender, nondistended EXTREMITIES: warm, hands and feet more edematous than yesterday B/L NEUROLOGICAL: Sedated CBC, BMP 08/03/19 06:00 08/03/19 06:00 ASSESSMENT/PLAN: 88 YO F with PMH of HTN, A fib (on Eliquis 2.5mg BD), DM, and Breast CA. She presented to the ER on 07/21 after she was unable to get up of from her toilet for 4 hours and was found by her neighbor, who called EMS. She was found to have A Fib with RVR and was subsequently admitted . On 07/27 she was found to be lethargic, not arousable, with irregular shallow breathing. A rapid response was called, she was intubated, and was admitted to the ICU. #Neuro - Off sedation to assess mental status - Neuro recs (Dr. Davidson): MRI (when extubated) if no improvement in mental status - CT Head (07/21): No acute pathology - Continue olanzapine #Cardio - Afib RVR: Rate control with Cardizem 30mg NR QID, Lopressor 5mg IV Q4 PRN for rate control, holding home metoprolol - Shock 2/ sepsis: Norepi @ 20mcg/min , L IJ placed 07/29 - Monitor CVP, maintain 8-12. Given 250cc N/S bolus if it falls - Echo (07/22): EF 55-60, LA sev dilation, MR with prolapse of post mitral leaflet, mod TR, RVSP 30-40, mild AR #Pulm - CXR 08/03: Slight increase in Rt base pulmonary and pleural changes - May consider Lasix if hemodynamically stable #Ortho - Rt hip atraumatic pain for 2 weeks - XR of right hip, femur and tib/fib show degenerative changes without evidence of acute pathology, consistent with DJD, F/U outpatient #Renal - BUN/Cr 11.0/0.6 - Jacques placed 08/02 due to urinary retention #ID - WBC: 8.7 -> 10.6 - Nafcillin Day 1 as per ID, switched from Zosyn after 6 days - Sputum cx Staph Aureus, Urine, Blood cx no growth #Endo - Hx of DM, on Novolog SS ACHS #GI - AXR ordered to r/o fecal retention in setting of constipation: Retained stool , no impaction or gross constipation - continue Miralax - NG tube in place - Protonix 40mg IV #FEN - Standing fluids D/Cristhian due to worsening edema of extremities (was on N/S @ 42) - Phos was 2.3 this morning, repleted with Phos NaK packet 1x - Tube feed Vital 1.2 as per [employer] PPX - Eliquis 2.5mg BID #Dispo - Palliative: Nimesh and Yolanda arriving at 11AM for lowering of sedation - Will discuss goals of care with HP Sarah (neighbor's ) - Monitor in ICU Visit type - Emergency Visit Emergency Visit: Yes ED Registration Date: 07/21/19 Care time: The patient presented to the Emergency Department on the above date and was hospitalized for further evaluation of their emergent condition. - New Patient This patient is new to me today: No - Critical Care Critical Care patient: Yes Total Critical Care Time (in minutes): 38 Critical Care Statement: The care of this patient involved high complexity decision making to prevent further life threatening deterioration of the patient 's condition and/or to evaluate & treat vital organ system(s) failure or risk of failure. ATTENDING PHYSICIAN STATEMENT I saw and evaluated the patient. I reviewed the resident's note and discussed the case with the resident. I agree with the resident's findings and plan as documented. SUBJECTIVE: OBJECTIVE: ASSESSMENT AND PLAN:
[2019-08-03] MEDS: INSULIN SLIDING SCALE (NOVOLOG) 1 VIAL SQ SCH ×4 (07:23→23:11)
[2019-08-03 07:54] LABS: ALBUMIN 1.5 g/dl (3.4-5.0); BILIRUBIN,TOTAL 0.6 mg/dL (0.2-1); BLOOD UREA NITROGEN 14.8 mg/dL (7-18); CALCIUM 7.5 mg/dL (8.5-10.1); CREATININE 0.6 mg/dL (0.55-1.3); MAGNESIUM 2.1 mg/dL (1.8-2.4); PHOSPHOROUS 2.3 mg/dL (2.5-4.9); POTASSIUM 3.8 mmol/L (3.5-5.1); TOT PROT 4.4 g/dl (6.4-8.2)
[2019-08-03 08:04] LABS: BASO % 0.4 % (0-2.0); EOS % 1.1 % (0-4.5); HEMATOCRIT 33.1 % (32.4-45.2); HEMOGLOBIN 10.9 GM/dL (10.7-15.3); LYMPH % 13.3 % (8-40); MCH 29.7 pg (25.7-33.7); MCHC 32.9 g/dl (32.0-36.0); MEAN CELL VOLUME 90.2 fl (80-96); MEAN PLT VOLUME 9.7 fl (7.5-11.1); MONO % 8.1 % (3.8-10.2); NEUT % 77.1 % (42.8-82.8); PLATELET COUNT 214 K/MM3 (134-434); RBC 3.67 M/mm3 (3.60-5.2); RDW 15.7 % (11.6-15.6); WHITE BLOOD COUNT 10.6 K/mm3 (4.0-10.0)
--- NOTE | 2019-08-03 09:07 | PN ---
Progress Note (short form) - Note Progress Note: Neurology - Admission Chief Complaint: Weakness History of Present Illness: 88 year old female with HTN, A fib (on AC) in her USOH, lives alone, using a walker for ambulation, couldn't get up of toilet for hours ( couldn't reach the walker) on day of admission until was found by her neighbour who brought her to ER. In ER it was noticed to by in A Fib with RVR, recieved IV Metoprolol with improvement in HR. Cardiology has been following patient and monitoring cardiac status. I was consulted due to altered mental status and confusion. Urinalysis was negative, remains afebrile and with normal white count. Labs noted for hypernatremia with sodium of 151, improving. MRI brain previously ordered, not yet completed. Overnight 07/27, patient developed lethargy and transferred to ICU, required intubation and currently on mechanical ventilation. Head ct ordered in interim to reevaluate for any structural abnormalities, not yet completed. Patient without significant improvement overnight and remains under critical care monitoring. Repeat Chest xray reviewed and with infiltrate vs atelechtasis. Possible source for her altered mental status and possible underlying pneumonia, is on antibiotics, Zosyn. Remains on pressors, attempted to wean are being continued. Neurologically opening her eyes this morning despite being on sedation. Discussed with ICU nurse to ccontinue to monitor and possibly weaning sedation if able. Active Medications Acetaminophen (Tylenol -) 650 mg PO Q6H PRN PRN Reason: PAIN 2-5 Last Admin: 07/27/19 09:11 Dose: 650 mg Apixaban (Eliquis -) 2.5 mg PO BID [facility] Last Admin: 08/02/19 21:29 Dose: 2.5 mg Chlorhexidine Gluconate (Peridex -) 15 ml MM BID [facility] Last Admin: 08/02/19 21:29 Dose: 15 ml Diltiazem HCl (Cardizem -) 30 mg NR QID PRN PRN Reason: TACHYCARDIA Last Admin: 08/02/19 13:27 Dose: 30 mg Piperacillin Sod/Tazobactam (Sod 3.375 gm/ Dextrose) 50 mls @ 100 mls/hr IVPB Q8H-IV [facility]; Protocol Last Admin: 08/03/19 02:30 Dose: 100 mls/hr Norepinephrine Bitartrate 8, (000 mcg/ Dextrose) 500 mls @ 18.75 mls/hr IV TITR [facility]; Protocol Last Admin: 08/03/19 05:47 Dose: 15 mcg/min, 56.25 mls/hr Midazolam HCl (Midazolam 100mg/100ml-0.9%Nacl) 100 mg in 100 mls @ 1 mls/hr IVPB TITR [facility]; Protocol Last Admin: 08/02/19 18:30 Dose: Not Given Dexmedetomidine HCl 400 mcg/ (Sodium Chloride) 100 mls @ 2.3 mls/hr IVPB TITR [facility] Last Admin: 08/03/19 05:49 Dose: 0.6 mcg/kg/hr, 6.91 mls/hr Sodium Chloride (Normal Saline -) 1,000 mls @ 42 mls/hr IV ASDIR [facility] Last Admin: 08/02/19 21:29 Dose: 42 mls/hr Insulin Aspart (Novolog Vial Sliding Scale -) 1 vial SQ ACHS [facility]; Protocol Last Admin: 08/03/19 07:23 Dose: Not Given Lidocaine (Lidoderm Patch -) 1 patch TP DAILY [facility] Last Admin: 08/02/19 11:00 Dose: 1 patch Metoprolol Tartrate (Lopressor Injection -) 5 mg IVPUSH Q4H PRN PRN Reason: TACHYCARDIA Last Admin: 08/02/19 13:28 Dose: 5 mg Miscellaneous (Lidoderm Patch Removal) 1 each MC DAILY@2200 [facility] Last Admin: 08/02/19 23:54 Dose: 1 each Olanzapine (Zyprexa -) 2.5 mg PO HS [facility] Last Admin: 08/02/19 21:28 Dose: 2.5 mg Pantoprazole Sodium (Protonix Iv) 40 mg IVPUSH DAILY [facility] Last Admin: 08/02/19 10:47 Dose: 40 mg Polyethylene Glycol (Miralax (For Daily Use) -) 17 gm PO DAILY [facility] Last Admin: 08/02/19 10:46 Dose: 17 gm Physical Examination Vital Signs: Vital Signs Period Temp Pulse Resp BP Sys/Sheldon Pulse Ox Last 24 Hr 97.4 F-98.6 F 92-145 21-31 91-149/39-81 99-100 Eyes: Yes: Conjunctiva Clear, EOM Intact HENT: No: Epistaxis, Rhinnorhea Neck: Yes: Trachea Midline. No: Lymphadenopathy Cardiovascular: Yes: Pulse Irregular, S1, S2 Respiratory: Yes: Regular, CTA Bilaterally. No: Rales Gastrointestinal: Yes: Normal Bowel Sounds, Soft, Hepatomegaly. No: Splenomegaly, Tenderness ...Rectal Exam: Yes: Deferred Renal/: No: CVA Tenderness - Left, CVA Tenderness - Right Breast(s): Yes: Other (deferred) Musculoskeletal: No: Back Pain, Joint Swelling Extremities: No: Cool, Cyanosis Edema: No Integumentary: Yes: Bruising (large bruise of the left elbow) Neurological: Sedated, not following commands, pupils reponsive to light, moves to painful stim, no abnormal movements CBCD WBC 10.6 K/mm3 (4.0-10.0) H 08/03/19 06:00 RBC 3.67 M/mm3 (3.60-5.2) 08/03/19 06:00 Hgb 10.9 GM/dL (10.7-15.3) 08/03/19 06:00 Hct 33.1 % (32.4-45.2) 08/03/19 06:00 MCV 90.2 fl (80-96) 08/03/19 06:00 MCHC 32.9 g/dl (32.0-36.0) 08/03/19 06:00 RDW 15.7 % (11.6-15.6) H 08/03/19 06:00 Plt Count 214 K/MM3 (134-434) 08/03/19 06:00 MPV 9.7 fl (7.5-11.1) 08/03/19 06:00 CMP Sodium 139 mmol/L (136-145) 08/03/19 06:00 Potassium 3.8 mmol/L (3.5-5.1) 08/03/19 06:00 Chloride 107 mmol/L (98-107) 08/03/19 06:00 Carbon Dioxide 25 mmol/L (21-32) 08/03/19 06:00 Anion Gap 7 MMOL/L (8-16) L 08/03/19 06:00 BUN 14.8 mg/dL (7-18) 08/03/19 06:00 Creatinine 0.6 mg/dL (0.55-1.3) 08/03/19 06:00 Random Glucose 129 mg/dL (74-106) H 08/03/19 06:00 Calcium 7.5 mg/dL (8.5-10.1) L 08/03/19 06:00 Total Bilirubin 0.6 mg/dL (0.2-1) 08/03/19 06:00 AST 29 U/L (15-37) 08/03/19 06:00 ALT 44 U/L (13-61) 08/03/19 06:00 Alkaline Phosphatase 174 U/L (45-117) H 08/03/19 06:00 Total Protein 4.4 g/dl (6.4-8.2) L 08/03/19 06:00 Albumin 1.5 g/dl (3.4-5.0) L 08/03/19 06:00 CARDIAC ENZYMES Creatine Kinase 127 U/L (26-192) 07/28/19 06:30 Troponin I < 0.02 ng/ml (0.00-0.05) 07/28/19 06:30 Plan: 88 year old female with HTN, A fib (on AC) in her USOH, lives alone, using a walker for ambulation, couldn't get up of toilet for hours ( couldn't reach the walker) on day of admission until was found by her neighbour who brought her to ER. In ER it was noticed to by in A Fib with RVR, recieved IV Metoprolol with improvement in HR. Cardiology has been following patient and monitoring cardiac status. I was consulted due to altered mental status and confusion. Urinalysis was negative, remains afebrile and with normal white count. Labs noted for hypernatremia with sodium of 151, improving. MRI brain previously ordered, not yet completed. Overnight 07/27, patient developed lethargy and transferred to ICU, required intubation and currently on mechanical ventilation. Head ct ordered in interim to reevaluate for any structural abnormalities, not yet completed. Patient without significant improvement overnight and remains under critical care monitoring. Of note, found to have infiltrates on x-ray indicating possible source for her altered mental status and possible underlying pneumonia, is on antibiotics including Zosyn. Remains on pressors, attempted to wean are being continued. Continue optimization of cardiac factors including atrial fibrillation. Maintain adequate hydration, monitor blood pressure, wean pressors as best able. Optimization of possible underlying pneumonia recommended, may have been etiology to her reduced mental status. Neurologically opening her eyes this morning despite being on sedation. Discussed with ICU nurse to ccontinue to monitor and possibly weaning sedation if able. IV antibiotics as per primary, ICU. Will continue to monitor mental status closely. Sedation reduction as best able. Critical care time 35 mins.
[2019-08-03] MEDS: METOPROLOL TARTRATE 5 MG/5 ML VIAL IVPUSH PRN ×3 (09:33→21:03)
--- NOTE | 2019-08-03 09:42 | PN ---
Progress Note, Physician Chief Complaint: intubated, in ICU, on pressors and sedation events tests consults noted - Current Medication List Current Medications: Active Medications Acetaminophen (Tylenol -) 650 mg PO Q6H PRN PRN Reason: PAIN 2-5 Last Admin: 07/27/19 09:11 Dose: 650 mg Apixaban (Eliquis -) 2.5 mg PO BID [facility] Last Admin: 08/02/19 21:29 Dose: 2.5 mg Chlorhexidine Gluconate (Peridex -) 15 ml MM BID [facility] Last Admin: 08/02/19 21:29 Dose: 15 ml Diltiazem HCl (Cardizem -) 30 mg NR QID PRN PRN Reason: TACHYCARDIA Last Admin: 08/02/19 13:27 Dose: 30 mg Piperacillin Sod/Tazobactam (Sod 3.375 gm/ Dextrose) 50 mls @ 100 mls/hr IVPB Q8H-IV [facility]; Protocol Last Admin: 08/03/19 02:30 Dose: 100 mls/hr Norepinephrine Bitartrate 8, (000 mcg/ Dextrose) 500 mls @ 18.75 mls/hr IV TITR [facility]; Protocol Last Admin: 08/03/19 05:47 Dose: 15 mcg/min, 56.25 mls/hr Midazolam HCl (Midazolam 100mg/100ml-0.9%Nacl) 100 mg in 100 mls @ 1 mls/hr IVPB TITR [facility]; Protocol Last Admin: 08/02/19 18:30 Dose: Not Given Dexmedetomidine HCl 400 mcg/ (Sodium Chloride) 100 mls @ 2.3 mls/hr IVPB TITR [facility] Last Admin: 08/03/19 05:49 Dose: 0.6 mcg/kg/hr, 6.91 mls/hr Sodium Chloride (Normal Saline -) 1,000 mls @ 42 mls/hr IV ASDIR [facility] Last Admin: 08/02/19 21:29 Dose: 42 mls/hr Insulin Aspart (Novolog Vial Sliding Scale -) 1 vial SQ ACHS [facility]; Protocol Last Admin: 08/03/19 07:23 Dose: Not Given Lidocaine (Lidoderm Patch -) 1 patch TP DAILY [facility] Last Admin: 08/02/19 11:00 Dose: 1 patch Metoprolol Tartrate (Lopressor Injection -) 5 mg IVPUSH Q4H PRN PRN Reason: TACHYCARDIA Last Admin: 08/03/19 09:33 Dose: 5 mg Miscellaneous (Lidoderm Patch Removal) 1 each MC DAILY@2200 [facility] Last Admin: 08/02/19 23:54 Dose: 1 each Olanzapine (Zyprexa -) 2.5 mg PO HS [facility] Last Admin: 08/02/19 21:28 Dose: 2.5 mg Pantoprazole Sodium (Protonix Iv) 40 mg IVPUSH DAILY [facility] Last Admin: 08/02/19 10:47 Dose: 40 mg Polyethylene Glycol (Miralax (For Daily Use) -) 17 gm PO DAILY [facility] Last Admin: 08/02/19 10:46 Dose: 17 gm - Objective Vital Signs: Vital Signs Temperature 97.8 F 08/03/19 06:00 Pulse Rate 160 H 08/03/19 09:33 Respiratory Rate 27 H 08/03/19 08:00 Blood Pressure 110/58 L 08/03/19 09:33 O2 Sat by Pulse Oximetry (%) 99 08/02/19 20:53 Constitutional: Yes: No Distress Eyes: Yes: Conjunctiva Clear HENT: Yes: Atraumatic Neck: Yes: Supple Cardiovascular: Yes: Regular Rate and Rhythm Respiratory: Yes: Diminished Gastrointestinal: Yes: Soft. No: Tenderness Genitourinary: Yes: Jacques Present. No: Hematuria Musculoskeletal: No: Joint Stiffness, Joint Swelling Extremities: No: Cold, Cool, Cyanosis Edema: Yes (hands bilat) Integumentary: No: Rash Neurological: No: Alert Psychiatric: No: Alert, Agitated Labs: CBC, BMP 08/03/19 06:00 08/03/19 06:00 INR, PTT INR 1.61 (0.83-1.09) H 07/29/19 06:15 - ....Imaging Chest X-ray: Report Reviewed Other: Report Reviewed Assessment/Plan 88 yo F PMH of L Breast Ca, HTN, Afib ( on Eliquis) admitted with weakness and confusion, hypotensive, respiratory distress intubated; s/p low grade fever and RLL PNA; in ICU on vent - spontaneous breathing trials pulm ICU f/u taper pressors as tolerated PNA: IV ATB per ID; f/u cultures; CXR tachycardia, AFib: cardiology f/u; prerenal azotemia, s/p IVF; renal f/u; f/u labs; metabolic encephalopathy and severe protein malnutrition; neurology and dietitian f/u; decubs DVT aspiration pfx prognosis guarded; palliative care noted; d/w pt's HCP Tawana - will continue current PNA treatment for now but no further aggressive measures to be taken according to her previous wishes (DNR no cardiac resuscitations or chest compressions) and if not better with current treatment over the next few days to consider compassionate extubation per pt's prior wishes t time 38 min d.w staff
[2019-08-03] MEDS: APIXABAN 2.5 MG TABLET PO SCH ×2 (11:13→23:10)
[2019-08-03] MEDS: CHLORHEXIDINE GLUCONATE 0.12% 15ML CUP MM SCH ×2 (11:14→21:04)
[2019-08-03] MEDS: POLYETHYLENE GLYCOL 3350 119 GM BTL PO SCH (11:14)
[2019-08-03] MEDS: PANTOPRAZOLE SODIUM 40 MG VIAL IVPUSH SCH (11:14)
--- NOTE | 2019-08-03 11:14 | PN ---
Progress Note, Physician Chief Complaint: SEDATED ON VENTILATOR HYPOTENSIVE ON PRESSORS SPUTUM S AUREUS - Current Medication List Current Medications: Active Medications Acetaminophen (Tylenol -) 650 mg PO Q6H PRN PRN Reason: PAIN 2-5 Last Admin: 07/27/19 09:11 Dose: 650 mg Apixaban (Eliquis -) 2.5 mg PO BID [facility] Last Admin: 08/02/19 21:29 Dose: 2.5 mg Chlorhexidine Gluconate (Peridex -) 15 ml MM BID [facility] Last Admin: 08/02/19 21:29 Dose: 15 ml Diltiazem HCl (Cardizem -) 30 mg NR QID PRN PRN Reason: TACHYCARDIA Last Admin: 08/02/19 13:27 Dose: 30 mg Piperacillin Sod/Tazobactam (Sod 3.375 gm/ Dextrose) 50 mls @ 100 mls/hr IVPB Q8H-IV [facility]; Protocol Last Admin: 08/03/19 02:30 Dose: 100 mls/hr Norepinephrine Bitartrate 8, (000 mcg/ Dextrose) 500 mls @ 18.75 mls/hr IV TITR [facility]; Protocol Last Admin: 08/03/19 05:47 Dose: 15 mcg/min, 56.25 mls/hr Midazolam HCl (Midazolam 100mg/100ml-0.9%Nacl) 100 mg in 100 mls @ 1 mls/hr IVPB TITR [facility]; Protocol Last Admin: 08/02/19 18:30 Dose: Not Given Dexmedetomidine HCl 400 mcg/ (Sodium Chloride) 100 mls @ 2.3 mls/hr IVPB TITR [facility] Last Admin: 08/03/19 05:49 Dose: 0.6 mcg/kg/hr, 6.91 mls/hr Sodium Chloride (Normal Saline -) 1,000 mls @ 42 mls/hr IV ASDIR [facility] Last Admin: 08/02/19 21:29 Dose: 42 mls/hr Insulin Aspart (Novolog Vial Sliding Scale -) 1 vial SQ ACHS [facility]; Protocol Last Admin: 08/03/19 07:23 Dose: Not Given Lidocaine (Lidoderm Patch -) 1 patch TP DAILY [facility] Last Admin: 08/02/19 11:00 Dose: 1 patch Metoprolol Tartrate (Lopressor Injection -) 5 mg IVPUSH Q4H PRN PRN Reason: TACHYCARDIA Last Admin: 08/03/19 09:33 Dose: 5 mg Miscellaneous (Lidoderm Patch Removal) 1 each MC DAILY@2200 [facility] Last Admin: 08/02/19 23:54 Dose: 1 each Olanzapine (Zyprexa -) 2.5 mg PO HS [facility] Last Admin: 08/02/19 21:28 Dose: 2.5 mg Pantoprazole Sodium (Protonix Iv) 40 mg IVPUSH DAILY [facility] Last Admin: 08/02/19 10:47 Dose: 40 mg Polyethylene Glycol (Miralax (For Daily Use) -) 17 gm PO DAILY [facility] Last Admin: 08/02/19 10:46 Dose: 17 gm - Objective Vital Signs: Vital Signs Temperature 97.8 F 08/03/19 06:00 Pulse Rate 160 H 08/03/19 09:33 Respiratory Rate 30 H 08/03/19 08:05 Blood Pressure 110/58 L 08/03/19 09:33 O2 Sat by Pulse Oximetry (%) 97 08/03/19 08:05 Constitutional: Yes: Other (POORLY RESPONSIVE) Cardiovascular: Yes: Regular Rate and Rhythm, S1, S2 Respiratory: Yes: Mechanically Ventilated Gastrointestinal: Yes: Normal Bowel Sounds, Soft. No: Tenderness Labs: CBC, BMP 08/03/19 06:00 08/03/19 06:00 INR, PTT INR 1.61 (0.83-1.09) H 07/29/19 06:15 Assessment/Plan RESPIRATORY FAILURE PROBABLE ASPIRATION RLL PNEUMONIA R/O SEPTIC SHOCK SUBSTITUTE NAFCILLIN FOR S AUREUS HEMODYNAMIC/ VENTILATORY SUPPORT
--- NOTE | 2019-08-03 11:23 | PN ---
Progress Note (short form) - Note Progress Note: s: intubated, not responsive Current Medications Acetaminophen (Tylenol -) 650 mg PO Q6H PRN PRN Reason: PAIN 2-5 Last Admin: 07/27/19 09:11 Dose: 650 mg Apixaban (Eliquis -) 2.5 mg PO BID [facility] Last Admin: 08/02/19 21:29 Dose: 2.5 mg Chlorhexidine Gluconate (Peridex -) 15 ml MM BID [facility] Last Admin: 08/02/19 21:29 Dose: 15 ml Diltiazem HCl (Cardizem -) 30 mg NR QID PRN PRN Reason: TACHYCARDIA Last Admin: 08/02/19 13:27 Dose: 30 mg Norepinephrine Bitartrate 8, (000 mcg/ Dextrose) 500 mls @ 18.75 mls/hr IV TITR [facility]; Protocol Last Admin: 08/03/19 05:47 Dose: 15 mcg/min, 56.25 mls/hr Midazolam HCl (Midazolam 100mg/100ml-0.9%Nacl) 100 mg in 100 mls @ 1 mls/hr IVPB TITR [facility]; Protocol Last Admin: 08/02/19 18:30 Dose: Not Given Dexmedetomidine HCl 400 mcg/ (Sodium Chloride) 100 mls @ 2.3 mls/hr IVPB TITR [facility] Last Admin: 08/03/19 05:49 Dose: 0.6 mcg/kg/hr, 6.91 mls/hr Sodium Chloride (Normal Saline -) 1,000 mls @ 42 mls/hr IV ASDIR [facility] Last Admin: 08/02/19 21:29 Dose: 42 mls/hr Nafcillin Sodium 2 gm/ (Dextrose) 100 mls @ 100 mls/hr IVPB Q6H-IV [facility]; Protocol Insulin Aspart (Novolog Vial Sliding Scale -) 1 vial SQ ACHS [facility]; Protocol Last Admin: 08/03/19 07:23 Dose: Not Given Lidocaine (Lidoderm Patch -) 1 patch TP DAILY [facility] Last Admin: 08/02/19 11:00 Dose: 1 patch Metoprolol Tartrate (Lopressor Injection -) 5 mg IVPUSH Q4H PRN PRN Reason: TACHYCARDIA Last Admin: 08/03/19 09:33 Dose: 5 mg Miscellaneous (Lidoderm Patch Removal) 1 each MC DAILY@2200 [facility] Last Admin: 08/02/19 23:54 Dose: 1 each Olanzapine (Zyprexa -) 2.5 mg PO HS [facility] Last Admin: 08/02/19 21:28 Dose: 2.5 mg Pantoprazole Sodium (Protonix Iv) 40 mg IVPUSH DAILY [facility] Last Admin: 08/02/19 10:47 Dose: 40 mg Polyethylene Glycol (Miralax (For Daily Use) -) 17 gm PO DAILY [facility] Last Admin: 08/02/19 10:46 Dose: 17 gm Vital Signs Period Temp Pulse Resp BP Sys/Sheldon Pulse Ox Last 24 Hr 97.4 F-98.6 F 92-160 21-31 93-149/43-81 97-100 Constitutional: Yes: Well Nourished, No Distress, Calm Cardiovascular: Yes: Regular Rate and Rhythm, Murmur (3/6 early MELISSA rusb/lusb), S1, S2. No: JVD (tds exam), Gallop Respiratory: Yes: Regular, CTA Bilaterally (anteirorly). No: Accessory Muscle Use, Wheezes Extremities: No: Cold Edema: 1+ lower ext benny, 2+ hands bilaterally Neurological: No: Alert, Oriented, Seizure Psychiatric: No: Agitated Assessment/Plan Echo 08/02: nl LV/RV. severe LAE. 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 mod TR. RVSP 30-40. mild /AI. 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 Vent support, pressors as per Critical Care 2. Abx as per Critical Care 3. cont Eliquis (2.5 mg for age/wt), Cardizem as needed. Rates adequately controlled. 4. Continue to wean pressors as tolerated 5. Advanced directives noted, palliative care consulted. ongoing goals of care discussions with HCP 6. no overt volume excess on exam--would dose lasix prn cxr findings or edema
[2019-08-03] MEDS ORDERED: NAPH,MB-DB/K PH,MBDB POWDER PACKET PO ONE ×2 (11:38→18:00)
--- NOTE | 2019-08-03 12:04 | PN ---
Teaching Attending Note Name of Resident: Tay Hines ATTENDING PHYSICIAN STATEMENT I saw and evaluated the patient. I reviewed the resident's note and discussed the case with the resident. I agree with the resident's findings and plan as documented. SUBJECTIVE: Pt seen and examined in the ICU. Remains intubated but arousable off sedation. Follows some commands. Remains on levophed gtt. OBJECTIVE: Vital Signs Period Temp Pulse Resp BP Sys/Sheldon Pulse Ox Last 24 Hr 97.4 F-99.0 F 92-160 17-31 93-149/43-81 97-100 Intake & Output 07/31/19 08/01/19 08/02/19 08/03/19 23:59 23:59 23:59 23:59 Intake Total 3011.5 3975 3532 2076 Output Total 1900 3720 3250 1100 Balance 1111.5 255 282 976 Weight 52.787 kg 53.722 kg 49.924 kg 52.702 kg Gen: intubated, arousable Heart: RRR, +systolic murmur Lung: scattered rhonchi Abd: soft, nontender Ext: + edema CBC, BMP 08/03/19 06:00 08/03/19 06:00 Active Medications Acetaminophen (Tylenol -) 650 mg PO Q6H PRN PRN Reason: PAIN 2-5 Last Admin: 07/27/19 09:11 Dose: 650 mg Apixaban (Eliquis -) 2.5 mg PO BID [facility] Last Admin: 08/03/19 11:13 Dose: 2.5 mg Chlorhexidine Gluconate (Peridex -) 15 ml MM BID [facility]IL[facility] Last Admin: 08/03/19 11:14 Dose: 15 ml Diltiazem HCl (Cardizem -) 30 mg NR QID PRN PRN Reason: TACHYCARDIA Last Admin: 08/02/19 13:27 Dose: 30 mg Norepinephrine Bitartrate 8, (000 mcg/ Dextrose) 500 mls @ 18.75 mls/hr IV TITR [facility]IL[facility]; Protocol Last Admin: 08/03/19 05:47 Dose: 15 mcg/min, 56.25 mls/hr Midazolam HCl (Midazolam 100mg/100ml-0.9%Nacl) 100 mg in 100 mls @ 1 mls/hr IVPB TITR [facility]IL[facility]; Protocol Last Admin: 08/02/19 18:30 Dose: Not Given Dexmedetomidine HCl 400 mcg/ (Sodium Chloride) 100 mls @ 2.3 mls/hr IVPB TITR [facility] Last Admin: 08/03/19 05:49 Dose: 0.6 mcg/kg/hr, 6.91 mls/hr Nafcillin Sodium 2 gm/ (Dextrose) 100 mls @ 100 mls/hr IVPB Q6H-IV [facility]IL[facility]; Protocol Insulin Aspart (Novolog Vial Sliding Scale -) 1 vial SQ ACHS [facility]; Protocol Last Admin: 08/03/19 11:22 Dose: Not Given Lidocaine (Lidoderm Patch -) 1 patch TP DAILY [facility] Last Admin: 08/02/19 11:00 Dose: 1 patch Metoprolol Tartrate (Lopressor Injection -) 5 mg IVPUSH Q4H PRN PRN Reason: TACHYCARDIA Last Admin: 08/03/19 09:33 Dose: 5 mg Miscellaneous (Lidoderm Patch Removal) 1 each MC DAILY@2200 [facility] Last Admin: 08/02/19 23:54 Dose: 1 each Olanzapine (Zyprexa -) 2.5 mg PO HS [facility] Last Admin: 08/02/19 21:28 Dose: 2.5 mg Pantoprazole Sodium (Protonix Iv) 40 mg IVPUSH DAILY [facility] Last Admin: 08/03/19 11:14 Dose: 40 mg Polyethylene Glycol (Miralax (For Daily Use) -) 17 gm PO DAILY [facility] Last Admin: 08/03/19 11:14 Dose: 17 gm ASSESSMENT AND PLAN: Acute Hypoxic Respiratory Failure Pneumonia Septic Shock Lactic Acidosis Volume Overload Altered Mental Status Atrial Fibrillation Mitral Regurgitation HTN Hypernatremia - continue antibiotics - IVF boluses to keep CVP 8-12 - titrate pressors to maintain MAP > 65 - monitor urine output, creatinine - rate control - continue anticoagulation - daily sedation vacations to assess mental status - spontaneous breathing trials as tolerated - MRI brain when extubated if no improvement in mental status - enteral feeds - DVT/GI prophylaxis - continue discussions regarding goals of care - continue ICU monitoring critical care time spent in reviewing chart, evaluating patient and formulating plan 35 min Problem List - Problems (1) Altered mental status Code(s): R41.82 - ALTERED MENTAL STATUS, UNSPECIFIED
[2019-08-03] MEDS: LIDOCAINE 5% TOPICAL PATCH TP SCH (12:21)
--- NOTE | 2019-08-03 12:32 | PN ---
Progress Note (short form) - Note Progress Note: Renal follow up electrolyte imbalance Seen and examined in the ICU on vent, sedated on vent via ET tube making urine via leslie catheter on Levophed off standing IVF Vital Signs Temperature 99.0 F 08/03/19 10:00 Pulse Rate 96 H 08/03/19 10:00 Respiratory Rate 18 08/03/19 11:48 Blood Pressure 106/48 L 08/03/19 10:00 O2 Sat by Pulse Oximetry (%) 97 08/03/19 08:05 Intake & Output 07/31/19 08/01/19 08/02/19 08/03/19 23:59 23:59 23:59 23:59 Intake Total 3011.5 3975 3532 2076 Output Total 1900 3720 3250 1100 Balance 1111.5 255 282 976 Weight 52.787 kg 53.722 kg 49.924 kg 52.702 kg intubated and sedated ET Tube in place neck supple, no JVD irregular, no M/R Dec BS, no rales soft NT/ND upper extremity edema CBC, BMP 08/03/19 06:00 08/03/19 06:00 Current Medications Acetaminophen (Tylenol -) 650 mg PO Q6H PRN PRN Reason: PAIN 2-5 Last Admin: 07/27/19 09:11 Dose: 650 mg Apixaban (Eliquis -) 2.5 mg PO BID [facility] Last Admin: 08/03/19 11:13 Dose: 2.5 mg Chlorhexidine Gluconate (Peridex -) 15 ml MM BID [facility] Last Admin: 08/03/19 11:14 Dose: 15 ml Diltiazem HCl (Cardizem -) 30 mg NR QID PRN PRN Reason: TACHYCARDIA Last Admin: 08/02/19 13:27 Dose: 30 mg Norepinephrine Bitartrate 8, (000 mcg/ Dextrose) 500 mls @ 18.75 mls/hr IV TITR [facility]; Protocol Last Admin: 08/03/19 05:47 Dose: 15 mcg/min, 56.25 mls/hr Midazolam HCl (Midazolam 100mg/100ml-0.9%Nacl) 100 mg in 100 mls @ 1 mls/hr IVPB TITR [facility]; Protocol Last Admin: 08/02/19 18:30 Dose: Not Given Dexmedetomidine HCl 400 mcg/ (Sodium Chloride) 100 mls @ 2.3 mls/hr IVPB TITR [facility] Last Admin: 08/03/19 05:49 Dose: 0.6 mcg/kg/hr, 6.91 mls/hr Nafcillin Sodium 2 gm/ (Dextrose) 100 mls @ 100 mls/hr IVPB Q6H-IV [facility]; Protocol Insulin Aspart (Novolog Vial Sliding Scale -) 1 vial SQ ACHS [facility]; Protocol Last Admin: 08/03/19 11:22 Dose: Not Given Lidocaine (Lidoderm Patch -) 1 patch TP DAILY [facility] Last Admin: 08/03/19 12:21 Dose: 1 patch Metoprolol Tartrate (Lopressor Injection -) 5 mg IVPUSH Q4H PRN PRN Reason: TACHYCARDIA Last Admin: 08/03/19 09:33 Dose: 5 mg Miscellaneous (Lidoderm Patch Removal) 1 each MC DAILY@2200 [facility] Last Admin: 08/02/19 23:54 Dose: 1 each Olanzapine (Zyprexa -) 2.5 mg PO HS [facility] Last Admin: 08/02/19 21:28 Dose: 2.5 mg Pantoprazole Sodium (Protonix Iv) 40 mg IVPUSH DAILY [facility] Last Admin: 08/03/19 11:14 Dose: 40 mg Polyethylene Glycol (Miralax (For Daily Use) -) 17 gm PO DAILY [facility] Last Admin: 08/03/19 11:14 Dose: 17 gm 88 year old woman with history of atrial fibrillation and hypertension who presented with rapid atrial fibrillation with pneumonia and hypernatremia. 1. Hypernatreima now resolved 2. Azotemia 3. Pneumonia 4. Rapid Atrial fibrillation 5. Lactic acidosis 6. Leukocytosis 7. Hypokalemia 8. Hypophosphtaemia Serum sodium now improved and stable. supplament Phos with Neutraphos via feeding tube Continue isotonic saline to maintain CVP with goal 10-12 continue vaospressers for BP support goal MAP > 65, CVP goal 10-12 Trend electrolytes daily Thank you Tolu Akers DO
[2019-08-03] MEDS ORDERED: PT OWN MED DRAWER 7, Y5N ONE ×2 (15:06→17:21)
[2019-08-03] MEDS: NAFCILLIN - 2 GM in DEXTROSE 5%-WATER - 100 ML IVPB SCH ×3 (15:14→21:05)
[2019-08-03] MEDS: MIDAZOLAM IN 0.9 % SOD.CHLORID 100 MG/100 ML PLAST..BAG IVPB SCH (18:35)
[2019-08-03] MEDS ORDERED: NOREPINEPHRINE BITARTRATE 4 MG/4 ML ML IV ONE (18:41)
[2019-08-03] MEDS: OLANZapine 2.5 MG TABLET PO SCH (21:04)
[2019-08-03] MEDS ORDERED: ADENOSINE 6 MG/2 ML VIAL IVPUSH ONE ×3 (22:09→22:31)
[2019-08-03] MEDS ORDERED: AMIODARONE HCL 150 MG/3 ML VIAL ONE (22:20)
[2019-08-03] MEDS ORDERED: AMIODARONE IN DEXTROSE,ISO-OSM 360 MG/200 ML BAG ONE (22:20)
[2019-08-03] MEDS ORDERED: ACETAMINOPHEN 1000 MG/100 ML VIAL (NON FORMULARY) IVPB ONE (22:31)
[2019-08-03] MEDS ORDERED: AMIODARONE IN DEXTROSE,ISO-OSM 360 MG/200 ML BAG IVPB ONE (22:32)
[2019-08-03] MEDS ORDERED: AMIODARONE IN DEXTROSE,ISO-OSM 150 MG/100 ML BAG IVPB ONE (22:32)
--- NOTE | 2019-08-03 22:35 | PN ---
Progress Note (short form) - Note Progress Note: Patient noted to be in SVT. Patient given 6 of adenosine w/ momentary improvement before return to SVT. Repeat dose of 12 yielded same results. IV tylenol ordered for presumptive fever as patient warm to touch. EKG confirmed SVT. BGM normal. Amiodarone drip started. Patient converted to rate controlled afib following bolus 150mg over 10 minutes. 1mg/min maintenance dosing will be continued with prn orders of diltiazem for rate control.
[2019-08-03] MEDS: LIDOCAINE PATCH REMOVAL MC SCH (23:11)
[2019-08-03] MEDS ORDERED: AMIODARONE IN DEXTROSE,ISO-OSM 360 MG/200 ML BAG IVPB SCH (23:15)
[2019-08-04] MEDS ORDERED: PT OWN MED DRAWER 7, Y5N ONE (00:14)
[2019-08-04] MEDS: ACETAMINOPHEN 325 MG TABLET (FP) PO PRN (02:35)
[2019-08-04] MEDS: NAFCILLIN - 2 GM in DEXTROSE 5%-WATER - 100 ML IVPB SCH (02:36)
[2019-08-04] MEDS: NOREPINEPHRINE BITARTRATE 8,000 MCG in DEXTROSE 5%-WATER - 492 ML IV SCH (02:37)
[2019-08-04] MEDS: DEXMEDETOMIDINE HCL 400 MCG in SODIUM CHLORIDE 96 ML IVPB SCH (02:37)
[2019-08-04 02:47] VITALS: TEMP 102.2
[2019-08-04] MEDS ORDERED: AMIODARONE IN DEXTROSE,ISO-OSM 360 MG/200 ML BAG IVPB SCH ×2 (04:45→05:00)
[2019-08-04] MEDS ORDERED: dilTIAZem HCL 25 MG/5 ML - 5 ML VIAL IVPUSH ONE ×2 (05:21→05:40)
[2019-08-04] MEDS ORDERED: dilTIAZem HCL 125 MG/25 ML - 25 ML VIAL ONE (05:41)
[2019-08-04 06:14] VITALS: BP 86/44
[2019-08-04] MEDS: INSULIN SLIDING SCALE (NOVOLOG) 1 VIAL SQ SCH (06:17)
[2019-08-04] MEDS: MIDAZOLAM IN 0.9 % SOD.CHLORID 100 MG/100 ML PLAST..BAG IVPB SCH (06:19)
[2019-08-04 06:35] LABS: ARTERIAL BLD GAS O2 SATURATION 98.2 % (95-98); ARTERIAL BLOOD GAS BASE EXCESS -0.3 meq/l (-2-2); ARTERIAL BLOOD GAS PCO2 30.7 mmHg (35-45); ARTERIAL BLOOD GAS PO2 98.8 mmHg (80-100); ARTERIAL BLOOD GAS pH 7.48 (7.35-7.45)
[2019-08-04 06:37] LABS: ALLENS TEST POSITIVE
[2019-08-04 07:01] LABS: BASO % 0.3 % (0-2.0); EOS % 0.1 % (0-4.5); HEMOGLOBIN 9.9 GM/dL (10.7-15.3); LYMPH % 4.2 % (8-40); MEAN PLT VOLUME 9.8 fl (7.5-11.1); MONO % 4.2 % (3.8-10.2); NEUT % 91.2 % (42.8-82.8); PLATELET COUNT 245 K/MM3 (134-434); RDW 15.8 % (11.6-15.6)
[2019-08-04 07:09] LABS: BLOOD UREA NITROGEN 29.7 mg/dL (7-18); CALCIUM 7.5 mg/dL (8.5-10.1); CREATININE 0.7 mg/dL (0.55-1.3); MAGNESIUM 2.3 mg/dL (1.8-2.4); PHOSPHOROUS 3.1 mg/dL (2.5-4.9); POTASSIUM 4.2 mmol/L (3.5-5.1)
[2019-08-04] MEDS ORDERED: VASOPRESSIN 50 UNITS in SODIUM CHLORIDE 97.5 ML IVPB SCH (07:30)
--- NOTE | 2019-08-04 08:03 | PN ---
Progress Note (short form) - Note Progress Note: Patient went into asystole. Patient was intubated and sedated. Patient is DNR, documented in chart. Physical Exam: HEENT: pupils non reactive, fixed, dilated. negative dolls eye test Cardio: no heartbeat auscultated. No carotid, femoral, or radial pulses noted. Respiratory: No spontaneous breaths Time of called at 07:53 ICU attending notified. PCP, Dr. Lindsey, notified. Health Care proxy, Sarah Gilliam, notified. Corie contacted by nurse.
[2019-08-04 09:07] LABS: ANISOCYTOSIS 0; MACROCYTOSIS 0; PLATELET ESTIMATE NORMAL
[2019-08-04 09:42] VITALS: PULSE 96
--- NOTE | 2019-08-04 09:47 | DS ---
Physical Examination Vital Signs: Vital Signs Temperature 102.2 F H 08/04/19 02:00 Pulse Rate 96 H 08/04/19 08:00 Respiratory Rate 30 H 08/04/19 08:00 Blood Pressure 86/44 L 08/04/19 06:00 O2 Sat by Pulse Oximetry (%) 98 08/04/19 08:00 Findings/Remarks: d/w ICU team pt went into asystole this am she was DNR so no cardiac resuscitation done; at the time of asystole she was on pressors, IV ATB, IVF as previously ordered, and she was mechanically ventilated / as previously intubated (never extubated during ICU stay) d/.w pt's HCP and ms Gilliam they are aware of pt's passing; ms Gilliam HCP previously signed DNR while pt in ICU ( per pt's prior wishes). Labs: CBC, BMP 08/04/19 06:00 08/04/19 06:00 Discharge Summary Problems reviewed: Yes Reason For Visit: RAPID AFIB Current Active Problems Acute hypoxemic respiratory failure (Acute) Altered mental status (Acute) Aortic regurgitation (Acute) Aortic stenosis (Acute) Atrial fibrillation (Acute) Atrial fibrillation with rapid ventricular response (Acute) Elevated brain natriuretic peptide (BNP) level (Acute) HTN (hypertension) (Acute) Hypoalbuminemia (Acute) Hypokalemia (Acute) Hypophosphatemia (Acute) Mitral regurgitation (Acute) Osteoarthritis of right hip (Acute) Pneumonia (Acute) Septic shock (Acute) Tricuspid regurgitation (Acute) Weakness (Acute) Procedures: Principal: 88 YOF admitted with wekaness failure to thrive; found to have rapid A Fib and confusion. Other Procedures: seen by neurology and cardiology; Hospital Course: developed PNA and respiratory failure; started on IV ATB per ID; decompensated respiratory milner and was intubated and transferred to ICU Plan of Treatment: in ICU remained on the ventilator and became hypotensive and RAFib - she was seen by ICU team, cardiology and ID; Iv ATB; pt's HCP ms Gilliam agreed with a short trial of mechanical ventilation but signed DNR no cardiac resuscitation per pt's prior stated wishes with plan to have compassionate extubation if she does not improve with medical treatment; however depsite treatment pt went into asystole and . Condition: - Instructions Disposition: - Home Medications Comprehensive Discharge Medication List: Ambulatory Orders Apixaban [Eliquis] 2.5 mg PO BID 07/21/19 Diltiazem HCl [Diltiazem ER] 240 mg PO DAILY 07/21/19 Furosemide 40 mg PO DAILY 07/21/19 Metoprolol Succinate 25 mg PO DAILY 07/21/19 Pantoprazole Sodium 40 mg PO DAILY 07/21/19 Potassium Chloride 10 meq PO DAILY 07/21/19
--- NOTE | 2019-08-04 12:37 | EKG ---
Test Reason : Blood Pressure : / mmHG Vent. Rate : 100 BPM Atrial Rate : 129 BPM P-R Int : 000 ms QRS Dur : 110 ms QT Int : 386 ms P-R-T Axes : 000 040 167 degrees QTc Int : 497 ms ATRIAL FIBRILLATION INCOMPLETE LEFT BUNDLE BRANCH BLOCK NONSPECIFIC ST AND T WAVE ABNORMALITY PROLONGED QT ABNORMAL ECG WHEN COMPARED WITH ECG OF 03-AUG-2019 22:24, ATRIAL FIBRILLATION HAS REPLACED SINUS RHYTHM NONSPECIFIC T WAVE ABNORMALITY HAS REPLACED INVERTED T WAVES IN INFERIOR LEADS Confirmed by RACHANA GIL MD ([id number]) on 08/04/2019 12:37:28 PM Referred By: Confirmed By:RACHANA GIL MD
--- NOTE | 2019-08-04 12:38 | EKG ---
Test Reason : Blood Pressure : / mmHG Vent. Rate : 140 BPM Atrial Rate : 150 BPM P-R Int : 000 ms QRS Dur : 108 ms QT Int : 326 ms P-R-T Axes : 000 042 222 degrees QTc Int : 497 ms SUPRAVENTRICULAR TACHYCARDIA INCOMPLETE LEFT BUNDLE BRANCH BLOCK MARKED ST ABNORMALITY, POSSIBLE INFEROLATERAL SUBENDOCARDIAL INJURY ABNORMAL ECG WHEN COMPARED WITH ECG OF 24-JUL-2019 09:31, SINUS RHYTHM HAS REPLACED ATRIAL FIBRILLATION INVERTED T WAVES HAVE REPLACED NONSPECIFIC T WAVE ABNORMALITY IN INFERIOR LEADS Confirmed by RACHANA GIL MD ([id number]) on 08/04/2019 12:38:00 PM Referred By: Confirmed By:RACHANA GIL MD
== END 2019-08-04 07:53 | disposition expired | DRG 308 ==
LOC: JER 13:56 → JERBED 18:26 → J4S 07-22 14:55 → JICU 07-27 20:42
PROVIDERS: ADMIT Specialist; ATTEND Specialist
PROC: 5A1955Z Respiratory Ventilation, Greater than 96 Consecutive Hours (ICD-10-PCS; principal; 2019-07-27)
PROC: 0BH17EZ Insertion of Endotracheal Airway into Trachea, Via Natural or Artificial Opening (ICD-10-PCS; 2019-07-27)
PROC: 02HV33Z Insertion of Infusion Device into Superior Vena Cava, Percutaneous Approach (ICD-10-PCS; 2019-07-28)
PROC: B548ZZA Ultrasonography of Superior Vena Cava, Guidance (ICD-10-PCS; 2019-07-28)
DX: I48.91 Unspecified atrial fibrillation (principal); J96.01 Acute respiratory failure with hypoxia; J18.9 Pneumonia, unspecified organism; G93.41 Metabolic encephalopathy; A41.9 Sepsis, unspecified organism; R65.21 Severe sepsis with septic shock; E87.0 Hyperosmolality and hypernatremia; E87.2 Acidosis; J98.11 Atelectasis; Z79.01 Long term (current) use of anticoagulants; I10 Essential (primary) hypertension; E88.09 Other disorders of plasma-protein metabolism, not elsewhere classified; I34.0 Nonrheumatic mitral (valve) insufficiency; I35.1 Nonrheumatic aortic (valve) insufficiency; I35.0 Nonrheumatic aortic (valve) stenosis; M16.11 Unilateral primary osteoarthritis, right hip; E87.6 Hypokalemia; E83.39 Other disorders of phosphorus metabolism; I47.1 Supraventricular tachycardia
CPT/HCPCS: 36415; 36600; 70450-TC; 71045-TC-FY; 72125-TC; 73502-TC-LT-FY; 73552-TC-LT-FY; 73590-TC-LT-FY; 74019-TC-FY; 80048; 80053; 81003; 82140; 82272; 82550; 82553; 82803; 82962; 83605; 83735; 83880; 84100; 84439; 84443; 84481; 84484; 85025; 85027; 85610; 85730; 87040; 87070; 87086; 87186; 87205; 93005; 93010; 93306-TC; 94002; 97116-GP; 97162-GP; 99285-25; G0008; J0131; J0282; J7030; Q2036